=== PATIENT | female | born 1985 | race Caucasian/White ===

== ENCOUNTER → 2019-12-21 | Outpatient (BNVA) | payer OTHER, SELFPAY | PROVIDERS: PCP Internal Medicine; Visit Provider Surgery | DX: T79.2XXA Traumatic secondary and recurrent hemorrhage and seroma, initial encounter (principal) | CPT/HCPCS: 10021; 10160 ==

== ENCOUNTER → 2020-01-06 07:42 | Outpatient (BNVA) | payer OTHER, SELFPAY | PROVIDERS: PCP Internal Medicine; Referring Provider Internal Medicine; Visit Provider Student in an Organized Health Care Education/Training Program | DX: Z76.89 Persons encountering health services in other specified circumstances (principal) ==

== ENCOUNTER 2020-03-30 11:20 | Outpatient (REF) | payer OTHER, SELFPAY ==
[2020-03-30 12:02] LABS: MANUAL DIFF FLAG NO
[2020-03-30 12:12] LABS: Basophils Percent Auto 0.6 % (0-2); Eosinophils Absolute Auto 0.2 X10*3/uL (0.0-0.4); Eosinophils Percent Auto 2.7 % (0-4); Hematocrit 45.2 % (37-47); Hemoglobin 14.8 g/dl (12.0-16.0); Imm Gran Abs Auto 0.04 X10*3/uL (0.00-0.03); Imm Gran Pct Auto 0.6 % (0.0-0.4); Lymphocytes Percent Auto 28.1 % (20-40); Mean Corpuscular HGB Conc 32.7 g/dl (31.0-35.0); Mean Corpuscular Hemoglobin 32.8 pg (27.0-33.0); Mean Corpuscular Volume 100.2 fL (80-98); Mean Platelet Volume 9.2 fL (9.4-12.3); Monocytes Absolute Auto 0.7 X10*3/uL (0.1-1.2); Monocytes Percent Auto 9.3 % (2-11); Neutrophils Absolute Auto 4.2 X10*3/uL (2.0-8.3); Neutrophils Percent Auto 58.7 % (45-73); Platelet Count 281 X10*3/uL (160-400); Red Blood Count 4.51 X10*6/uL (4.20-5.50); Red Cell Distribution Width 13.3 % (11.0-16.0); White Blood Count 7.1 X10*3/uL (4.8-10.8)
[2020-03-30 12:31] LABS: Alanine Aminotransferase 29 U/L (0-31); Alkaline Phosphatase 69 U/L (39-117); Aspartate Amino Transferase 21 U/L (5-31); Bilirubin Total 0.4 mg/dL (0.0-1.0); Blood Urea Nitrogen 11 mg/dL (9-16); C Reactive Protein 0.48 mg/dL (< or = 0.50); Calcium 9.6 mg/dL (8.4-10.2); Estimated Glomerular Filt Rate > 60; Glucose Random 77 mg/dL (60-115); Total Protein 7.3 g/dL (6.5-8.0)
[2020-03-30 12:55] LABS: Anion Gap 10 (12-20); Carbon Dioxide 27 mmol/L (22-29); Chloride 104 mmol/L (96-108); Potassium 4.3 mmol/L (3.3-5.1); Sodium 137 mmol/L (135-145)
[2020-03-30 12:58] LABS: Vitamin B12 234 pg/mL (200-900)
[2020-03-30 13:50] LABS: Erythrocyte Sedimentation Rate 10 MM/HR (0-20)
== END 2020-03-30 11:21 | disposition home or self-care (01) ==
LOC: HO.LAB 11:20
PROVIDERS: PCP Internal Medicine; Visit Provider Student in an Organized Health Care Education/Training Program
DX: L40.50 Arthropathic psoriasis, unspecified (principal)
CPT/HCPCS: 36415; 80053; 82607; 85025; 85652; 86140

== ENCOUNTER → 2020-04-04 08:12 | Outpatient (BNVA) | payer OTHER, SELFPAY | PROVIDERS: PCP Internal Medicine; Referring Provider Internal Medicine; Visit Provider Student in an Organized Health Care Education/Training Program ==

== ENCOUNTER 2020-06-08 10:14 | Outpatient (REF) | payer OTHER, SELFPAY ==
--- NOTE | 2020-06-08 13:07 | MHC.AU.ANO ---
Adult Audiological Evaluation Date of Visit: 06/08/20 [employer] Administrator Used: [place]uran- By Phone Reason for Appointment: Patient has noticed hearing difficulty and tinnitus for approximately 5 years. She feels her hearing is worse in her left ear. Has hearing been tested previously?: No Hearing Handicap Inventory: HHIE SCORE: 36 Based on HHIE score, patient has: Severe perceived hearing handicap Ear History: Ear Deformity: None Reported Recent Ear Drainage: None Reported Recent Ear Pain: None Reported Family History of Hearing Loss?: Yes: Father Recent Ear Infections: None Reported Ear Infections in Childhood: Both Ears History of Ear Wax Buildup: Both Ears Previous Ear Surgery: None Reported Bothersome Tinnitus/Ringing/Noises in Ears: Both Ears Ear used on the phone: Right Ear Blocked/Full Sensation in Ear(s): Both Ears History of occupational noise exposure?: No History: No Medical History: Medical History: Psoriatic Arthritis Medication List: Humira, Methotrexate Otoscopy: Right Ear: Cerumen removal performed. Tympanic membrane now visible. Left Ear: Cerumen removal performed. Tympanic membrane now visible. Tympanometry: Tympanometry performed due to: To assess integrity of the middle ear system Right Ear: Normal Middle Ear System (Type A) Left Ear: Normal Middle Ear System (Type A) Otoacoustic Emissions Frequency Range Used: 1.6-8 kHz Right Ear Results: Present 1.6-2.5 kHz, Reduced/Absent 3-8 kHz Analysis: Reduced/Absent emissions suggest cochlear dysfunction Results are consistent with degree and configuration of hearing loss Left Ear Results: Present 1.6-2.5 kHz, Reduced/Absent 3-8 kHz Analysis: Reduced/Absent emissions suggest cochlear dysfunction Results are consistent with degree and configuration of hearing loss Hearing Evaluation: Transducer(s) Used: Insert Earphones Circumaural Headphones Method: Conventional Audiometry Stimuli Used: Pure Tones Right Ear: Description of Hearing: Mild sloping to moderately-severe sensorineural hearing loss Left Ear: Description of Hearing: Mild sloping to moderately-severe sensorineural hearing loss (overall worse than right ear) Speech Recognition Threshold (SRT): Method Used: Recorded Lists Right Ear: 30 dBHL Left Ear: 40 dBHL Word Discrimination: Method: Recorded Lists Word Lists Used: Lista Bisil?bica (Honduran) Right Ear: 96% at 70 dBHL Left Ear: 100% at 80 dBHL Interpretation of Results: Patient presents with asymmetrical sensorineural hearing loss. With this hearing loss, she will best understand people if they are [id number], and there is minimal background noise. If she was in a noisier environment, or if the speaker was not directly in front of her, it is expected that she would have a much more difficult time hearing and understanding speech. Recommendations: Referral to Ear, Nose, and Throat is recommended to address the newly diagnosed asymmetrical sensorineural hearing loss. After medical clearance is obtained from an ENT, a trial with amplification is recommended. Diagnosis: Primary Diagnosis: H90.3 Bilateral Sensorineural Hearing Loss Services Performed: Comprehensive Audiological Evaluation (CPT 36453), Limited Otoacoustic Emissions (CPT 25749), Tympanometry (CPT 11510) Signature: Provider: Dayanna Sparks, CCC-A
== END 2020-06-08 10:15 | disposition home or self-care (01) ==
LOC: HO.SH 10:14
PROVIDERS: Visit Provider Internal Medicine
DX: H91.90 Unspecified hearing loss, unspecified ear (principal)
CPT/HCPCS: 92557; 92567; 92587

== ENCOUNTER 2020-06-22 11:24 | Outpatient (REF) | payer OTHER, SELFPAY ==
[2020-06-22 12:22] LABS: MANUAL DIFF FLAG NO
[2020-06-22 12:26] LABS: Basophils Percent Auto 0.5 % (0-2); Eosinophils Absolute Auto 0.2 X10*3/uL (0.0-0.4); Hematocrit 45.2 % (37-47); Hemoglobin 14.2 g/dl (12.0-16.0); Imm Gran Abs Auto 0.04 X10*3/uL (0.00-0.03); Imm Gran Pct Auto 0.5 % (0.0-0.4); Lymphocytes Absolute Auto 1.9 X10*3/uL (1.2-4.9); Lymphocytes Percent Auto 21.4 % (20-40); Mean Corpuscular HGB Conc 31.4 g/dl (31.0-35.0); Mean Corpuscular Hemoglobin 31.7 pg (27.0-33.0); Mean Corpuscular Volume 100.9 fL (80-98); Mean Platelet Volume 9.1 fL (9.4-12.3); Monocytes Absolute Auto 0.8 X10*3/uL (0.1-1.2); Monocytes Percent Auto 9.5 % (2-11); Neutrophils Absolute Auto 5.9 X10*3/uL (2.0-8.3); Neutrophils Percent Auto 66.1 % (45-73); Platelet Count 394 X10*3/uL (160-400); Red Blood Count 4.48 X10*6/uL (4.20-5.50); Red Cell Distribution Width 13.7 % (11.0-16.0); White Blood Count 8.9 X10*3/uL (4.8-10.8)
[2020-06-22 13:08] LABS: Alanine Aminotransferase 16 U/L (0-31); Albumin Level 4.1 g/dL (3.5-5.0); Alkaline Phosphatase 122 U/L (39-117); Anion Gap 14 (12-20); Aspartate Amino Transferase 17 U/L (5-31); Bilirubin Total 0.5 mg/dL (0.0-1.0); Blood Urea Nitrogen 9 mg/dL (9-16); C Reactive Protein 1.67 mg/dL (< or = 0.50); Calcium 9.9 mg/dL (8.4-10.2); Carbon Dioxide 26 mmol/L (22-29); Chloride 104 mmol/L (96-108); Estimated Glomerular Filt Rate > 60; Glucose Random 87 mg/dL (60-115); Potassium 4.5 mmol/L (3.3-5.1); Sodium 139 mmol/L (135-145); Total Protein 7.9 g/dL (6.5-8.0)
[2020-06-22 13:13] LABS: Erythrocyte Sedimentation Rate 25 MM/HR (0-20)
== END 2020-06-22 11:25 | disposition home or self-care (01) ==
LOC: HO.LAB 11:24
PROVIDERS: PCP Internal Medicine; Visit Provider Student in an Organized Health Care Education/Training Program
DX: L40.50 Arthropathic psoriasis, unspecified (principal)
CPT/HCPCS: 36415; 80053; 85025; 85652; 86140

== ENCOUNTER → 2020-06-29 08:09 | Outpatient (BNVA) | payer OTHER, SELFPAY | PROVIDERS: PCP Internal Medicine; Visit Provider Student in an Organized Health Care Education/Training Program ==

== ENCOUNTER 2020-09-20 10:06 | Outpatient (REF) | payer OTHER, SELFPAY ==
[2020-09-20 10:45] LABS: MANUAL DIFF FLAG NO
[2020-09-20 10:50] LABS: Basophils Percent Auto 0.4 % (0-2); Eosinophils Absolute Auto 0.2 X10*3/uL (0.0-0.4); Eosinophils Percent Auto 2.2 % (0-4); Hemoglobin 13.7 g/dl (12.0-16.0); Imm Gran Abs Auto 0.03 X10*3/uL (0.00-0.03); Imm Gran Pct Auto 0.3 % (0.0-0.4); Lymphocytes Absolute Auto 1.8 X10*3/uL (1.2-4.9); Mean Corpuscular HGB Conc 32.6 g/dl (31.0-35.0); Mean Corpuscular Hemoglobin 31.7 pg (27.0-33.0); Mean Corpuscular Volume 97.2 fL (80-98); Mean Platelet Volume 9.1 fL (9.4-12.3); Monocytes Percent Auto 11.2 % (2-11); Neutrophils Absolute Auto 5.9 X10*3/uL (2.0-8.3); Neutrophils Percent Auto 65.9 % (45-73); Platelet Count 349 X10*3/uL (160-400); Red Blood Count 4.32 X10*6/uL (4.20-5.50); Red Cell Distribution Width 14.2 % (11.0-16.0); White Blood Count 8.9 X10*3/uL (4.8-10.8)
[2020-09-20 11:26] LABS: Alanine Aminotransferase 15 U/L (0-31); Albumin Level 3.9 g/dL (3.5-5.0); Alkaline Phosphatase 88 U/L (39-117); Anion Gap 13 (12-20); Aspartate Amino Transferase 17 U/L (5-31); Bilirubin Total 0.7 mg/dL (0.0-1.0); Blood Urea Nitrogen 10 mg/dL (9-16); C Reactive Protein 3.64 mg/dL (< or = 0.50); Calcium 9.8 mg/dL (8.4-10.2); Carbon Dioxide 24 mmol/L (22-29); Chloride 106 mmol/L (96-108); Estimated Glomerular Filt Rate > 60; Glucose Random 84 mg/dL (60-115); Potassium 4.2 mmol/L (3.3-5.1); Sodium 139 mmol/L (135-145); Total Protein 7.6 g/dL (6.5-8.0)
[2020-09-20 11:32] LABS: Erythrocyte Sedimentation Rate 26 MM/HR (0-20)
== END 2020-09-20 10:07 | disposition home or self-care (01) ==
LOC: HO.LAB 10:06
PROVIDERS: PCP Internal Medicine; Visit Provider Student in an Organized Health Care Education/Training Program
DX: L40.50 Arthropathic psoriasis, unspecified (principal)
CPT/HCPCS: 36415; 80053; 85025; 85652; 86140

== ENCOUNTER → 2020-09-26 07:47 | Outpatient (BNVA) | payer OTHER, SELFPAY | PROVIDERS: PCP Internal Medicine; Visit Provider Student in an Organized Health Care Education/Training Program ==

== ENCOUNTER 2020-12-28 10:40 | Outpatient (REF) | payer OTHER, SELFPAY ==
[2020-12-28 10:55] LABS: MANUAL DIFF FLAG NO
[2020-12-28 11:56] LABS: Basophils Percent Auto 0.4 % (0-2); Eosinophils Absolute Auto 0.2 X10*3/uL (0.0-0.4); Eosinophils Percent Auto 2.8 % (0-4); Hematocrit 42.1 % (37.0-47.0); Hemoglobin 13.7 g/dl (12.0-16.0); Imm Gran Abs Auto 0.02 X10*3/uL (0.00-0.03); Imm Gran Pct Auto 0.3 % (0.0-0.4); Lymphocytes Absolute Auto 1.5 X10*3/uL (1.2-4.9); Lymphocytes Percent Auto 20.4 % (20-40); Mean Corpuscular HGB Conc 32.5 g/dl (31.0-35.0); Mean Corpuscular Hemoglobin 32.9 pg (27.0-33.0); Mean Platelet Volume 9.5 fL (9.4-12.3); Monocytes Absolute Auto 0.8 X10*3/uL (0.1-1.2); Monocytes Percent Auto 10.1 % (2-11); Neutrophils Absolute Auto 4.9 x10*3/uL (2.0-8.3); Platelet Count 356 X10*3/uL (160-400); Red Blood Count 4.17 X10*6/uL (4.20-5.50); Red Cell Distribution Width 13.6 % (11.0-16.0); White Blood Count 7.5 X10*3/uL (4.8-10.8)
[2020-12-28 12:28] LABS: Alanine Aminotransferase 19 U/L (0-31); Albumin Level 3.9 g/dL (3.5-5.0); Alkaline Phosphatase 85 U/L (39-117); Anion Gap 10 (12-20); Aspartate Amino Transferase 17 U/L (5-31); Bilirubin Total 0.4 mg/dL (0.0-1.0); Blood Urea Nitrogen 11 mg/dL (9-16); C Reactive Protein 0.82 mg/dL (< or = 0.50); Calcium 9.3 mg/dL (8.4-10.2); Carbon Dioxide 27 mmol/L (22-29); Chloride 106 mmol/L (96-108); Estimated Glomerular Filt Rate > 60; Glucose Random 82 mg/dL (60-115); Potassium 4.1 mmol/L (3.3-5.1); Sodium 139 mmol/L (135-145); Total Protein 7.4 g/dL (6.5-8.0)
[2020-12-28 13:15] LABS: Erythrocyte Sedimentation Rate 17 MM/HR (0-20)
== END 2020-12-28 10:41 | disposition home or self-care (01) ==
LOC: HO.LAB 10:40
PROVIDERS: PCP Internal Medicine; Visit Provider Student in an Organized Health Care Education/Training Program
DX: L40.50 Arthropathic psoriasis, unspecified (principal)
CPT/HCPCS: 36415; 80053; 85025; 85652; 86140

== ENCOUNTER → 2020-12-31 07:58 | Outpatient (BNVA) | payer OTHER, SELFPAY | PROVIDERS: PCP Internal Medicine; Visit Provider Nurse Practitioner Family ==

== ENCOUNTER 2021-01-15 09:59 | Outpatient (REF) | payer OTHER, SELFPAY ==
[2021-01-16 13:09] LABS: BV Int Neg Control Negative (Negative); BV Int Pos Control Positive (Positive)
[2021-01-16 13:27] LABS: CT PCR NOT DETECTED (Not Detect.); NG PCR NOT DETECTED (Not Detect.)
[2021-01-23 06:27] LABS: HPV mRNA E6/E7 rflx Not Detected (Not Detected)
== END 2021-01-15 10:00 | disposition home or self-care (01) ==
LOC: HO.LAB 09:59
PROVIDERS: Visit Provider Advanced Practice Midwife
DX: Z01.419 Encounter for gynecological examination (general) (routine) without abnormal findings (principal); L40.9 Psoriasis, unspecified; N89.8 Other specified noninflammatory disorders of vagina; L40.50 Arthropathic psoriasis, unspecified; H90.3 Sensorineural hearing loss, bilateral; Z20.2 Contact with and (suspected) exposure to infections with a predominantly sexual mode of transmission; Z79.899 Other long term (current) drug therapy; Z87.891 Personal history of nicotine dependence
CPT/HCPCS: 87480; 87491; 87510; 87591; 87624; 87660; 88142

== ENCOUNTER 2021-05-27 09:17 | Outpatient (REF) | payer OTHER, SELFPAY ==
[2021-05-27 09:35] LABS: MANUAL DIFF FLAG NO
[2021-05-27 10:03] LABS: Basophils Percent Auto 0.4 % (0-2); Eosinophils Absolute Auto 0.2 X10*3/uL (0.0-0.4); Eosinophils Percent Auto 2.6 % (0-4); Hematocrit 42.1 % (37.0-47.0); Hemoglobin 13.7 g/dl (12.0-16.0); Imm Gran Abs Auto 0.03 X10*3/uL (0.00-0.03); Imm Gran Pct Auto 0.4 % (0.0-0.4); Lymphocytes Absolute Auto 1.8 X10*3/uL (1.2-4.9); Lymphocytes Percent Auto 25.6 % (20-40); Mean Corpuscular HGB Conc 32.5 g/dl (31.0-35.0); Mean Corpuscular Hemoglobin 32.9 pg (27.0-33.0); Mean Corpuscular Volume 101.2 fL (80.0-98.0); Monocytes Absolute Auto 0.7 X10*3/uL (0.1-1.2); Monocytes Percent Auto 9.7 % (2-11); Neutrophils Absolute Auto 4.3 x10*3/uL (2.0-8.3); Neutrophils Percent Auto 61.3 % (45-73); Platelet Count 316 X10*3/uL (160-400); Red Blood Count 4.16 X10*6/uL (4.20-5.50); Red Cell Distribution Width 13.1 % (11.0-16.0); White Blood Count 6.9 X10*3/uL (4.8-10.8)
[2021-05-27 10:29] LABS: Alanine Aminotransferase 32 U/L (0-31); Albumin Level 3.9 g/dL (3.5-5.0); Alkaline Phosphatase 80 U/L (39-117); Anion Gap 10 (12-20); Aspartate Amino Transferase 27 U/L (5-31); Bilirubin Total 0.7 mg/dL (0.0-1.0); Blood Urea Nitrogen 11 mg/dL (9-16); C Reactive Protein 0.58 mg/dL (< or = 0.50); Calcium 9.4 mg/dL (8.4-10.2); Carbon Dioxide 25 mmol/L (22-29); Chloride 105 mmol/L (96-108); Estimated Glomerular Filt Rate > 60; Glucose Random 90 mg/dL (60-115); Sodium 136 mmol/L (135-145); Total Protein 7.5 g/dL (6.5-8.0)
[2021-05-27 10:49] LABS: Erythrocyte Sedimentation Rate 33 MM/HR (0-20)
== END 2021-05-27 09:18 | disposition home or self-care (01) ==
LOC: HO.LAB 09:17
PROVIDERS: PCP Internal Medicine; Visit Provider Nurse Practitioner Family
DX: L40.50 Arthropathic psoriasis, unspecified (principal)
CPT/HCPCS: 36415; 80053; 85025; 85652; 86140

== ENCOUNTER 2021-05-29 18:00 | Outpatient (REF) | payer OTHER, SELFPAY | END 2021-05-29 18:01 | disposition home or self-care (01) | LOC: HO.LNP 18:00 | PROVIDERS: Visit Provider Nurse Practitioner Family | DX: H92.11 Otorrhea, right ear (principal); H61.891 Other specified disorders of right external ear; B96.5 Pseudomonas (aeruginosa) (mallei) (pseudomallei) as the cause of diseases classified elsewhere; Z16.11 Resistance to penicillins | CPT/HCPCS: 87070; 87077; 87186; 87205 ==

== ENCOUNTER → 2021-05-31 07:57 | Outpatient (BNVA) | payer OTHER, SELFPAY | PROVIDERS: PCP Internal Medicine; Visit Provider Nurse Practitioner Family | DX: Z13.89 Encounter for screening for other disorder (principal) ==

== ENCOUNTER 2021-09-27 10:42 | Outpatient (REF) | payer OTHER, SELFPAY ==
[2021-09-27 11:13] LABS: MANUAL DIFF FLAG NO
[2021-09-27 12:16] LABS: Basophils Percent Auto 0.5 % (0-2); Eosinophils Absolute Auto 0.1 X10*3/uL (0.0-0.4); Eosinophils Percent Auto 1.8 % (0-4); Hematocrit 38.8 % (37.0-47.0); Hemoglobin 12.2 g/dl (12.0-16.0); Imm Gran Abs Auto 0.01 X10*3/uL (0.00-0.03); Imm Gran Pct Auto 0.2 % (0.0-0.4); Lymphocytes Absolute Auto 1.2 X10*3/uL (1.2-4.9); Lymphocytes Percent Auto 22.3 % (20-40); Mean Corpuscular HGB Conc 31.4 g/dl (31.0-35.0); Mean Corpuscular Hemoglobin 30.8 pg (27.0-33.0); Mean Platelet Volume 9.6 fL (9.4-12.3); Monocytes Absolute Auto 0.6 X10*3/uL (0.1-1.2); Neutrophils Absolute Auto 3.6 x10*3/uL (2.0-8.3); Neutrophils Percent Auto 65.2 % (45-73); Platelet Count 273 X10*3/uL (160-400); Red Blood Count 3.96 X10*6/uL (4.20-5.50); Red Cell Distribution Width 13.6 % (11.0-16.0); White Blood Count 5.5 X10*3/uL (4.8-10.8)
[2021-09-27 12:50] LABS: Alanine Aminotransferase 26 U/L (0-31); Aspartate Amino Transferase 20 U/L (5-31); C Reactive Protein 0.94 mg/dL (< or = 0.50); Estimated Glomerular Filt Rate > 60
[2021-09-27 13:04] LABS: Erythrocyte Sedimentation Rate 18 MM/HR (0-20)
== END 2021-09-27 10:43 | disposition home or self-care (01) ==
LOC: HO.LAB 10:42
PROVIDERS: PCP Internal Medicine; Visit Provider Nurse Practitioner Family
DX: L40.50 Arthropathic psoriasis, unspecified (principal); Z79.899 Other long term (current) drug therapy
CPT/HCPCS: 36415; 82565; 84450; 84460; 85025; 85652; 86140

== ENCOUNTER 2021-10-01 08:00 | Outpatient (RCR) | payer OTHER, SELFPAY | END 2021-12-19 13:57 | disposition home or self-care (01) | LOC: HO.WCC 08:00 | PROVIDERS: PCP Internal Medicine; Visit Provider Physician Assistant | DX: L89.310 Pressure ulcer of right buttock, unstageable (principal); F12.90 Cannabis use, unspecified, uncomplicated | CPT/HCPCS: 99212; 99213 ==

== ENCOUNTER 2021-10-14 08:43 | Outpatient (REF) | payer OTHER, SELFPAY ==
[2021-10-14 10:39] LABS: MANUAL DIFF FLAG NO
[2021-10-14 10:42] LABS: Basophils Percent Auto 0.6 % (0-2); Eosinophils Absolute Auto 0.2 X10*3/uL (0.0-0.4); Eosinophils Percent Auto 3.8 % (0-4); Imm Gran Abs Auto 0.01 X10*3/uL (0.00-0.03); Imm Gran Pct Auto 0.2 % (0.0-0.4); Lymphocytes Absolute Auto 1.4 X10*3/uL (1.2-4.9); Lymphocytes Percent Auto 30.1 % (20-40); Mean Corpuscular HGB Conc 31.7 g/dl (31.0-35.0); Mean Corpuscular Hemoglobin 30.8 pg (27.0-33.0); Mean Corpuscular Volume 97.2 fL (80.0-98.0); Mean Platelet Volume 9.4 fL (9.4-12.3); Monocytes Absolute Auto 0.4 X10*3/uL (0.1-1.2); Monocytes Percent Auto 8.6 % (2-11); Neutrophils Absolute Auto 2.7 x10*3/uL (2.0-8.3); Neutrophils Percent Auto 56.7 % (45-73); Platelet Count 300 X10*3/uL (160-400); Red Blood Count 4.22 X10*6/uL (4.20-5.50); Red Cell Distribution Width 13.1 % (11.0-16.0); White Blood Count 4.8 X10*3/uL (4.8-10.8)
[2021-10-14 10:56] LABS: C Reactive Protein 0.19 mg/dL (< or = 0.50)
[2021-10-14 11:17] LABS: HBS Num1 2.38 mIU/mL (0-7.99); HBc Num1 0.13 S/CO (0.00-0.79); HBsAGNum1 0.24 S/CO (0.00-0.99); Hepatitis B Core Antibody Nonreactive (Nonreactive); Hepatitis B Surface Antigen Negative (Negative); ~HepC Num1 0.18 S/CO (0.00-0.79); ~Hepatitis B Surface Antibody NONREACTIVE (Nonreactive); ~Hepatitis C Antibody Nonreactive (Nonreactive)
[2021-10-14 11:35] LABS: Erythrocyte Sedimentation Rate 12 MM/HR (0-20)
[2021-10-14 11:54] LABS: Creatinine Urine 91.52 mg/dL; Total Protein Urine Random < 7 mg/dL (<12)
[2021-10-16 01:47] LABS: Complement C3 105 mg/dL (83-193)
[2021-10-16 07:30] LABS: Hepatitis A Antibody IgM 0.16 Index (0-0.79); ~Hepatitis A Antibody IgM Nonreactive (Nonreactive)
[2021-10-16 22:56] LABS: TS Negative Control Passed; TS Panel A 0; TS Panel B 0; TS Positive Control Passed; TSpotTB Negative (Negative)
[2021-10-17 13:11] LABS: Anti DNA DS Antibody 24 IU/mL; Antibody to SS-A Antigen <1.0 NEG AI (<1.0 NEG); Antibody to SS-B Antigen <1.0 NEG AI (<1.0 NEG)
[2021-10-18 08:07] LABS: DRVVT 1:1 Mix Interpretation Not Indicated; PTT (LAC) Screen 35 sec (<=40)
[2021-10-20 23:41] LABS: Histone Antibody <1.0 U (<1.0)
== END 2021-10-14 08:44 | disposition home or self-care (01) ==
LOC: HO.10HDL 08:43
PROVIDERS: Visit Provider Student in an Organized Health Care Education/Training Program
DX: R76.8 Other specified abnormal immunological findings in serum (principal); Z11.7 Encounter for testing for latent tuberculosis infection; Z11.59 Encounter for screening for other viral diseases
CPT/HCPCS: 36415; 83516; 84156; 85025; 85597; 85613; 85652; 85730; 86140; 86160; 86225; 86235; 86481; 86704; 86706; 86709; 86803; 87340

== ENCOUNTER 2021-12-16 12:59 | Outpatient (REF) | payer OTHER, SELFPAY ==
[2021-12-16 13:07] LABS: MANUAL DIFF FLAG NO
--- NOTE | 2021-12-16 13:07 | ECG_ITS ---
Test Reason : PREOP Blood Pressure : / mmHG Vent. Rate : 062 BPM Atrial Rate : 062 BPM P-R Int : 118 ms QRS Dur : 088 ms QT Int : 418 ms P-R-T Axes : 029 037 024 degrees QTc Int : 424 ms Normal sinus rhythm with sinus arrhythmia Intra-ventricular conduction delay Otherwise normal ECG No previous ECGs available Referred By: Ana Luisa Murry Electronically Signed By:DARRELL JIMÉNEZ MD
[2021-12-16 13:34] LABS: Basophils Percent Auto 0.3 % (0-2); Eosinophils Absolute Auto 0.1 X10*3/uL (0.0-0.4); Eosinophils Percent Auto 1.7 % (0-4); Hematocrit 40.2 % (37.0-47.0); Imm Gran Abs Auto 0.02 X10*3/uL (0.00-0.03); Imm Gran Pct Auto 0.3 % (0.0-0.4); Lymphocytes Absolute Auto 1.8 X10*3/uL (1.2-4.9); Lymphocytes Percent Auto 24.1 % (20-40); Mean Corpuscular HGB Conc 32.3 g/dl (31.0-35.0); Mean Corpuscular Hemoglobin 30.6 pg (27.0-33.0); Mean Corpuscular Volume 94.6 fL (80.0-98.0); Mean Platelet Volume 9.2 fL (9.4-12.3); Monocytes Absolute Auto 0.5 X10*3/uL (0.1-1.2); Monocytes Percent Auto 6.3 % (2-11); Neutrophils Absolute Auto 5.1 x10*3/uL (2.0-8.3); Neutrophils Percent Auto 67.3 % (45-73); Platelet Count 275 X10*3/uL (160-400); Red Blood Count 4.25 X10*6/uL (4.20-5.50); Red Cell Distribution Width 13.7 % (11.0-16.0); White Blood Count 7.6 X10*3/uL (4.8-10.8)
[2021-12-16 14:07] LABS: Alanine Aminotransferase 20 U/L (0-31); Albumin Level 4.2 g/dL (3.5-5.0); Alkaline Phosphatase 75 U/L (39-117); Anion Gap 14 (12-20); Aspartate Amino Transferase 19 U/L (5-31); Bilirubin Total 0.3 mg/dL (0.0-1.0); Blood Urea Nitrogen 16 mg/dL (9-16); Calcium 9.7 mg/dL (8.4-10.2); Carbon Dioxide 23 mmol/L (22-29); Chloride 105 mmol/L (96-108); Estimated Glomerular Filt Rate > 60; Glucose Random 92 mg/dL (60-115); Potassium 4.2 mmol/L (3.3-5.1); Sodium 138 mmol/L (135-145)
== END 2021-12-16 13:00 | disposition home or self-care (01) ==
LOC: HO.LAB 12:59
PROVIDERS: PCP Internal Medicine; Visit Provider Internal Medicine
DX: Z01.818 Encounter for other preprocedural examination (principal); I45.89 Other specified conduction disorders; D64.9 Anemia, unspecified; T30.4 Corrosion of unspecified body region, unspecified degree
CPT/HCPCS: 36415; 80053; 85025; 93005

== ENCOUNTER 2021-12-30 09:21 | Outpatient (REF) | payer OTHER, SELFPAY ==
[2021-12-31 13:37] LABS: SM/Ribonucleoprotein Ab <1.0 NEG AI (<1.0 NEG); Smith Protein <1.0 NEG AI (<1.0 NEG)
[2022-01-03 12:51] LABS: Anti Nuclear Antibody Pattern Nuclear, Homogeneous; Anti Nuclear Antibody Screen POSITIVE (NEGATIVE)
== END 2021-12-30 09:22 | disposition home or self-care (01) ==
LOC: HO.LAB 09:21
PROVIDERS: PCP Internal Medicine; Visit Provider Student in an Organized Health Care Education/Training Program
DX: E55.9 Vitamin D deficiency, unspecified (principal); R76.8 Other specified abnormal immunological findings in serum
CPT/HCPCS: 36415; 82306; 86038; 86039; 86235

== ENCOUNTER → 2022-01-15 10:04 | Outpatient (BNVA) | payer OTHER, SELFPAY | PROVIDERS: PCP Internal Medicine; Referring Provider Internal Medicine; Visit Provider Surgery | DX: L02.612 Cutaneous abscess of left foot (principal) | CPT/HCPCS: 10061 ==

== ENCOUNTER → 2022-02-25 08:52 | Outpatient (BNVA) | payer OTHER, SELFPAY | PROVIDERS: PCP Internal Medicine; Referring Provider Internal Medicine; Visit Provider Internal Medicine Cardiovascular Disease | DX: R94.31 Abnormal electrocardiogram [ECG] [EKG] (principal) | CPT/HCPCS: 93005 ==

== ENCOUNTER → 2022-03-04 07:28 | Outpatient (BNVA) | payer OTHER, SELFPAY | PROVIDERS: PCP Internal Medicine; Visit Provider Student in an Organized Health Care Education/Training Program | DX: Z13.89 Encounter for screening for other disorder (principal) ==

== ENCOUNTER 2022-03-04 08:02 | Outpatient (REF) | payer OTHER, SELFPAY ==
[2022-03-04 10:35] LABS: MANUAL DIFF FLAG NO
[2022-03-04 10:42] LABS: Basophils Absolute Auto 0.1 X10*3/uL (0.0-0.2); Eosinophils Absolute Auto 0.2 X10*3/uL (0.0-0.4); Eosinophils Percent Auto 3.6 % (0-4); Hemoglobin 12.9 g/dl (12.0-16.0); Imm Gran Abs Auto 0.02 X10*3/uL (0.00-0.03); Imm Gran Pct Auto 0.4 % (0.0-0.4); Lymphocytes Absolute Auto 2.2 X10*3/uL (1.2-4.9); Lymphocytes Percent Auto 41.9 % (20-40); Mean Corpuscular HGB Conc 32.3 g/dl (31.0-35.0); Mean Corpuscular Hemoglobin 32.2 pg (27.0-33.0); Mean Corpuscular Volume 99.8 fL (80.0-98.0); Mean Platelet Volume 9.3 fL (9.4-12.3); Monocytes Absolute Auto 0.7 X10*3/uL (0.1-1.2); Monocytes Percent Auto 13.5 % (2-11); Neutrophils Absolute Auto 2.1 x10*3/uL (2.0-8.3); Neutrophils Percent Auto 39.6 % (45-73); Platelet Count 330 X10*3/uL (160-400); Red Blood Count 4.01 X10*6/uL (4.20-5.50); Red Cell Distribution Width 13.2 % (11.0-16.0); White Blood Count 5.3 X10*3/uL (4.8-10.8)
[2022-03-04 11:24] LABS: Alanine Aminotransferase 18 U/L (0-31); Albumin Level 3.6 g/dL (3.5-5.0); Alkaline Phosphatase 84 U/L (39-117); Anion Gap 11 (12-20); Aspartate Amino Transferase 16 U/L (5-31); Bilirubin Total 0.2 mg/dL (0.0-1.0); Blood Urea Nitrogen 12 mg/dL (9-16); C Reactive Protein 0.24 mg/dL (< or = 0.50); Calcium 9.2 mg/dL (8.4-10.2); Carbon Dioxide 24 mmol/L (22-29); Chloride 108 mmol/L (96-108); Estimated Glomerular Filt Rate > 60; Glucose Random 80 mg/dL (60-115); Sodium 139 mmol/L (135-145); Total Protein 6.6 g/dL (6.5-8.0)
[2022-03-04 13:14] LABS: Erythrocyte Sedimentation Rate 11 MM/HR (0-20)
== END 2022-03-04 08:03 | disposition home or self-care (01) ==
LOC: HO.10HDL 08:02
PROVIDERS: Visit Provider Student in an Organized Health Care Education/Training Program
DX: Z79.899 Other long term (current) drug therapy (principal)
CPT/HCPCS: 36415; 80053; 85025; 85652; 86140

== ENCOUNTER 2022-03-13 13:25 | Outpatient (REF) | payer OTHER, SELFPAY | END 2022-03-13 13:26 | disposition home or self-care (01) | LOC: HO.LNP 13:25 | PROVIDERS: PCP Internal Medicine; Visit Provider Advanced Practice Midwife | DX: Z13.89 Encounter for screening for other disorder (principal) ==

== ENCOUNTER 2022-03-13 14:05 | Outpatient (REF) | payer OTHER, SELFPAY ==
[2022-03-13 16:54] LABS: Syphilis Screen Nonreactive (Nonreactive)
[2022-03-13 18:37] LABS: CT PCR NOT DETECTED (Not Detect.); NG PCR NOT DETECTED (Not Detect.)
[2022-03-15 08:49] LABS: HBc Num1 0.09 S/CO (0.00-0.79); Hepatitis B Core Antibody Nonreactive (Nonreactive); ~HepC Num1 0.13 S/CO (0.00-0.79); ~Hepatitis C Antibody Nonreactive (Nonreactive)
[2022-03-15 09:33] LABS: HIV AB/AG Nonreactive (Nonreactive); HIV Num 1 0.05 S/CO (0.00-0.99)
== END 2022-03-13 14:06 | disposition home or self-care (01) ==
LOC: HO.LAB 14:05
PROVIDERS: PCP Internal Medicine; Visit Provider Advanced Practice Midwife
DX: Z11.3 Encounter for screening for infections with a predominantly sexual mode of transmission (principal); Z11.4 Encounter for screening for human immunodeficiency virus [HIV]; Z20.2 Contact with and (suspected) exposure to infections with a predominantly sexual mode of transmission
CPT/HCPCS: 0353U; 86704; 86780; 86803; 87389

== ENCOUNTER 2022-06-23 10:27 | Outpatient (REF) | payer OTHER, SELFPAY ==
[2022-06-23 10:57] LABS: MANUAL DIFF FLAG NO
[2022-06-23 11:08] LABS: Basophils Absolute Auto 0.1 X10*3/uL (0.0-0.2); Basophils Percent Auto 0.6 % (0-2); Eosinophils Absolute Auto 0.3 X10*3/uL (0.0-0.4); Eosinophils Percent Auto 2.5 % (0-4); Hemoglobin 14.2 g/dl (12.0-16.0); Imm Gran Abs Auto 0.03 X10*3/uL (0.00-0.03); Imm Gran Pct Auto 0.3 % (0.0-0.4); Lymphocytes Absolute Auto 1.6 X10*3/uL (1.2-4.9); Lymphocytes Percent Auto 15.8 % (20-40); Mean Corpuscular HGB Conc 32.3 g/dl (31.0-35.0); Mean Corpuscular Hemoglobin 31.8 pg (27.0-33.0); Mean Corpuscular Volume 98.7 fL (80.0-98.0); Mean Platelet Volume 8.7 fL (9.4-12.3); Monocytes Absolute Auto 0.6 X10*3/uL (0.1-1.2); Monocytes Percent Auto 6.2 % (2-11); Neutrophils Absolute Auto 7.7 x10*3/uL (2.0-8.3); Neutrophils Percent Auto 74.6 % (45-73); Platelet Count 357 X10*3/uL (160-400); Red Blood Count 4.46 X10*6/uL (4.20-5.50); Red Cell Distribution Width 12.7 % (11.0-16.0); White Blood Count 10.3 X10*3/uL (4.8-10.8)
[2022-06-23 11:55] LABS: Erythrocyte Sedimentation Rate 14 MM/HR (0-20)
[2022-06-23 12:16] LABS: Alanine Aminotransferase 14 U/L (0-31); Albumin Level 3.9 g/dL (3.5-5.0); Alkaline Phosphatase 87 U/L (39-117); Anion Gap 11 (12-20); Aspartate Amino Transferase 14 U/L (5-31); Bilirubin Total 0.3 mg/dL (0.0-1.0); Blood Urea Nitrogen 7 mg/dL (9-16); C Reactive Protein 0.37 mg/dL (< or = 0.50); Calcium 9.7 mg/dL (8.4-10.2); Carbon Dioxide 23 mmol/L (22-29); Chloride 108 mmol/L (96-108); Estimated Glomerular Filt Rate > 60; Glucose Random 94 mg/dL (60-115); Potassium 4.1 mmol/L (3.3-5.1); Sodium 138 mmol/L (135-145); Total Protein 7.4 g/dL (6.5-8.0)
== END 2022-06-23 10:28 | disposition home or self-care (01) ==
LOC: HO.10HDL 10:27
PROVIDERS: Visit Provider Student in an Organized Health Care Education/Training Program
DX: Z79.899 Other long term (current) drug therapy (principal)
CPT/HCPCS: 36415; 80053; 85025; 85652; 86140

== ENCOUNTER → 2022-06-24 07:25 | Outpatient (BNVA) | payer OTHER, SELFPAY | PROVIDERS: PCP Internal Medicine; Visit Provider Student in an Organized Health Care Education/Training Program | DX: Z13.89 Encounter for screening for other disorder (principal) ==

== ENCOUNTER 2022-08-08 16:37 | Inpatient (IN) | payer OTHER, SELFPAY ==
--- NOTE | ~2022-08-08 | CT_ITS ---
EXAMINATION: CT ABDOMEN AND PELVIS WITH CONTRAST CLINICAL INFORMATION: Abdominal cellulitis. COMPARISON: None available. TECHNIQUE: Multidetector volumetric images were obtained from the superior aspect of the liver through the pubic symphysis following administration 85 mL of Omnipaque 350 intravenous contrast. Sagittal and coronal reformatted images were obtained on the technologist's workstation. Oral contrast: No This CT examination was performed using dose optimization techniques as appropriate, variously including the following: *Automated exposure control *Adjustment of mA and/or kV according to patient size (this includes techniques or standardized protocols for targeted exams where dose is matched to indication/reason for exam; i.e. extremities or head) *Use of iterative reconstruction technique DLP: 520 mGy-cm FINDINGS: LUNG BASES: No focal consolidation or pleural effusion. Subsegmental atelectasis. A few calcified granulomas are seen. Partially imaged bilateral breast prosthesis. LIVER, GALLBLADDER, AND BILIARY TREE: The liver is enlarged measuring 21 cm craniocaudally but is otherwise normal in shape and attenuation. No discrete focal liver lesion. No biliary ductal dilatation. The gallbladder is unremarkable with no evidence of radiopaque gallstones, gallbladder wall thickening, or obvious pericholecystic inflammatory changes. PANCREAS: Unremarkable. SPLEEN: Unremarkable. ADRENAL GLANDS: Unremarkable. KIDNEYS AND URETERS: Symmetric nephrograms. No hydronephrosis. No perinephric fat stranding. No solid renal lesion. High density material is some of the calices and in the right renal pelvis, representing IV contrast limiting assessment of small calculi. BLADDER: Unremarkable. GASTROINTESTINAL TRACT: The stomach and the small bowel are nondilated. Normal appendix. No pericolonic inflammatory changes. No evidence of bowel obstruction. ABDOMINAL WALL: Multifocal postsurgical changes throughout the anterior and posterior abdominal wall as well as gluteal regions from cosmetic procedures. Diffuse fat stranding as well as free fluid along the anterior abdominal wall with an 8 x 1.7 x 4.6 cm organized fluid collection in the lower anterior abdominal wall at the level of L5-S1 (3:65). Right sided gluteal implant with mild surrounding fat stranding. Extensive soft tissue thickening and fat stranding in the left medial gluteal region adjacent to the gluteal fold, where there is a 6.7 x 1.4 x 5 cm gas containing collection (3:90). Multiple centrally fatty nodules in the bilateral gluteal regions, likely from injection sites. LYMPH NODES: Bilateral external iliac and inguinal lymphadenopathy, for instance coronal image 18 series 7. VASCULAR: Abdominal aorta is normal in caliber. PELVIC VISCERA: Unremarkable. OSSEOUS STRUCTURES: No acute or aggressive appearing osseous abnormalities. CT/CT abdomen pelvis w IV con IMPRESSION: Extensive postsurgical changes in the abdominal wall as well as gluteal regions. There is an 8 cm organized collection in the lower anterior abdominal wall that could represent a postoperative seroma or developing abscess, with significant surrounding inflammatory changes. There is a 6.7 cm gas-containing collection in the medial left gluteal region with surrounding soft tissue thickening and fat stranding concerning for an abscess. There is some degree of fat stranding and soft tissue thickening surrounding a right gluteal implant, infection is not excluded, correlate with physical examination. There are numerous injection sites with fat necrosis in the bilateral gluteal regions. Nonspecific hepatomegaly. Bilateral inguinal lymphadenopathy, likely reactive in nature.
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
[2022-08-08 16:43] VITALS: BP 119/73; PULSE 134; RESP 20; TEMP 38.5; O2SAT 96; BMI 23.2
[2022-08-08 17:07] LABS: MANUAL DIFF FLAG NO
[2022-08-08 17:24] LABS: Basophils Percent Auto 0.3 % (0-2); Eosinophils Absolute Auto 0.1 X10*3/uL (0.0-0.4); Eosinophils Percent Auto 0.5 % (0-4); Hematocrit 40.3 % (37.0-47.0); Hemoglobin 13.5 g/dl (12.0-16.0); Imm Gran Abs Auto 0.09 X10*3/uL (0.00-0.03); Imm Gran Pct Auto 0.7 % (0.0-0.4); Lymphocytes Absolute Auto 0.7 X10*3/uL (1.2-4.9); Lymphocytes Percent Auto 5.2 % (20-40); Mean Corpuscular HGB Conc 33.5 g/dl (31.0-35.0); Mean Corpuscular Hemoglobin 32.2 pg (27.0-33.0); Mean Corpuscular Volume 96.2 fL (80.0-98.0); Mean Platelet Volume 9.4 fL (9.4-12.3); Monocytes Absolute Auto 0.9 X10*3/uL (0.1-1.2); Monocytes Percent Auto 6.8 % (2-11); Neutrophils Absolute Auto 11.5 x10*3/uL (2.0-8.3); Neutrophils Percent Auto 86.5 % (45-73); Platelet Count 315 X10*3/uL (160-400); Red Blood Count 4.19 X10*6/uL (4.20-5.50); Red Cell Distribution Width 13.2 % (11.0-16.0); White Blood Count 13.3 X10*3/uL (4.8-10.8)
[2022-08-08 17:29] LABS: Alanine Aminotransferase 23 U/L (0-31); Albumin Level 3.8 g/dL (3.5-5.0); Alkaline Phosphatase 83 U/L (39-117); Anion Gap 13 (12-20); Aspartate Amino Transferase 21 U/L (5-31); Bilirubin Direct 0.3 mg/dL (0.0-0.5); Bilirubin Total 0.6 mg/dL (0.0-1.0); Blood Urea Nitrogen 5 mg/dL (9-16); Calcium 9.9 mg/dL (8.4-10.2); Carbon Dioxide 23 mmol/L (22-29); Chloride 100 mmol/L (96-108); Creatinine Clr Calc Pharmacy 118.4; Estimated Glomerular Filt Rate > 60; Glucose Random 105 mg/dL (60-115); Potassium 3.2 mmol/L (3.3-5.1); Sodium 133 mmol/L (135-145); Total Protein 7.7 g/dL (6.5-8.0)
[2022-08-08 17:41] LABS: Lactic Acid 2.2 mmol/L (0.5-2.0)
[2022-08-08] MEDS: iohexoL 350 MG/ML 100 ML INFUS..BTL IV (17:42)
[2022-08-08] MEDS: Acetaminophen 325 MG TABLET 975 MG PO (17:44)
[2022-08-08] MEDS: 0.9 % Sodium Chloride 2,000 ML 999 ML IV (17:45)
[2022-08-08] MEDS: Ketorolac Tromethamine 30 MG/ML VIAL 15 MG IVPUSH (17:45)
[2022-08-08] MEDS: cefEPime HCl 1 GM in 0.9 % Sodium Chloride 50 ML IV (17:45)
[2022-08-08 18:26] LABS: Magnesium 1.5 mg/dL (1.6-2.6)
--- NOTE | 2022-08-08 18:39 | ECG_ITS ---
Test Reason : ABDOMINAL PAIN Blood Pressure : / mmHG Vent. Rate : 105 BPM Atrial Rate : 105 BPM P-R Int : 118 ms QRS Dur : 088 ms QT Int : 356 ms P-R-T Axes : 037 048 -06 degrees QTc Int : 470 ms Sinus tachycardia T wave abnormality, consider anterior ischemia Abnormal ECG When compared with ECG of 16-DEC-2021 13:05, Vent. rate has increased BY 43 BPM T wave inversion more evident in Inferior leads T wave inversion now evident in Anterior leads Referred By: Berta Moore Electronically Signed By:CR QUEZADA MD
[2022-08-08 19:05] LABS: Reflex Lactate? Lactic Acid Added
[2022-08-08 19:11] VITALS: BP 110/61; PULSE 105; RESP 20; TEMP 37.4; O2SAT 96
--- NOTE | 2022-08-08 19:16 | PC.NURSE ---
assumed care of pt- recvd report from JEFFREY Flores aox4 no apparent distress father at bedside ambulated to restroom safely/independently
[2022-08-08] MEDS: Potassium Chloride/H20 10 MEQ/100 ML PIGGYBACK 100 MEQ IV ×2 (20:00→22:48)
[2022-08-08] MEDS: Magnesium Sulfate/D5W 1 GM/100 ML PIGGYBACK IV (20:14)
--- NOTE | 2022-08-08 20:18 | PHA.MEDREC ---
Pharmacy Consult ? Medication Reconciliation Pharmacy has completed the medication reconciliation. Spoke to patient to confirm meds with family at bedside. Patient and family member state they currently take azithromycin 250mg daily for a 5 day course and have an end date of 08/11/22. Patient also mentions that they take methrotrexate 2.5mg weekly, however are currently off the medication because of laser surgery that was performed on July 25. According to the patient, the providers told the patient to not take the methotrexate for one month following the surgery, and shouldn't start taking it again until after 08/24/2022. Leaving methotrexate off of med list to avoid any med errors.
[2022-08-08 20:24] LABS: ~Lactic Acid-LAB USE ONLY 0.9 mmol/L (0.5-2.0)
--- NOTE | 2022-08-08 20:44 | PC.NURSE ---
IV line in LAC infiltrated when pt reported minimal pain and noticed IV fluid not running. IV line removed. New IV access to follow.
--- NOTE | 2022-08-08 21:11 | PC.NURSE ---
IV line access obtained 20 g L forearm
[2022-08-08 21:13] VITALS: BP 105/60; PULSE 96; RESP 27; TEMP 36.9; O2SAT 95
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
--- NOTE | 2022-08-08 22:47 | PC.NURSE ---
BYRON Suh RN to give N2N report.
--- NOTE | 2022-08-08 23:11 | PC.NURSE ---
Report given to JEFFREY Suh. Pt to room 450.
[2022-08-08 23:30] VITALS: BP 110/41; PULSE 94; RESP 16; TEMP 36.8; O2SAT 98
[2022-08-08 23:45] VITALS: BP 114/53; PULSE 100; RESP 18; TEMP 37.2; O2SAT 95
[2022-08-09] VITALS (7 sets, daily range): BP systolic 109–127; BP diastolic 50–74; PULSE 93–119; RESP 18–20; TEMP 37.1–39.3; O2SAT 94–96; BMI 24.4
[2022-08-09] MEDS: ondansetron HCL 4 MG/2 ML VIAL IVPUSH ×2 (03:22→17:09)
[2022-08-09 06:18] LABS: MANUAL DIFF FLAG NO
[2022-08-09 06:22] LABS: Basophils Percent Auto 0.1 % (0-2); Hematocrit 34.2 % (37.0-47.0); Hemoglobin 11.3 g/dl (12.0-16.0); Imm Gran Abs Auto 0.06 X10*3/uL (0.00-0.03); Imm Gran Pct Auto 0.6 % (0.0-0.4); Lymphocytes Absolute Auto 0.4 X10*3/uL (1.2-4.9); Lymphocytes Percent Auto 4.4 % (20-40); Mean Corpuscular Hemoglobin 31.5 pg (27.0-33.0); Mean Corpuscular Volume 95.3 fL (80.0-98.0); Mean Platelet Volume 9.3 fL (9.4-12.3); Monocytes Absolute Auto 0.7 X10*3/uL (0.1-1.2); Neutrophils Absolute Auto 8.7 x10*3/uL (2.0-8.3); Neutrophils Percent Auto 87.9 % (45-73); Platelet Count 263 X10*3/uL (160-400); Red Blood Count 3.59 X10*6/uL (4.20-5.50); Red Cell Distribution Width 13.3 % (11.0-16.0); White Blood Count 9.9 X10*3/uL (4.8-10.8)
[2022-08-09 06:37] LABS: Anion Gap 8 (12-20); Blood Urea Nitrogen 5 mg/dL (9-16); Calcium 8.7 mg/dL (8.4-10.2); Carbon Dioxide 24 mmol/L (22-29); Chloride 104 mmol/L (96-108); Creatinine Clr Calc Pharmacy 125.5; Estimated Glomerular Filt Rate > 60; Glucose Random 92 mg/dL (60-115); Potassium 3.4 mmol/L (3.3-5.1); Sodium 133 mmol/L (135-145)
[2022-08-09 07:07] LABS: Glucose, Whole Blood 112 mg/dL (60-115)
[2022-08-09] MEDS: Acetaminophen 325 MG TABLET 650 MG PO (07:50)
[2022-08-09] MEDS: cefEPime HCl 2 GM in 0.9 % Sodium Chloride 50 ML IV ×2 (07:51→18:27)
[2022-08-09] MEDS: Enoxaparin Sodium 40 MG/0.4 ML SYRINGE SUBCUT (07:58)
[2022-08-09] MEDS: 0.9 % Sodium Chloride Flush 3 ML SYRINGE IVFLUSH ×2 (15:30→23:38)
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
[2022-08-09] MEDS: Ketorolac Tromethamine 15 MG/ML VIAL IVPUSH (17:09)
[2022-08-10 03:13] VITALS: BP 104/56; PULSE 86; RESP 16; TEMP 37; O2SAT 93
[2022-08-10] MEDS: cefEPime HCl 2 GM in 0.9 % Sodium Chloride 50 ML IV (06:31)
[2022-08-10 06:36] LABS: MANUAL DIFF FLAG NO
[2022-08-10 06:50] LABS: Basophils Percent Auto 0.2 % (0-2); Hematocrit 35.1 % (37.0-47.0); Hemoglobin 11.7 g/dl (12.0-16.0); Imm Gran Abs Auto 0.02 X10*3/uL (0.00-0.03); Imm Gran Pct Auto 0.4 % (0.0-0.4); Lymphocytes Absolute Auto 0.8 X10*3/uL (1.2-4.9); Lymphocytes Percent Auto 14.1 % (20-40); Mean Corpuscular HGB Conc 33.3 g/dl (31.0-35.0); Mean Corpuscular Volume 95.9 fL (80.0-98.0); Mean Platelet Volume 9.3 fL (9.4-12.3); Monocytes Absolute Auto 0.5 X10*3/uL (0.1-1.2); Monocytes Percent Auto 9.2 % (2-11); Neutrophils Absolute Auto 4.3 x10*3/uL (2.0-8.3); Neutrophils Percent Auto 76.1 % (45-73); Platelet Count 267 X10*3/uL (160-400); Red Blood Count 3.66 X10*6/uL (4.20-5.50); Red Cell Distribution Width 13.6 % (11.0-16.0); White Blood Count 5.7 X10*3/uL (4.8-10.8)
[2022-08-10 07:12] VITALS: BP 106/59; PULSE 106; RESP 18; TEMP 37.9; O2SAT 93
[2022-08-10] MEDS: Enoxaparin Sodium 40 MG/0.4 ML SYRINGE SUBCUT (07:37)
[2022-08-10] MEDS: Ketorolac Tromethamine 15 MG/ML VIAL IVPUSH (07:37)
[2022-08-10 09:17] VITALS: TEMP 37.7
--- NOTE | 2022-08-10 12:05 | MHC.CM.PN ---
PT WILL DC HOME TODAY WITH NO SERVICES PT TO ARRANGE TRANSPORT
--- NOTE | 2022-08-10 12:06 | P.DS_ITS ---
DS: Providers Provider Date of Service: 08/10/22 Date of admission: 08/08/22 21:01 Date of discharge: 08/10/22 Primary care physician: Ana Luisa Murry MD Admitting clinician: Stefany Pinto Attending physician on admission: Stefany Pinto DS: Diagnosis Discharge Diagnosis (1) Abscess: Status: Acute DS: Summary Hospital Course Hospital Course: Pt is a 36 year old female s/p abdominoplasty remotely but with recurrent abdo wall abscess. Pt came in with fever and pain. started on cefepime and aspiration of purulent bloody material sent for cultures- still pending on dc Plan to do a week of Augmentin and fu oupt in office. may need to adjust antibx flid draining spontaneously through abdo wall skin opening Time spent discussing smoking cessation with patient: more than 10 minutes Status at Discharge Functional status at discharge: independent ambulation Overall status at discharge: patient is progressing back to baseline Time Spent with Patient Time attestation: Total time managing care of this patient today ____ minutes. Discharge coordination time: Less than 30 minutes Specific discharge activities: no heavy lifting take antibx squeeze out fluid Quality: Safe Use of Opioids Does Pt have an Active Cancer Diagnosis on the Problem List?: No Quality: Stroke Does the patient have a stroke diagnosis?: No Physical Exam Vital Signs: Vital Signs: Last Vital Signs Temp 99.9 F 08/10/22 09:17 Pulse 106 H 08/10/22 07:12 Resp 18 08/10/22 07:12 BP 106/59 L 08/10/22 07:12 Pulse Ox 93 08/10/22 07:12 O2 Del Method Room Air 08/10/22 07:12 BMI result Body Mass Index 24.4 GI: Other: soft nontender some bloody material draining with compression DS: Data Data Completed and Pending Labs on day of discharge: Laboratory Results - last 24 hr 08/10/22 05:26 WBC 5.7 RBC 3.66 L Hgb 11.7 L Hct 35.1 L MCV 95.9 MCH 32.0 MCHC 33.3 RDW 13.6 Plt Count 267 MPV 9.3 L Immature Gran % (Auto) 0.4 Neut % (Auto) 76.1 H Lymph % (Auto) 14.1 L [place] % (Auto) 9.2 Eos % (Auto) 0.0 Baso % (Auto) 0.2 Lymph # (Auto) 0.8 L [place] # (Auto) 0.5 Eos # (Auto) 0.0 Baso # (Auto) 0.0 Abs Immat Gran (auto) 0.02 Absolute Neuts (auto) 4.3 Absolute Nucleated RBC 0.000 Nucleated RBC % (auto) 0.0 Preliminary micro results at discharge 08/08/22 16:58 Blood Culture - Preliminary Blood - Venous No growth after 24 hours. 08/08/22 16:58 Blood Culture - Preliminary Blood - Venous No growth after 24 hours. Discharge Plan Discharge Anticipated Discharge Date/Time: 08/10/22 11:59 Patient Disposition: Home, Self-Care Discharge Diagnosis: abdominal wall abscess Referrals: Ana Luisa Quispe MD [Primary Care Provider] - 1 Week Discharge Medications: New amoxicillin-pot clavulanate [Augmentin] 500-125 mg tablet 1 tab PO BID Qty: 14 1RF Continued (DME) exufiber ag+ See Rx Instructions .Route .MEDSUPPLY Qty: 30 6RF Rx Instructions: As directed azithromycin 250 mg Tablet 250 mg PO DAILY Rx Instructions: END DATE: 05/11/22 ibuprofen 600 mg tablet 600 mg PO Q8H PRN (Reason: surgery pain) cholecalciferol (vitamin D3) 50 mcg (2,000 unit) capsule 50 mcg PO DAILY 90 Days Qty: 90 1RF Humira Pen 40 mg/0.8 mL pen injector kit 40 mg subcut Q2W Qty: 6 2RF Rx Instructions: PATIENT STATES CANNOT BE ON WHILE ON ANTIBIOTICS Discharge Orders: Discharge Order (Routine); Ordered 08/10/22 Ordered By: Stefany Pinto Diet: Regular diet Activity on Discharge: No heavy lifting Stand Alone Forms: Patient Portal Discharge page Care Plan Goals: pt to take warm showers and push out draining fluid twice a day and as needed. cover with gauze dressing Health Concerns: take her meds as directed finish course of antibiotics Plan of Treatment: dressings and antibiotics and fu in office with surgeons please call [facility] office for f/u later this week Assessment: doing much better with iv antibx and drainage of purulent fluid yesterday.
== END 2022-08-10 13:00 | disposition home or self-care (01) | DRG 721 ==
LOC: HO.ED 19:23 → HO.EDOVER 21:22 → HO.IMC 22:36 → HO.S3 08-09 13:14
PROVIDERS: Nurse Practitioner Family; Admitting Provider Surgery; Emergency Provider Student in an Organized Health Care Education/Training Program; PCP Internal Medicine; Visit Provider Surgery
DX: T81.41XA Infection following a procedure, superficial incisional surgical site, initial encounter (principal); L02.211 Cutaneous abscess of abdominal wall; L03.311 Cellulitis of abdominal wall; Y83.8 Other surgical procedures as the cause of abnormal reaction of the patient, or of later complication, without mention of misadventure at the time of the procedure; E83.42 Hypomagnesemia; E87.6 Hypokalemia; Z79.620 Long term (current) use of immunosuppressive biologic; Z79.899 Other long term (current) drug therapy
CPT/HCPCS: 36415; 74177; 80048; 80076; 82947; 83605; 83735; 85025; 87040; 87070; 87073; 87205; 93005; 99221; 99285; J0692; J1650; J1885; J2405; J3475; Q9967

== ENCOUNTER 2022-10-20 09:53 | Outpatient (REF) | payer OTHER, SELFPAY ==
[2022-10-20 11:10] LABS: Alanine Aminotransferase 34 U/L (0-31); Albumin Level 4.1 g/dL (3.5-5.0); Alkaline Phosphatase 56 U/L (39-117); Anion Gap 11 (12-20); Aspartate Amino Transferase 22 U/L (5-31); Bilirubin Total 0.4 mg/dL (0.0-1.0); Blood Urea Nitrogen 14 mg/dL (9-16); C Reactive Protein 0.21 mg/dL (< or = 0.50); Calcium 9.5 mg/dL (8.4-10.2); Carbon Dioxide 25 mmol/L (22-29); Chloride 105 mmol/L (96-108); Estimated Glomerular Filt Rate > 60; Glucose Random 86 mg/dL (60-115); Sodium 137 mmol/L (135-145); Total Protein 7.5 g/dL (6.5-8.0)
[2022-10-20 11:26] LABS: Erythrocyte Sedimentation Rate 5 MM/HR (0-20)
== END 2022-10-20 09:54 | disposition home or self-care (01) ==
LOC: HO.10HDL 09:53
PROVIDERS: Visit Provider Student in an Organized Health Care Education/Training Program
DX: Z79.899 Other long term (current) drug therapy (principal)
CPT/HCPCS: 36415; 80053; 85652; 86140

== ENCOUNTER 2022-10-20 16:46 | Outpatient (AMB) | payer OTHER, SELFPAY ==
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
[2022-10-20 16:51] VITALS: BP 110/72; BMI 24.8
== END 2022-10-20 17:11 | disposition home or self-care (01) ==
PROVIDERS: PCP Internal Medicine; Visit Provider Internal Medicine
DX: L40.50 Arthropathic psoriasis, unspecified (principal); F33.0 Major depressive disorder, recurrent, mild; L60.0 Ingrowing nail; T30.4 Corrosion of unspecified body region, unspecified degree
CPT/HCPCS: 99214

== ENCOUNTER 2022-10-28 07:11 | Outpatient (AMB) | payer OTHER, SELFPAY ==
--- NOTE | 2022-10-28 07:29 | MHC.OFFVIS ---
Intake Vital Signs 10/28/22 07:33 Height 5 ft 10 in Weight 172 lb 13.478 oz BMI 24.8 BP 120/100 H Blood Pressure Location Rt brachial Position Sitting Pulse 80 Pulse Source Pulse Oximeter Temp 97.7 F Temp Source Skin Pulse Oximetry (%) 99 Oxygen Delivery Method Room Air Intake Visit Reasons: PsA Intake Note: Patient here to follow up on PsA. c/o left hip pain, psoriasis patches on head. Recent laser surgery to remove scars . 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 On Humira plus methotrexate since 2011. She self discontinued methotrexate in early 2020 due to GI upset. Restarted 12/2021 at 4 tabs weekly with resolution of psoriatic patches on both ears. Advanced to 8 tabs once weekly to on 03/17 due to peripheral synovitis. Today patient is doing well overall on Humira every other week, methotrexate 10 tabs once weekly. Denies any joint pain or swelling today. Has a small psoriasis patch on the top of her scalp. 07/2022 she had debridement of abdominal wall abscess. This has resolved per patient. She held her methotrexate and Humira while getting the procedure done. She also had laser surgery for her scars last month. [facility] Medical History Abscess of left foot Blurry vision Hearing loss Macrocytosis Open wound Otitis externa Psoriatic arthritis Surgical History H/O skin graft History of abdominoplasty History of bilateral breast reduction surgery History of breast implant S/P debridement Family History Mother Hypertension Father Rheumatoid arthritis Family/Other Mental health disorder Paternal Uncle Colon cancer Social History Household Members: None Housing: Apartment Do you presently have visiting nurse or other home services: No Alcohol intake: never Patient Tobacco Use Status: Never used Tobacco Tobacco use type: Cigarette e-Cigarette/Vaping Use: Never Used Second Hand Smoke Exposure: No Substance Use Type: Marijuana service: No Current occupational status: employed Current occupational exposures/hazards: No Cognitive needs: No Hearing needs: No Vision needs: No Female Reproductive History Menstrual Age of Menarche: 11 Review of Systems Const All systems reviewed & are unremarkable except as noted in HPI and below Physical Exam Vital Signs: Last Vital Signs Temp 97.7 F 10/28/22 07:33 Pulse 80 10/28/22 07:33 BP 120/100 H 10/28/22 07:33 Pulse Ox 99 10/28/22 07:33 Oxygen Delivery Method Room Air 10/28/22 07:33 BMI result Body Mass Index 24.8 Const General: cooperative, healthy appearing, comfortable and no acute distress Nutritional Appearance: average body habitus Orientation/consciousness: patient oriented x3 Limitations: no limitations HEENT Head: Yes normal to inspection Mouth: moist mucous membranes Resp Effort & Inspection: normal respiratory effort and able to speak in complete sentences Auscultation: clear to auscultation bilaterally Cardio Rate: regular rate Rhythm: regular rhythm Heart sounds: S1 normal heart sound present and S2 normal heart sound present GI Inspection: Yes normal to inspection Palpation (GI): Soft to palpation and nontender Skin Other: Small psoriasis patch on the top of her scalp. Otherwise no psoriasis noted Neuro General: patient oriented x3 Extrem Other: No active synovitis today Assessment & Plan Assessment & Plan (1) Psoriatic arthritis: Comment: Dx 2011 on Humira & MTX 25 mg self DC MTX 2020 due to GI upset, PSO flared, restarted at 10 mg 12/2021 advanced to 25 mg 02/2022 due to peripheral synovitis Code(s): L40.50 - Arthropathic psoriasis, unspecified Plan: 36-year-old female with history of psoriasis and psoriatic arthritis returns for follow-up. Psoriasis and psoriatic arthritis are well controlled. Continue Humira every other week. Reduce methotrexate to 20 mg weekly due to mild transaminitis Repeat labs in 6 weeks and repeat labs before next visit in 3 months (2) Psoriasis: Code(s): L40.9 - Psoriasis, unspecified Plan: Her Psoriasis likely flared when she stopped the methotrexate. Resolved after methotrexate was restarted. (3) HARLEY positive: Code(s): R76.8 - Other specified abnormal immunological findings in serum Plan: Patient has a positive HARLEY and positive dsDNA which is likely induced by Humira. However she has no clinical signs of drug-induced lupus which is a rare complication of TNF inhibitors. 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 Will monitor patient for side effects with frequent lab work. Advised patient to take folic acid daily to prevent complications of methotrexate. Plan I spent 25 minutes reviewing patient's chart, evaluating patient, ordering diagnostic workup, counseling patient and documenting in the chart Orders: Orders Comprehensive Met. Panel 3 Months Z79.89 - Other intermodal truck driver (current) drug therapy C Reactive Protein 3 Months Z79.89 - Other skilled nursing (current) drug therapy Complete Blood Count Auto Diff 3 Months Z79.89 - Other skilled nursing (current) drug therapy Erythrocyte Sedimentation Rate 3 Months Z79.899 - Other intermodal truck driver (current) drug therapy Complete Blood Count Auto Diff 6 Weeks Z79.899 - Other intermodal truck driver (current) drug therapy Comprehensive Met. 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
[2022-10-28 07:33] VITALS: BP 120/100; PULSE 80; TEMP 36.5; O2SAT 99; BMI 24.8
== END 2022-10-28 07:54 | disposition home or self-care (01) ==
PROVIDERS: PCP Internal Medicine; Visit Provider Student in an Organized Health Care Education/Training Program
DX: L40.50 Arthropathic psoriasis, unspecified (principal); L40.9 Psoriasis, unspecified; R76.8 Other specified abnormal immunological findings in serum; Z79.899 Other long term (current) drug therapy
CPT/HCPCS: 99214

== ENCOUNTER → 2022-10-28 07:11 | Outpatient (BNVA) | payer OTHER, SELFPAY | PROVIDERS: PCP Internal Medicine; Visit Provider Student in an Organized Health Care Education/Training Program ==

== ENCOUNTER 2023-01-30 09:53 | Outpatient (REF) | payer OTHER, SELFPAY ==
[2023-01-30 10:40] LABS: MANUAL DIFF FLAG NO
[2023-01-30 10:49] LABS: Basophils Percent Auto 0.8 % (0-2); Eosinophils Absolute Auto 0.2 X10*3/uL (0.0-0.4); Eosinophils Percent Auto 2.9 % (0-4); Hematocrit 40.4 % (37.0-47.0); Hemoglobin 13.6 g/dl (12.0-16.0); Imm Gran Abs Auto 0.01 X10*3/uL (0.00-0.03); Imm Gran Pct Auto 0.2 % (0.0-0.4); Lymphocytes Absolute Auto 1.8 X10*3/uL (1.2-4.9); Lymphocytes Percent Auto 34.4 % (20-40); Mean Corpuscular HGB Conc 33.7 g/dl (31.0-35.0); Mean Platelet Volume 9.1 fL (9.4-12.3); Monocytes Absolute Auto 0.5 X10*3/uL (0.1-1.2); Monocytes Percent Auto 10.2 % (2-11); Neutrophils Absolute Auto 2.7 x10*3/uL (2.0-8.3); Neutrophils Percent Auto 51.5 % (45-73); Platelet Count 355 X10*3/uL (160-400); White Blood Count 5.2 X10*3/uL (4.8-10.8)
[2023-01-30 11:05] LABS: Alanine Aminotransferase 30 U/L (0-31); Alkaline Phosphatase 65 U/L (39-117); Anion Gap 11 (12-20); Aspartate Amino Transferase 26 U/L (5-31); Bilirubin Total 0.6 mg/dL (0.0-1.0); Blood Urea Nitrogen 12 mg/dL (9-16); C Reactive Protein 0.17 mg/dL (< or = 0.50); Calcium 9.9 mg/dL (8.4-10.2); Carbon Dioxide 23 mmol/L (22-29); Chloride 109 mmol/L (96-108); Estimated Glomerular Filt Rate > 60; Glucose Random 94 mg/dL (60-115); Potassium 3.7 mmol/L (3.3-5.1); Sodium 139 mmol/L (135-145); Total Protein 7.7 g/dL (6.5-8.0)
[2023-01-30 11:35] LABS: Erythrocyte Sedimentation Rate 14 MM/HR (0-20)
[2023-01-30 12:15] LABS: HBS Num1 0.31 mIU/mL (0-7.99); HBc Num1 0.11 S/CO (0.00-0.79); HBsAGNum1 0.27 S/CO (0.00-0.99); Hepatitis A Antibody IgM 0.26 Index (0-0.79); Hepatitis B Core Antibody Nonreactive (Nonreactive); Hepatitis B Surface Antigen Negative (Negative); ~HepC Num1 0.22 S/CO (0.00-0.79); ~Hepatitis A Antibody IgM Nonreactive (Nonreactive); ~Hepatitis B Surface Antibody NONREACTIVE (Nonreactive); ~Hepatitis C Antibody Nonreactive (Nonreactive)
[2023-02-02 16:49] LABS: TS Negative Control Passed; TS Panel A 0; TS Panel B 0; TS Positive Control Passed; TSpotTB Negative (Negative)
== END 2023-01-30 09:54 | disposition home or self-care (01) ==
LOC: HO.10HDL 09:53
PROVIDERS: Visit Provider Student in an Organized Health Care Education/Training Program
DX: Z11.7 Encounter for testing for latent tuberculosis infection (principal); Z11.59 Encounter for screening for other viral diseases; Z79.899 Other long term (current) drug therapy; Z72.89 Other problems related to lifestyle
CPT/HCPCS: 36415; 80053; 85025; 85652; 86140; 86481; 86704; 86706; 86709; 86803; 87340

== ENCOUNTER 2023-02-03 07:41 | Outpatient (AMB) | payer OTHER, SELFPAY ==
--- NOTE | 2023-02-03 07:44 | MHC.OFFVIS ---
Intake Vital Signs 02/03/23 07:49 Height 5 ft 10 in Weight 179 lb 3.773 oz BMI 25.7 BP 120/84 Blood Pressure Location Lt brachial Position Sitting Pulse 91 Pulse Source Pulse Oximeter Temp 97.3 F Temp Source Skin Pulse Oximetry (%) 97 Oxygen Delivery Method Room Air Intake Visit Reasons: PsA Intake Note: Patient presents today to follow up on PsA and test results. Reduced methotrexate to 20 mg weekly. Residential Concierge Required: No Accompanied by: Self / Same As Patient Allergies No Known Allergies Allergy (Verified 02/03/23 07:50) Medication List - Last Reconciled 02/03/23 by Judith Ackerman MD adalimumab-aqvh (Yusimry(CF) Pen) 40 mg (0.8 mL) subcut Q14D cholecalciferol (vitamin D3) 50 mcg PO DAILY 90 days [exufiber ag+ As directed] ibuprofen 600 mg PO Q8H PRN 30 days methotrexate sodium 20 mg (8 x 2.5 mg) PO QWEEK HPI HPI Comments History of Present Illness Details 37yoF presents for follow-up on psoriatic arthritis. On Humira plus methotrexate since 2011. She self discontinued methotrexate in early 2020 due to GI upset. Restarted 12/2021 at 4 tabs weekly with resolution of psoriatic patches on both ears. Advanced to 10 tabs once weekly to on 03/17 due to peripheral synovitis. Reduced to 8 tabs 10/2022 due to transaminitis. Today patient is doing well overall. Except for few psoriatic patches behind right ear and few patches insight left ear. She ran out of the methotrexate and folic acid about a month ago. She is on Yusimry every other week [facility] Medical History Abscess of left foot Open wound Otitis externa Blurry vision Hearing loss Macrocytosis Psoriatic arthritis Surgical History S/P debridement H/O skin graft History of abdominoplasty History of breast implant History of bilateral breast reduction surgery Family History Mother Hypertension Father Rheumatoid arthritis Family/Other Mental health disorder Paternal Uncle Colon cancer Social History Household Members: None Housing: Apartment Do you presently have visiting nurse or other home services: No Alcohol intake: never Comment: C Patient Tobacco Use Status: Never used Tobacco Tobacco use type: Cigarette e-Cigarette/Vaping Use: Never Used Second Hand Smoke Exposure: No Substance Use Type: Marijuana service: No Current occupational status: employed Current occupational exposures/hazards: No Cognitive needs: No Hearing needs: No Vision needs: No Female Reproductive History Menstrual Age of Menarche: 11 Review of Systems Musc Denies arthralgias and Denies joint swelling Skin/Breast Reports rash Physical Exam Vital Signs: Last Vital Signs Temp 97.3 F 02/03/23 07:49 Pulse 91 02/03/23 07:49 BP 120/84 02/03/23 07:49 Pulse Ox 97 02/03/23 07:49 Oxygen Delivery Method Room Air 02/03/23 07:49 BMI result Body Mass Index 25.7 Const General: cooperative, healthy appearing, comfortable and no acute distress Nutritional Appearance: average body habitus Orientation/consciousness: patient oriented x3 Limitations: no limitations HEENT Head: Yes normal to inspection Mouth: moist mucous membranes Resp Effort & Inspection: normal respiratory effort and able to speak in complete sentences Auscultation: clear to auscultation bilaterally Cardio Rate: regular rate Rhythm: regular rhythm Heart sounds: S1 normal heart sound present and S2 normal heart sound present GI Inspection: Yes normal to inspection Palpation (GI): Soft to palpation and nontender Skin Other: Small psoriasis patch behind right ear. Tiny psoriasis patches inside left ear Neuro General: patient oriented x3 Extrem Other: No active synovitis today Mild left trochanteric bursa area tenderness Assessment & Plan Assessment & Plan (1) Psoriatic arthritis: Comment: Dx 2011 on Humira & MTX 25 mg self DC MTX 2020 due to GI upset, PSO flared, restarted at 10 mg 12/2021 advanced to 25 mg 02/2022 due to peripheral synovitis, reduced to 20 mg 10/2022 due to transaminitis Code(s): L40.50 - Arthropathic psoriasis, unspecified Plan: 37-year-old female with history of psoriasis and psoriatic arthritis returns for follow-up. Doing well overall except for small psoriasis patches behind right ear and inside left ear. She ran out of the methotrexate and folic acid a month ago. Advised patient to restart methotrexate at 20 mg weekly and folic acid 1 mg daily Continue with Yusimry every other week Labs before next visit in 3 months (2) HARLEY positive: Code(s): R76.8 - Other specified abnormal immunological findings in serum Plan: Patient has a positive HARLEY and positive dsDNA which is likely induced by Humira. However she has no clinical signs of drug-induced lupus which is a rare complication of TNF inhibitors. 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 Will monitor patient for side effects with frequent lab work. Advised patient to take folic acid daily to prevent complications of methotrexate. She has mild macrocytosis on recent labs, likely as she had run out of the folic acid. Folic acid refilled (4) Immunization counseling: Code(s): Z71.85 - Encounter for immunization safety counseling Plan: Patient received the new COVID booster and flu vaccine for this season. Plan I spent 25 minutes reviewing patient's chart, evaluating patient, ordering diagnostic workup, counseling patient and documenting in the chart Orders: Orders Complete Blood Count Auto Diff 3 Months Z79.899 - Other superintendent meters (current) drug therapy C Reactive Protein 3 Months Z79.899 - Other prison (current) drug therapy Erythrocyte Sedimentation Rate 3 Months Z79.899 - Other prison (current) drug therapy Comprehensive Met. 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
[2023-02-03 07:49] VITALS: BP 120/84; PULSE 91; TEMP 36.3; O2SAT 97; BMI 25.7
== END 2023-02-03 07:59 | disposition home or self-care (01) ==
PROVIDERS: PCP Internal Medicine; Visit Provider Student in an Organized Health Care Education/Training Program
DX: L40.50 Arthropathic psoriasis, unspecified (principal); R76.8 Other specified abnormal immunological findings in serum; Z79.899 Other long term (current) drug therapy; Z71.85 Encounter for immunization safety counseling
CPT/HCPCS: 99214

== ENCOUNTER → 2023-02-03 07:41 | Outpatient (BNVA) | payer OTHER, SELFPAY | PROVIDERS: PCP Internal Medicine; Visit Provider Student in an Organized Health Care Education/Training Program ==

== ENCOUNTER 2023-03-17 13:34 | Outpatient (REF) | payer OTHER, SELFPAY | END 2023-03-17 13:35 | disposition home or self-care (01) | LOC: HO.LAB 13:34 | PROVIDERS: PCP Internal Medicine; Visit Provider Advanced Practice Midwife | DX: Z13.89 Encounter for screening for other disorder (principal) ==

== ENCOUNTER 2023-03-17 13:34 | Outpatient (AMB) | payer OTHER, SELFPAY ==
--- NOTE | 2023-03-17 13:37 | A.OFFVIS_ITS ---
Intake Vital Signs 03/17/23 13:38 Height 5 ft 10 in Weight 178 lb BMI 25.5 BP 110/78 Intake Visit Reasons: Annual Intake Note: pt wants to discuss BC Medical Assistant Ob Gyn Required: No Sewer Maintenance Supervisor: Sewer Maintenance Supervisor Present ([place]) Allergies No Known Allergies Allergy (Verified 03/17/23 13:38) Is last menstrual period known: Yes Last menstrual period: 03/07/23 HPI HPI Comments History of Present Illness Details She is a premenopausal woman presenting for annual examination. Doing well with no concerns. She tries to eat healthy and stays active with exercise. Regular monthly menses. Currently is sexually active. She denies vaginal itching and irritation. STI screening offered; she accepts. Denies family history of breast, ovarian or colon cancer. Last pap smear 2020, negative. She denies any contraindications to control such as: migraines with aura, history of DVT or pulmonary emboli, high blood pressure, liver disease, thrombolic disorders, Lupus, +HARLEY, breast cancer, or smoking. [facility] Medical History Abscess of left foot Open wound Otitis externa Blurry vision Hearing loss Macrocytosis Psoriatic arthritis Surgical History S/P debridement H/O skin graft History of abdominoplasty History of breast implant History of bilateral breast reduction surgery Family History Mother Hypertension Father Rheumatoid arthritis Family/Other Mental health disorder Paternal Uncle Colon cancer Social History Household Members: None Housing: Apartment Do you presently have visiting nurse or other home services: No Alcohol intake: never Comment: [facility] [place] Patient Tobacco Use Status: Never used Tobacco Tobacco use type: Cigarette e-Cigarette/Vaping Use: Never Used Second Hand Smoke Exposure: No Substance Use Type: Marijuana service: No Current occupational status: employed Current occupational exposures/hazards: No Cognitive needs: No Hearing needs: No Vision needs: No Female Reproductive History Menstrual Age of Menarche: 11 Duration of menses: 3-5 days Date of last menstrual period: 03/07/23 control method: none Total pregnancies: 0 Date of last pap smear: 01/15/21 (neg pap and hpv) Review of Systems Const All systems reviewed & are unremarkable except as noted in HPI and below Reports as per HPI Eyes Reports no additional complaints ENT Reports no additional complaints Card Reports no additional complaints Resp Reports no additional complaints GI Reports as per HPI and Reports no additional complaints Reports as per HPI Musc Reports no additional complaints Skin/Breast Reports as per HPI Neuro Reports no additional complaints Psych Reports no additional complaints Endo Reports no additional complaints Jaleel/Lymph Reports no additional complaints Aller/Immun Reports no additional complaints Physical Exam Vital Signs: Last Vital Signs BP 110/78 03/17/23 13:38 BMI result Body Mass Index 25.5 Const General: cooperative, healthy appearing, no acute distress, well developed and alert Orientation/consciousness: patient oriented x3 HEENT Head: Yes normal to inspection Eyes General: appearance normal, both eyes and all related structures Neck Neck: Yes normal visual inspection Thyroid: Thyroid normal Chest Other: Bilateral breast reconstruction and implants Chest palpation & inspection: normal inspection of the chest and other (no puckering, dimpling, peau de orange, retraction, discharge, masses) Breast/axilla inspection: normal inspection of the breasts Breast/axilla palpation: normal palpation of the breasts Resp Effort & Inspection: normal respiratory effort GI Inspection: Yes normal to inspection and Yes scar Palpation (GI): Soft to palpation Rectal Exam - Female: deferred General: Yes bladder normal to palpation External Female Exam: normal external appearance and normal appearance of the urethra Speculum Exam - Vagina: normal appearance of the vagina, normal palpation and normal vaginal discharge Speculum Exam - Cervix: normal appearance of the cervix and normal palpation Bimanual exam- vagina & uterus: normal bimanual exam, normal palpation, uterine size normal, bladder normal to palpation, normal palpation and non-tender Bimanual Exam- Adnexa, other: no masses Skin General skin exam: no rashes or lesions noted Rashes: no rashes Neuro General: patient oriented x3 Cognition (Neuro): normal cognition Extrem General: Yes normal to inspection Psych Attitude: cooperative Thought process: Normal thought process present Assessment & Plan Assessment & Plan (1) Encounter for well woman exam with routine gynecological exam: Code(s): Z01.419 - Encounter for gynecological examination (general) (routine) without abnormal findings Plan Discussed: Current recommendations for pap smears per ASCCP guidelines. Breast awareness and periodic breast exams. Maintain a healthy lifestyle including a well balanced diet and routine exercise. Use condoms for STI and prevention. All of her questions and concerns were addressed to the best of my ability. RTO in one year for annual manager gyn examination. Overall on control reviewed today with a handout including the CDC efficacy sheet, control booklet given. Patient will call for a consult on control once she is read the literature and reviewed all the products available. This note is constructed using voice recognition software. While every effort has been made to ensure accuracy, skeins yarn examiner errors may have been included. Orders: Orders Bacterial Vaginosis Panel Today Z20.2 - Contact with and (suspected) exposure to infections with a predominantly sexual mode of transmission CT NG by PCR Today Z20.2 - Contact with and (suspected) exposure to infections with a predominantly sexual mode of transmission Coding Level of Care Code Est Pt Prev Care 18-39y(48574) Diagnoses Encounter for well woman exam with routine gynecological exam Z01.419
[2023-03-17 13:38] VITALS: BP 110/78; BMI 25.5
== END 2023-03-17 15:09 | disposition home or self-care (01) ==
LOC: HO.HWS 13:34
PROVIDERS: PCP Internal Medicine; Visit Provider Advanced Practice Midwife
DX: Z01.419 Encounter for gynecological examination (general) (routine) without abnormal findings (principal)
CPT/HCPCS: 99395

== ENCOUNTER 2023-03-17 13:58 | Outpatient (REF) | payer OTHER, SELFPAY ==
[2023-03-17 17:38] LABS: CT PCR NOT DETECTED (Not Detect.); NG PCR NOT DETECTED (Not Detect.)
[2023-03-18 11:06] LABS: BV Int Neg Control Negative (Negative)
[2023-03-18 11:07] LABS: BV Int Pos Control Positive (Positive)
== END 2023-03-17 13:59 | disposition home or self-care (01) ==
LOC: HO.LNP 13:58
PROVIDERS: Visit Provider Advanced Practice Midwife
DX: Z20.2 Contact with and (suspected) exposure to infections with a predominantly sexual mode of transmission (principal)
CPT/HCPCS: 0353U; 87480; 87510; 87660

== ENCOUNTER 2023-05-01 10:17 | Outpatient (REF) | payer OTHER, SELFPAY ==
[2023-05-01 11:49] LABS: MANUAL DIFF FLAG NO
[2023-05-01 12:01] LABS: Basophils Percent Auto 0.6 % (0-2); Eosinophils Absolute Auto 0.2 X10*3/uL (0.0-0.4); Hematocrit 42.7 % (37.0-47.0); Hemoglobin 14.4 g/dl (12.0-16.0); Imm Gran Abs Auto 0.02 X10*3/uL (0.00-0.03); Imm Gran Pct Auto 0.3 % (0.0-0.4); Lymphocytes Absolute Auto 2.2 X10*3/uL (1.2-4.9); Lymphocytes Percent Auto 35.5 % (20-40); Mean Corpuscular HGB Conc 33.7 g/dl (31.0-35.0); Mean Corpuscular Hemoglobin 33.3 pg (27.0-33.0); Mean Corpuscular Volume 98.8 fL (80.0-98.0); Mean Platelet Volume 9.1 fL (9.4-12.3); Monocytes Absolute Auto 0.5 X10*3/uL (0.1-1.2); Monocytes Percent Auto 7.5 % (2-11); Neutrophils Absolute Auto 3.3 x10*3/uL (2.0-8.3); Neutrophils Percent Auto 53.1 % (45-73); Platelet Count 270 X10*3/uL (160-400); Red Blood Count 4.32 X10*6/uL (4.20-5.50); Red Cell Distribution Width 12.3 % (11.0-16.0); White Blood Count 6.3 X10*3/uL (4.8-10.8)
[2023-05-01 12:35] LABS: Erythrocyte Sedimentation Rate 7 MM/HR (0-20)
[2023-05-01 12:59] LABS: Alanine Aminotransferase 44 U/L (0-31); Albumin Level 3.8 g/dL (3.5-5.0); Alkaline Phosphatase 72 U/L (39-117); Anion Gap 10 (12-20); Aspartate Amino Transferase 27 U/L (5-31); Bilirubin Total 0.4 mg/dL (0.0-1.0); Blood Urea Nitrogen 11 mg/dL (9-16); C Reactive Protein 0.26 mg/dL (< or = 0.50); Calcium 9.4 mg/dL (8.4-10.2); Carbon Dioxide 28 mmol/L (22-29); Chloride 107 mmol/L (96-108); Estimated Glomerular Filt Rate > 60; Glucose Random 85 mg/dL (60-115); Potassium 4.1 mmol/L (3.3-5.1); Sodium 141 mmol/L (135-145); Total Protein 7.4 g/dL (6.5-8.0)
== END 2023-05-01 10:18 | disposition home or self-care (01) ==
LOC: HO.10HDL 10:17
PROVIDERS: Visit Provider Student in an Organized Health Care Education/Training Program
DX: Z79.899 Other long term (current) drug therapy (principal)
CPT/HCPCS: 36415; 80053; 85025; 85652; 86140

== ENCOUNTER 2023-05-05 08:11 | Outpatient (AMB) | payer OTHER, SELFPAY ==
[2023-05-05 08:18] VITALS: BP 112/68; PULSE 96; O2SAT 97; BMI 25.9
--- NOTE | 2023-05-05 08:18 | A.OFFVIS_ITS ---
Intake Vital Signs 05/05/23 08:18 Height 5 ft 10 in Weight 180 lb 5.41 oz BMI 25.9 BP 112/68 Blood Pressure Location Rt brachial Position Sitting Pulse 96 Pulse Source Pulse Oximeter Pulse Oximetry (%) 97 Oxygen Delivery Method Room Air Intake Visit Reasons: PsA Intake Note: Patient last seen 02/03/23 presents today for follow up and test results. 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 On Humira plus methotrexate since 2011. She self discontinued methotrexate in early 2020 due to GI upset. Restarted 12/2021 at 4 tabs weekly with resolution of psoriatic patches on both ears. Advanced to 10 tabs once weekly to on 03/17 due to peripheral synovitis. Reduced to 8 tabs 10/2022 due to transaminitis. Today patient is doing well overall. She had run out of her methotrexate about a month ago. It was refilled. She is doing well overall. Denies any psoriasis patches now. She states however that she has been feeling generalized fatigue especially the day after she takes methotrexate and it improves as the week goes on. Denies any joint pain or swelling today. [facility] Medical History Abscess of left foot Open wound Otitis externa Blurry vision Hearing loss Macrocytosis Psoriatic arthritis Surgical History S/P debridement H/O skin graft History of abdominoplasty History of breast implant History of bilateral breast reduction surgery Family History Mother Hypertension Father Rheumatoid arthritis Family/Other Mental health disorder Paternal Uncle Colon cancer Social History Household Members: None Housing: Apartment Do you presently have visiting nurse or other home services: No Alcohol intake: never Comment: [facility] [place] Patient Tobacco Use Status: Never used Tobacco Tobacco use type: Cigarette e-Cigarette/Vaping Use: Never Used Second Hand Smoke Exposure: No Substance Use Type: Marijuana service: No Current occupational status: employed Current occupational exposures/hazards: No Cognitive needs: No Hearing needs: No Vision needs: No Female Reproductive History Menstrual Age of Menarche: 11 Review of Systems Musc Denies arthralgias and Denies joint swelling Skin/Breast Denies rash Physical Exam Vital Signs: Last Vital Signs Pulse 96 05/05/23 08:18 BP 112/68 05/05/23 08:18 Pulse Ox 97 05/05/23 08:18 Oxygen Delivery Method Room Air 05/05/23 08:18 BMI result Body Mass Index 25.9 Const General: cooperative, healthy appearing, comfortable and no acute distress Nutritional Appearance: average body habitus Orientation/consciousness: patient oriented x3 Limitations: no limitations HEENT Head: Yes normal to inspection Mouth: moist mucous membranes Resp Effort & Inspection: normal respiratory effort and able to speak in complete sentences Auscultation: clear to auscultation bilaterally Cardio Rate: regular rate Rhythm: regular rhythm Heart sounds: S1 normal heart sound present and S2 normal heart sound present GI Inspection: Yes normal to inspection Palpation (GI): Soft to palpation and nontender Skin Other: No psoriasis patches noted today Neuro General: patient oriented x3 Extrem Other: No active synovitis today Nail pitting most noticeable left 3rd and 4th fingers Assessment & Plan Assessment & Plan (1) Psoriatic arthritis: Comment: Dx 2011 on Humira & MTX 25 mg self DC MTX 2020 due to GI upset, PSO flared, restarted at 10 mg 12/2021 advanced to 25 mg 02/2022 due to peripheral synovitis, reduced to 20 mg 10/2022 due to transaminitis Code(s): L40.50 - Arthropathic psoriasis, unspecified Plan: 37-year-old female with history of psoriasis and psoriatic arthritis returns for follow-up. On methotrexate 20 mg weekly and Yusimry 40 mg every other week. She is doing quite well overall except for some fatigue for 1-2 days after she takes methotrexate. Labs show mild transaminitis Reduce methotrexate to 15 mg weekly Continue with Yusimry 40 mg every other week and folic acid 1 mg daily Labs before next visit in 2 months (2) HARLEY positive: Code(s): R76.8 - Other specified abnormal immunological findings in serum Plan: Patient has a positive HARLEY and positive dsDNA which is likely induced by Humira. However she has no clinical signs of drug-induced lupus which is a rare complication of TNF inhibitors. Will monitor patient for the development of drug-induced lupus (3) alf methotrexate user: Code(s): Z79.899 - Other correction (current) drug therapy Plan: Side effects of methotrexate were discussed with the patient in detail including oral ulcers, elevated LFTs, abdominal discomfort, and possible pancytopenia is. Will monitor patient for side effects with frequent lab work. Advised patient to take folic acid daily to prevent compli cations of methotrexate. As mentioned above, mild transaminitis and patient noticing fatigue after taking methotrexate. Reduce methotrexate to 15 mg weekly Plan I spent 25 minutes reviewing patient's chart, evaluating patient, ordering diagnostic workup, counseling patient and documenting in the chart Orders: Orders Complete Blood Count Auto Diff 2 Months L40.50 - Arthropathic psoriasis, unspecified, Z79.899 - Other intermodal customer service (current) drug therapy Comprehensive Met. 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
== END 2023-05-05 08:37 | disposition home or self-care (01) ==
PROVIDERS: PCP Internal Medicine; Visit Provider Student in an Organized Health Care Education/Training Program
DX: L40.50 Arthropathic psoriasis, unspecified (principal); R76.8 Other specified abnormal immunological findings in serum; Z79.899 Other long term (current) drug therapy
CPT/HCPCS: 99214

== ENCOUNTER → 2023-05-05 08:11 | Outpatient (BNVA) | payer OTHER, SELFPAY | PROVIDERS: PCP Internal Medicine; Visit Provider Student in an Organized Health Care Education/Training Program ==

== ENCOUNTER 2023-05-31 21:17 | Inpatient (IN) | payer OTHER, SELFPAY ==
--- NOTE | ~2023-05-31 | CT_ITS ---
EXAMINATION: CT ABDOMEN AND PELVIS WITH CONTRAST CLINICAL INFORMATION: Lower abdominal pain. COMPARISON: None available. TECHNIQUE: Multidetector volumetric images were obtained from the superior aspect of the liver through the pubic symphysis following administration 85 mL of Omnipaque 350 intravenous contrast. Sagittal and coronal reformatted images were obtained on the technologist's workstation. Oral contrast: No This CT examination was performed using dose optimization techniques as appropriate, variously including the following: *Automated exposure control *Adjustment of mA and/or kV according to patient size (this includes techniques or standardized protocols for targeted exams where dose is matched to indication/reason for exam; i.e. extremities or head) *Use of iterative reconstruction technique DLP: 574 mGy-cm FINDINGS: LUNG BASES: The visualized lung bases are unremarkable. LIVER, GALLBLADDER, AND BILIARY TREE: The liver is normal in size, shape, and attenuation. No focal hepatic lesion or biliary ductal dilatation is present. The gallbladder is unremarkable with no evidence of radiopaque gallstones, gallbladder wall thickening, or obvious pericholecystic inflammatory changes. PANCREAS: Unremarkable. SPLEEN: Unremarkable. ADRENAL GLANDS: Unremarkable. KIDNEYS AND URETERS: The kidneys are normal in size, shape, and attenuation. No hydronephrosis, hydroureter, or calculi seen. No perinephric stranding. BLADDER: Unremarkable. GASTROINTESTINAL TRACT: There are a few diverticula of the distal descending and sigmoid colon without diverticulitis. The appendix is unremarkable. ABDOMINAL WALL: There is a lobular low-density collection along the lower anterior abdominal wall beginning at the level of the umbilicus and extending inferiorly measuring 9.5 x 3 x 6.5 cm with wall thickening and adjacent subcutaneous infiltration. Bilateral buttock implants are noted. There is coccygeal region soft tissue extending from the bilateral buttock implants with a central area of air lucency measuring 1.4 cm. There are mildly enlarged inguinal lymph nodes measuring up to 2.7 cm. LYMPH NODES: No significant intra-abdominal lymph node enlargement. VASCULAR: Unremarkable. PELVIC VISCERA: Unremarkable. OSSEOUS STRUCTURES: There is moderate L4-L5 disc degenerative change. CT/CT abdomen pelvis w IV con IMPRESSION: 1. Lobular low-density collection along the lower anterior abdominal wall measuring 9.5 x 3 x 6.5 cm with wall thickening and adjacent subcutaneous infiltration. This may represent an abscess. 2. Soft tissue extending from the bilateral buttock implants with a central area of air lucency measuring 1.4 cm. 3. Diverticula of the distal descending and sigmoid colon without diverticulitis. 4. Mildly enlarged inguinal lymph nodes measuring up to 2.7 cm. Fleischner guidelines were followed.
[2023-05-31 21:23] VITALS: BP 115/81; PULSE 128; RESP 20; TEMP 37.2; O2SAT 98; BMI 25.0
[2023-05-31 22:06] LABS: Basophils Absolute Auto 0.1 X10*3/uL (0.0-0.2); Basophils Percent Auto 0.4 % (0-2); Eosinophils Absolute Auto 0.2 X10*3/uL (0.0-0.4); Hematocrit 39.3 % (37.0-47.0); Hemoglobin 13.4 g/dl (12.0-16.0); Imm Gran Abs Auto 0.05 X10*3/uL (0.00-0.03); Imm Gran Pct Auto 0.4 % (0.0-0.4); Lymphocytes Absolute Auto 1.3 X10*3/uL (1.2-4.9); Lymphocytes Percent Auto 11.2 % (20-40); MANUAL DIFF FLAG NO; Mean Corpuscular HGB Conc 34.1 g/dl (31.0-35.0); Mean Corpuscular Hemoglobin 33.9 pg (27.0-33.0); Mean Corpuscular Volume 99.5 fL (80.0-98.0); Mean Platelet Volume 8.8 fL (9.4-12.3); Monocytes Absolute Auto 1.1 X10*3/uL (0.1-1.2); Monocytes Percent Auto 9.8 % (2-11); Neutrophils Absolute Auto 8.8 x10*3/uL (2.0-8.3); Neutrophils Percent Auto 76.2 % (45-73); Platelet Count 333 X10*3/uL (160-400); Red Blood Count 3.95 X10*6/uL (4.20-5.50); Red Cell Distribution Width 14.2 % (11.0-16.0); White Blood Count 11.6 X10*3/uL (4.8-10.8)
[2023-05-31 22:59] LABS: Lactic Acid 1.1 mmol/L (0.5-2.0)
[2023-05-31 23:04] LABS: Alanine Aminotransferase 92 U/L (0-31); Alkaline Phosphatase 143 U/L (39-117); Anion Gap 15 (12-20); Aspartate Amino Transferase 63 U/L (5-31); Bilirubin Total 0.6 mg/dL (0.0-1.0); Blood Urea Nitrogen 13 mg/dL (9-16); Calcium 9.7 mg/dL (8.4-10.2); Carbon Dioxide 23 mmol/L (22-29); Chloride 101 mmol/L (96-108); Creatinine Clr Calc Pharmacy 107.3; Estimated Glomerular Filt Rate > 60; Glucose Random 104 mg/dL (60-115); Potassium 3.4 mmol/L (3.3-5.1); Sodium 136 mmol/L (135-145); Total Protein 8.2 g/dL (6.5-8.0)
[2023-05-31 23:28] VITALS: BP 110/60; PULSE 101; RESP 18; TEMP 37.9; O2SAT 97
--- NOTE | 2023-05-31 23:35 | ED.SKABFB ---
HPI - Skin/Abscess/Foreign Bdy General Chief complaint: Skin/Abscess/Foreign Body Stated complaint: lower abd abcess? Time Seen by Provider: 05/31/23 23:14 Source: patient Mode of arrival: ambulatory History of Present Illness HPI narrative: 37-year-old female who reports fevers and chills since with increasing lower abdominal discomfort that she reports has happened previously approximately 1 year ago. She also reports associated diarrhea as well as dysuria. Patient has significant past medical history agustin/major depressive disorder/PTSD/liposuction. Related Data Previous Rx's ?Medication ?Instructions ?Recorded exufiber ag+ #30 ea 09/15/21 cholecalciferol (vitamin D3) 50 50 mcg PO DAILY 90 days #90 caps 01/06/22 mcg (2,000 unit) capsule ibuprofen 600 mg tablet 600 mg PO Q8H PRN surgery pain 30 12/12/22 days #90 tabs Yusimry(CF) Pen 40 mg/0.8 mL 40 mg (0.8 mL) subcut Q14D #1.6 mL 02/03/23 subcutaneous pen injector (adalimumab-aqv) folic acid 1 mg tablet 1 mg PO DAILY #90 tabs 04/15/23 methotrexate sodium 2.5 mg tablet 20 mg (8 x 2.5 mg) PO QWEEK #96 04/15/23 tabs Allergies Allergy/AdvReac Type Severity Reaction Status Date / Time No Known Allergies Allergy Verified 05/31/23 21:33 Review of Systems Review of Systems: Pertinent positives and negatives as stated in HPI PMFSH Past Medical History Source: nursing notes reviewed Medical History Abscess of left foot Open wound Otitis externa Blurry vision Hearing loss Macrocytosis Psoriatic arthritis Surgical History S/P debridement H/O skin graft History of abdominoplasty History of breast implant History of bilateral breast reduction surgery Family History Family History Mother Hypertension Father Rheumatoid arthritis Family/Other Mental health disorder Paternal Uncle Colon cancer Social History Social History Household Members: None Housing: Apartment Do you presently have visiting nurse or other home services: No Alcohol intake: never Comment: [facility] [place] Patient Tobacco Use Status: Never used Tobacco Tobacco use type: Cigarette e-Cigarette/Vaping Use: Never Used Second Hand Smoke Exposure: No Substance Use Type: Marijuana Advance Directives: No Advance Directives Information Provided: No service: No Current occupational status: employed Current occupational exposures/hazards: No Cognitive needs: No Hearing needs: No Vision needs: No Physical Exam Vital Signs: Vital Signs: Last Vital Signs Temp 98.7 F 06/01/23 01:27 Pulse 104 H 06/01/23 01:27 Resp 18 06/01/23 01:27 BP 128/64 06/01/23 01:27 Pulse Ox 98 06/01/23 01:27 O2 Del Method Room Air 06/01/23 01:27 BMI result Body Mass Index 25.0 VITAL SIGNS: Reviewed. GENERAL: Well developed, well nourished, in no acute distress. HEAD: Normocephalic/atraumatic EYES: PERRLA, EOMI EARS: Ext canals without abnormality NOSE: Nares patent bilateral OROPHARYNX: no oral lesions noted, posterior pharynx clear NECK: Supple, no adenopathy LUNGS: Normal breath sounds. No adventitious sounds or accessory muscle use. SpO2<97> CARDIOVASCULAR: Regular rate and rhythm without noted murmurs ABDOMEN: Soft, non-tender, some distension noted over lower abdomen without overlying erythema/induration, scarring consistent with surgical history. MUSCULOSKELETAL: No tenderness, deformities, or effusions noted on gross inspection. EXTREMITIES: No cyanosis, clubbing or edema. SKIN: Inspection of the skin reveals no rashes NEUROLOGIC: Alert and oriented x 4. Strength and sensation to light touch were grossly intact x 4. Medications Administered Discontinued Medications Generic Name Dose Route Start Last Admin Trade Name Freq PRN Reason Stop Dose Admin Sodium Chloride 1,000 mls @ 999 mls/hr 05/31/23 23:45 06/01/23 01:08 Ns IV 06/01/23 00:45 Infused .Q1H1M FIONA Infusion Piperacillin Sod/Tazobactam 50 mls @ 100 mls/hr 05/31/23 23:34 06/01/23 01:08 Sod 3.375 gm/ Sodium Chloride IV 06/01/23 00:03 Infused ONCE ONE Infusion Iohexol 85 ml 06/01/23 01:11 06/01/23 01:16 Iohexol 350 Mg/Ml 100 Ml Infus..Btl IV 06/01/23 01:12 85 ml ONCE ONE Administration Medical Decision Making Medical Decision Making [facility] Narrative: 2325: 37-year-old female with history and clinical presentation, DDX: Urinary tract infection, pyelonephritis, no concern for obstruction at this time, gastroenteritis, possible seroma recurrence. I reviewed all investigations and there is a mild leukocytosis with left shift but no anemia or thrombocytopenia. Chemistry indices do not demonstrate an PHILLY, there are no electrolyte changes but there are noted LFT changes without corresponding physical exam to suggest Vega's or right upper quadrant pain. Beta hCG is noted to be undetectable. Hematuria and leukocyte esterase likely consistent with patient's underlying menstruation. CT demonstrates low-density collection along lower anterior abdominal wall with wall thickening suggestive of possible abscess. Patient has received IV fluids as well as antibiotics. I discussed the case with Dr. Zaidi, medicine and will admit patient to medicine services with consultation to surgery for drainage of collection. Differential Diagnosis Differential Diagnoses: The differential diagnosis associated with the presentation includes Please see the discussion above Admission/Observation Consideration of admission/observation: Escalation of care including admission/observation considered Please see the discussion above Consult Healthcare Provider Management of the patient was discussed with: Hospitalist Please see the discussion above Lab Data [facility] Lab Attestation statement: I reviewed the patient's lab results. Please see the discussion above 05/31/23 21:54 05/31/23 21:54 Labs: Lab Results 05/31/23 06/01/23 Range/Units 21:54 01:21 WBC 11.6 H (4.8-10.8) X10*3/uL RBC 3.95 L (4.20-5.50) X10*6/uL Hgb 13.4 (12.0-16.0) g/dl Hct 39.3 (37.0-47.0) % MCV 99.5 H (80.0-98.0) fL MCH 33.9 H (27.0-33.0) pg MCHC 34.1 (31.0-35.0) g/dl RDW 14.2 (11.0-16.0) % Plt Count 333 (160-400) X10*3/uL MPV 8.8 L (9.4-12.3) fL Immature Gran % (Auto) 0.4 (0.0-0.4) % Neut % (Auto) 76.2 H (45-73) % Lymph % (Auto) 11.2 L (20-40) % [place] % (Auto) 9.8 (2-11) % Eos % (Auto) 2.0 (0-4) % Baso % (Auto) 0.4 (0-2) % Lymph # (Auto) 1.3 (1.2-4.9) X10*3/uL [place] # (Auto) 1.1 (0.1-1.2) X10*3/uL Eos # (Auto) 0.2 (0.0-0.4) X10*3/uL Baso # (Auto) 0.1 (0.0-0.2) X10*3/uL Abs Immat Gran (auto) 0.05 H (0.00-0.03) X10*3/uL Absolute Neuts (auto) 8.8 H (2.0-8.3) x10*3/uL Absolute Nucleated RBC 0.000 (0.0-0.012) X10*3/uL Nucleated RBC % (auto) 0.0 (0.0-0.2) /100WBC Sodium 136 (135-145) mmol/L Potassium 3.4 (3.3-5.1) mmol/L Chloride 101 (96-108) mmol/L Carbon Dioxide 23 (22-29) mmol/L Anion Gap 15 (12-20) BUN 13 (9-16) mg/dL Creatinine 0.75 (0.5-1.4) mg/dL Estim Creat Clear Calc 107.3 Estimated GFR > 60 Random Glucose 104 (60-115) mg/dL Lactic Acid 1.1 (0.5-2.0) mmol/L Calcium 9.7 (8.4-10.2) mg/dL Total Bilirubin 0.6 (0.0-1.0) mg/dL AST 63 H (5-31) U/L ALT 92 H (0-31) U/L Alkaline Phosphatase 143 H (39-117) U/L Total Creatine Kinase 260 H (26-140) U/L Total Protein 8.2 H (6.5-8.0) g/dL Albumin 4.0 (3.5-5.0) g/dL Beta HCG, Quant < 2 mIU/mL Urine Color Yellow Urine Appearance Clear Urine pH 6.0 (5.0-9.0) Ur Specific [place] 1.025 (1.005-1.025) Urine Protein Negative (Neg-Trace) mg/dL Urine Glucose (UA) Negative (Negative) mg/dL Urine Ketones Negative (Negative) mg/dL Urine Blood Small (1+) H (Negative) Urine Nitrite Negative (Negative) Ur Leukocyte Esterase Moderate (2+) H (Negative) Urine RBC 3-5 H (0-2) /HPF Urine WBC 11-20 (0-5) /HPF Ur Squamous Epith Cells 3-5 (0-2) /HPF Urine Bacteria None Seen (None Seen) Hyaline Casts 3-5 (0-2) /LPF Radiology Impression Discussion of test interpretation with radiology: I have reviewed the radiologist's reading. Radiologist Impression: Please see the discussion above External Record Review External record reviewed: Outpatient record, Prior outpatient labs and Prior outpatient radiology Critical Care Time Critical Care Time Critical Care Time: Yes Total Critical Care Time: 45 Attestation: I personally attest to this time spent taking care of the patient. Discharge Plan Discharge Clinical Impression: Abdominal wall cellulitis, Abdominal fluid collection, Sepsis Patient Disposition: Admitted As Inpatient
[2023-05-31] MEDS: 0.9 % Sodium Chloride 1,000 ML 999 ML IV (23:48)
[2023-05-31] MEDS: Piperacillin Sodium/Tazobactam 3.375 GM in 0.9 % Sodium Chloride 50 ML IV (23:55)
--- NOTE | 2023-05-31 23:58 | PC.NURSE ---
2nd set of blood cultures obtained. IV # 20 placed to L-AC. IV fluids and abx running.
[2023-06-01] VITALS (11 sets, daily range): BP systolic 90–128; BP diastolic 52–67; PULSE 69–104; RESP 16–18; TEMP 36.1–37.1; O2SAT 96–100; BMI 27.2; BMI 25.0
[2023-06-01 00:53] LABS: HCG Quantitative < 2 mIU/mL
[2023-06-01] MEDS: iohexoL 350 MG/ML 100 ML INFUS..BTL 85 ML IV (01:16)
[2023-06-01 01:29] LABS: Appearance Urine Clear; Color Urine Yellow; Glucose Urine UA Negative (Negative); Leukocyte Esterase Urine Moderate (2+) (Negative); Nitrite Urine Negative (Negative); Specific Gravity - Urine 1.025 (1.005-1.025); UMIC TRIGGER UACC YES; Urine Blood Small (1+) (Negative); Urine Ketones Negative (Negative); Urine Protein Negative (Neg-Trace)
[2023-06-01 01:42] LABS: Bacteria Urine None Seen (None Seen); UACC Culture Trigger YES
--- NOTE | 2023-06-01 03:02 | P.HPHOSP_ITS ---
History of Present Illness Date of Service: 06/01/23 Attending physician on admission: Toshia Flores Chief Complaint: Abdominal pain Teresa Gary is a very pleasant 37 years old woman with past medical history significant for abdominal wall abscess s/p needle aspiration (July [address] Pinto), lower extremities skin grafts (agustin) and psoriatic arthritis (on MTX and Yusimry) presents to the emergency department complaining of mid upper abdominal wall pain that started associated with suggestive fever, generalized malaise and chills. She denied nausea, vomiting or diarrhea. Reported pain with urination but denied blood in urine. She did not report any cardiopulmonary symptoms. Denied tobacco smoking, alcohol abuse or illicit drug use. Past surgical history is remarkable for liposuction, abdominoplasty, bilateral buttocks implants and breast reduction surgery with implants placement. As mentioned before she had a needle aspiration on July 2022 and underwent a needle aspiration of an abdominal wall abscess. Culture was done and grew Streptococcus viridans In the ED, she was found to have low-grade tachycardia and temperature 100.2 degrees. There is no hypotension and O2 sats are normal. Blood workup showed leukocytosis of 11.6 without bandemia, rates are normal. There is. There are no electrolyte imbalances. Renal function is normal. Transaminases and alk- phos are elevated + normal bilirubin. Total CK is 260. Urinalysis is consistent with UTI. Abdomen pelvis CT showed lobular low-density collection along the lower anterior abdominal wall (9.5 X 3 x 6.5) with wall thickening and adjacent subcutaneous infiltration likely an abscess, tissue extending from the bilateral buttock implants with a central area of air lucency measuring 1.4 cm, diverticuli without diverticulosis and mildly enlarged inguinal lymph nodes. ED tx: Zosyn 3.375 g IV, NS 1 L bolus. Review of Systems 2 Review of Systems: All 12 systems were reviewed and normal except as noted in HPI. [facility] Medical History Abscess of left foot Open wound Otitis externa Blurry vision Hearing loss Macrocytosis Psoriatic arthritis Family History Mother Hypertension Father Rheumatoid arthritis Family/Other Mental health disorder Paternal Uncle Colon cancer Surgical History S/P debridement H/O skin graft History of abdominoplasty History of breast implant History of bilateral breast reduction surgery Social History Household Members: None Housing: Apartment Do you presently have visiting nurse or other home services: No Alcohol intake: never Comment: [facility] [place] Patient Tobacco Use Status: Never used Tobacco Tobacco use type: Cigarette e-Cigarette/Vaping Use: Never Used Second Hand Smoke Exposure: No Substance Use Type: Marijuana Advance Directives: No Advance Directives Information Provided: No service: No Current occupational status: employed Current occupational exposures/hazards: No Cognitive needs: No Hearing needs: No Vision needs: No Meds Allergies Allergy/AdvReac Type Severity Reaction Status Date / Time No Known Allergies Allergy Verified 05/31/23 21:33 Active Medications: Current Medications Acetaminophen (Acetaminophen 325 Mg Tablet) 975 mg PO Q6H PRN PRN Reason: Pain, Mild (Pain Scale 1-3) Folic Acid (Folic Acid 1 Mg Tablet) 1 mg PO DAILY [facility] Lactated Ringer's (Lr) 1,000 mls @ 125 mls/hr IVCONT .Q8H [facility] Vancomycin HCl (Vancomycin/Ns) 2,000 mg in 500 mls @ 250 mls/hr IV ONCE ONE Stop: 06/01/23 04:29 Ketorolac Tromethamine (Ketorolac Tromethamine 15 Mg/Ml Vial) 15 mg IVPUSH Q6H PRN PRN Reason: Pain, Severe (Pain Scale 7-10) Pharmacy Consult (Consult Rx Vancomycin Dosing) 1 each MISCELLANE DAILY PRN PRN Reason: Consult order Sodium Chloride (0.9 % Sodium Chloride Flush 3 Ml Syringe) 3 ml IVFLUSH QSHIFT [facility] Physical Exam 2 Vital Signs and Narrative: Vital Signs: Last Vital Signs Temp 98.7 F 06/01/23 01:27 Pulse 104 H 06/01/23 01:27 Resp 18 06/01/23 01:27 BP 128/64 06/01/23 01:27 Pulse Ox 98 06/01/23 01:27 O2 Del Method Room Air 06/01/23 01:27 BMI result Body Mass Index 25.0 Constitutional - Awake and Alert, No apparent distress. Febrile. Cooperative. HEENT - Pupils equally round, normal sclerae. Heart - Tachycardia. Normal rhythm. No murmur. Lungs - Normal lung expansion, Normal respiratory effort, No respiratory distress, CTA bilaterally Abdomen - Nondistended. Abdomen tenderness to palpation + induration. Normal bowel sounds. No rebound. No guarding. Extremities - No swelling or tenderness. Musculoskeletal - Normal inspection, normal ROM Skin - Warm/Dry. Right forearm and legs skin graft. Neurological - Alert & oriented x3, CN II-XII in tact, 5/5 strength BUE and BLE Psychological - Appropriate affect Results Labs 05/31/23 21:54 05/31/23 21:54 Labs: Laboratory Results - last 24 hr 05/31/23 06/01/23 21:54 01:21 MCV 99.5 H MCH 33.9 H MCHC 34.1 RDW 14.2 Plt Count 333 MPV 8.8 L Immature Gran % (Auto) 0.4 Neut % (Auto) 76.2 H Lymph % (Auto) 11.2 L [place] % (Auto) 9.8 Eos % (Auto) 2.0 Baso % (Auto) 0.4 Lymph # (Auto) 1.3 [place] # (Auto) 1.1 Eos # (Auto) 0.2 Baso # (Auto) 0.1 Abs Immat Gran (auto) 0.05 H Absolute Neuts (auto) 8.8 H Absolute Nucleated RBC 0.000 Nucleated RBC % (auto) 0.0 Anion Gap 15 Estim Creat Clear Calc 107.3 Estimated GFR > 60 Random Glucose 104 Lactic Acid 1.1 Calcium 9.7 Total Bilirubin 0.6 AST 63 H ALT 92 H Alkaline Phosphatase 143 H Total Creatine Kinase 260 H Total Protein 8.2 H Albumin 4.0 Beta HCG, Quant < 2 Urine Color Yellow Urine Appearance Clear Urine pH 6.0 Ur Specific [place] 1.025 Urine Protein Negative Urine Glucose (UA) Negative Urine Ketones Negative Urine Blood Small (1+) H Urine Nitrite Negative Ur Leukocyte Esterase Moderate (2+) H Urine RBC 3-5 H Urine WBC 11-20 Ur Squamous Epith Cells 3-5 Urine Bacteria None Seen Hyaline Casts 3-5 Imaging Radiologist's Impressions: Impressions Abdomen/Pelvis CT 06/01/23 01:15 IMPRESSION: 1. Lobular low-density collection along the lower anterior abdominal wall measuring 9.5 x 3 x 6.5 cm with wall thickening and adjacent subcutaneous infiltration. This may represent an abscess. 2. Soft tissue extending from the bilateral buttock implants with a central area of air lucency measuring 1.4 cm. 3. Diverticula of the distal descending and sigmoid colon without diverticulitis. 4. Mildly enlarged inguinal lymph nodes measuring up to 2.7 cm. Fleischner guidelines were followed. Assessment and Plan (1) Abdominal fluid collection: Status: Acute (2) Psoriatic arthritis: Status: Acute (3) UTI (urinary tract infection): Qualifiers: Hematuria presence: without hematuria Urinary tract infection type: a cute cystitis Qualified Code(s): N30.00 - Acute cystitis without hematuria Status: Acute (4) Elevated transaminase level: Status: Acute Plan Teresa Gary is a 37 years old woman with PMHx significant for abdominal wall abscess s/p needle aspiration (July [address] Pinto) and lower extremities skin grafts (agustin) * Abdominal wall abscess. Immunocompromised state. No SIRS or severe sepsis criteria (so far). Admit to hospitalist service. IV antibiotic therapy with vancomycin and cefepime 2 g IV twice daily. Blood cultures X2 obtained -will follow results. Surgery consult. * Psoriatic arthritis. MTX and Yusimry on hold due to active infection. * Urinary tract infection. Continue cefepime. Urine culture obtained -will follow results. * Elevated transaminases and alk-phos w/ normal bilirubin. Normal liver on CT scan. Possible secondary to MTX and Yusimry. Check hepatitis profile. Continue to monitor. * Soft tissue extending from bilateral buttock implants with a central area of air lucency (1.4 cm). Chronic? DVT prophylaxis: early ambulation, SCDs. Code status: Full Patient will need hospitalization for at least 2 midnights for abdominal wall abscess treatment with IV antibiotic therapy, close monitoring of blood workup and evaluation by surgery. Quality Stroke Does the patient have a stroke diagnosis?: No VTE Prior VTE?: No VTE Risk Level:: Medical - moderate - high VTE Device Contraindication: N/A - Device Ordered VTE Drug Contraindication: Treatment Not Indicated
[2023-06-01] MEDS: Lactated Ringers 1,000 ML 125 ML IVCONT ×3 (03:03→23:34)
[2023-06-01] MEDS: vancomycin/NS 2,000 MG/500 ML PLAST..BAG 250 MG IV (03:04)
[2023-06-01 07:48] LABS: Hematocrit 33.8 % (37.0-47.0); Hemoglobin 11.4 g/dl (12.0-16.0); Mean Corpuscular HGB Conc 33.7 g/dl (31.0-35.0); Mean Corpuscular Hemoglobin 33.6 pg (27.0-33.0); Mean Corpuscular Volume 99.7 fL (80.0-98.0); Platelet Count 269 X10*3/uL (160-400); Red Blood Count 3.39 X10*6/uL (4.20-5.50); Red Cell Distribution Width 14.3 % (11.0-16.0); White Blood Count 9.6 X10*3/uL (4.8-10.8)
[2023-06-01 07:54] LABS: INTERNATIONAL NORM RATIO 1.2 (0.9-1.1); Prothrombin Time 14.5 SEC (11.1-13.3)
[2023-06-01] MEDS: Acetaminophen 325 MG TABLET 975 MG PO ×2 (08:10→20:49)
[2023-06-01] MEDS: 0.9 % Sodium Chloride Flush 3 ML SYRINGE IVFLUSH (08:10)
[2023-06-01] MEDS: cefEPime HCl 2 GM in 0.9 % Sodium Chloride 50 ML IV ×2 (08:10→20:46)
[2023-06-01] MEDS: Folic Acid 1 MG TABLET PO (08:10)
[2023-06-01 08:14] LABS: Alanine Aminotransferase 71 U/L (0-31); Albumin Level 3.1 g/dL (3.5-5.0); Alkaline Phosphatase 113 U/L (39-117); Anion Gap 8 (12-20); Aspartate Amino Transferase 40 U/L (5-31); Bilirubin Total 0.8 mg/dL (0.0-1.0); Blood Urea Nitrogen 8 mg/dL (9-16); Carbon Dioxide 22 mmol/L (22-29); Chloride 110 mmol/L (96-108); Creatinine Clr Calc Pharmacy 128.9; Estimated Glomerular Filt Rate > 60; Glucose Random 94 mg/dL (60-115); Potassium 3.4 mmol/L (3.3-5.1); Sodium 137 mmol/L (135-145); Total Protein 6.2 g/dL (6.5-8.0)
[2023-06-01 08:16] LABS: HBS Num1 0.21 mIU/mL (0-7.99); HBc Num1 0.13 S/CO (0.00-0.79); HBsAGNum1 0.32 S/CO (0.00-0.99); Hepatitis A Antibody IgM 0.18 Index (0-0.79); Hepatitis B Core Antibody Nonreactive (Nonreactive); Hepatitis B Surface Antigen Negative (Negative); ~HepC Num1 0.17 S/CO (0.00-0.79); ~Hepatitis A Antibody IgM Nonreactive (Nonreactive); ~Hepatitis B Surface Antibody NONREACTIVE (Nonreactive); ~Hepatitis C Antibody Nonreactive (Nonreactive)
[2023-06-01 08:31] LABS: Calcium 8.6 mg/dL (8.4-10.2)
--- NOTE | 2023-06-01 08:49 | P.PNIM_ITS ---
Subjective Subjective Date of Service: 06/01/23 Review of Systems Follow up abd abscess no pain at this time Physical Exam 2 Vital Signs: Vital Signs: Last Vital Signs Temp 98 F 06/01/23 07:02 Pulse 69 06/01/23 07:02 Resp 16 06/01/23 07:02 BP 98/52 L 06/01/23 07:02 Pulse Ox 98 06/01/23 07:02 O2 Del Method Room Air 06/01/23 07:02 BMI result Body Mass Index 27.2 Appearing in no acute distress lung sounds are clear to auscultation heart regular rate rhythm, clear S1, S2 positive bowel sounds, hardended area to lower abd neuro patient is alert x3, no focal deficits Objective Data Active Medications Acetaminophen (Acetaminophen 325 Mg Tablet) 975 mg PO Q6H PRN PRN Reason: Pain, Mild (Pain Scale 1-3) Last Admin: 06/01/23 08:10 Dose: 975 mg Documented By: COTEMA Folic Acid (Folic Acid 1 Mg Tablet) 1 mg PO DAILY [facility] Last Admin: 06/01/23 08:10 Dose: 1 mg Documented By: COTEMA Lactated Ringer's (Lr) 1,000 mls @ 125 mls/hr IVCONT .Q8H [facility] Last Infusion: 06/01/23 08:10 Dose: 125 mls/hr Documented By: COTEMA Cefepime HCl 2 gm/ Sodium (Chloride) 50 mls @ 100 mls/hr IV Q12H [facility] Last Infusion: 06/01/23 08:44 Dose: Infused Documented By: COTEMA Ketorolac Tromethamine (Ketorolac Tromethamine 15 Mg/Ml Vial) 15 mg IVPUSH Q6H PRN PRN Reason: Pain, Severe (Pain Scale 7-10) Pharmacy Consult (Consult Rx Vancomycin Dosing) 1 each MISCELLANE DAILY PRN PRN Reason: Consult order Sodium Chloride (0.9 % Sodium Chloride Flush 3 Ml Syringe) 3 ml IVFLUSH QSHIFT [facility] Last Admin: 06/01/23 08:10 Dose: 3 ml Documented By: COTEMA Labs 06/01/23 07:23 06/01/23 09:22 Labs: Laboratory Results - last 24 hr 05/31/23 06/01/23 06/01/23 21:54 01:21 07:23 MCV 99.5 H 99.7 H MCH 33.9 H 33.6 H MCHC 34.1 33.7 RDW 14.2 14.3 Plt Count 333 269 MPV 8.8 L 9.0 L Immature Gran % (Auto) 0.4 Neut % (Auto) 76.2 H Lymph % (Auto) 11.2 L [place] % (Auto) 9.8 Eos % (Auto) 2.0 Baso % (Auto) 0.4 Lymph # (Auto) 1.3 [place] # (Auto) 1.1 Eos # (Auto) 0.2 Baso # (Auto) 0.1 Abs Immat Gran (auto) 0.05 H Absolute Neuts (auto) 8.8 H Absolute Nucleated RBC 0.000 0.000 Nucleated RBC % (auto) 0.0 0.0 PT 14.5 H INR 1.2 H Anion Gap 15 8 L Estim Creat Clear Calc 107.3 128.9 Estimated GFR > 60 > 60 Random Glucose 104 94 Lactic Acid 1.1 Calcium 9.7 8.6 D Total Bilirubin 0.6 0.8 AST 63 H 40 H ALT 92 H 71 H Alkaline Phosphatase 143 H 113 Total Creatine Kinase 260 H Total Protein 8.2 H 6.2 L Albumin 4.0 3.1 L Beta HCG, Quant < 2 Urine Color Yellow Urine Appearance Clear Urine pH 6.0 Ur Specific [place] 1.025 Urine Protein Negative Urine Glucose (UA) Negative Urine Ketones Negative Urine Blood Small (1+) H Urine Nitrite Negative Ur Leukocyte Esterase Moderate (2+) H Urine RBC 3-5 H Urine WBC 11-20 Ur Squamous Epith Cells 3-5 Urine Bacteria None Seen Hyaline Casts 3-5 Hepatitis A IgM Ab Nonreactive Hep Bs Antigen Negative Hep Bs Antibody NONREACTIVE Hep B Core Total Ab Nonreactive Hepatitis C Ab (EIA) Nonreactive Assessment and Plan (1) Abdominal fluid collection: Status: Acute Plan 37 year old women admitted with abdominal wall abscess with history of needle aspiration in July of 2022 Abdominal wall abscess IV vancomycin and cefepime Follow blood cultures General surgery consultation> OR today for wound exploration, I&D, and debridement UTI Continue cefepime Follow final urine cultures Transaminitis Normal liver on CT scan Possibly secondary to medications for psoriatic arthritis Psoriatic arthritis Hold home medications for now due to active infection DVT prophylaxis with early ambulation Attending Dr. Harding Full code Patient will need at least 48 hour hospitalization for treatment of abdominal wall requiring IV antibiotics and possible surgical intervention Quality Stroke Does the patient have a stroke diagnosis?: No VTE Prior VTE?: No VTE Risk Level:: Medical - moderate - high VTE Device Contraindication: N/A - Device Ordered VTE Drug Contraindication: Treatment Not Indicated
[2023-06-01 09:53] LABS: Creatinine Clr Calc Pharmacy 132.8; Estimated Glomerular Filt Rate > 60
--- NOTE | 2023-06-01 10:14 | PHA.MEDREC ---
Pharmacy Consult ? Medication Reconciliation Pharmacy has completed the medication reconciliation. Patient takes Yusimry every other Thursday and methotrexate on Wednesdays (she states, 6 tablets at once = 15mg), which is against her phamacy claims (8 tabs weekly).
--- NOTE | 2023-06-01 10:31 | PHA.PROG ---
Admission Date/Time: June 01, 2023 02:13 Indication: SKIN INFECTION Weight in k.7 kg Adjusted body weight in K.2 KG Tillman body weight in K.2 KG Obesity Dosing Indication % IBW: Serum Creatinine - Last 168 Hours 05/31/23 06/01/23 06/01/23 21:54 07:23 09:22 Creatinine 0.75 0.69 0.67 Estimated CrCl and GFR - Last 168 Hours 05/31/23 06/01/23 06/01/23 21:54 07:23 09:22 Estim Creat Clear Calc 107.3 128.9 132.8 Estimated GFR > 60 > 60 > 60 Vancomycin Loading Dose: 2000 MG Current Vancomycin Dosing Regimen: 1250 MG Q12H Vancomycin Monitoring using AUC goal of 400 - 600 range with trough as surrogate marker: AUC 463 TROUGH 13.5 Date and Time for next Vancomycin Level to be drawn: 06/02/23 @1300 Pharmacist Comments on Vancomycin Plan: Vancomycin dosing will take advantage of [employer] as a clinical decision support tool that uses Bayesian modeling to calculate individual patient's pharmacokinetic parameters and forecast the patient's drug concentration time course with the target goal AUC 24 range of 400 - 600 mg/L/hr.
--- NOTE | 2023-06-01 10:46 | PM.CNGS ---
History of Present Illness Consult details Consult date: 06/01/23 <VARGAS Ryan Last Filed: 06/01/23 11:01> Narrative: 37 year old female with PMH of psoriasis and surgical hx of abdominoplasty, lipsuction, b/l buttock implants in 2019 with history of abdominal wall abscess last year requiring needle aspiration and abx course. She reports the site has been intermittently draining ever since. She reports that on she developed a large mass just above her incision associated with pain. She then developed fevers over the weekend. She denies trauma to the area. Due to the fevers, she came to the ED for evaluation. She was found to have a leukocytosis of 11.[address] scan abd/pelvis showed low-density collection along the lower anterior abdominal wall beginning at the level of the umbilicus and extending inferiorly measuring 9.5 x 3 x 6.5 cm with wall thickening and adjacent subcutaneous infiltration consistent with a large abscess. She was subsequently admitted to the medical service and started on IV vanco and cefepime. Surgery consult was placed for possible I&D. <VARGAS Ryan Last Filed: 06/01/23 11:01> Review of Systems Constitutional: Constitutional: Denies chills, Reports fever(s) and Reports malaise <VARGAS Ryan Last Filed: 06/01/23 11:01> ENT: Denies dizziness <VARGAS Ryan Last Filed: 06/01/23 11:01> Cardiovascular: Cardiovascular: Denies chest pain and Denies dyspnea <VARGAS Ryan Last Filed: 06/01/23 11:01> Respiratory: Respiratory: Denies dyspnea <VARGAS Ryan Last Filed: 06/01/23 11:01> Gastrointestinal: Gastrointestinal: Denies diarrhea, Denies nausea and Denies vomiting <VARGAS Ryan Last Filed: 06/01/23 11:01> Genitourinary: Genitourinary: Denies dysuria <VARGAS Ryan Last Filed: 06/01/23 11:01> Integumentary/Breasts: Skin/Breast: Reports as per HPI <Sara Rush PA-C Last Filed: 06/01/23 11:01> Neurologic: Denies dizziness <Sara Rush PA-C Last Filed: 06/01/23 11:01> PMF Past Medical History Medical History: Medical History Abscess of left foot Open wound Otitis externa Blurry vision Hearing loss Macrocytosis Psoriatic arthritis <Sara Rush PA-C Last Filed: 06/01/23 11:01> Family History Family History: Family History Mother Hypertension Father Rheumatoid arthritis Family/Other Mental health disorder Paternal Uncle Colon cancer <Sara Rush PA-C Filed: 06/01/23 11:01> Surgical History Surgical History: Surgical History S/P debridement H/O skin graft History of abdominoplasty History of breast implant History of bilateral breast reduction surgery <Sara Rush PA-C Last Filed: 06/01/23 11:01> Social History Social History: Social History Household Members: None Housing: Apartment Do you presently have visiting nurse or other home services: No Alcohol intake: never [place] [facility] [place] Tobacco Use Status: Never used Tobacco Tobacco use type: Cigarette e-Cigarette/Vaping Use: Never Used Second Hand Smoke Exposure: No Substance Use Type: Marijuana service: No Current occupational status: employed Current occupational exposures/hazards: No Cognitive needs: No Hearing needs: No Vision needs: No <VARGAS Ryan Last Filed: 06/01/23 11:01> Meds Allergies/Adverse reactions: Allergies Allergy/AdvReac Type Severity Reaction Status Date / Time No Known Allergies Allergy Verified 05/31/23 21:33 <VARGAS Ryan Filed: 06/01/23 11:01> Active Medications: Current Medications Acetaminophen (Acetaminophen 325 Mg Tablet) 975 mg PO Q6H PRN PRN Reason: Pain, Mild (Pain Scale 1-3) Last Admin: 06/01/23 08:10 Dose: 975 mg Folic Acid (Folic Acid 1 Mg Tablet) 1 mg PO DAILY [facility] Last Admin: 06/01/23 08:10 Dose: 1 mg Lactated Ringer's (Lr) 1,000 mls @ 125 mls/hr IVCONT .Q8H [facility] Last Admin: 06/01/23 09:12 Dose: Not Given Cefepime HCl 2 gm/ Sodium (Chloride) 50 mls @ 100 mls/hr IV Q12H [facility] Last Infusion: 06/01/23 08:44 Dose: Infused Vancomycin HCl 1,250 mg/ (Sodium Chloride) 250 mls @ 166.667 mls/hr IV Q12H [facility] Ketorolac Tromethamine (Ketorolac Tromethamine 15 Mg/Ml Vial) 15 mg IVPUSH Q6H PRN PRN Reason: Pain, Severe (Pain Scale 7-10) Pharmacy Consult (Consult Rx Vancomycin Dosing) 1 each MISCELLANE DAILY PRN PRN Reason: Consult order Sodium Chloride (0.9 % Sodium Chloride Flush 3 Ml Syringe) 3 ml IVFLUSH QSHIFT [facility] Last Admin: 06/01/23 08:10 Dose: 3 ml <Sara Rush PA-C - Last Filed: 06/01/23 11:01> Home medications: Home Medications ?Medication ?Instructions ?Recorded ?Confirmed ?Last Taken ?Type adalimumab-aqvh 40 mg/0.8 mL 40 mg subcut Q2W 06/01/23 06/01/23 05/22/23 History subcutaneous pen injector (Debbiey(CF) Pen) ascorbic acid (vitamin C) 250 mg 500 mg PO DAILY 06/01/23 06/01/23 05/28/23 History chewable tablet ascorbic acid 30 mg-collagen, 1 tab PO DAILY 06/01/23 06/01/23 05/28/23 History hydrolyzed 833.3 mg tablet (Collagen Skin Renewal) diphenhydramine HCl 25 mg tablet 25 mg PO BEDTIME 06/01/23 06/01/23 05/30/23 History ibuprofen 600 mg tablet 600 mg PO Q8H PRN Pain 06/01/23 06/01/23 05/29/23 History methotrexate sodium 2.5 mg tablet 15 mg PO WE 06/01/23 06/01/23 05/27/23 History <VARGAS Ryan Last Filed: 06/01/23 11:01> Physical Exam Vital Signs: Vital Signs: Last Vital Signs Temp 98 F 06/01/23 07:02 Pulse 69 06/01/23 07:02 Resp 16 06/01/23 07:02 BP 98/52 L 06/01/23 07:02 Pulse Ox 98 06/01/23 07:02 O2 Del Method Room Air 06/01/23 07:02 BMI result Body Mass Index 27.2 <VARGAS Ryan Last Filed: 06/01/23 11:01> Const: General: comfortable, no acute distress and alert <VARGAS Ryan Last Filed: 06/01/23 11:01> Resp: Effort & Inspection: normal respiratory effort <VARGAS Ryan Last Filed: 06/01/23 11:01> GI: Other: large prominent, fluctuant collection midline just superior to abdominoplasty scar, no overlying erythema, mild edema that extends into right anterior thigh <VARGAS Ryan Last Filed: 06/01/23 11:01> Inspection: Yes scar <VARGAS Ryan Last Filed: 06/01/23 11:01> Palpation (GI): Soft to palpation, Tenderness to palpation present (GI) (moderate tenderness ), no guarding and not rigid <VARGAS Ryan Last Filed: 06/01/23 11:01> Abdomen image: 1. abdominoplasty scar 2. abdominoplasty scar 3. large collection <VARGAS Ryan Last Filed: 06/01/23 11:01> Skin: General skin exam: no rashes or lesions noted <VARGAS Ryan Last Filed: 06/01/23 11:01> Results Labs Result diagrams: 06/01/23 07:23 06/01/23 09:22 <VARGAS Ryan Last Filed: 06/01/23 11:01> Labs: Abnormal lab results 05/31/23 06/01/23 06/01/23 Range/Units 21:54 01:21 07:23 WBC 11.6 H (4.8-10.8) X10*3/uL RBC 3.95 L 3.39 L (4.20-5.50) X10*6/uL Hgb 11.4 L (12.0-16.0) g/dl Hct 33.8 L (37.0-47.0) % MCV 99.5 H 99.7 H (80.0-98.0) fL MCH 33.9 H 33.6 H (27.0-33.0) pg MPV 8.8 L 9.0 L (9.4-12.3) fL Neut % (Auto) 76.2 H (45-73) % Lymph % (Auto) 11.2 L (20-40) % Abs Immat Gran (auto) 0.05 H (0.00-0.03) X10*3/uL Absolute Neuts (auto) 8.8 H (2.0-8.3) x10*3/uL PT 14.5 H (11.1-13.3) SEC INR 1.2 H (0.9-1.1) Chloride 110 H (96-108) mmol/L Anion Gap 8 L (12-20) BUN 8 L (9-16) mg/dL AST 63 H 40 H (5-31) U/L ALT 92 H 71 H (0-31) U/L Alkaline Phosphatase 143 H (39-117) U/L Total Creatine Kinase 260 H (26-140) U/L Total Protein 8.2 H 6.2 L (6.5-8.0) g/dL Albumin 3.1 L (3.5-5.0) g/dL Urine Blood Small (1+) H (Negative) Ur Leukocyte Esterase Moderate (2+) H (Negative) Urine RBC 3-5 H (0-2) /HPF Short CBC 05/31/23 06/01/23 Range/Units 21:54 07:23 WBC 11.6 H 9.6 (4.8-10.8) X10*3/uL Hgb 13.4 11.4 L (12.0-16.0) g/dl Hct 39.3 33.8 L (37.0-47.0) % Plt Count 333 269 (160-400) X10*3/uL BMP 05/31/23 06/01/23 06/01/23 21:54 07:23 09:22 Sodium 136 137 Potassium 3.4 3.4 Chloride 101 110 H Carbon Dioxide 23 22 BUN 13 8 L Creatinine 0.75 0.69 0.67 Calcium 9.7 8.6 D Cardiac Enzymes 05/31/23 Range/Units 21:54 Total Creatine Kinase 260 H (26-140) U/L Liver Function 05/31/23 06/01/23 Range/Units 21:54 07:23 Total Bilirubin 0.6 0.8 (0.0-1.0) mg/dL AST 63 H 40 H (5-31) U/L ALT 92 H 71 H (0-31) U/L Alkaline Phosphatase 143 H 113 (39-117) U/L Albumin 4.0 3.1 L (3.5-5.0) g/dL Urine 06/01/23 Range/Units 01:21 Urine Color Yellow Urine Appearance Clear Urine pH 6.0 (5.0-9.0) Ur Specific [place] 1.025 (1.005-1.025) Urine Protein Negative (Neg-Trace) mg/dL Urine Glucose (UA) Negative (Negative) mg/dL All other labs normal. <Sara Rush PA-C - Last Filed: 06/01/23 11:01> Imaging Abdomen CT scan report/results: report reviewed and image reviewed <Sara Rush PA-C - Last Filed: 06/01/23 11:01> Assessment and Plan (1) Abdominal fluid collection: Status: Acute <Sara Rush PA-C - Last Filed: 06/01/23 11:01> As noted above. For OR for wound exploration/I&D/debridement of complex abdominal wall abscess <Mj Downing MD - Last Filed: 06/01/23 11:55> (2) Sepsis: Status: Acute <Sara Rush PA-C - Last Filed: 06/01/23 11:01> 37 year old female with surgical hx of abdominoplasty, lipsuction, b/l buttock implants in 2019 with history of abdominal wall abscess last year requiring needle aspiration who presents with abdominal pain and swelling of lower abdomen with fevers with leukocytosis and CT scan showing a large midline abdominal wall collection. She is on IV vanco and cefepime. Given the size of the abscess, recommended to proceed with I&D of the abdominal wall abscess in the OR. She is in agreement. Arrangements will be made. <Sara Rush PA-C - Last Filed: 06/01/23 11:01> Procedures Date of Service Date of Service: 06/01/23 <Sara Rush PA-C - Last Filed: 06/01/23 11:01> 06/01/23 <Mj Downing MD - Last Filed: 06/01/23 11:55>
[2023-06-01] MEDS: Ketorolac Tromethamine 15 MG/ML VIAL IVPUSH (12:01)
--- NOTE | 2023-06-01 12:45 | MHC.CM.PN ---
PT REPORTS SHE LIVES ALONE AND IS INDEPENDENT WITH CARE SHE HAS NO SERVICES AND NO DME, PT WORKS AND DRIVES HCP ON FILE AND VERIFIED PCP: HARLEY LEONARD DCP: HOME NO SERVICES VIA SELF TRANSPORT
--- NOTE | 2023-06-01 14:13 | HO.ANESPROP2 ---
HPI - Anesthesia Eval Consult details Narrative: i andD abdominal wound PMFSH Active Problems Active Problems: All Active Problems Elevated transaminase level (Acute) UTI (urinary tract infection) (Acute) Sepsis (Acute) Abdominal fluid collection (Acute) Abdominal wall cellulitis (Acute) Abscess of left foot (Acute) Open wound (Acute) Ingrown toenail (Acute) Hypovitaminosis D (Acute) Physical exam (Acute) Carpal tunnel syndrome of right wrist (Acute) Immunization counseling (Acute) Intraventricular conduction delay (Acute) Psoriasis (Acute) HARLEY positive (Acute) Open wound (Acute) Alicia by, chemical (Acute) Mild recurrent major depression (Acute) PTSD (post-traumatic stress disorder) (Acute) Hospital discharge follow-up (Acute) Sensorineural hearing loss, bilateral (Acute) Dry right ear canal (Acute) Ear drainage right (Acute) Vaginal discharge (Acute) Cervical cancer screening (Acute) Blurry vision (Acute) Hearing loss (Acute) 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) Macrocytosis (Acute) Psoriatic arthritis (Acute) Seroma due to trauma (Acute) Past Medical History Medical History Abscess of left foot Open wound Otitis externa Blurry vision Hearing loss Macrocytosis Psoriatic arthritis Family History Family History Mother Hypertension Father Rheumatoid arthritis Family/Other Mental health disorder Paternal Uncle Colon cancer Family history of problems with anesthesia: No Surgical History Surgical History S/P debridement H/O skin graft History of abdominoplasty History of breast implant History of bilateral breast reduction surgery History of Problems with Anesthesia: No Social History Social History Household Members: None Housing: Apartment Do you presently have visiting nurse or other home services: No Alcohol intake: never Comment: [facility] Patient Tobacco Use Status: Never used Tobacco Tobacco use type: Cigarette e-Cigarette/Vaping Use: Never Used Second Hand Smoke Exposure: No Substance Use Type: Marijuana service: No Current occupational status: employed Current occupational exposures/hazards: No Cognitive needs: No Hearing needs: No Vision needs: No Meds Allergies Allergy/AdvReac Type Severity Reaction Status Date / Time No Known Allergies Allergy Verified 05/31/23 21:33 Active Medications: Current Medications Acetaminophen (Acetaminophen 325 Mg Tablet) 975 mg PO Q6H PRN PRN Reason: Pain, Mild (Pain Scale 1-3) Last Admin: 06/01/23 08:10 Dose: 975 mg Fentanyl (Fentanyl Citrate/Pf 100 Mcg/2 Ml Vial) 25 mcg IVPUSH Q5M PRN; Protocol PRN Reason: Pain, Moderate(Pain Scale 4-6) Stop: 06/01/23 20:04 Folic Acid (Folic Acid 1 Mg Tablet) 1 mg PO DAILY REPLACED BY [facility] Last Admin: 06/01/23 08:10 Dose: 1 mg Hydromorphone HCl (Hydromorphone Hcl 0.5 Mg/0.5 Ml Syringe) 0.5 mg IVPUSH Q5M PRN; Protocol PRN Reason: Pain, Severe (Pain Scale 7-10) Stop: 06/01/23 20:04 Lactated Ringer's (Lr) 1,000 mls @ 125 mls/hr IVCONT .Q8H REPLACED BY [facility] Last Infusion: 06/01/23 13:42 Dose: 0 mls/hr Cefepime HCl 2 gm/ Sodium (Chloride) 50 mls @ 100 mls/hr IV Q12H REPLACED BY [facility] Last Infusion: 06/01/23 08:44 Dose: Infused Vancomycin HCl 1,250 mg/ (Sodium Chloride) 250 mls @ 166.667 mls/hr IV Q12H REPLACED BY [facility] Ketorolac Tromethamine (Ketorolac Tromethamine 15 Mg/Ml Vial) 15 mg IVPUSH Q6H PRN PRN Reason: Pain, Severe (Pain Scale 7-10) Last Admin: 06/01/23 12:01 Dose: 15 mg Pharmacy Consult (Consult Rx Vancomycin Dosing) 1 each MISCELLANE DAILY PRN PRN Reason: Consult order Sodium Chloride (0.9 % Sodium Chloride Flush 3 Ml Syringe) 3 ml IVFLUSH QSHIFT REPLACED BY [facility] Last Admin: 06/01/23 08:10 Dose: 3 ml Home Medications ?Medication ?Instructions ?Recorded ?Confirmed ?Last Taken ?Type adalimumab-aqvh 40 mg/0.8 mL 40 mg subcut Q2W 06/01/23 06/01/23 05/22/23 History subcutaneous pen injector (Marcell(CF) Pen) ascorbic acid (vitamin C) 250 mg 500 mg PO DAILY 06/01/23 06/01/23 05/28/23 History chewable tablet ascorbic acid 30 mg-collagen, 1 tab PO DAILY 06/01/23 06/01/23 05/28/23 History hydrolyzed 833.3 mg tablet (Collagen Skin Renewal) diphenhydramine HCl 25 mg tablet 25 mg PO BEDTIME 06/01/23 06/01/23 05/30/23 History ibuprofen 600 mg tablet 600 mg PO Q8H PRN Pain 06/01/23 06/01/23 05/29/23 History methotrexate sodium 2.5 mg tablet 15 mg PO WE 06/01/23 06/01/23 05/27/23 History Exam Height,Weight and Vital Signs: Height 5 ft 9 in Weight 76.657 kg Last Vital Signs Temp 97.9 F 06/01/23 13:57 Pulse 84 06/01/23 13:57 Resp 16 06/01/23 13:57 BP 90/63 06/01/23 13:57 Pulse Ox 98 06/01/23 13:57 O2 Del Method Room Air 06/01/23 13:57 Pertinent Lab Results Pertinent Lab Results: Laboratory Tests 05/31/23 06/01/23 06/01/23 21:54 01:21 07:23 WBC 11.6 H 9.6 RBC 3.95 L 3.39 L Hgb 13.4 11.4 L Hct 39.3 33.8 L MCV 99.5 H 99.7 H MCH 33.9 H 33.6 H MCHC 34.1 33.7 RDW 14.2 14.3 Plt Count 333 269 MPV 8.8 L 9.0 L Immature Gran % (Auto) 0.4 Neut % (Auto) 76.2 H Lymph % (Auto) 11.2 L Rutherford % (Auto) 9.8 Eos % (Auto) 2.0 Baso % (Auto) 0.4 Lymph # (Auto) 1.3 Rutherford # (Auto) 1.1 Eos # (Auto) 0.2 Baso # (Auto) 0.1 Abs Immat Gran (auto) 0.05 H Absolute Neuts (auto) 8.8 H Absolute Nucleated RBC 0.000 0.000 Nucleated RBC % (auto) 0.0 0.0 PT 14.5 H INR 1.2 H Sodium 136 137 Potassium 3.4 3.4 Chloride 101 110 H Carbon Dioxide 23 22 Anion Gap 15 8 L BUN 13 8 L Creatinine 0.75 0.69 Estim Creat Clear Calc 107.3 128.9 Estimated GFR > 60 > 60 Random Glucose 104 94 Lactic Acid 1.1 Calcium 9.7 8.6 D Total Bilirubin 0.6 0.8 AST 63 H 40 H ALT 92 H 71 H Alkaline Phosphatase 143 H 113 Total Creatine Kinase 260 H Total Protein 8.2 H 6.2 L Albumin 4.0 3.1 L Beta HCG, Quant < 2 Urine Color Yellow Urine Appearance Clear Urine pH 6.0 Ur Specific [place] 1.025 Urine Protein Negative Urine Glucose (UA) Negative Urine Ketones Negative Urine Blood Small (1+) H Urine Nitrite Negative Ur Leukocyte Esterase Moderate (2+) H Urine RBC 3-5 H Urine WBC 11-20 Ur Squamous Epith Cells 3-5 Urine Bacteria None Seen Hyaline Casts 3-5 Hepatitis A IgM Ab Nonreactive Hep Bs Antigen Negative Hep Bs Antibody NONREACTIVE Hep B Core Total Ab Nonreactive Hepatitis C Ab (EIA) Nonreactive 06/01/23 09:22 WBC RBC Hgb Hct MCV MCH MCHC RDW Plt Count MPV Immature Gran % (Auto) Neut % (Auto) Lymph % (Auto) Rutherford % (Auto) Eos % (Auto) Baso % (Auto) Lymph # (Auto) Rutherford # (Auto) Eos # (Auto) Baso # (Auto) Abs Immat Gran (auto) Absolute Neuts (auto) Absolute Nucleated RBC Nucleated RBC % (auto) PT INR Sodium Potassium Chloride Carbon Dioxide Anion Gap BUN Creatinine 0.67 Estim Creat Clear Calc 132.8 Estimated GFR > 60 Random Glucose Lactic Acid Calcium Total Bilirubin AST ALT Alkaline Phosphatase Total Creatine Kinase Total Protein Albumin Beta HCG, Quant Urine Color Urine Appearance Urine pH Ur Specific [place] Urine Protein Urine Glucose (UA) Urine Ketones Urine Blood Urine Nitrite Ur Leukocyte Esterase Urine RBC Urine WBC Ur Squamous Epith Cells Urine Bacteria Hyaline Casts Hepatitis A IgM Ab Hep Bs Antigen Hep Bs Antibody Hep B Core Total Ab Hepatitis C Ab (EIA) Airway Mallampati Class: II TM Dist: >3cm Neck ROM: Full Heart: rrr Lungs: cta Assessment and Plan Assessment Anesthesia Assessment: Anesthesia Plan Discussed and Chart Reviewed Final Anesthetic Review Family History of Problems with Anesthesia: No History of Problems with Anesthesia: No NPO: Yes ASA Class: III Final Preanesthetic Review: No Changes in Pt Med Stat, Meds/Allgs Chart Reviewed, Consent Obtained/Reviewed and Anes Risks/Benef Reviewed Patient Risk: Intermediate Procedure Risk: Low Anesthetic Plan Anesthetic Plan: GA and MAC: Disposition: Standard PACU
--- NOTE | 2023-06-01 15:03 | P.OP_ITS ---
Operative Note Operative Note Date of Service: 06/01/23 Narrative: Preoperative diagnosis: [] Deep/complex Abdominal wall abscess Postop diagnosis: [] Same Procedure [] incision and drainage and debridement of abdominal wall deep/complex abscess Surgeon: [] Chang Recovery Operator Helper: [] Victor Manuel Type of Anesthesia: [] General Indication for surgery: [] Patient is status post abdomino- plasty in [place]. She has had persistent symptoms of the seroma which was been occasionally aspirated. She now presents with sepsis and workup demonstrated on CT scan a very large abdominal wall abscess. This measured approximately 10 x 15 cm with purulent foul-smelling pus. Complex Abscess cavity was multi loculated and thick walled. Cultures were obtained. Findings: [] Patient brought to the operating room, placed on operative table supine position, after adequate level of general anesthesia was induced, the patient's abdomen was prepped and draped in usual sterile fashion. Using an incision from the patient's prior abdominal plasty in the midline just below the level of the abscess cavity, this carried down through skin, subcutaneous tissue, where marked cicatrization and scarring were encountered and abscess cavity entered superiorly with dimensions as described above. Copious amounts of purulent material were drained. Cultures were obtained. Wound was debrided of necrotic debris. Wound was irrigated, secured hemostasis, packed with wide Kerlix packing followed by ABD dressing. Wound was infiltrated 0.5% Marcaine at completion. Sponge, needle, and instrument counts reported correct. Patient tolerated the procedure well and emerged from anesthesia stable condition. EBL minimal
[2023-06-01] MEDS: oxyCODONE HCl Immed Release 5 MG TABLET PO ×2 (16:37→20:47)
[2023-06-01] MEDS: vancomycin HCL 1,250 MG in 0.9 % Sodium Chloride 250 ML 166.67 MG IV (16:38)
[2023-06-02 03:40] VITALS: BP 103/59; PULSE 66; RESP 18; TEMP 36.2; O2SAT 99
[2023-06-02] MEDS: vancomycin HCL 1,250 MG in 0.9 % Sodium Chloride 250 ML 166.67 MG IV ×2 (04:35→15:53)
--- NOTE | 2023-06-02 07:11 | P.PNIM_ITS ---
Subjective Subjective Date of Service: 06/02/23 Review of Systems Follow up abd abscess no pain at this time Physical Exam 2 Vital Signs: Vital Signs: Last Vital Signs Temp 97.1 F 06/02/23 03:40 Pulse 66 06/02/23 03:40 Resp 18 06/02/23 03:40 BP 103/59 L 06/02/23 03:40 Pulse Ox 99 06/02/23 03:40 O2 Del Method Room Air 06/02/23 03:40 O2 Flow Rate 4 06/01/23 15:02 BMI result Body Mass Index 25.0 Appearing in no acute distress lung sounds are clear to auscultation heart regular rate rhythm, clear S1, S2 positive bowel sounds, abdomen is soft, nontender, surgical bandage intact neuro patient is alert x3, no focal deficits Objective Data Active Medications Acetaminophen (Acetaminophen 325 Mg Tablet) 975 mg PO Q6H PRN PRN Reason: Pain, Mild (Pain Scale 1-3) Last Admin: 06/01/23 20:49 Dose: 975 mg Documented By: TOSHIA Folic Acid (Folic Acid 1 Mg Tablet) 1 mg PO DAILY [facility] Last Admin: 06/01/23 08:10 Dose: 1 mg Documented By: COTVARINDER Lactated Ringer's (Lr) 1,000 mls @ 125 mls/hr IVCONT .Q8H [facility] Last Infusion: 06/02/23 06:08 Dose: 125 mls/hr Documented By: HEMA Cefepime HCl 2 gm/ Sodium (Chloride) 50 mls @ 100 mls/hr IV Q12H [facility] Last Infusion: 06/01/23 21:23 Dose: Infused Documented By: TOSHIA Vancomycin HCl 1,250 mg/ (Sodium Chloride) 250 mls @ 166.667 mls/hr IV Q12H [facility] Last Infusion: 06/02/23 06:05 Dose: Infused Documented By: HEMA Ketorolac Tromethamine (Ketorolac Tromethamine 15 Mg/Ml Vial) 15 mg IVPUSH Q6H PRN PRN Reason: Pain, Severe (Pain Scale 7-10) Last Admin: 06/01/23 12:01 Dose: 15 mg Documented By: COTEMA Morphine Sulfate (Morphine Sulfate 4 Mg/Ml Cartridge) 4 mg IVPUSH Q4H PRN; Protocol PRN Reason: Pain, Severe (Pain Scale 7-10) Oxycodone HCl (Oxycodone Hcl Immed Release 5 Mg Tablet) 5 mg PO Q4H PRN PRN Reason: Pain, Moderate(Pain Scale 4-6) Last Admin: 06/01/23 20:47 Dose: 5 mg Documented By: TOSHIA Pharmacy Consult (Consult Rx Vancomycin Dosing) 1 each MISCELLANE DAILY PRN PRN Reason: Consult order Sodium Chloride (0.9 % Sodium Chloride Flush 3 Ml Syringe) 3 ml IVFLUSH QSHIFT [facility] Last Admin: 06/01/23 23:38 Dose: Not Given Documented By: HEMA Non-Admin Reason: IV Running Labs 06/01/23 07:23 06/02/23 08:45 Labs: Laboratory Results - last 24 hr 06/01/23 06/01/23 06/02/23 07:23 09:22 05:23 MCV 99.7 H MCH 33.6 H MCHC 33.7 RDW 14.3 Plt Count 269 MPV 9.0 L Absolute Nucleated RBC 0.000 Nucleated RBC % (auto) 0.0 Hold Purple Top SEE NOTE PT 14.5 H INR 1.2 H Anion Gap 8 L Estim Creat Clear Calc 128.9 132.8 Estimated GFR > 60 > 60 Random Glucose 94 Calcium 8.6 D Total Bilirubin 0.8 AST 40 H ALT 71 H Alkaline Phosphatase 113 Total Protein 6.2 L Albumin 3.1 L Hepatitis A IgM Ab Nonreactive Hep Bs Antigen Negative Hep Bs Antibody NONREACTIVE Hep B Core Total Ab Nonreactive Hepatitis C Ab (EIA) Nonreactive Microbiology Microbiology Results: Microbiology 05/31/23 23:47 Blood Culture - Preliminary Blood - Venous No growth after 24 hours. 05/31/23 21:54 Blood Culture - Preliminary Blood - Venous No growth after 24 hours. Assessment and Plan (1) Abdominal fluid collection: Status: Acute Plan 37 year old women admitted with abdominal wall abscess with history of needle aspiration in July of 2022 Abdominal wall abscess IV vancomycin and cefepime Follow blood cultures I&D, and debridement s/p I&D, debridement of abdominal wall deep abscess 06/01/23 Will need dressing changes daily with saline soaked kerlix packing, fluffs and abd dressing. UTI Continue cefepime Follow final urine cultures Transaminitis Normal liver on CT scan Possibly secondary to medications for psoriatic arthritis Psoriatic arthritis Hold home medications for now due to active infection DVT prophylaxis with early ambulation Attending Dr. Harding Full code continue hospital stay for treatment of abdominal wall requiring IV antibiotics and possible surgical intervention Quality Stroke Does the patient have a stroke diagnosis?: No VTE Prior VTE?: No VTE Risk Level:: Medical - moderate - high VTE Device Contraindication: N/A - Device Ordered VTE Drug Contraindication: Treatment Not Indicated
[2023-06-02] MEDS: Ketorolac Tromethamine 15 MG/ML VIAL IVPUSH (07:41)
[2023-06-02] MEDS: Folic Acid 1 MG TABLET PO (07:42)
[2023-06-02] MEDS: cefEPime HCl 2 GM in 0.9 % Sodium Chloride 50 ML 1 GM IV (07:42)
[2023-06-02] MEDS: 0.9 % Sodium Chloride Flush 3 ML SYRINGE IVFLUSH (07:43)
[2023-06-02 08:00] VITALS: BP 113/66; PULSE 68; RESP 17; TEMP 36.1; O2SAT 96
[2023-06-02 09:15] LABS: Creatinine Clr Calc Pharmacy 127.8; Estimated Glomerular Filt Rate > 60
[2023-06-02] MEDS: Lactated Ringers 1,000 ML 125 ML IVCONT ×2 (09:15→18:18)
--- NOTE | 2023-06-02 09:28 | P.PNGS_ITS ---
Subjective Subjective Date of Service: 06/02/23 Interval history: Overall feeling better. Reports pain from I&D site making it difficult to walk. Physical Exam 2 Vital Signs: Vital Signs: Last Vital Signs Temp 96.9 F 06/02/23 08:00 Pulse 68 06/02/23 08:00 Resp 17 06/02/23 08:00 BP 113/66 06/02/23 08:00 Pulse Ox 96 06/02/23 08:00 O2 Del Method Room Air 06/02/23 08:00 O2 Flow Rate 4 06/01/23 15:02 BMI result Body Mass Index 25.0 Const: General: comfortable, no acute distress and alert O rientation/consciousness: patient oriented x3 Resp: Effort & Inspection: normal respiratory effort GI: Other: I&D site remains open and clean appearing, no surrounding erythema or edema, packing removed and changed with saline soaked kerlix roll, no significant drainage noted Inspection: No distended Palpation (GI): Soft to palpation and Tenderness to palpation present (GI) (surrounding I&D site) Skin: General skin exam: no rashes or lesions noted Neuro: General: patient oriented x3 Objective Data Active Medications Acetaminophen (Acetaminophen 325 Mg Tablet) 975 mg PO Q6H PRN PRN Reason: Pain, Mild (Pain Scale 1-3) Last Admin: 06/01/23 20:49 Dose: 975 mg Documented By: TOSHIA Folic Acid (Folic Acid 1 Mg Tablet) 1 mg PO DAILY [facility] Last Admin: 06/02/23 07:42 Dose: 1 mg Documented By: RADHA Lactated Ringer's (Lr) 1,000 mls @ 125 mls/hr IVCONT .Q8H [facility] Last Admin: 06/02/23 09:15 Dose: 125 mls/hr Documented By: RADHA Cefepime HCl 2 gm/ Sodium (Chloride) 50 mls @ 100 mls/hr IV Q12H [facility] Last Admin: 06/02/23 07:42 Dose: 1 mls/hr Documented By: RADHA Vancomycin HCl 1,250 mg/ (Sodium Chloride) 250 mls @ 166.667 mls/hr IV Q12H [facility] Last Infusion: 06/02/23 06:05 Dose: Infused Documented By: HEMA Morphine Sulfate (Morphine Sulfate 4 Mg/Ml Cartridge) 4 mg IVPUSH Q4H PRN; Protocol PRN Reason: Pain, Severe (Pain Scale 7-10) Oxycodone HCl (Oxycodone Hcl Immed Release 5 Mg Tablet) 5 mg PO Q4H PRN PRN Reason: Pain, Moderate(Pain Scale 4-6) Last Admin: 06/01/23 20:47 Dose: 5 mg Documented By: TOSHIA Pharmacy Consult (Consult Rx Vancomycin Dosing) 1 each MISCELLANE DAILY PRN PRN Reason: Consult order Sodium Chloride (0.9 % Sodium Chloride Flush 3 Ml Syringe) 3 ml IVFLUSH QSHIFT [facility] Last Admin: 06/02/23 07:43 Dose: 3 ml Documented By: FOGARTB Labs 06/01/23 07:23 06/02/23 08:45 Labs: Laboratory Results - last 24 hr 06/01/23 06/02/23 09:22 08:45 Hold Purple Top SEE NOTE Estim Creat Clear Calc 132.8 127.8 Estimated GFR > 60 > 60 Microbiology Microbiology Results: Microbiology 06/01/23 Unknown Gram Stain - Final Abdomen - Abscess Routine Culture - Preliminary Culture in progress. 06/01/23 Unknown Urine Culture - Final Urine clean catch - Urine elmore top No growth. 05/31/23 23:47 Blood Culture - Preliminary Blood - Venous No growth after 24 hours. 05/31/23 21:54 Blood Culture - Preliminary Blood - Venous No growth after 24 hours. Procedures Date of Service Date of Service: 06/02/23 Progress Note: A&P Assessment and plan (1) Abdominal wall abscess: Status: Acute Plan POD #1 s/p incision and drainage and debridement of deep abdominal wall complex abscess. I&D site remains open and clean appearing, packing changed with saline soaked kerlix. Tolerated dressing change quite well. Cont IV abx for now. Hopefully home tomorrow if pain tolerable on oral analgesics with VNA services for dressing changes. Will need dressing changes daily with saline soaked kerlix packing, fluffs and abd dressing. Time Spent With Patient Time: Total time managing care of this patient today ____ minutes. Quality Stroke Does the patient have a stroke diagnosis?: No VTE Prior VTE?: No VTE Risk Level:: Medical - moderate - high VTE Device Contraindication: N/A - Device Ordered VTE Drug Contraindication: Treatment Not Indicated
[2023-06-02] MEDS: oxyCODONE HCl Immed Release 5 MG TABLET PO ×2 (12:19→18:20)
[2023-06-02 14:57] LABS: Vancomycin Random 14.5 mcg/mL (15-20)
--- NOTE | 2023-06-02 15:13 | HE.PHANOTE ---
RE: VANCO DOSING Random came back as 14.5. Based on indication of skin infection, keeping the dose of 1250 mg q12h, next random is scheduled for 06/03/23 @1400.
--- NOTE | 2023-06-02 15:35 | HO.POSTANES ---
Post Anesthesia Evaluation Post Anesthesia Evaluation Date of Service: 06/02/23 Vital Signs: Vital Signs Temp Pulse Resp BP Pulse Ox O2 Del Method 06/02/23 08:00 96.9 F 68 17 113/66 96 Room Air 06/02/23 03:40 97.1 F 66 18 103/59 L 99 Room Air Anesthesia: General Endotracheal-GETA Mental Status: Awake Pain Control: Satisfactory (difficulty controlling pain) Nausea/Vomiting: None Hydration: Adequate Anesthesia-Related Issues: No Anes. Related Issues
[2023-06-02 15:40] VITALS: BP 104/62; PULSE 84; RESP 18; TEMP 36.2; O2SAT 99
[2023-06-02 19:19] VITALS: BP 94/60; PULSE 88; RESP 20; TEMP 36.6; O2SAT 97
[2023-06-02] MEDS: cefEPime HCl 2 GM in 0.9 % Sodium Chloride 50 ML IV (20:39)
[2023-06-02] MEDS: Morphine Sulfate 4 MG/ML CARTRIDGE IVPUSH (23:35)
--- NOTE | 2023-06-03 02:38 | PC.NURSE ---
Repeat POC was [address] Noguera notified.
[2023-06-03] MEDS: vancomycin HCL 1,250 MG in 0.9 % Sodium Chloride 250 ML 166.67 MG IV (03:58)
[2023-06-03 06:00] VITALS: BP 91/53; PULSE 75; RESP 18; TEMP 36.4; O2SAT 97
[2023-06-03 07:32] LABS: Creatinine Clr Calc Pharmacy 114.9; Estimated Glomerular Filt Rate > 60
[2023-06-03] MEDS: Folic Acid 1 MG TABLET PO (07:43)
[2023-06-03] MEDS: Morphine Sulfate 4 MG/ML CARTRIDGE IVPUSH (07:43)
[2023-06-03] MEDS: cefEPime HCl 2 GM in 0.9 % Sodium Chloride 50 ML IV (07:44)
[2023-06-03 08:26] VITALS: BP 107/51; PULSE 77; RESP 17; TEMP 36.6; O2SAT 98
--- NOTE | 2023-06-03 08:54 | P.PNGS_ITS ---
Subjective Subjective Date of Service: 06/03/23 Interval history: Has been receiving IV analgesics for pain. Ambulating a little better now. Tolerating diet. Physical Exam 2 Vital Signs: Vital Signs: Last Vital Signs Temp 97.9 F 06/03/23 08:26 Pulse 77 06/03/23 08:26 Resp 17 06/03/23 08:26 BP 107/51 L 06/03/23 08:26 Pulse Ox 98 06/03/23 08:26 O2 Del Method Room Air 06/03/23 08:26 O2 Flow Rate 4 06/01/23 15:02 BMI result Body Mass Index 25.0 Const: General: comfortable, no acute distress and alert O rientation/consciousness: patient oriented x3 Resp: Effort & Inspection: normal respiratory effort GI: Other: I&D site open clean, packing removed and changed, no purulent drainage noted, surrounding area soft, very pale erythema Inspection: No distended Skin: General skin exam: no rashes or lesions noted Neuro: General: patient oriented x3 and moves all extremities Objective Data Active Medications Acetaminophen (Acetaminophen 325 Mg Tablet) 975 mg PO Q6H PRN PRN Reason: Pain, Mild (Pain Scale 1-3) Last Admin: 06/01/23 20:49 Dose: 975 mg Documented By: TOSHIA Folic Acid (Folic Acid 1 Mg Tablet) 1 mg PO DAILY [facility] Last Admin: 06/03/23 07:43 Dose: 1 mg Documented By: ETHEL Cefepime HCl 2 gm/ Sodium (Chloride) 50 mls @ 100 mls/hr IV Q12H [facility] Last Infusion: 06/03/23 08:49 Dose: Infused Documented By: ETHEL Vancomycin HCl 1,250 mg/ (Sodium Chloride) 250 mls @ 166.667 mls/hr IV Q12H [facility] Last Infusion: 06/03/23 05:30 Dose: Infused Documented By: EDA Morphine Sulfate (Morphine Sulfate 4 Mg/Ml Cartridge) 4 mg IVPUSH Q4H PRN; Protocol PRN Reason: Pain, Severe (Pain Scale 7-10) Last Admin: 06/03/23 07:43 Dose: 4 mg Documented By: ETHEL Oxycodone HCl (Oxycodone Hcl Immed Release 5 Mg Tablet) 5 mg PO Q4H PRN PRN Reason: Pain, Moderate(Pain Scale 4-6) Last Admin: 06/02/23 18:20 Dose: 5 mg Documented By: RADHA Pharmacy Consult (Consult Rx Vancomycin Dosing) 1 each MISCELLANE DAILY PRN PRN Reason: Consult order Sodium Chloride (0.9 % Sodium Chloride Flush 3 Ml Syringe) 3 ml IVFLUSH QSHIFT [facility] Last Admin: 06/03/23 07:59 Dose: Not Given Documented By: ETHEL Non-Admin Reason: IV Running Labs 06/01/23 07:23 06/03/23 06:59 Labs: Laboratory Results - last 24 hr 06/02/23 06/02/23 06/03/23 08:45 14:21 06:59 Hold Purple Top SEE NOTE SEE NOTE Estim Creat Clear Calc 127.8 114.9 Estimated GFR > 60 > 60 Hold Yellow Top See Note Random Vancomycin 14.5 L Microbiology Microbiology Results: Microbiology 05/31/23 23:47 Blood Culture - Preliminary Blood - Venous No growth after 48 hours. 05/31/23 21:54 Blood Culture - Preliminary Blood - Venous No growth after 48 hours. 06/01/23 Unknown Gram Stain - Final Abdomen - Abscess Routine Culture - Preliminary Culture in progress. 06/01/23 Unknown Urine Culture - Final Urine clean catch - Urine elmore top No growth. Procedures Date of Service Date of Service: 06/03/23 Progress Note: A&P Assessment and plan (1) Abdominal wall abscess: Status: Acute Plan POD #2 s/p incision and drainage and debridement of deep abdominal wall complex abscess. I&D site remains open and clean appearing, packing changed with saline soaked kerlix. Tolerating dressing changes quite well. Discussed use of oral analgesics only this morning. If comfortable on oral meds, ready for dc to home from surgical standpoint. Will need VNA services for dressing changes- discussed with case management. Will need dressing changes daily with saline soaked kerlix packing, fluffs and abd dressing. Time Spent With Patient Time: Total time managing care of this patient today ____ minutes. Quality Stroke Does the patient have a stroke diagnosis?: No VTE Prior VTE?: No VTE Risk Level:: Medical - moderate - high VTE Device Contraindication: N/A - Device Ordered VTE Drug Contraindication: Treatment Not Indicated
--- NOTE | 2023-06-03 11:29 | PM.DS ---
DS: Providers Provider Date of Service: 06/03/23 Date of admission: 06/01/23 02:13 Primary care physician: Ana Luisa Murry MD Consults: 06/01/23 02:17 Consult to General Surgery Routine Consulting Provider: [facility] General Surgeons Reason for consultation: Abdominal wall abscess Has provider been notified: No DS: Diagnosis Discharge Diagnosis (1) Abdominal wall abscess: Status: Acute DS: Summary Hospital Course Hospital Course: History and physical as per admitting provider. Teresa Gary is a very pleasant 37 years old woman with past medical history significant for abdominal wall abscess s/p needle aspiration (July [address] Pinto), lower extremities skin grafts (agustin) and psoriatic arthritis (on MTX and Yusimry) presents to the emergency department complaining of mid upper abdominal wall pain that started associated with suggestive fever, generalized malaise and chills. She denied nausea, vomiting or diarrhea. Reported pain with urination but denied blood in urine. She did not report any cardiopulmonary symptoms. Denied tobacco smoking, alcohol abuse or illicit drug use. Past surgical history is remarkable for liposuction, abdominoplasty, bilateral buttocks implants and breast reduction surgery with implants placement. As mentioned before she had a needle aspiration on July 2022 and underwent a needle aspiration of an abdominal wall abscess. Culture was done and grew Streptococcus viridans In the ED, she was found to have low-grade tachycardia and temperature 100.2 degrees. There is no hypotension and O2 sats are normal. Blood workup showed leukocytosis of 11.6 without bandemia, rates are normal. There is. There are no electrolyte imbalances. Renal function is normal. Transaminases and alk-phos are elevated + normal bilirubin. Total CK is 260. Urinalysis is consistent with UTI. Abdomen pelvis CT showed lobular low-density collection along the lower anterior abdominal wall (9.5 X 3 x 6.5) with wall thickening and adjacent subcutaneous infiltration likely an abscess, tissue extending from the bilateral buttock implants with a central area of air lucency measuring 1.4 cm, diverticuli without diverticulosis and mildly enlarged inguinal lymph nodes. ED tx: Zosyn 3.375 g IV, NS 1 L bolus. 37-year-old woman treated for abdominal wall cellulitis. Started on IV vancomycin and cefepime. Blood cultures remained negative, wound culture with Streptococcus viridans. She was seen and evaluated by General surgery and is status post I and D, debridement of abdominal wall deep abscess on 06/01/2023. Dressings to be changed daily as per General surgery. She could follow-up with general surgery in the office in a week for wound assessment. Continue Ceftin for 7 days Transaminitis. Normal liver on CT scan, likely secondary to medications from psoriatic arthritis Urinalysis initially was positive for UTI but urine culture was negative. Cefepime was stopped during hospitalization Time Attestation Discharge Coordination Time (in mins): 45 Quality: Safe Use of Opioids Does Pt have an Active Cancer Diagnosis on the Problem List?: No Quality: Stroke Does the patient have a stroke diagnosis?: No Physical Exam Vital Signs: Vital Signs: Last Vital Signs Temp 97.9 F 06/03/23 08:26 Pulse 77 06/03/23 08:26 Resp 17 06/03/23 08:26 BP 107/51 L 06/03/23 08:26 Pulse Ox 98 06/03/23 08:26 O2 Del Method Room Air 06/03/23 08:26 O2 Flow Rate 4 06/01/23 15:02 BMI result Body Mass Index 25.0 DS: Data Data Completed and Pending Labs on day of discharge: Laboratory Results - last 24 hr 06/02/23 06/03/23 14:21 06:59 Hold Purple Top SEE NOTE Creatinine 0.70 Estim Creat Clear Calc 114.9 Estimated GFR > 60 Hold Yellow Top See Note Random Vancomycin 14.5 L Preliminary micro results at discharge 05/31/23 23:47 Blood Culture - Preliminary Blood - Venous No growth after 48 hours. 05/31/23 21:54 Blood Culture - Preliminary Blood - Venous No growth after 48 hours. Discharge Plan Discharge Anticipated Discharge Date/Time: 06/03/23 11:20 Patient Disposition: Home, Self-Care Discharge Diagnosis: Abdominal wall abscess Referrals: Ana Luisa Quispe MD [Primary Care Provider] - 1 Week Mj Downing MD [Physician] - 1 Week Discharge Medications: New cefuroxime axetil 500 mg tablet 500 mg PO BID Qty: 14 0RF oxycodone 5 mg Tablet 5 mg PO Q4H PRN (Reason: Pain, Moderate(Pain Scale 4-6)) Qty: 30 0RF Rx Instructions: Partial Fill upon patient request. Continued (DME) exufiber ag+ See Rx Instructions .Route .MEDSUPPLY Qty: 30 6RF Rx Instructions: As directed folic acid 1 mg tablet 1 mg PO DAILY Qty: 90 1RF methotrexate sodium 2.5 mg tablet 15 mg PO WE Rx Instructions: 6 x 2.5mg diphenhydramine HCl 25 mg Tablet 25 mg PO BEDTIME Yusimry(CF) Pen 40 mg/0.8 mL Pen Injector 40 mg SUBCUT Q2W ascorbic acid (vitamin C) 250 mg Tablet,Chewable 500 mg PO DAILY Collagen Skin Renewal 30-833.3 mg Tablet 1 tab PO DAILY ibuprofen 600 mg tablet 600 mg PO Q8H PRN (Reason: Pain) Discharge Orders: Discharge Order (Routine); Ordered 06/03/23 Ordered By: Violetta Brush Diet: Advance to usual diet Activity on Discharge: As tolerated Stand Alone Forms: Patient Portal Discharge page, Work/School Release Print Language: German Activity Restrictions/Additional Instructions: Dressing changes: daily with saline soaked kerlix packing followed by fluffs, abdominal dressing and tape. Abscess cavity is deep so please pack completely. Care Plan Goals: Follow-up with general surgery in 1 week for wound check Health Concerns: Abdominal wall abscess Plan of Treatment: Follow-up with primary care provider as needed Take all medications as prescribed Assessment: See discharge summary
--- NOTE | 2023-06-03 11:34 | MHC.CM.PN ---
unable to get a vna to servies pt daily doni aware pt will be taught here at [facility] pt dcd home self care
--- NOTE | 2023-06-03 15:06 | P.CDIM_ITS ---
PROVIDER RESPONSE TEXT: To clarify, the appropriate diagnosis supported by the clinical indicators: Other (explain): no sepsis QUERY TEXT: PHYSICIAN'S DOCUMENTATION REQUEST Date of Query: 06/02/2023 08:50 AM EDT Patient Name: Teresa Obando Admit Date: 06/01/2023 Dear Violetta Brush, A review of the medical record indicates additional documentation may be needed. Please review below and update the documentation accordingly. Clinical indicators: Surgery procedure note dated 06/01/23 - She now presents with Sepsis and workup demonstrated on CT scan a very large abdominal wall abscess. WBC 11.6 LA 1.1 HR 128 Temp 99/100.2 Cefepime and Vancomycin Sepsis Systemic manifestations of infection, with 2 or more SIRS criteria which include: Fever > 100.4?F or hypothermia < 96.8?F Leukocytosis - WBC > 12,000 or leukopenia, WBC < 4,000, or > 10% bands Tachycardia- > 90 beats/minute Tachypnea- RR > 20 breaths/minute or PaCO2 < 32mmHg Based on the above information and the recognized standard for sepsis, could you please clarify if th is diagnoses is still accurate and reflective of the patient's condition to ensure quality of the medical record. Sepsis is/was present and is a clinical diagnosis based on After study (the condition) has been ruled out Other (explain) Clinically unable to determine (explain) Thank you, Willow Hopper, CCS, CDIS Use of terms such as suspected, likely, concern for, or probable (associated with a specific diagnosi s that is being evaluated, monitored, or treated as if it exists) are acceptable and can be coded in the inpatient se tting, when documented at the time of discharge. Please use your independent medical judgment in providing your response. THIS QUERY IS PART OF THE PERMANENT MEDICAL RECORD
== END 2023-06-03 13:07 | disposition home or self-care (01) | DRG 857 ==
LOC: HO.ED 06-01 01:53 → HO.EDOVER 06-01 02:23 → HO.S3 06-01 05:24
PROVIDERS: Surgery; Admitting Provider Internal Medicine; Emergency Provider Student in an Organized Health Care Education/Training Program; PCP Internal Medicine; Visit Provider Nurse Practitioner Acute Care
PROC: 0JB80ZZ Excision of Abdomen Subcutaneous Tissue and Fascia, Open Approach (ICD-10-PCS; principal; 2023-06-01 15:00)
DX: T81.42XA Infection following a procedure, deep incisional surgical site, initial encounter (principal); L02.211 Cutaneous abscess of abdominal wall; B95.4 Other streptococcus as the cause of diseases classified elsewhere; Y83.8 Other surgical procedures as the cause of abnormal reaction of the patient, or of later complication, without mention of misadventure at the time of the procedure; L40.50 Arthropathic psoriasis, unspecified; Z79.631 Long term (current) use of antimetabolite agent; Z79.899 Other long term (current) drug therapy
CPT/HCPCS: 36415; 74177; 80053; 80202; 81001; 82550; 82565; 83605; 84702; 85025; 85027; 85610; 86704; 86706; 86709; 86803; 87040; 87070; 87086; 87205; 87340; 99285; J0131; J0692; J1100; J1885; J2250; J2270; J2371; J2405; J2543; J2704; J2795; J3010; J3370; J3371; J7120; Q9967

== ENCOUNTER → 2023-06-01 02:13 | Outpatient (BNV) | payer OTHER, SELFPAY | PROVIDERS: Admitting Provider Internal Medicine; Emergency Provider Student in an Organized Health Care Education/Training Program; PCP Internal Medicine; Visit Provider Internal Medicine | DX: R18.8 Other ascites (principal); L02.211 Cutaneous abscess of abdominal wall | CPT/HCPCS: 99223; 99232; 99239; 99499 ==

== ENCOUNTER → 2023-06-01 02:13 | Outpatient (BNV) | payer OTHER, SELFPAY | PROVIDERS: Admitting Provider Internal Medicine; Emergency Provider Student in an Organized Health Care Education/Training Program; PCP Internal Medicine; Visit Provider Physician Assistant Surgical | DX: L02.211 Cutaneous abscess of abdominal wall (principal) | CPT/HCPCS: 10061; 99024; 99222 ==

== ENCOUNTER 2023-06-16 11:10 | Outpatient (AMB) | payer OTHER, SELFPAY ==
--- NOTE | 2023-06-16 11:12 | A.OFFVIS_ITS ---
Intake Visit Reasons: I&D abdominal wall Abscess, wound check Intake Note: Patient here s/p abd wall abscess on 06-01-23. Patient c/o: reports incision healing well. Foul odor at times. Changing dressing twice a day. Finished cefuroxime course. Still taking oxy as needed. States hx of abdominoplasty 2yrs ago in [facility]. Did not have any complications from procedure. 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 Applications Development Analyst Required: No Accompanied by: Self / Same As Patient Allergies No Known Allergies Allergy (Verified 06/16/23 11:22) PFSH Medical History Abscess of left foot Open wound Otitis externa Blurry vision Hearing loss Macrocytosis Psoriatic arthritis Surgical History S/P debridement H/O skin graft History of abdominoplasty History of breast implant History of bilateral breast reduction surgery Family History Mother Hypertension Father Rheumatoid arthritis Family/Other Mental health disorder Paternal Uncle Colon cancer Social History Household Members: None Housing: Apartment Do you presently have visiting nurse or other home services: No Alcohol intake: never Comment: [facility] [place] Patient Tobacco Use Status: Never used Tobacco Tobacco use type: Cigarette e-Cigarette/Vaping Use: Never Used Second Hand Smoke Exposure: No Substance Use Type: Marijuana service: No Current occupational status: employed Current occupational exposures/hazards: No Cognitive needs: No Hearing needs: No Vision needs: No Female Reproductive History Menstrual Age of Menarche: 11 Coding
--- NOTE | 2023-06-16 11:17 | A.OFFVIS_ITS ---
Intake Visit Reasons: I&D abdominal wall Abscess, wound check Allergies No Known Allergies Allergy (Verified 06/16/23 11:22) HPI Comments Details: PATIENT IS STATUS POST INCISION AND DRAINAGE OF ABDOMINAL WALL ABSCESS FROM ABDOMINAL PLASTY DONE which was performed at an outside facility. She is here for follow-up. Patient has been doing her own wound packing changes twice a day. She has no other new issues or complaints. [facility] Medical History Abscess of left foot Open wound Otitis externa Blurry vision Hearing loss Macrocytosis Psoriatic arthritis Surgical History S/P debridement H/O skin graft History of abdominoplasty History of breast implant History of bilateral breast reduction surgery Family History Mother Hypertension Father Rheumatoid arthritis Family/Other Mental health disorder Paternal Uncle Colon cancer Social History Household Members: None Housing: Apartment Do you presently have visiting nurse or other home services: No Alcohol intake: never Comment: [facility] [place] Patient Tobacco Use Status: Never used Tobacco Tobacco use type: Cigarette e-Cigarette/Vaping Use: Never Used Second Hand Smoke Exposure: No Substance Use Type: Marijuana service: No Current occupational status: employed Current occupational exposures/hazards: No Cognitive needs: No Hearing needs: No Vision needs: No Female Reproductive History Menstrual Age of Menarche: 11 Physical Exam GI Other: Central part of the incision of the abdominal plasty repair in the midline is the I&D site with healthy granulating tissue in the wound with packing which was placed by the patient earlier today. Assessment & Plan Assessment & Plan (1) Status post incision and drainage: Code(s): Z98.890 - Other specified postprocedural states Category: Medical Plan Wound is decreasing in size and healing well. Patient is continue local therapy and change packing just once a day. She has been given local instructions and will see me as directed or p.r.n.. All questions answered. Coding Level of Care Code Global (97007) Diagnoses Status post incision and drainage Z98.890
== END 2023-06-16 11:33 | disposition home or self-care (01) ==
PROVIDERS: PCP Internal Medicine; Visit Provider Surgery
DX: Z98.890 Other specified postprocedural states (principal)
CPT/HCPCS: 99024

== ENCOUNTER → 2023-06-16 11:10 | Outpatient (BNVA) | payer OTHER, SELFPAY | PROVIDERS: PCP Internal Medicine; Visit Provider Surgery ==

== ENCOUNTER 2023-07-07 09:56 | Outpatient (AMB) | payer OTHER, SELFPAY ==
[2023-07-07 10:05] VITALS: BP 114/70; PULSE 86
--- NOTE | 2023-07-07 10:05 | A.OFFVIS_ITS ---
Vital Signs 07/07/23 10:05 Weight 176 lb BP 114/70 Blood Pressure Location Rt brachial Position Sitting Pulse 86 Intake Visit Reasons: s/p abd abscess excision Intake Note: Patient here to f/u abd abscess. Reports abscess is almost completely healed. Patient c/o: mild irritation from bandage adhesive. Hot Box Operator Required: Yes Hot Box Operator Name: Claudia PERKINS Accompanied by: Self / Same As Patient Allergies No Known Allergies Allergy (Verified 07/07/23 10:06) HPI Comments Details: Patient is undergoing self wound care to her abdominal wall abscess. She has no wound issues or complaints. [facility] Medical History Abscess of left foot Open wound Otitis externa Blurry vision Hearing loss Macrocytosis Psoriatic arthritis Surgical History S/P debridement H/O skin graft History of abdominoplasty History of breast implant History of bilateral breast reduction surgery Family History Mother Hypertension Father Rheumatoid arthritis Family/Other Mental health disorder Paternal Uncle Colon cancer Social History Household Members: None Housing: Apartment Do you presently have visiting nurse or other home services: No Alcohol intake: never Comment: [facility] [place] Patient Tobacco Use Status: Never used Tobacco Tobacco use type: Cigarette e-Cigarette/Vaping Use: Never Used Second Hand Smoke Exposure: No Substance Use Type: Marijuana service: No Current occupational status: employed Current occupational exposures/hazards: No Cognitive needs: No Hearing needs: No Vision needs: No Female Reproductive History Menstrual Age of Menarche: 11 Physical Exam Vital Signs: Last Vital Signs Pulse 86 07/07/23 10:05 BP 114/70 07/07/23 10:05 GI Other: Abdominal incisional wound infection is granulating well. It is still have significant size but is healing uneventfully. The patient's original abdominal abscess was quite large. Assessment & Plan Assessment & Plan (1) Status post incision and drainage: Code(s): Z98.890 - Other specified postprocedural states Category: Medical Plan Patient is continue local therapy which is daily showers with new packing and sterile dressing. All questions answered. She will see me in a proximally 3 weeks time or p.r.n.. Coding Level of Care Code Global (49982) Diagnoses Status post incision and drainage Z98.890
== END 2023-07-07 10:13 | disposition home or self-care (01) ==
PROVIDERS: PCP Internal Medicine; Visit Provider Surgery
DX: Z98.890 Other specified postprocedural states (principal)
CPT/HCPCS: 99024

== ENCOUNTER → 2023-07-07 09:56 | Outpatient (BNVA) | payer OTHER, SELFPAY | PROVIDERS: PCP Internal Medicine; Visit Provider Surgery ==

== ENCOUNTER 2023-07-17 10:31 | Outpatient (REF) | payer OTHER, SELFPAY ==
[2023-07-17 13:12] LABS: MANUAL DIFF FLAG NO
[2023-07-17 13:28] LABS: Basophils Absolute Auto 0.1 X10*3/uL (0.0-0.2); Eosinophils Absolute Auto 0.4 X10*3/uL (0.0-0.4); Eosinophils Percent Auto 6.1 % (0-4); Hemoglobin 13.5 g/dl (12.0-16.0); Imm Gran Abs Auto 0.02 X10*3/uL (0.00-0.03); Imm Gran Pct Auto 0.3 % (0.0-0.4); Lymphocytes Percent Auto 32.6 % (20-40); Mean Corpuscular HGB Conc 32.9 g/dl (31.0-35.0); Mean Corpuscular Hemoglobin 34.4 pg (27.0-33.0); Mean Corpuscular Volume 104.3 fL (80.0-98.0); Monocytes Absolute Auto 0.6 X10*3/uL (0.1-1.2); Monocytes Percent Auto 9.9 % (2-11); Neutrophils Percent Auto 50.1 % (45-73); Platelet Count 388 X10*3/uL (160-400); Red Blood Count 3.93 X10*6/uL (4.20-5.50); Red Cell Distribution Width 14.2 % (11.0-16.0); White Blood Count 6.1 X10*3/uL (4.8-10.8)
[2023-07-17 13:37] LABS: Alanine Aminotransferase 41 U/L (0-31); Alkaline Phosphatase 66 U/L (39-117); Anion Gap 9 (12-20); Aspartate Amino Transferase 27 U/L (5-31); Bilirubin Total 0.4 mg/dL (0.0-1.0); Blood Urea Nitrogen 18 mg/dL (9-16); C Reactive Protein 0.56 mg/dL (< or = 0.50); Calcium 9.8 mg/dL (8.4-10.2); Carbon Dioxide 26 mmol/L (22-29); Chloride 108 mmol/L (96-108); Estimated Glomerular Filt Rate > 60; Glucose Random 81 mg/dL (60-115); Sodium 139 mmol/L (135-145); Total Protein 7.5 g/dL (6.5-8.0)
[2023-07-17 14:21] LABS: Erythrocyte Sedimentation Rate 20 MM/HR (0-20)
== END 2023-07-17 10:32 | disposition home or self-care (01) ==
LOC: HO.10HDL 10:31
PROVIDERS: Visit Provider Student in an Organized Health Care Education/Training Program
DX: L40.50 Arthropathic psoriasis, unspecified (principal); Z79.899 Other long term (current) drug therapy
CPT/HCPCS: 36415; 80053; 85025; 85652; 86140

== ENCOUNTER 2023-07-27 08:24 | Outpatient (AMB) | payer OTHER, SELFPAY ==
--- NOTE | 2023-07-27 08:28 | A.OFFVIS_ITS ---
Vital Signs 07/27/23 08:35 Height 5 ft 9 in Weight 178 lb 5.663 oz BMI 26.3 BP 94/60 Blood Pressure Location Lt brachial Position Sitting Pulse 85 Pulse Oximetry (%) 99 Intake Visit Reasons: PsA Intake Note: Patient last seen 05/05/23 presents today for follow up and test results. Reports episode of left hip pain x 1 mo that subsided 2 weeks ago. C/o marciano hand pain. Publication Manager Required: No Allergies yusimry Adverse Reaction (Intermediate, Uncoded 07/27/23 08:54) Diarrhea Medication List - Last Reconciled 07/27/23 by Judith Ackerman MD ascorbic acid (vitamin C) 500 mg PO DAILY ascorbic acid-collagen 30-833.3 mg (Collagen Skin Renewal) 1 tab PO DAILY clobetasol 0.05% 1 appl topical BID diphenhydramine HCl 25 mg PO BEDTIME [exufiber ag+ As directed] folic acid 1 mg PO DAILY Humira Pen (adalimumab) 40 mg (0.8 mL) subcut Q2W NS ibuprofen 600 mg PO Q8H PRN methotrexate sodium 15 mg PO WE HPI Comments Details: 37yoF presents for follow-up on psoriatic arthritis. On Humira plus methotrexate since 2011. She self discontinued methotrexate in early 2020 due to GI upset. Restarted 12/2021 at 4 tabs weekly with resolution of psoriatic patches on both ears. Advanced to 10 tabs once weekly to on 03/17 due to peripheral synovitis. Reduced to 6 tabs 04/2023 due to transaminitis. Patient was admitted to the hospital 2 months ago due to an abdominal wall abscess. This was treated with antibiotics. She states that about a month ago she was having left hip pain that lasted approximately 1 month then self- resolved. Today she is having some pain and swelling of her hands. Today patient is having active psoriasis patches in the left ear. Yusmiry was causing some diarrhea and fatigue for 1 or 2 days after injection, this has improved when she was switched to Humira [facility] Medical History (Updated 07/27/23 @ 08:57 by Judith Ackerman MD) Abscess of left foot Open wound Blurry vision Hearing loss Macrocytosis Psoriatic arthritis Surgical History S/P debridement H/O skin graft History of abdominoplasty History of breast implant History of bilateral breast reduction surgery Family History Mother Hypertension Father Rheumatoid arthritis Family/Other Mental health disorder Paternal Uncle Colon cancer Social History Household Members: None Housing: Apartment Do you presently have visiting nurse or other home services: No Alcohol intake: never Comment[place] [facility] [place] Tobacco Use Status: Never used Tobacco Tobacco use type: Cigarette e-Cigarette/Vaping Use: Never Used Second Hand Smoke Exposure: No Substance Use Type: Marijuana service: No Current occupational status: employed Current occupational exposures/hazards: No Cognitive needs: No Hearing needs: No Vision needs: No Female Reproductive History Menstrual Age of Menarche: 11 Review of Systems Musc Reports arthralgias, Reports joint swelling and Reports stiffness Skin/Breast Reports rash Physical Exam Vital Signs: Last Vital Signs Pulse 85 07/27/23 08:35 BP 94/60 07/27/23 08:35 Pulse Ox 99 07/27/23 08:35 BMI result Body Mass Index 26.3 Const General: cooperative, healthy appearing, comfortable and no acute distress Nutritional Appearance: average body habitus Orientation/consciousness: patient oriented x3 Limitations: no limitations HEENT Head: Yes normal to inspection Mouth: moist mucous membranes Resp Effort & Inspection: normal respiratory effort and able to speak in complete sentences Auscultation: clear to auscultation bilaterally Cardio Rate: regular rate Rhythm: regular rhythm Heart sounds: S1 normal heart sound present and S2 normal heart sound present GI Inspection: Yes normal to inspection Palpation (GI): Soft to palpation and nontender Skin Other: Active psoriasis patches left ear Neuro General: patient oriented x3 Extrem Other: Left 2nd MCP swelling and tenderness Right wrist pain with flexion and extension Nail pitting most noticeable left 3rd and 4th fingers Assessment & Plan Assessment & Plan (1) Psoriatic arthritis: Comment: Dx 2011 on Humira & MTX 25 mg self DC MTX 2020 due to GI upset, PSO flared, restarted at 10 mg 12/2021 advanced to 25 mg 02/2022 due to peripheral synovitis, reduced to 20 mg 10/2022 due to transaminitis, reduced to 15 mg 04/2023 due to transaminitis Humira was switched to Yusmiry due to insurance requirement. Was causing diarrhea and fatigue. Switched back to Humira 06/2023 Code(s): L40.50 - Arthropathic psoriasis, unspecified Category: Medical Plan: 37-year-old female with history of psoriasis and psoriatic arthritis returns for follow-up. On methotrexate 15 mg weekly and Humira 40 mg every other week. On exam she has active synovitis. Active psoriasis patches. Inflammatory markers elevated. Will need to advance DMARDs. Advance Humira to 40 mg weekly Continue methotrexate 15 mg weekly . Increase folic acid to 2 mg daily Can take meloxicam 15 mg once daily as needed for joint pain Labs before next visit in 3 months (2) HARLEY positive: Code(s): R76.8 - Other specified abnormal immunological findings in serum Category: Medical Plan: Patient has a positive HARLEY and positive dsDNA which is likely induced by Humira. However she has no clinical signs of drug-induced lupus which is a rare complication of TNF inhibitors. Will monitor patient for the development of drug-induced lupus (3) prison methotrexate user: Code(s): Z79.899 - Other long term acute care registered nurse (current) drug therapy Category: Medical Plan: Side effects of methotrexate were discussed with the patient in detail including oral ulcers, elevated LFTs, abdominal discomfort, and possible pancytopenia is. Will monitor patient for side effects with frequent lab work. Advised patient to take folic acid daily to prevent complications of methotrexate. Plan I spent 45 minutes reviewing patient's chart, evaluating patient, ordering diagnostic workup, counseling patient and documenting in the chart Orders: Orders Complete Blood Count Auto Diff 3 Months Z79.899 - Other [place] [facility] (current[facility] drug therapy Comprehensive Met. Panel 3 Months Z79.899 - Other [place] [facility] [place] drug therapy C Reactive Protein 3 Months Z79.899 - Other long term acute care registered nurse (current) drug therapy Erythrocyte Sedimentation Rate 3 Months Z79.899 - Other [place] [facility] (current) drug therapy Medications: New meloxicam 15 mg PO DAILY PRN 30 tabs 0RF pain Changed From clobetasol 0.05% apply to the outside of both ears bid 1 appl topical BID 15 grams 2RF 2 weeks L40.9 - Psoriasis, unspecified To clobetasol 0.05% apply to the outside of left ear bid 1 appl topical BID 15 grams 2RF L40.9 - Psoriasis, unspecified From methotrexate sodium 6 x 2.5mg 15 mg PO WE To methotrexate sodium 15 mg (6 x 2.5 mg) PO QWEEK 72 tabs 0RF From folic acid 1 mg PO DAILY 90 tabs 1RF To folic acid 2 mg (2 x 1 mg) PO DAILY 180 tabs 1RF Coding Level of Care Code Est Pt Level 4 (36414) Complex EM visit Add On G2211 Diagnoses Psoriatic arthritis L40.50 HARLEY positive R76.8 rn long term care methotrexate user Z79.899
[2023-07-27 08:35] VITALS: BP 94/60; PULSE 85; O2SAT 99; BMI 26.3
== END 2023-07-27 08:47 | disposition home or self-care (01) ==
PROVIDERS: PCP Internal Medicine; Visit Provider Student in an Organized Health Care Education/Training Program
DX: L40.50 Arthropathic psoriasis, unspecified (principal); R76.8 Other specified abnormal immunological findings in serum; Z79.899 Other long term (current) drug therapy
CPT/HCPCS: 99214; G2211

== ENCOUNTER → 2023-07-27 08:24 | Outpatient (BNVA) | payer OTHER, SELFPAY | PROVIDERS: PCP Internal Medicine; Visit Provider Student in an Organized Health Care Education/Training Program ==

== ENCOUNTER 2023-07-28 08:57 | Outpatient (AMB) | payer OTHER, SELFPAY ==
--- NOTE | 2023-07-28 08:59 | A.OFFVIS_ITS ---
Intake Visit Reasons: 3 week follow up abd abscess excision Intake Note: Patient here to f/u abd abscess. Reports much improvement since last visit on 07-07-23. Patient c/o: new abscess on Rt upper thigh since Thursday. Tender with touch, red, inflamed. [employer] Technical Lead Senior Developer Required: Yes [employer] Technical Lead Senior Developer Name: Claudia PERKINS Accompanied by: Self / Same As Patient Allergies yusimry Adverse Reaction (Intermediate, Uncoded 07/28/23 08:59) Diarrhea HPI Comments Details: Patient presents 1. For follow-up for abdominal plasty wound which is healing by secondary intention. 2. A carbuncle involving the upper inner right thigh. The latter has been present for proximally 3 days time. Patient has been undergoing local wound care to her abdominal wound with packing changes in daily showers. She has no other issues or complaints. [facility] Medical History Abscess of left foot Open wound Blurry vision Hearing loss Macrocytosis Psoriatic arthritis Surgical History S/P debridement H/O skin graft History of abdominoplasty History of breast implant History of bilateral breast reduction surgery Family History Mother Hypertension Father Rheumatoid arthritis Family/Other Mental health disorder Paternal Uncle Colon cancer Social History Household Members: None Housing: Apartment Do you presently have visiting nurse or other home services: No Alcohol intake: never Comment: [facility] [place] Patient Tobacco Use Status: Never used Tobacco Tobacco use type: Cigarette e-Cigarette/Vaping Use: Never Used Second Hand Smoke Exposure: No Substance Use Type: Marijuana service: No Current occupational status: employed Current occupational exposures/hazards: No Cognitive needs: No Hearing needs: No Vision needs: No Female Reproductive History Menstrual Age of Menarche: 11 Physical Exam GI Other: Abdominal wound demonstrates markedly decreased size with granulating tissue. At onset this reach the umbilicus, this is less than half the distance now. Patient has a carbuncle involving the upper inner right thigh. There is cellulitis but no obvious fluctuance at this time. Assessment & Plan Assessment & Plan (1) Status post incision and drainage: Code(s): Z98.890 - Other specified postprocedural states Category: Surgical (2) Carbuncle and furuncle of lower extremity: Code(s): L02.429 - Furuncle of limb, unspecified; L02.439 - Carbuncle of limb, unspecified Category: Surgical Plan 1. Patient is continue local wound therapy form of packing changes as noted above. 2. Patient will be prescribed antibiotics and local wound care in the form of warm compresses to the right thigh carbuncle. She will see me in few days time. Should symptoms progress during this interim, she should contact the office and be seen sooner or go to the ER. All questions answered. Coding Level of Care Code Est Pt Level 4 (94644) Global (01323) Diagnoses Status post incision and drainage Z98.890 Carbuncle and furuncle of lower extremity L02.429; L02.439
== END 2023-07-28 09:18 | disposition home or self-care (01) ==
PROVIDERS: PCP Internal Medicine; Visit Provider Surgery
DX: L02.429 Furuncle of limb, unspecified (principal); L02.439 Carbuncle of limb, unspecified; Z98.890 Other specified postprocedural states
CPT/HCPCS: 99214

== ENCOUNTER → 2023-07-28 08:57 | Outpatient (BNVA) | payer OTHER, SELFPAY | PROVIDERS: PCP Internal Medicine; Visit Provider Surgery ==

== ENCOUNTER 2023-08-03 09:51 | Outpatient (AMB) | payer OTHER, SELFPAY ==
--- NOTE | 2023-08-03 09:56 | A.OFFVIS_ITS ---
Vital Signs 08/03/23 10:00 Weight 178 lb BP 116/72 Blood Pressure Location Rt brachial Position Sitting Pulse 76 Intake Visit Reasons: abscess Rt upper thigh Intake Note: Patient here for 1wk f/u abscess on Rt upper thigh. Reports improvement. Still on Cephalexin course. Patient c/o: improving, getting smaller. Denies pain. 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 Follow-up for abdominal wound incision 2. Follow-up regarding right upper thigh carbuncle. Both are improving according to the patient. She is undergoing local wound care for the former and warm compresses to the latter REPLACED BY [facility] Medical History Abscess of left foot Open wound Blurry vision Hearing loss Macrocytosis Psoriatic arthritis Surgical History S/P debridement H/O skin graft History of abdominoplasty History of breast implant History of bilateral breast reduction surgery Family History Mother Hypertension Father Rheumatoid arthritis Family/Other Mental health disorder Paternal Uncle Colon cancer Social History Household Members: None Housing: Apartment Do you presently have visiting nurse or other home services: No Alcohol intake: never Comment: [facility] [place] Tobacco Use Status: Never used Tobacco Tobacco use type: Cigarette e-Cigarette/Vaping Use: Never Used Second Hand Smoke Exposure: No Substance Use Type: Marijuana service: No Current occupational status: employed Current occupational exposures/hazards: No Cognitive needs: No Hearing needs: No Vision needs: No Female Reproductive History Menstrual Age of Menarche: 11 Physical Exam Vital Signs: Last Vital Signs Pulse 76 08/03/23 10:00 BP 116/72 08/03/23 10:00 GI Other: Lower midline abdominal wound granulating well markedly decreased in size. Upper thigh carbuncle nearly completely resolved Assessment & Plan Assessment & Plan (1) Carbuncle and furuncle of lower extremity: Code(s): L02.429 - Furuncle of limb, unspecified; L02.439 - Carbuncle of limb, unspecified Category: Surgical (2) Status post incision and drainage: Code(s): Z98.890 - Other specified postprocedural states Category: Medical Plan Patient was to complete her antibiotic course. She will see me in a proximally 3 weeks time regarding abdominal wound follow-up. All questions answered. Coding Level of Care Code Est Pt Level 3 (22737) Global (96287) Diagnoses Carbuncle and furuncle of lower extremity L02.429; L02.439 Status post incision and drainage Z98.890
[2023-08-03 10:00] VITALS: BP 116/72; PULSE 76
== END 2023-08-03 10:04 | disposition home or self-care (01) ==
PROVIDERS: PCP Internal Medicine; Visit Provider Surgery
DX: L02.429 Furuncle of limb, unspecified (principal); L02.439 Carbuncle of limb, unspecified; Z98.890 Other specified postprocedural states
CPT/HCPCS: 99024; 99213

== ENCOUNTER → 2023-08-03 09:51 | Outpatient (BNVA) | payer OTHER, SELFPAY | PROVIDERS: PCP Internal Medicine; Visit Provider Surgery ==

== ENCOUNTER 2023-08-24 10:46 | Outpatient (AMB) | payer OTHER, SELFPAY ==
--- NOTE | 2023-08-24 10:50 | A.OFFVIS_ITS ---
Vital Signs 08/24/23 10:53 Height 5 ft 9 in Weight 178 lb BMI 26.3 BP 107/62 Blood Pressure Location Rt brachial Position Sitting Pulse 81 Intake Visit Reasons: abscess Rt upper thigh Intake Note: Patient here for f/u abscess on Rt upper thigh. Finished Cephalexin course. Patient c/o: noticed some blood from rt upper thigh abscess since yesterday. Lithographic Printing Machinist Required: Yes Lithographic Printing Machinist Name: Claudia RoblesTami GREGORIO Accompanied by: Self / Same As Patient Allergies yusimry Adverse Reaction (Intermediate, Uncoded 08/24/23 10:51) Diarrhea HPI Comments Details: Patient presents for follow-up. She is undergoing self wound care regarding her abdominal wound. She also has a carbuncle in the right upper inner thigh which is symptomatically improving [facility] Medical History Abscess of left foot Open wound Blurry vision Hearing loss Macrocytosis Psoriatic arthritis Surgical History S/P debridement H/O skin graft History of abdominoplasty History of breast implant History of bilateral breast reduction surgery Family History Mother Hypertension Father Rheumatoid arthritis Family/Other Mental health disorder Paternal Uncle Colon cancer Social History Household Members: None Housing: Apartment Do you presently have visiting nurse or other home services: No Alcohol intake: never Comment: [facility] [place] Patient Tobacco Use Status: Never used Tobacco Tobacco use type: Cigarette e-Cigarette/Vaping Use: Never Used Second Hand Smoke Exposure: No Substance Use Type: Marijuana service: No Current occupational status: employed Current occupational exposures/hazards: No Cognitive needs: No Hearing needs: No Vision needs: No Female Reproductive History Menstrual Age of Menarche: 11 Physical Exam Vital Signs: Last Vital Signs Pulse 81 08/24/23 10:53 BP 107/62 08/24/23 10:53 BMI result Body Mass Index 26.3 GI Other: Abdominal wound is markedly decreased in size. Just beyond the depth of the Q- tip tip. Wound base was cauterized using silver nitrate. Dressing applied. Well tolerated. Extrem Other: Right upper inner thigh carbuncle resolving. No evidence of any fluctuance or abscess. Assessment & Plan Assessment & Plan (1) Status post incision and drainage: Code(s): Z98.890 - Other specified postprocedural states Category: Medical (2) Carbuncle and furuncle of lower extremity: Code(s): L02.429 - Furuncle of limb, unspecified; L02.439 - Carbuncle of limb, unspecified Category: Surgical Plan Patient was continue current therapy quadrant local wound care abdominal wound and will otherwise follow-up as directed 3 weeks time or p.r.n.. All questions answered. Coding Level of Care Code Est Pt Level 3 (87019) Global (01443) Diagnoses Status post incision and drainage Z98.890 Carbuncle and furuncle of lower extremity L02.429; L02.439
[2023-08-24 10:53] VITALS: BP 107/62; PULSE 81; BMI 26.3
== END 2023-08-24 11:04 | disposition home or self-care (01) ==
PROVIDERS: PCP Internal Medicine; Visit Provider Surgery
DX: L02.429 Furuncle of limb, unspecified (principal); L02.439 Carbuncle of limb, unspecified; S30.92XA Unspecified superficial injury of abdominal wall, initial encounter; Z98.890 Other specified postprocedural states
CPT/HCPCS: 17250; 99213

== ENCOUNTER → 2023-08-24 10:46 | Outpatient (BNVA) | payer OTHER, SELFPAY | PROVIDERS: PCP Internal Medicine; Visit Provider Surgery | DX: L02.425 Furuncle of right lower limb (principal); S31.109A Unspecified open wound of abdominal wall, unspecified quadrant without penetration into peritoneal cavity, initial encounter | CPT/HCPCS: 17250 ==

== ENCOUNTER 2023-08-24 12:27 | Outpatient (AMB) | payer OTHER, SELFPAY ==
[2023-08-24 12:30] VITALS: BP 118/72; PULSE 88; O2SAT 98; BMI 26.3
--- NOTE | 2023-08-24 12:30 | MHC.PC.OV ---
Vital Signs 08/24/23 12:30 Height 5 ft 9 in Weight 178 lb BMI 26.3 BP 118/72 Blood Pressure Location Lt brachial Position Sitting Pulse 88 Pulse Source Pulse Oximeter Pulse Oximetry (%) 98 Oxygen Delivery Method Room Air Intake Visit Reasons: annual exam Licensed Clinical Social Worker Required: No Accompanied by: Self / Same As Patient Allergies yusimry Adverse Reaction (Intermediate, Uncoded 08/24/23 12:40) Diarrhea Medication List - Last Reconciled 08/24/23 by Ana Luisa Murry MD adalimumab (Humira Pen) 40 mg (0.8 mL) subcut QWEEK ascorbic acid (vitamin C) 500 mg PO DAILY ascorbic acid-collagen 30-833.3 mg (Collagen Skin Renewal) 1 tab PO DAILY clobetasol 0.05% 1 appl topical BID diphenhydramine HCl 25 mg PO BEDTIME [exufiber ag+ As directed] folic acid 2 mg (2 x 1 mg) PO DAILY meloxicam 15 mg PO DAILY PRN methotrexate sodium 15 mg (6 x 2.5 mg) PO QWEEK Tobacco use date assessed: 08/24/23 Dental Screening Dental Screen Date: 08/24/23 Did you have a dental visit in the last 12 months?: Yes Did you have a dental problem in the last 6 months where you did not have access to dental care?: No Was dental information given to patient?: Patient has dentist HPI HPI Comments History of Present Illness Details This is a 37-year-old female with psoriatic arthritis that comes for her physical exam. Pap smear done 2020 was normal. Psoriatic arthritis follow by Rheumatology. Complains of an ingrown toenail that has been chronic after having chemical agustin in 2021. Would like to see Podiatry. [facility] Medical History (Updated 08/24/23 @ 12:54 by Ana Luisa Murry MD) Seroma due to trauma Mild recurrent major depression Abscess of left foot Open wound Blurry vision Hearing loss Macrocytosis Psoriatic arthritis Surgical History S/P debridement H/O skin graft History of abdominoplasty History of breast implant History of bilateral breast reduction surgery Family History Mother Hypertension Father Rheumatoid arthritis Family/Other Mental health disorder Paternal Uncle Colon cancer Social History Household Members: None Housing: Apartment Do you presently have visiting nurse or other home services: No Alcohol intake: never Comment: [facility] [place] Patient Tobacco Use Status: Never used Tobacco Tobacco use type: Cigarette e-Cigarette/Vaping Use: Never Used Second Hand Smoke Exposure: No Substance Use Type: Marijuana service: No Current occupational status: employed Current occupational exposures/hazards: No Cognitive needs: No Hearing needs: No Vision needs: No Female Reproductive History Menstrual Age of Menarche: 11 Questionnaire PHQ-9 Over the last 2 weeks, how often have you been bothered by any of the following problems? 1. Little interest or pleasure in doing things: not at all 2. Feeling down, depressed, or hopeless: not at all 3. Trouble falling or staying asleep, or sleeping too much: not at all 4. Feeling tired or having little energy: not at all 5. Poor appetite or overeating: not at all 6. Feeling bad about yourself - or that you are a failure or have let yourself or your family down: not at all 7. Trouble concentrating on things, such as reading the newspaper or watching television: not at all 8. Moving or speaking so slowly that other people could have noticed. Or the opposite - being so fidgety or restless that you have been moving around a lot more than usual: not at all 9. Thoughts that you would be better off or of hurting yourself in some way: not at all Total score: 0 Depression Screening Interpretation: Negative Depression Screening Done: Yes 49105 - PHQ-9 Billing: Yes Source: Developed by Drs. Oneil Wood, Dulce Pineda, Adonay Wheeler and colleagues, with an educational spencer from [employer]. Thrive Questionnaire Date Thrive assessed: 08/24/23 I am a: Patient What is your living situation today?: I have a steady place to live Within the past 12 months, did the food you bought not last and you didn't have the money to get more?: Never true Within the past 12 months, did you worry whether your food would run out before you got money to buy more?: Never true Do you have trouble paying for medicines?: No Do you have trouble getting transportation to medical appointments?: No Do you have trouble paying your heating and electricity bill?: No Do you have trouble taking care of your child, family member or friend?: No Do you have trouble with day-to-day activities such as bathing, preparing meals, shopping, managing finances, etc.?: No Are you currently unemployed and looking for a job?: No Are you interested in more education?: No Currently or been in a relationship where the following occur: No concerns reported THRIVE Score: 0 AUDIT C Alcohol Use Questionnaire (AUDIT-C) 1. How often do you have a drink containing alcohol?: Never Total Score: 0 Score Reviewed/Action Taken: No BRUNO-7 AMB Questionnaire BRUNO-7 Date BRUNO - 7 assessed: 08/24/23 Feeling nervous, anxious, or on edge: 1 = Several days Not being able to stop or control worryin = Not at all Worrying too much about different things: 1 = Several days Trouble relaxin = Several days Being so restless that it is hard to sit still: 1 = Several days Becoming easily annoyed or irritable: 1 = Several days Feeling afraid as if something awful might happen: 1 = Several days Total BRUNO-7 score (0-4 normal; 5-9 mild; 10-14 moderate; 15-21 severe): 6 Source: Developed by Drs. Oneil Wood, Dulce Pineda, Adonay Wheeler and colleagues, with an educational spencer from [employer]. BRUNO-7 Assessment Billing BRUNO-7 Assessment Tool: BRUNO-7 Assessment 23656 Review of Systems Const All systems reviewed & are unremarkable except as noted in HPI and below Card Denies chest pain at rest, Denies chest pain with activity, Denies edema, Denies irregular heart rhythm, Denies claudication, Denies dyspnea, Denies dyspnea on exertion, Denies orthopnea, Denies paroxysmal nocturnal dyspnea and Denies slow heart rate Resp Denies cough, Denies dyspnea and Denies dyspnea on exertion GI Denies abdominal pain, Denies change in bowel habits, Denies excessive flatus, Denies nausea and Denies vomiting Denies urinary incontinence, Denies urinary hesitancy and Denies urinary urgency Musc Denies abnormal gait, Denies atrophy, Denies deformity and Denies limited range of motion Skin/Breast Denies bleeding lesions, Denies changing lesions and Denies rash Neuro Denies abnormal gait, Denies behavioral changes, Denies confusion and Denies lack of coordination Psych Denies behavioral changes and Denies confusion Physical exam (Primary Care) Vital Signs: Last Vital Signs Pulse 88 08/24/23 12:30 BP 118/72 08/24/23 12:30 Pulse Ox 98 08/24/23 12:30 Oxygen Delivery Method Room Air 08/24/23 12:30 BMI result Body Mass Index 26.3 Tobacco/Smoking Status: Tobacco use Status Tobacco use date assessed 08/24/23 08/24/23 12:36 Patient Tobacco Use Status Never used Tobacco 08/24/23 12:36 Tobacco use type Cigarette 08/24/23 12:36 e-Cigarette/Vaping Use Never Used 08/24/23 12:36 PHQ-9: PHQ-9 Score PHQ-9: Total score 0 08/24/23 12:36 Depression Screening Interpretation: Negative Thrive Assessment: Date of Thrive Assessment Date Thrive assessed 08/24/23 08/24/23 12:36 Currently or been in a relationship where the following occur: No concerns reported Const General: No confusion Orientation/consciousness: patient oriented x3 and No confusion HENMT Head: Yes normal to inspection, Yes normocephalic and Yes atraumatic Ears: external ears normal Eyes General: appearance normal, both eyes and all related structures Eyelids: Yes eyelids normal Conjunctivae: conjunctivae normal Neck Neck: Yes normal visual inspection and Yes supple Resp Effort & Inspection: normal respiratory effort Auscultation: clear to auscultation bilaterally Cardio Jugular venous distension: no JVD Rate: regular rate Rhythm: regular rhythm Heart sounds: S1 normal heart sound present and S2 normal heart sound present GI Inspection: Yes normal to inspection Palpation (GI): Soft to palpation and nontender Auscultation: normal bowel sounds Skin General skin exam: no rashes or lesions noted Neuro General: patient oriented x3, no focal motor deficits and No confusion Extrem Other: ingrown dark toenails General: Yes full ROM Psych Appearance: grossly normal Assessment and Plan Assessment & Plan (1) Physical exam: Code(s): Z00.00 - Encounter for general adult medical examination without abnormal findings Plan: Repeat in a year. (2) Ingrown toenail: Code(s): L60.0 - Ingrowing nail Plan: Referred to Podiatry. (3) Psoriatic arthritis: Code(s): L40.50 - Arthropathic psoriasis, unspecified Plan: Continue Humira. Follow-up with rheumatology. Orders: Orders Lipid Panel Today E78.5 - Hyperlipidemia, unspecified, Z00.00 - Encounter for general adult medical examination without abnormal findings Comprehensive Rochelle. Panel Fast Today Z00.00 - Encounter for general adult medical examination without abnormal findings Vitamin D 25-OH Total Today E55.9 - Vitamin D deficiency, unspecified Referrals Podiatry Referral L60.0 - Ingrowing nail Coding Level of Care Code Est Pt Level 3 (81486) Est Pt Prev Care 18-39y(83223) Diagnoses Physical exam Z00.00 Ingrown toenail L60.0 Psoriatic arthritis L40.50 Additional Codes BRUNO-7 Assessment Billing - BRUNO-7 Assessment Tool: BRUNO-7 Assessment 65169 ([id number]) Time Spent (min) 33
== END 2023-08-24 12:53 | disposition home or self-care (01) ==
PROVIDERS: PCP Internal Medicine; Visit Provider Internal Medicine
DX: Z00.00 Encounter for general adult medical examination without abnormal findings (principal); L60.0 Ingrowing nail; L40.50 Arthropathic psoriasis, unspecified
CPT/HCPCS: 99395

== ENCOUNTER 2023-09-21 10:03 | Outpatient (AMB) | payer OTHER, SELFPAY ==
--- NOTE | 2023-09-21 10:04 | MHC.OFFVIS ---
Vital Signs 09/21/23 10:06 Height 5 ft 9 in Weight 176 lb 12.972 oz BMI 26.1 BP 90/60 Blood Pressure Location Lt brachial Position Sitting Intake Visit Reasons: wound check~ lower abdomen Intake Note: Patient is seen in office for 3 weeks follow up visit, following carbuncle and furuncle of lower extremity. Pt c/o: per pt wound is still open, minimal pain, denies redness, discharge, swelling or any signs of infection Robotics Technician Required: No Accompanied by: Self / Same As Patient Allergies yusimry Adverse Reaction (Intermediate, Uncoded 09/21/23 10:09) Diarrhea HPI Comments Details: Patient was doing quite well. She has almost complete healing of her wound. Continuing local wound care [facility] Medical History Seroma due to trauma Mild recurrent major depression Abscess of left foot Open wound Blurry vision Hearing loss Macrocytosis Psoriatic arthritis Surgical History S/P debridement H/O skin graft History of abdominoplasty History of breast implant History of bilateral breast reduction surgery Family History Mother Hypertension Father Rheumatoid arthritis Family/Other Mental health disorder Paternal Uncle Colon cancer Social History Household Members: None Housing: Apartment Do you presently have visiting nurse or other home services: No Alcohol intake: never Comment: [facility] [place] Patient Tobacco Use Status: Never used Tobacco Tobacco use type: Cigarette e-Cigarette/Vaping Use: Never Used Second Hand Smoke Exposure: No Substance Use Type: Marijuana service: No Current occupational status: employed Current occupational exposures/hazards: No Cognitive needs: No Hearing needs: No Vision needs: No Female Reproductive History Menstrual Age of Menarche: 11 Physical Exam Vital Signs: Last Vital Signs BP 90/60 09/21/23 10:06 BMI result Body Mass Index 26.1 GI Other: Abdomen is soft. Patient is wound is almost completely healed. Assessment & Plan Assessment & Plan (1) Status post incision and drainage: Code(s): Z98.890 - Other specified postprocedural states Category: Surgical Plan Patient is continue local therapy, and otherwise follow-up p.r.n.. All questions answered Coding Level of Care Code Est Pt Level 4 (46656) Diagnoses Status post incision and drainage Z98.890
[2023-09-21 10:06] VITALS: BP 90/60; BMI 26.1
== END 2023-09-21 10:16 | disposition home or self-care (01) ==
PROVIDERS: PCP Internal Medicine; Visit Provider Surgery
DX: Z98.890 Other specified postprocedural states (principal)
CPT/HCPCS: 99212

== ENCOUNTER → 2023-09-21 10:03 | Outpatient (BNVA) | payer OTHER, SELFPAY | PROVIDERS: PCP Internal Medicine; Visit Provider Surgery ==

== ENCOUNTER 2023-10-16 10:20 | Outpatient (REF) | payer OTHER, SELFPAY ==
[2023-10-16 10:37] LABS: MANUAL DIFF FLAG NO
[2023-10-16 10:57] LABS: Basophils Absolute Auto 0.1 X10*3/uL (0.0-0.2); Basophils Percent Auto 0.6 % (0-2); Eosinophils Absolute Auto 0.2 X10*3/uL (0.0-0.4); Eosinophils Percent Auto 2.4 % (0-4); Hematocrit 42.6 % (37.0-47.0); Hemoglobin 14.4 g/dl (12.0-16.0); Imm Gran Abs Auto 0.02 X10*3/uL (0.00-0.03); Imm Gran Pct Auto 0.3 % (0.0-0.4); Lymphocytes Absolute Auto 2.3 X10*3/uL (1.2-4.9); Lymphocytes Percent Auto 28.4 % (20-40); Mean Corpuscular HGB Conc 33.8 g/dl (31.0-35.0); Mean Corpuscular Hemoglobin 34.4 pg (27.0-33.0); Mean Corpuscular Volume 101.9 fL (80.0-98.0); Mean Platelet Volume 9.1 fL (9.4-12.3); Monocytes Absolute Auto 0.6 X10*3/uL (0.1-1.2); Monocytes Percent Auto 7.3 % (2-11); Neutrophils Absolute Auto 4.8 x10*3/uL (2.0-8.3); Platelet Count 267 X10*3/uL (160-400); Red Blood Count 4.18 X10*6/uL (4.20-5.50); Red Cell Distribution Width 13.2 % (11.0-16.0); White Blood Count 7.9 X10*3/uL (4.8-10.8)
[2023-10-16 11:37] LABS: Erythrocyte Sedimentation Rate 8 MM/HR (0-20)
[2023-10-16 11:59] LABS: Alanine Aminotransferase 25 U/L (0-31); Albumin Level 4.2 g/dL (3.5-5.0); Alkaline Phosphatase 65 U/L (39-117); Anion Gap 10 (12-20); Aspartate Amino Transferase 20 U/L (5-31); Bilirubin Total 0.7 mg/dL (0.0-1.0); Blood Urea Nitrogen 10 mg/dL (9-16); C Reactive Protein 0.25 mg/dL (< or = 0.50); Calcium 9.9 mg/dL (8.4-10.2); Carbon Dioxide 23 mmol/L (22-29); Chloride 110 mmol/L (96-108); Cholesterol 143 mg/dL (<200); Estimated Glomerular Filt Rate > 60; Glucose Fasting 88 mg/dL (60-99); Glucose Random 88 mg/dL (60-115); HDL Cholesterol 29 mg/dL (>40); LDL Cholesterol Calculated 94 mg/dL (<100); Sodium 139 mmol/L (135-145); Total Protein 7.7 g/dL (6.5-8.0); Triglycerides 101 mg/dL (<150)
[2023-10-16 12:03] LABS: Vitamin D 25-OH Total 39.4 ng/mL (>30)
== END 2023-10-16 10:21 | disposition home or self-care (01) ==
LOC: HO.LAB 10:20
PROVIDERS: PCP Internal Medicine; Visit Provider Student in an Organized Health Care Education/Training Program
DX: Z00.00 Encounter for general adult medical examination without abnormal findings (principal); Z79.899 Other long term (current) drug therapy; E78.5 Hyperlipidemia, unspecified; E55.9 Vitamin D deficiency, unspecified
CPT/HCPCS: 36415; 80053; 80061; 82306; 85025; 85652; 86140

== ENCOUNTER → 2023-10-29 08:15 | Outpatient (BNVA) | payer OTHER, SELFPAY | PROVIDERS: PCP Internal Medicine; Visit Provider Student in an Organized Health Care Education/Training Program ==

== ENCOUNTER 2023-11-23 09:59 | Outpatient (AMB) | payer OTHER, SELFPAY ==
--- NOTE | 2023-11-23 10:00 | MHC.OFFVIS ---
Vital Signs 11/23/23 10:04 Height 5 ft 9 in Weight 174 lb 2.643 oz BMI 25.7 BP 115/70 Blood Pressure Location Lt brachial Position Sitting Pulse 80 Pulse Source Pulse Oximeter Pulse Oximetry (%) 99 Oxygen Delivery Method Room Air Intake Visit Reasons: PsA/insurance inactive Intake Note: Patient presents for PsA. Allergies yusimry Adverse Reaction (Intermediate, Uncoded 09/21/23 10:09) Diarrhea Medication List - Last Reconciled 11/23/23 by Judith Ackerman MD adalimumab (Humira Pen) 40 mg (0.8 mL) subcut QWEEK ascorbic acid (vitamin C) 500 mg PO DAILY ascorbic acid-collagen 30-833.3 mg (Collagen Skin Renewal) 1 tab PO DAILY clobetasol 0.05% 1 appl topical BID diphenhydramine HCl 25 mg PO BEDTIME [exufiber ag+ As directed] folic acid 2 mg (2 x 1 mg) PO DAILY meloxicam 15 mg PO DAILY PRN methotrexate sodium 15 mg (6 x 2.5 mg) PO QWEEK HPI Comments Details: 38yoF presents for follow-up on psoriatic arthritis. Feels so much better after Humira was advanced to weekly dosing. Improved joint pain and stiffness. Remains on methotrexate 15 mg weekly. She uses meloxicam about once a week as needed for joint pains. She has been having worsening psoriasis rashes and crusting her left ear. She has been using clobetasol cream, it is improving. [facility] Medical History Seroma due to trauma Mild recurrent major depression Abscess of left foot Open wound Blurry vision Hearing loss Macrocytosis Psoriatic arthritis Surgical History S/P debridement H/O skin graft History of abdominoplasty History of breast implant History of bilateral breast reduction surgery Family History Mother Hypertension Father Rheumatoid arthritis Family/Other Mental health disorder Paternal Uncle Colon cancer Social History Household Members: None Housing: Apartment Do you presently have visiting nurse or other home services: No Alcohol intake: never [place] [facility] [place] Tobacco Use Status: Never used Tobacco Tobacco use type: Cigarette e-Cigarette/Vaping Use: Never Used Second Hand Smoke Exposure: No Substance Use Type: Marijuana service: No Current occupational status: employed Current occupational exposures/hazards: No Cognitive needs: No Hearing needs: No Vision needs: No Female Reproductive History Menstrual Age of Menarche: 11 Review of Systems Musc Denies arthralgias, Denies joint swelling and Denies stiffness Skin/Breast Reports lesions and Reports rash Physical Exam Vital Signs: Last Vital Signs Pulse 80 11/23/23 10:04 BP 115/70 11/23/23 10:04 Pulse Ox 99 11/23/23 10:04 Oxygen Delivery Method Room Air 11/23/23 10:04 BMI result Body Mass Index 25.7 Const General: cooperative, healthy appearing, comfortable and no acute distress Nutritional Appearance: average body habitus Orientation/consciousness: patient oriented x3 Limitations: no limitations HEENT Head: Yes normal to inspection Mouth: moist mucous membranes Resp Effort & Inspection: normal respiratory effort and able to speak in complete sentences Auscultation: clear to auscultation bilaterally Cardio Rate: regular rate Rhythm: regular rhythm GI Inspection: Yes normal to inspection Palpation (GI): Soft to palpation and nontender Skin Other: Crusted over lesions on the outside of her left ear Neuro General: patient oriented x3 Extrem Other: Left 2nd MCP minimal swelling and minimal tenderness. No wrist pain with flexion-extension bilaterally No active synovitis otherwise Nail pitting most noticeable left 3rd and 4th fingers Assessment & Plan Assessment & Plan (1) Psoriatic arthritis: Comment: Dx 2011 on Humira & MTX 25 mg self DC MTX 2020 due to GI upset, PSO flared, restarted at 10 mg 12/2021 advanced to 25 mg 02/2022 due to peripheral synovitis, reduced to 20 mg 10/2022 due to transaminitis, reduced to 15 mg 04/2023 due to transaminitis Humira was switched to Yusmiry due to insurance requirement. Was causing diarrhea and fatigue. Switched back to Humira 06/2023 Humira advanced to weekly 07/2023 d.t active synovitis effective Code(s): L40.50 - Arthropathic psoriasis, unspecified Category: Medical Plan: 38-year-old female with history of psoriasis and psoriatic arthritis returns for follow-up. On methotrexate 15 mg weekly and Humira 40 mg weekly. Doing better since Humira was advanced to once weekly dosing Has been having active psoriasis patches on her left ear. Improving with steroid cream. Does not look infected on exam today. Advised patient to contact our office if it is getting worse Continue methotrexate 15 mg weekly, Humira 40 mg weekly and Continue acid to 2 mg daily Can take meloxicam 15 mg once daily as needed for joint pain Labs before next visit in 3 months (2) HARLEY positive: Code(s): R76.8 - Other specified abnormal immunological findings in serum Category: Medical Plan: Patient has a positive HARLEY and positive dsDNA which is likely induced by Humira. However she has no clinical signs of drug-induced lupus which is a rare complication of TNF inhibitors. 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 Will monitor patient for side effects with frequent lab work. Advised patient to take folic acid daily to prevent complications of methotrexate. Plan I spent 25 minutes reviewing patient's chart, evaluating patient, ordering diagnostic workup, counseling patient and documenting in the chart Orders: Orders Complete Blood Count Auto Diff 3 Months L40.50 - Arthropathic psoriasis, unspecified, Z79.899 - Other retirement (current) drug therapy Comprehensive Met. 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
[2023-11-23 10:04] VITALS: BP 115/70; PULSE 80; O2SAT 99; BMI 25.7
== END 2023-11-23 10:19 | disposition home or self-care (01) ==
PROVIDERS: PCP Internal Medicine; Visit Provider Student in an Organized Health Care Education/Training Program
DX: L40.50 Arthropathic psoriasis, unspecified (principal); R76.8 Other specified abnormal immunological findings in serum; Z79.899 Other long term (current) drug therapy
CPT/HCPCS: 99214

== ENCOUNTER → 2023-11-23 09:59 | Outpatient (BNVA) | payer OTHER, SELFPAY | PROVIDERS: PCP Internal Medicine; Visit Provider Student in an Organized Health Care Education/Training Program ==

== ENCOUNTER 2024-02-15 08:57 | Outpatient (REF) | payer OTHER, SELFPAY ==
[2024-02-15 10:27] LABS: MANUAL DIFF FLAG NO
[2024-02-15 10:34] LABS: Basophils Absolute Auto 0.1 X10*3/uL (0.0-0.2); Basophils Percent Auto 0.8 % (0-2); Eosinophils Absolute Auto 0.2 X10*3/uL (0.0-0.4); Hematocrit 41.3 % (37.0-47.0); Hemoglobin 14.2 g/dl (12.0-16.0); Imm Gran Abs Auto 0.03 X10*3/uL (0.00-0.03); Imm Gran Pct Auto 0.4 % (0.0-0.4); Lymphocytes Absolute Auto 1.7 X10*3/uL (1.2-4.9); Lymphocytes Percent Auto 22.2 % (20-40); Mean Corpuscular HGB Conc 34.4 g/dl (31.0-35.0); Mean Corpuscular Hemoglobin 35.8 pg (27.0-33.0); Monocytes Absolute Auto 0.7 X10*3/uL (0.1-1.2); Monocytes Percent Auto 8.8 % (2-11); Neutrophils Absolute Auto 4.9 x10*3/uL (2.0-8.3); Neutrophils Percent Auto 65.8 % (45-73); Platelet Count 291 X10*3/uL (160-400); Red Blood Count 3.97 X10*6/uL (4.20-5.50); Red Cell Distribution Width 13.2 % (11.0-16.0); White Blood Count 7.5 X10*3/uL (4.8-10.8)
[2024-02-15 10:54] LABS: Albumin Level 4.1 g/dL (3.5-5.0); Alkaline Phosphatase 62 U/L (39-117); Anion Gap 10 (12-20); Aspartate Amino Transferase 33 U/L (5-31); Bilirubin Total 0.4 mg/dL (0.0-1.0); Blood Urea Nitrogen 14 mg/dL (9-16); C Reactive Protein 0.22 mg/dL (< or = 0.50); Calcium 9.3 mg/dL (8.4-10.2); Carbon Dioxide 24 mmol/L (22-29); Chloride 106 mmol/L (96-108); Estimated Glomerular Filt Rate > 60; Glucose Random 90 mg/dL (60-115); Potassium 3.8 mmol/L (3.3-5.1); Sodium 136 mmol/L (135-145); Total Protein 7.7 g/dL (6.5-8.0)
[2024-02-15 11:20] LABS: Erythrocyte Sedimentation Rate 11 MM/HR (0-20)
[2024-02-15 11:28] LABS: Alanine Aminotransferase 46 U/L (0-31)
== END 2024-02-15 08:58 | disposition home or self-care (01) ==
LOC: HO.10HDL 08:57
PROVIDERS: Visit Provider Student in an Organized Health Care Education/Training Program
DX: L40.50 Arthropathic psoriasis, unspecified (principal); Z79.899 Other long term (current) drug therapy
CPT/HCPCS: 36415; 80053; 85025; 85652; 86140

== ENCOUNTER 2024-02-23 09:48 | Outpatient (AMB) | payer OTHER, SELFPAY ==
[2024-02-23 09:50] VITALS: BP 98/66; PULSE 87; BMI 25.1
--- NOTE | 2024-02-23 09:50 | MHC.OFFVIS ---
Vital Signs 02/23/24 09:50 Height 5 ft 9 in Weight 169 lb 15.622 oz BMI 25.1 BP 98/66 Blood Pressure Location Rt brachial Position Sitting Pulse 87 Pulse Source Pulse Oximeter Intake Visit Reasons: PsA Intake Note: Patient last seen by Doctor Judith Ackerman on 11/23/23. Presents today for PsA follow up and test results. Community Services Officer Required: No Accompanied by: Self / Same As Patient Allergies yusimry Adverse Reaction (Intermediate, Uncoded 02/23/24 09:54) Diarrhea Medication List - Last Reconciled 02/23/24 by Judith Ackerman MD ascorbic acid (vitamin C) 500 mg PO DAILY ascorbic acid-collagen 30-833.3 mg (Collagen Skin Renewal) 1 tab PO DAILY clobetasol 0.05% 1 appl topical BID diphenhydramine HCl 25 mg PO BEDTIME [exufiber ag+ As directed] folic acid 2 mg (2 x 1 mg) PO DAILY meloxicam 15 mg PO DAILY PRN methotrexate sodium 10 mg (4 x 2.5 mg) PO QWEEK HPI Comments Details: 38yoF presents for follow-up on psoriatic arthritis. She is on Humira weekly and methotrexate 15 mg weekly. She states that she missed her last dose of methotrexate last week. She states that her psoriasis is getting worse. She has been having worsening rashes behind an inside both ears. She states that her joints are doing reasonably well. She continues to have intermittent joint pains especially of her hands and hips. She takes meloxicam 2 to 3 times a week. [facility] Medical History Seroma due to trauma Mild recurrent major depression Abscess of left foot Open wound Blurry vision Hearing loss Macrocytosis Psoriatic arthritis Surgical History S/P debridement H/O skin graft History of abdominoplasty History of breast implant History of bilateral breast reduction surgery Family History Mother Hypertension Father Rheumatoid arthritis Family/Other Mental health disorder Paternal Uncle Colon cancer Social History Household Members: None Housing: Apartment Do you presently have visiting nurse or other home services: No Alcohol intake: never Comment: [facility] [place] Tobacco Use Status: Never used Tobacco Tobacco use type: Cigarette e-Cigarette/Vaping Use: Never Used Second Hand Smoke Exposure: No Substance Use Type: Marijuana service: No Current occupational status: employed Current occupational exposures/hazards: No Cognitive needs: No Hearing needs: No Vision needs: No Female Reproductive History Menstrual Age of Menarche: 11 Review of Systems Musc Reports arthralgias and Denies joint swelling Skin/Breast Reports lesions and Reports rash Physical Exam Vital Signs: Last Vital Signs Pulse 87 02/23/24 09:50 BP 98/66 02/23/24 09:50 BMI result Body Mass Index 25.1 Const General: cooperative, healthy appearing, comfortable and no acute distress Nutritional Appearance: average body habitus Orientation/consciousness: patient oriented x3 Limitations: no limitations HEENT Head: Yes normal to inspection Mouth: moist mucous membranes Resp Effort & Inspection: normal respiratory effort and able to speak in complete sentences Auscultation: clear to auscultation bilaterally Cardio Rate: regular rate Rhythm: regular rhythm GI Inspection: Yes normal to inspection Palpation (GI): Soft to palpation and nontender Skin Other: Neuro General: patient oriented x3 Extrem Other: Left 2nd MCP minimal swelling but no tenderness No wrist pain with flexion-extension bilaterally No active synovitis otherwise Nail pitting most noticeable left 3rd and 4th fingers No trochanteric bursa area tenderness bilaterally Assessment & Plan Assessment & Plan (1) Psoriatic arthritis: Comment: Dx 2011 on Humira & MTX 25 mg self DC MTX 2020 due to GI upset, PSO flared, restarted at 10 mg 12/2021 advanced to 25 mg 02/2022 due to peripheral synovitis, reduced to 20 mg 10/2022 due to transaminitis, reduced to 15 mg 04/2023 due to transaminitis Humira was switched to Yusmiry due to insurance requirement. Was causing diarrhea and fatigue. Switched back to Humira 06/2023 Humira advanced to weekly 07/2023 d.t active synovitis effective Code(s): L40.50 - Arthropathic psoriasis, unspecified Category: Medical Plan: 38-year-old female with history of psoriasis and psoriatic arthritis returns for follow-up. On methotrexate 15 mg weekly and Humira 40 mg weekly. Her psoriasis has been much more active. We will need to change DMARDs. Discontinue Humira. Discussed risks and benefits of Taltz. Patient is unaware of any family history of inflammatory bowel disease. Denies symptoms suggestive of inflammatory bowel disease. Patient agreed to proceed. Will start prior authorization for Taltz Labs showed mild transaminitis. Lower methotrexate to 10 mg weekly. Continue folic acid 2 mg daily Labs before next visit in 3 months (2) HARLEY positive: Code(s): R76.8 - Other specified abnormal immunological findings in serum Category: Medical Plan: Patient has a positive HARLEY and positive dsDNA which is likely induced by Humira. However she has no clinical signs of drug-induced lupus which is a rare complication of TNF inhibitors. 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 Will monitor patient for side effects with frequent lab work. Advised patient to take folic acid daily to prevent complications of methotrexate. Side effects of Taltz were discussed with the patient in detail including increased risk of infection, Low risk of inflammatory bowel disease, possible increased risk of solid and skin tumors. Patient fully aware. Advised patient to seek medical care JAMES if patient has an infection and advised patient to stop the medication until the infection is resolved. Plan I spent 25 minutes reviewing patient's chart, evaluating patient, ordering diagnostic workup, counseling patient and documenting in the chart Medications: New ixekizumab (Taltz Autoinjector) 160 mg (2 pens) subcutaneously at week 0 then 80 mg injection every 4 weeks 2 mL 2RF L40.50 - Arthropathic psoriasis, unspecified Changed From methotrexate sodium 15 mg (6 x 2.5 mg) PO QWEEK 72 tabs 0RF To methotrexate sodium 10 mg (4 x 2.5 mg) PO QWEEK 48 tabs 0RF Refilled folic acid 2 mg (2 x 1 mg) PO DAILY 180 tabs 1RF Discontinued Humira Pen (adalimumab) Discontinued Reason: Doctor's Order 40 mg (0.8 mL) subcut QWEEK 4 ea 3RF NS L40.50 - Arthropathic psoriasis, unspecified Coding Level of Care Code Est Pt Level 4 (09735) Complex EM visit Add On G2211 Diagnoses Psoriatic arthritis L40.50 HARLEY positive R76.8 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
== END 2024-02-23 10:07 | disposition home or self-care (01) ==
PROVIDERS: PCP Internal Medicine; Visit Provider Student in an Organized Health Care Education/Training Program
DX: L40.50 Arthropathic psoriasis, unspecified (principal); R76.8 Other specified abnormal immunological findings in serum; Z79.899 Other long term (current) drug therapy
CPT/HCPCS: 99214

== ENCOUNTER → 2024-02-23 09:48 | Outpatient (BNVA) | payer OTHER, SELFPAY | PROVIDERS: PCP Internal Medicine; Visit Provider Student in an Organized Health Care Education/Training Program ==

== ENCOUNTER 2024-03-22 13:57 | Outpatient (REF) | payer OTHER, SELFPAY ==
[2024-03-22 16:53] LABS: Bacterial Vaginosis PCR NEGATIVE (Negative); Candida Group PCR NOT DETECTED (Not Detect); Candida glab krusei PCR NOT DETECTED (Not Detect); Trichomonas vaginalis PCR NOT DETECTED (Not Detect)
[2024-03-22 17:25] LABS: CT PCR NOT DETECTED (Not Detect.); NG PCR NOT DETECTED (Not Detect.)
== END 2024-03-22 13:58 | disposition home or self-care (01) ==
LOC: HO.LAB 13:57
PROVIDERS: PCP Internal Medicine; Visit Provider Advanced Practice Midwife
DX: Z01.419 Encounter for gynecological examination (general) (routine) without abnormal findings (principal); Z20.2 Contact with and (suspected) exposure to infections with a predominantly sexual mode of transmission
CPT/HCPCS: 81515; 87491; 87591

== ENCOUNTER 2024-03-22 14:21 | Outpatient (REF) | payer OTHER, SELFPAY | END 2024-03-22 14:22 | disposition home or self-care (01) | LOC: HO.LNP 14:21 | PROVIDERS: Visit Provider Advanced Practice Midwife | DX: Z13.89 Encounter for screening for other disorder (principal) ==

== ENCOUNTER 2024-05-09 12:25 | Outpatient (AMB) | payer OTHER, SELFPAY ==
--- NOTE | 2024-05-09 12:31 | A.OFFPC_ITS ---
Vital Signs 05/09/24 12:33 Height 5 ft 9 in Weight 165 lb BMI 24.4 BP 116/70 Blood Pressure Location Lt brachial Position Sitting Intake Visit Reasons: Stomach issues Oxyacetylene Burner Required: Yes Oxyacetylene Burner Language: Solar Applications Development Engineer Name: Ana Luisa Murry MD Information Interpreted: non-clinical & clinical Accompanied by: Self / Same As Patient Allergies yusimry Adverse Reaction (Intermediate, Uncoded 05/09/24 12:40) Diarrhea Medication List - Last Reconciled 05/09/24 by Ana Luisa Murry MD ascorbic acid (vitamin C) 500 mg PO DAILY ascorbic acid-collagen 30-833.3 mg (Collagen Skin Renewal) 1 tab PO DAILY clobetasol 0.05% 1 appl topical BID diphenhydramine HCl 25 mg PO BEDTIME [exufiber ag+ As directed] folic acid 2 mg (2 x 1 mg) PO DAILY ixekizumab (Taltz Autoinjector) 160 mg (2 pens) subcutaneously at week 0 then 80 mg injection at weeks 2, 4, 6, 8, 10, and 12, and then 80 mg every 4 weeks meloxicam 15 mg PO DAILY PRN methotrexate sodium 10 mg (4 x 2.5 mg) PO QWEEK Tobacco use date assessed: 05/09/24 Dental Screening Dental Screen Date: 05/09/24 Did you have a dental visit in the last 12 months?: Yes Did you have a dental problem in the last 6 months where you did not have access to dental care?: No Was dental information given to patient?: Patient has dentist HPI HPI Comments History of Present Illness Details The patient is a 38-year-old female presenting with difficulty swallowing and esophagitis-related symptoms that developed following a dose of her medication, Tals, on March 23. The difficulty swallowing was characterized by a painful sensation in the chest and throat, preventing her from eating and drinking, which was accompanied by weight loss. The symptoms lasted for approximately 10 days with a temporary worsening after attempting self-treatment based on a suggestion of gastritis. The patient experiences pain in the stomach area radiating externally and reports a significant impact on daily activities. Previous treatments for psoriatic arthritis included Omira, changed to Taltz due to the development of numerous psoriatic plaques. The patient has an existing diagnosis of inflammatory bowel disease and uses methotrexate and folic acid regularly. [facility] Medical History (Updated 05/09/24 @ 12:47 by Ana Luisa Murry MD) Seroma due to trauma Mild recurrent major depression Abscess of left foot Open wound Blurry vision Hearing loss Macrocytosis Psoriatic arthritis Surgical History S/P debridement H/O skin graft History of abdominoplasty History of breast implant History of bilateral breast reduction surgery Family History Mother Hypertension Father Rheumatoid arthritis Family/Other Mental health disorder Paternal Uncle Colon cancer Paternal Aunt Lung cancer Maternal Grandmother Uterine cancer Social History Household Members: None Housing: Apartment Do you presently have visiting nurse or other home services: No Alcohol intake: never Comment: [facility] [place] Tobacco Use Status: Never used Tobacco e-Cigarette/Vaping Use: Never Used Second Hand Smoke Exposure: No Substance Use Type: Marijuana service: No Current occupational status: employed Current occupational exposures/hazards: No Cognitive needs: No Hearing needs: No Vision needs: No Female Reproductive History Menstrual Age of Menarche: 11 Questionnaire PHQ-9 Over the last 2 weeks, how often have you been bothered by any of the following problems? 1. Little interest or pleasure in doing things: not at all 2. Feeling down, depressed, or hopeless: several days 3. Trouble falling or staying asleep, or sleeping too much: not at all 4. Feeling tired or having little energy: not at all 5. Poor appetite or overeating: nearly every day 6. Feeling bad about yourself - or that you are a failure or have let yourself or your family down: not at all 7. Trouble concentrating on things, such as reading the newspaper or watching television: not at all 8. Moving or speaking so slowly that other people could have noticed. Or the opposite - being so fidgety or restless that you have been moving around a lot more than usual: not at all 9. Thoughts that you would be better off or of hurting yourself in some way: not at all Total score: 4 Depression Screening Interpretation: Positive Depression Screening Follow-up: Existing condition and Follow-up Visit Requested Depression Screening Done: Yes 71570 - PHQ-9 Billing: Yes Source: Developed by Drs. Oneil Wood, Adonay Alejo and colleagues, with an educational spencer from [employer]. Thrive Questionnaire Date Thrive assessed: 05/09/24 I am a: Patient What is your living situation today?: I have a steady place to live Within the past 12 months, did the food you bought not last and you didn't have the money to get more?: Never true Within the past 12 months, did you worry whether your food would run out before you got money to buy more?: Never true Do you have trouble paying for medicines?: No Do you have trouble getting transportation to medical appointments?: No Do you have trouble paying your heating and electricity bill?: No Do you have trouble taking care of your child, family member or friend?: No Do you have trouble with day-to-day activities such as bathing, preparing meals, shopping, managing finances, etc.?: No Are you currently unemployed and looking for a job?: No Are you interested in more education?: No Please select the resources that you would like help with: None Currently or been in a relationship where the following occur: No concerns reported THRIVE Score: 0 AUDIT C Alcohol Use Questionnaire (AUDIT-C) 1. How often do you have a drink containing alcohol?: Never Total Score: 0 Score Reviewed/Action Taken: No BRUNO-7 AMB Questionnaire BRUNO-7 Date BRUNO - 7 assessed: 05/09/24 Feeling nervous, anxious, or on edge: 1 = Several days Not being able to stop or control worryin = Not at all Worrying too much about different things: 1 = Several days Trouble relaxin = Several days Being so restless that it is hard to sit still: 0 = Not at all Becoming easily annoyed or irritable: 0 = Not at all Feeling afraid as if something awful might happen: 1 = Several days Total BRUNO-7 score (0-4 normal; 5-9 mild; 10-14 moderate; 15-21 severe): 4 Source: Developed by Drs. Oneil Wood, Adonay Alejo and colleagues, with an educational spencer from [employer]. BRUNO-7 Assessment Billing BRUNO-7 Assessment Tool: BRUNO-7 Assessment 62530 Review of Systems Const All systems reviewed & are unremarkable except as noted in HPI and below Card Denies chest pain at rest, Denies chest pain with activity, Denies edema, Denies irregular heart rhythm, Denies claudication, Denies dyspnea, Denies dyspnea on exertion, Denies orthopnea, Denies paroxysmal nocturnal dyspnea and Denies slow heart rate Resp Denies cough, Denies dyspnea and Denies dyspnea on exertion GI Reports abdominal pain, Denies change in bowel habits, Denies excessive flatus, Denies nausea and Denies vomiting Physical exam (Primary Care) Vital Signs: Last Vital Signs BP 116/70 05/09/24 12:33 BMI result Body Mass Index 32.2 Tobacco/Smoking Status: Tobacco use Status Tobacco use date assessed 05/09/24 05/09/24 12:37 Patient Tobacco Use Status Never used Tobacco 05/09/24 12:37 Tobacco use type 05/09/24 12:37 e-Cigarette/Vaping Use Never Used 05/09/24 12:37 PHQ-9: PHQ-9 Score PHQ-9: Total score 4 05/09/24 12:37 Depression Screening Interpretation: Positive Depression Screening Follow-up: Existing condition and Follow-up Visit Requested Thrive Assessment: Date of Thrive Assessment Date Thrive assessed 05/09/24 05/09/24 12:37 Currently or been in a relationship where the following occur: No concerns reported Resp Effort & Inspection: normal respiratory effort Auscultation: clear to auscultation bilaterally Cardio Jugular venous distension: no JVD Rate: regular rate Rhythm: regular rhythm Heart sounds: S1 normal heart sound present and S2 normal heart sound present GI Inspection: Yes normal to inspection Palpation (GI): Soft to palpation and nontender Auscultation: normal bowel sounds Extrem General: Yes full ROM Coding Level of Care Code Est Pt Level 3 (14186) Complex EM visit Add On G2211 Diagnoses Chronic GERD K21.9 Psoriatic arthritis L40.50 Additional Codes PHQ-9 - 94277 - PHQ-9 Billing: Yes ([id number]) BRUNO-7 Assessment Billing - BRUNO-7 Assessment Tool: BRUNO-7 Assessment 96118 ([id number]) Time Spent (min) 19 Assessment & Plan Assessment & Plan (1) Chronic GERD: Code(s): K21.9 - Gastro-esophageal reflux disease without esophagitis Category: Medical (2) Psoriatic arthritis: Code(s): L40.50 - Arthropathic psoriasis, unspecified Category: Medical Plan Evaluation of the esophagus is planned to determine acidity levels, investigate for possible hernia, or other concerns contributing to her unresolved symptoms following medication administration. Dietary modification measures were suggested for symptomatic management, including refraining from eating close to bedtime, and avoiding specific food triggers that may exacerbate esophageal irritation. The patient should start medication 30 minutes before her heaviest meal. Strategic use of milk or vanilla shake might aid in minimizing symptom severity. Specific diagnostic outcomes will guide subsequent treatment plans. Patient was informed and verbally consented to the use of an ambient scribe for clinic note documentation during this visit. I discussed with the patient the plan to conduct an esophagal study to evaluate acidity levels and investigate potential esophageal issues contributing to her symptoms. We reviewed potential dietary and lifestyle modifications to reduce esophageal irritation, such as avoiding meals three hours before bedtime, sleeping with two pillows, and abstaining from certain foods. Diet modification was emphasized, and the potential role of milk or vanilla shakes was mentioned. The importance of medication timing?30 minutes before her largest meal?was highlighted. The patient was informed that follow-up would be crucial to evaluate the success of these interventions and adjust care as necessary based on diagnostic results. Orders: Orders [place] upper GI series Today K21.9 - Gastro-esophageal reflux disease without esophagitis Medications: New omeprazole 20 mg PO DAILY 90 days 90 caps 0RF K21.9 - Gastro-esophageal reflux disease without esophagitis Patient Instructions: - Avoid eating three hours before bedtime. - Sleep with two pillows to prevent acid reflux. - Avoid sauces, colorants, fried foods, and spices. - Consider using milk or a vanilla shake for symptom relief. - Take your prescribed medication 30 minutes before the largest meal of the day. - Await a call to schedule the esophagal study. - Report any worsening symptoms or concerns promptly.
[2024-05-09 12:33] VITALS: BP 116/70; BMI 24.4
--- OUTSIDE RECORDS SUMMARY | 2024-05-09 14:32 | XMS_ITS ---
Author Organization [facility] Address [address] [place] [address] Care Team Providers Care Plant Anatomist Name Role Phone Varun ESPANA, Ana Luisa Primary Care Provider Unavail able Aftab Olsen Unavailable [phone] Allergies Allergen (clinical drug ingredient) Drug/Non Drug Allergy documented on EMR Reaction Allergy Type Onset Date Status adalimumab Yusimry diarrhea Drug Allergy Active REASON FOR VISIT Fungal Nails, Open sore - Toe Medications Medication SIG (Take, Route, Frequency, Duration) Notes Start Date End Date Status Collagen Skin Renewal 833-30 MG as directed Orally Not-Takin g Vitamin C 500 MG as directed Orally Not-Taking Adalimumab 40 MG/0.8ML as directed Subcutaneous Not-Taking Ciclopirox 0.77 % 1 application Externally Once a day for 30 days Active Clobetasol Propionate 0.05 % 1 application Externally Twice a day for 10 day(s) Not-Taking Humira Not-Taking Methotrexate Sodium 15 MG as directed Orally Active diphenhydrAMINE HCl 25 MG 1 capsule at b edtime as needed Orally Once a day for 30 day(s) Not-Taking Folic Acid Active Meloxicam 15 MG 1 tablet Orally Once a day for 30 day(s) Not-Taking Taltz Active Social History Tobacco Use: Social History Observation Description Date Details (start date - stop date) Never Smoker NA - NA Alcohol Screen Question Answer Notes Did you have a drink containing alcohol in the p ast year? No Points 0 Interpretation Negative Tobacco use other than smoking: Question Answer Notes Are you an other tobacco user? No Tobacco Control (Standard) Question Answer Notes Tobacco use: Nonsmoker Additional Findings: Tobacco non-user Current no nsmoker Vital Signs Height 5ft 10in in 04/04/2024 Weight 169 lbs 04/04/2024 BMI 24.25 kg/m2 04/04/2024 Blood pressure systolic 116 mm Hg 04/04/19 25 Blood pressure diastolic 64 mm Hg 025 Procedures Procedure Date Ordered Date Performed Result Body Sit e 43000-ZHMHFQL SKIN/TISSUE 04/04/2024 N/A Encounters Encounter Location Date Provider Diagnosis [facility] [place] [address] [place] [id number] 04/04/2024 Aftab Olsen Pain in right toe(s) M79.674 ; Onychomycosis B35.1 ; Pain in left toe(s) M79.675 and Skin ulcer of toe of left foot with fat layer exposed L97.522 Assessments Encounter Date Diagnosis (ICD Code) Assessment Notes Treatment Notes Treatment Clinical Notes Section Notes 04/04/2024 Pain in right toe(s) (ICD-10 - M79.674) 04/04/2024 Onychomycosis (ICD-10 - B35.1) 04/04/2024 Pain in left toe(s) (ICD-10 - M79.675) 04/04/2024 Skin ulcer of toe of left foot with fat layer exposed (ICD-10 - L97.522) Patient Educated with: WOUND CARE INSTRUCTIONS.p df (WOUND CARE INSTRUCTIONS.p df) 04/04/2024 Other Plan Of Treatment Medication Medication Name Sig Start Date Stop Date Notes Ciclopirox 0.77 % 1 application Technical Support Coordinator ally Once a day for 30 days Treatment Notes Assessment Notes Skin ulcer of toe of left fo ot with fat layer exposed Patient Educated with: WOUND CARE INSTRUCTIONS.pdf (WOUND CARE INSTRUCTIONS.pdf) Pending Test Test Name Order Date [id number] SKIN/TISSUE 04/04/2024 Next Appt Details Follow Up: 2-3 Months, Reaso n: Provider Name:Aftab Olsen , 06/29/2024 10:45:00 AM, [address] [facility], [place] [address], [place], [address], Procedure Notes * Category Sub-Category Detail Notes Debride skin and subQ Open wound Physician of record performed open wound selective debridement of devitalized necrotic/nonviable soft tissue, fibrin, exudate, epidermis, dermis, thru skin and subcutaneous fat tissue, first 20 sq cm or less, using sharp dissection with sterile 15 blade, and/or tissue nippers. ANESTHESIA- was accomplished TOPICALLY with Lidocaine Hydrochloride Jelly 2 percent, Sterile antibiotic dressing applied. Hemostasis was controlled through direct pressure. Post debridement measurements: 9mm x 4mm x 3mm. Character of the wound post debriement is stable (91701) Progress Notes * Mis LARSENOB: 6 (38 yo F)Acc No.[id number]:04/04/2024 Progress Notes Patient:?JHONYLIVTeresa Provider:?Aftab Olsen DPM :1985???Age:38 Y???Sex:Female D ate:04/04/2024 [facility] Pcp:Ana Luisa Bond MD Subjective: * Chief Complaints: * ???Fungal NailsOpen sore - T oe * HPI: ???Painful Nails:?Nature:?aching, tender, discolored, thick?.?Location:?Great toe, Left foot, 2nd toe, Both feet.?Duration:?several weeks.?Course:?worse.?Aggravated by:?shoegear causing difficulty standing/walking?.?Treatments:?none.?Skin problems:?Nature:?Open sore.?Treatments:?Topical abx, soaks.? * ROS:?General/Constitutional:?Nausea?denies.?Vomiting?denies.?Hunger Thirst?denies.?Loss appetite?denies.?Chills?denies.?Fatigue?denies.?Fever?denies.?Night Sweats?denies.?Unexplained weight loss?denies.?Unexplained weight gain?denies.?HEENTM:?Dentures?denies.?Dizziness?denies.?Glasses/contacts?denies.?Retinopathy?de nies.?Blurred/double vision?denies.?TMJ?denies.?Discharge/drainage?denies.?Implants?denies.?Sore throat?denies.?Dental implants?denies.?Hard of hearing ?denies.?Difficulty chewing/swallowing/speaking?denies.?Nose bleeds?denies.?Sore mouth?denies.?Respiratory:?On Oxygen?denies.?Pneumonia/pleurisy?denies.?Bronchitis?denies.?Emphysema?denies.?C oughing?denies.?Cough blood?denies.?Shortness of breath?denies.?Wheezing?denies.?Cardiovascular:?Pacemaker?denies.?MVP?denies.?WPW?denies.?CHF?denies.?Heart attack?denies.?Septal defect?denies.?Rapid beat?denies.?Chest pain ?denies.?Atrial Fib.?denies.?Murmur/Palpitations?denies.?Gastrointestinal:?Hemorrhoids?denies.?Stomach/Abdominal pain?denies.?Dark blood stool?denies.?Irritable bowel ?denies.?Constipation?denies.?Diarrhea?denies.?Hematology:?Swelling?denies.?Clots?denies.?Varicose Veins?denies.?Bruising?denies.?Bleeding problem?denies.?Genitourinary:?Blood urine?denies.?Frequent/Painfu/urination/bladder control?denies.?Kidney stones?denies.?Infection (UTI)?denies.?Nephropathy?denies.?sex trans dis (STD)?denies.?Prostate?denies.?Musculoskeletal:?Hammertoes?denies.?Bunions?denies.?Back Pain?denies.?Muscle Cramps/ Resting?denies.?Muscle cramps / walking?denies.?Generalized aches and pains?denies.?Weakness?denies.?Integ.:?Alicia?admits.?Scars?admits.?Corns/calluses?denies.?Ingrown nails?admits.?Painful nails?admits.?Open Sores?denies.?Rashes?denies.?Neurologic:?Difficulty sleeping?denies.?Brain disorder?denies.?Numbness?denies.?Balance trouble?denies.?Confusion?denies.?Fainting/blackouts?denies.?Tingling?denies.?Tr emors?denies.? * Medical History:? * Surgical History:?abdominopl asty breast implant breast reduction , bilateral skin graft 2021 * Hospitalization/Major Diagno stic Procedure:?abscess, stomach 05/2023 * Family History:?Father: addie pritchard, diagnosed with Family history of arthritis.?Paternal Grand Mother: foot problems, poor circulation, diagnosed with Diabetic - NIDDM.?Maternal Grand Mother: foot problems, poor circulation, diagnosed with Diabetic - NIDDM.?Paternal uncle: colon cancer, diagnosed with Other malignant neoplasm of unspecified site.?Mother: diagnosed with Unspecified essential hypertension.?Paternal Grand Father: diagnosed with Unspecified heart disease, Unspecified cerebral artery occlusion with cerebral infarction.?Maternal Grand Father: diagnosed with Unspecified heart disease, Unspecified cerebral artery occlusion with cerebral infarction.?Paternal aunt: diagnosed with Other malignant neoplasm of unspecified site.?Maternal aunt: diagnosed with Other malignant neoplasm of unspecified site.?Maternal uncle: diagnosed with Other malignant neoplasm of unspecified site.? * Social History:?Tobacco Use:?Tobacco use other than smoking?Are you an other tobacco user??No ?Tobacco Control (Standard)?Tobacco use:?Nonsmoker ?Additional Findings: Tobacco non-user?Current nonsmoker ???Drugs/Alcohol:?Drugs?Have you used drugs other than those for medical reasons in the past 12 months??No ?Alcohol Screen?Did you have a drink containing alcohol in the past year??No ?Points?0 ?Interpretation?Negative ???Miscellaneous:?Caffeine: no. ?Children: no. ?Exercise: yes, walking, exercise. ?Marital status: single. 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 * Medications:?TakingTaltz Met hotrexate Sodium 15 MG Tablet as directed Orally Folic Acid Taking Taltz Taking Methotrexate Sodium 15 MG Tablet as directed Orally Taking Folic Acid Not-Taking/PRNHumira Meloxicam 15 MG Tablet 1 tablet Orally Once a day diphenhydrAMINE HCl 25 MG Capsule 1 capsule at bedtime as needed Orally Once a day Clobetasol Propionate 0.05 % Cream 1 application Externally Twice a day Collagen Skin Renewal 833-30 MG Tablet as directed Orally Vitamin C 500 MG Capsule as directed Orally Adalimumab 40 MG/0.8ML Prefilled Syringe Kit as directed Subcutaneous Medication List reviewed and reconciled with the patientNot-Taking/PRN Humira Not-Taking/PRN Meloxicam 15 MG Tablet 1 tablet Orally Once a day Not-Taking/PRN diphenhydrAMINE HCl 25 MG Capsule 1 capsule at bedtime as needed Orally Once a day Not-Taking/PRN Clobetasol Propionate 0.05 % Cream 1 application Externally Twice a day Not-Taking/PRN Collagen Skin Renewal 833-30 MG Tablet as directed Orally Not-Taking/PRN Vitamin C 500 MG Capsule as directed Orally Not-Taking/PRN Adalimumab 40 MG/0.8ML Prefilled Syringe Kit as directed Subcutaneous Medication List reviewed and reconciled with the patient * Allergies:?Yusimry: diarrhea yes[Allergies Verified] Objective: * Vitals:?Ht: 5ft 10in, Wt:169 , BMI:24.25, Shoe size: 10, BP:116/64mm Hg, Ht-cm: 177.8 cm, Wt-k.66 kg. * Examination: ???Nails: ?NAILS are:?Elongated, overgrown, dystrophic, lytic, greater than 3mm thick, discolored and friable with crumbly malodorous subungual debris, with pain on palpation, TA, T1, T6.?Dermatologic: ?ULCER:? LOCATION, Dorsal,TA, SIZE, 9mm X 3mm X 2-3mm, BASE, fibro- granular, RIM, hyperkeratotic, UNDERMINING, mild, TRACKING, Sub Q with Fat layer exposed, DRAINAGE, serosanguineous, moderate, NECROTIC TISSUE, loosely-adherent, yellow slough, MALODOR, absent, CALOR, trace, ERYTHEMA, trace.? Assessment: * Assessment: 1.?Pain in right toe(s) - M7 9.674???2.?Onychomycosis - B35.1 (Primary)???Specify :Acute problem, Uncomplicated (3) Rx Management (4)???3.?Pain in left toe(s) - M79.675???4.?Skin ulcer of toe of left foot with fat layer exposed - L97.522??? Plan: * Treatment: 2.?Skin ulcer of toe of left foot with fat layer exposed?Procedure: 13513-[id number] SKIN/TISSUE Notes: Patient Educated with: WOUND CARE INSTRUCTIONS.pdf (WOUND CARE INSTRUCTIONS.pdf)?? * Procedures:?Debride skin and subQ:?Open wound?Physician of record performed open wound selective debridement of devitalized necrotic/nonviable soft tissue, fibrin, exudate, epidermis, dermis, thru skin and subcutaneous fat tissue, first 20 sq cm or less, using sharp dissection with sterile 15 blade, and/or tissue nippers. ANESTHESIA- was accomplished TOPICALLY with Lidocaine Hydrochloride Jelly 2 percent, Sterile antibiotic dressing applied. Hemostasis was controlled through direct pressure. Post debridement measurements: 9mm x 4mm x 3mm. Character of the wound post debriement is stable (40052).? * Procedure Codes:?13482 DEBRI DE SKIN/TISSUE * Preventive Medicine:? ??Counseling:?Discussion:?-13: Office or other outpatient visit for the evaluation and management of an established patient, which required a medically appropriate history and/or examination and LOW level of DECISION MAKING for: 1 STABLE ACUTE UNCOMPLICATED PROBLEM, 2 OR MORE MINOR PROBLEMS, OR 1 STABLE CHRONIC PROBLEM, THAT POSE(S) A LOW RISK FOR MORBIDITY/MORTALITY. The visit on the day of the encounter encompassed interpreting the data and educating the patient as to the nature of their condition, treatment options available according to their individual PMH, meds, allergies, and overall health/living conditions, as well as any potential risks or complications that may occur from a failure to adhere to, and participate in, the recommended course of therapy. The discussion included a complete verbal, and/or written explanation of the examination results, any x-rays taken, the proposed diagnosis, and outline of the treatment plan. A schedule for future care needs was also explained. The patient verbalized an understanding of the instructions at this time and agreed to be an active participant in their treatment. If the patient should think of any questions or concerns after the visit, I have encouraged the patient to call the office.?Fungal Nail Counseling:?The patient was counseled on the diagnosis, potential etiologies (including, but not limited to, environmental factors, genetic, immune deficiency), and the multiple treatment options for Onychomycosis. We discussed the risks and benefits of each option from performing no treatment, to ultraviolet light shoe treatment, to laser nail treatment, to applying topical antifungals, to taking oral antifungal medication, to surgical removal of the involved nail(s) with or without performing a matricectomy, or any combination thereof. We discussed the advantages and disadvantages of each of possible treatment and importance for adherence to all the recommended therapies for optimum success. This includes the necessity for weekly emery board self nail home debridements, and control the nail and skin environment as much as possible by only using a fresh, dry pair of shoes/socks each day, as well as keeping the skin as dry as possible through the use of sprays/powders if necessary. The patient was instructed to discard the emery board after use to prevent reinfection of the involved nail(s). We discussed the mycological and visual clinical effectiveness of topical vs oral antifungal treatments as well as each ones potential side effects and/or any patient- specific medication interactions. We discussed the reasons behind the important requirement of regular liver function testing with oral antifungal therapy for safety. Patient questions regarding use, dosage, successful outcomes, blood tests, and possible pharmaceutical interactions were reviewed and the patient verbalized that all answers were clearly understood, The patient presently prefers topical treatment, Ciclopirox 0.77 gel was Rxed. Apply as directed to nails twice daily.?Ulcer:?A detailed plan of care was reviewed with the patient. We emphasized the fact that the patient takes on an active participating role in the treatment process and emphasized to them that they are an included, valued, and important member of the wound healing team in order to reach an expedient successful outcome. The patient agreed to follow their medically recommended diet while increasing their protein intake if safely able to do so, maintain proper bodily hydaration, abide by weight-bearing restrictions at all times, quit all current smoking habits if any, and diligently follow any/all dressing change instructions. It was clearly made known to the patient that if they fail to do their part, they will likely extend their course of treatment as well as possibly increase their risk of adverse events including amputation. The patient was instructed on importance of proper wound care consisting of pressure reduction, and proper maintainance of a moist wound environment. The patient is to cleanse the wound with warm soapy water/peroxide/saline, or betadine BID based on product availability. The patient is to apply ( Neosporin, Polysporin, or Triple, ) Antibiotic to the wound and cover with a DSD as directed. The patient was instructed to change dressings according to orders, or PRN saturation, leaks. The patient was instructed to monitor and report any signs or symptoms of infection or any untoward reactions. Precautions Taken: Offloading/Pressure reduction via rest/ limited activity to essential to daily life only, shoe modification, accommodative padding, sharp debridement, and take/apply medication as directed. THE GOALS of wound debridement to remove devitilized tissue, decrease risk for infection, promote wound healing and prevent further complication were discussed/reviewed. Debridement frequency as indicated, Given recent successful results to treatment, The patient is to cont the local wound care as directed till completely healed.? ??Screening/Special Tests:?Fall Risk?Screening:?No falls in the past year ?FALLS: Screening for Future Fall Risk?Have you had any falls with injury in the past year??No * Follow Up:?2-3 Months * Images: * Sign off status: Completed true * Provider:?Aftab Olsen DPM Date:?2024 Generated for Marlen justin/Karen/Colton on:?05/09/2024 02:32 PM EDT History and Physical Notes * HPI (History of Present Illness) Category Sub-Category Detail Notes Category Not es Painful Nails Aggravated by: shoegear causing difficulty standing/walking Course: worse Duration: several weeks Location: Great toe, Left foot , 2nd toe, Both feet Nature: aching, tender, disc olored, thick Treatments: none Skin problems Nature: Open sore Treatments: Topical abx, soaks Examination Category Sub-Category Detail Notes Category Not es Dermatologic ULCER: LOCATION, Dorsal ,TA, SIZE, 9mm X 3mm X 2-3mm, BASE, fibro-granular, RIM, hyperkeratotic, UNDERMINING, mild, TRACKING, Sub Q with Fat layer exposed, DRAINAGE, serosanguineous, moderate, NECROTIC TISSUE, loosely-adherent, yellow slough, MALODOR, absent, CALOR, trace, ERYTHEMA, trace Nails NAILS are: Elongated, overg rown, dystrophic, lytic, greater than 3mm thick, discolored and friable with crumbly malodorous subungual debris, with pain on palpation, TA, T1, T6
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
--- OUTSIDE RECORDS SUMMARY | 2024-05-09 14:33 | XMS_ITS ---
Author Organization [facility] jose [place] Address [address] [place] [address] Care Team Providers Care Social Services Name Role Phone Varun ESPANA, Ana Luisa Primary Care Provider Unavail able Aftab Olsen Unavailable [phone] Allergies Allergen (clinical drug ingredient) Drug/Non Drug Allergy documented on EMR Reaction Allergy Type Onset Date Status adalimumab Yusimry diarrhea Drug Allergy Active REASON FOR VISIT Fungal Nails, Ingrown nail Medications Medication SIG (Take, Route, Frequency, Duration) Notes Start Date End Date Status Adalimumab 40 MG/0.8ML as directed Subcutaneous Not-Taking Collagen Skin Renewal 833-30 MG as directed Orally Not-Takin g Vitamin C 500 MG as directed Orally Not-Taking diphenhydrAMINE HCl 25 MG 1 capsule at b edtime as needed Orally Once a day for 30 day(s) Not-Taking Clobetasol Propionate 0.05 % 1 application Externally Twice a day for 10 day(s) Not-Taking Meloxicam 15 MG 1 tablet Orally Once a day for 30 day(s) Not-Taking Methotrexate Sodium 15 MG as directed Orally Active Folic Acid Active Humira Active Social History Tobacco Use: Social History [...] Status W/U Status Risk Notes Problem Onychomycosis (553767756) Onychomycosis (B35.1) Active confirmed Vital Signs Height 5ft 10in in 03/21/2024 Weight 169 lbs 03/21/2024 BMI 24.25 kg/m2 03/21/2024 Blood pressure systolic 119 mm Hg 03/21/19 25 Blood pressure diastolic 70 mm Hg 025 Procedures Procedure Date Ordered Date Performed Result Body Sit e 97390-UBE 03/21/2024 N/A Encounters Encounter Location Date Provider Diagnosis [facility] [place] [address] [place] [address] 03/21/2024 Aftab Raúl Pain in right toe(s) M79.674 ; Onychomycosis B35.1 ; Pain in left toe(s) M79.675 and Ingrown nail L60.0 Assessments Encounter Date Diagnosis (ICD Code) Assessment Notes Treatment Notes Treatment Clinical Notes Section Notes 03/21/2024 Pain in right toe(s) (ICD-10 - M79.674) 03/21/2024 Onychomycosis (ICD-10 - B35.1) 03/21/2024 Pain in left toe(s) (ICD-10 - M79.675) 03/21/2024 Ingrown nail (ICD-10 - L60.0) Plan Of Treatment Pending Test Test Name Order Date [id number]-XFC 03/21/2024 Next Appt Details Follow Up: 2-3 Weeks, Reason : Provider Name:Aftab Olsen , 06/29/2024 10:45:00 AM, [address] [place] [address], [place] [address], [place], [address], Procedure Notes * Category Sub-Category Detail Notes Matricectomy (OP NOTE) Consent The patie nt was brought to the examination room and placed on the table in a supine position. The pre/richar/postoperative course, risks, complications and alternatives were discussed, understood and accepted by the patient. No guarantees were given regarding the surgical outcome Procedure A digital prep with alcohol or betadine was performed. 3cc of 1 percent Xylocaine Plain local anesthetic was administered to the toe via digital block utilizing aseptic technique. A digital touriquet was applied. The affected toenail portion was undermined, incised and resected to the eponychium and matrix. It was noted to be significantly incurvated and hypertrophied. The nailbed and matrix were curetted and the nail groove, bed and matrix were cauterized with Phenol, 3 applications of 30 seconds each from a cotton tip applicator, no underling bone was identified. The surrounding skin was protected from the Phenol with Bacitracin ointment. The tourniquet was released and capillary fill time was intact to the digit. A sterile Bacitracin dressing was applied Disposition Disposition: The pat ient tolerated the procedure and anesthesia well and left in good condition, alert, oriented and stable in no acute distress. Local wound care instructions were discussed and dispensed. There were no complications and the prognosis is favorable, Recommended alternating/staggering Tylenol XS 2 tabs and Motrin 600mg q 6 hrs ea for discomfort, Rx narcotic postop pain meds were deferred Location Lateral nail border, TA Progress Notes * AMANDAMis DUARTEOB: 6 (38 yo F)Acc No.[id number]:03/21/2024 Progress Notes Patient:?Teresa LARSEN Provider:?Aftab Olsen DPM :1985???Age:38 Y???Sex:Female D ate:03/21/2024 Address: [address] [id number] Pcp:Ana Luisa Bond MD Subjective: * Chief Complaints: * ???Fungal NailsIngrown nail * HPI: ???Painful Nails:?Nature:?aching, tender, discolored, thick.?Location:?Great toe, Left foot, 2nd toe, Both feet.?Duration:?several weeks.?Course:?worse.?Aggravated by:?shoegear causing difficulty standing/walking.?Treatments:?none.? * ROS:?General/Constitutional:?Nausea?denies.?Vomiting?denies.?Hunger Thirst?denies.?Loss appetite?denies.?Chills?denies.?Fatigue?denies.?Fever?denies.?Night Sweats?denies.?Unexplained weight loss?denies.?Unexplained [...] exercise. ?Marital status: single. 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 * Medications:?TakingHumira Me thotrexate Sodium 15 MG Tablet as directed Orally Folic Acid Taking Humira Taking Methotrexate Sodium 15 MG Tablet as directed Orally Taking Folic Acid Not-Taking/PRNMeloxicam 15 MG Tablet 1 tablet Orally Once [...] List reviewed and reconciled with the patientNot-Taking/PRN Meloxicam 15 MG Tablet 1 tablet Orally [...] 10in, Wt:169 , BMI:24.25, Shoe size: 10, BP:119/70mm Hg, Ht-cm: 177.8 cm, Wt-k.66 kg. * Examination: ???Nails: ?NAILS are:?Elongated, overgrown, dystrophic, lytic, greater than 3mm thick, discolored and friable with crumbly malodorous subungual debris, with pain on palpation, TA, T1, T6.?Ingrown Nail: ?INSPECTION:?Reveals incurvation, pain on palpation, groove hypertrophy, Lateral nail border, TA.? Assessment: * Assessment: 1.?Pain in right toe(s) - M7 9.674???2.?Onychomycosis - B35.1 (Primary)???Specify :Acute problem, Uncomplicated (3)???3.?Pain in left toe(s) - M79.675???4.?Ingrown nail - L60.0???Specify :Lateral nail border,?TA??? Plan: * Treatment: * Procedures:?Matricectomy (OP NOTE):?Location?Lateral nail border,?TA.?Consent?The patient was brought to the examination room and placed on the table in a supine position. The pre/richar/postoperative course, risks, complications and alternatives were discussed, understood and accepted by the patient. No guarantees were given regarding the surgical outcome.?Procedure?A digital prep with alcohol or betadine was performed. 3cc of 1 percent ?Xylocaine Plain local anesthetic was administered to the toe via digital block utilizing aseptic technique. A digital touriquet was applied. The affected toenail portion was undermined, incised and resected to the eponychium and matrix. It was noted to be significantly incurvated and hypertrophied. The nailbed and matrix were curetted and the nail groove, bed and matrix were cauterized with Phenol, 3 applications of 30 seconds each from a cotton tip applicator, no underling bone was identified. The surrounding skin was protected from the Phenol with Bacitracin ointment. The tourniquet was released and capillary fill time was intact to the digit. A sterile Bacitracin dressing was applied .?Disposition?Disposition: The patient tolerated the procedure and anesthesia well and left in good condition, alert, oriented and stable in no acute distress. Local wound care instructions were discussed and dispensed. There were no complications and the prognosis is favorable, Recommended alternating/staggering Tylenol XS 2 tabs and Motrin 600mg q 6 hrs ea for discomfort, Rx narcotic postop pain meds were deferred.? * Procedure Codes:?56245 REMOV AL OF NAIL BED, Modifiers: TA * Preventive Medicine:? ??Counseling:?Discussion:?-13: Office or other [...] patient verbalized that all answers were clearly understood.? ??Screening/Special Tests:?Fall Risk?Screening:?No falls in the past year ?FALLS: Screening for Future Fall Risk?Have you had any falls with injury in the past year??No * Follow Up:?2-3 Weeks * Images: * Sign off status: Completed [...] aching, tender, disc olored, thick Treatments: none Examination Category Sub-Category Detail Notes Category Not es Ingrown Nail INSPECTION: Reveals incurvat ion, pain on palpation, groove hypertrophy, Lateral nail border, TA Nails NAILS are: Elongated, overg rown, dystrophic, lytic, greater than 3mm thick, discolored and friable with crumbly malodorous subungual debris, with pain on palpation, TA, T1, T6
--- OUTSIDE RECORDS SUMMARY | 2024-05-09 14:33 | XMS_ITS ---
Author Organization [facility] jose [place] Address [address] [place] [address] Care Team Providers Care Health Care Technician Name Role Phone Varun ESPANA, Ana Luisa Primary Care Provider Unavail able Aftab Olsen Unavailable [phone] Allergies Allergen (clinical drug ingredient) Drug/Non Drug Allergy documented on EMR Reaction Allergy Type Onset Date Status adalimumab Yusimry diarrhea Drug Allergy Active REASON FOR VISIT Open sore - Toe Medications Medication SIG (Take, Route, Frequency, Duration) Notes Start Date End Date Status Humira Active Methotrexate Sodium 15 MG as directed Orally Active Folic Acid Active Meloxicam 15 MG 1 tablet Orally Once a day for 30 day(s) Not-Taking diphenhydrAMINE HCl 25 MG 1 capsule at b edtime as needed Orally Once a day for 30 day(s) Not-Taking Clobetasol Propionate 0.05 % 1 application Externally Twice a day for 10 day(s) Not-Taking Collagen Skin Renewal 833-30 MG as directed Orally Not-Takin g Vitamin C 500 MG as directed Orally Not-Taking Adalimumab 40 MG/0.8ML as directed Subcutaneous Not-Taking Social History Tobacco Use: Social History Observation Description Date Details (start date - stop date) Never Smoker NA - NA Tobacco Use/Smoking Question Answer Notes Are you a: nonsmoker Additional Findings: Tobacco Non-User Current no n-smoker Alcohol Screen Question Answer Notes Did you have a drink containing alcohol in the p ast year? No Points 0 Interpretation Negative Tobacco use other than smoking: Question Answer Notes Are you an other tobacco user? No Vital Signs Height 5ft 10 in in 02/25/2024 Weight 169 lbs 02/25/2024 BMI 24.25 kg/m2 02/25/2024 Blood pressure systolic 90 mm Hg 02/24/19 25 Blood pressure diastolic 69 mm Hg 025 Procedures Procedure Date Ordered Date Performed Result Body Sit e 50249-PRCGMYK SKIN/TISSUE 02/25/2024 N/A Encounters Encounter Location Date Provider Diagnosis [facility] [place] [address] [place] [address] 02/25/2024 Aftab Olsen Skin ulcer of toe of right foot with fat layer exposed L97.512 Assessments Encounter Date Diagnosis (ICD Code) Assessment Notes Treatment Notes Treatment Clinical Notes Section Notes 02/25/2024 Skin ulcer of toe of right foot with fat layer exposed (ICD-10 - L97.512) Patient Educated with: WOUND CARE INSTRUCTIONS.p df (WOUND CARE INSTRUCTIONS.p df) 02/25/2024 Other Plan Of Treatment Treatment Notes Assessment Notes Skin ulcer of toe of right f oot with fat layer exposed Patient Educated with: WOUND CARE INSTRUCTIONS.pdf (WOUND CARE INSTRUCTIONS.pdf) Pending Test Test Name Order Date 60326-KBLKRDJ SKIN/TISSUE 02/25/2024 Next Appt Details Follow Up: 4 Weeks, Reason: Provider Name:Aftab Olsen , 06/29/2024 10:45:00 AM, [address] [facility], [place] [address], [place], [address], Procedure Notes * Category Sub-Category Detail Notes [...] controlled through direct pressure. Post debridement measurements: 13mm x 13mm x 3mm. Character of the wound post debriement is stable (62674) Progress Notes * Mis LARSENOB: 6 (38 yo F)Acc No.[id number]:02/25/2024 Progress Notes Patient:?DIAZVEGA, Teresa Provider:?Aftab Olsen DPM :1985???Age:38 Y???Sex:Female D ate:02/25/2024 Address:[address] [place], [id number] Pcp:Ana Luisa Bond MD Subjective: * Chief Complaints: * ???Open sore - Toe * HPI: ???Skin problems:?Nature:?Open sore.?Location:?1st, Toe(s), Right.?Treatments:?Topical abx, soaks.? * ROS:?General/Constitutional:?Nausea?denies.?Vomiting?denies.?Hunger Thirst?denies.?Loss appetite?denies.?Chills?denies.?Fatigue?denies.?Fever?denies.?Night Sweats?denies.?Unexplained weight loss?denies.?Unexplained weight gain?denies.?HEENTM:?Dentures?denies.?Dizziness?denies.?Glasses/contacts?denies.?Retinopathy?de nies.?Blurred/double vision?denies.?TMJ?denies.?Discharge/drainage?denies.?Implants?denies.?Sore throat?denies.?Dental implants?denies.?Hard of hearing ?denies.?Difficulty chewing/swallowing/speaking?denies.?Nose bleeds?denies.?Sore mouth?denies.?Respiratory:?On Oxygen?denies.?Pneumonia/pleurisy?denies.?Bronchitis?denies.?Emphysema?denies.?C oughing?denies.?Cough blood?denies.?Shortness of breath?denies.?Wheezing?denies.?Cardiovascular:?Pacemaker?denies.?MVP?denies.?WPW?denies.?CHF?denies.?Heart attack?denies.?Septal defect?denies.?Rapid beat?denies.?Chest pain ?denies.?Atrial Fib.?denies.?Murmur/Palpitations?denies.?Gastrointestinal:?Hemorrhoids?denies.?Stomach/Abdominal pain?denies.?Dark blood stool?denies.?Irritable bowel ?denies.?Constipation?denies.?Diarrhea?denies.?Hematology:?Swelling?denies.?Clots?denies.?Varicose Veins?denies.?Bruising?denies.?Bleeding problem?denies.?Genitourinary:?Blood urine?denies.?Frequent/Painfu/urination/bladder control?denies.?Kidney stones?denies.?Infection (UTI)?denies.?Nephropathy?denies.?sex trans dis (STD)?denies.?Prostate?denies.?Musculoskeletal:?Hammertoes?denies.?Bunions?denies.?Back Pain?denies.?Muscle Cramps/ Resting?denies.?Muscle cramps / walking?denies.?Generalized aches and pains?denies.?Weakness?denies.?Integ.:?Alicia?admits.?Scars?admits.?Corns/calluses?denies.?Ingrown nails?admits.?Painful nails?denies.?Open Sores?denies.?Rashes?denies.?Neurologic:?Difficulty sleeping?denies.?Brain disorder?denies.?Numbness?denies.?Balance trouble?denies.?Confusion?denies.?Fainting/blackouts?denies.?Tingling?denies.?Tr emors?denies.? * Medical [...] of unspecified site.? * Social History:?Tobacco Use:?Tobacco Use/Smoking?Are you a:?nonsmoker ?Additional Findings: Tobacco Non-User?Current non-smoker ?Tobacco use other than smoking?Are you an other tobacco user??No ???Drugs/Alcohol:?Drugs?Have you used drugs other than those [...] * Allergies:?Yusimry: diarrhea yes[Allergies Verified] Objective: * Vitals:?Ht:5ft 10 in, Wt:169 , BMI:24.25, Shoe size:10, BP:90/69mm Hg, Ht-cm: 177.8 cm, Wt-k.66 kg. * Examination: ???Dermatologic: ?ULCER:?LOCATION, Dorsal,T5,SIZE, 12mm X 10mm X 2-3mm, BASE, fibro- granular, RIM, hyperkeratotic, UNDERMINING, mild, TRACKING, Sub Q with Fat layer exposed, DRAINAGE, serosanguineous, moderate, NECROTIC TISSUE, loosely-adherent, yellow slough, MALODOR, absent, CALOR, trace, ERYTHEMA, trace NOW shows complete re-epithelialization,?Dorsal,?TA.? Assessment: * Assessment: 1.?Skin ulcer of toe of righ t foot with fat layer exposed - L97.512 (Primary)??? Plan: * Treatment: * Procedures:?Debride skin and subQ:?Open wound?Physician of [...] controlled through direct pressure. Post debridement measurements: 13mm x 13mm x 3mm. Character of the wound post debriement is stable (74509).? * Procedure Codes:?06083 DEBRI DE SKIN/TISSUE * Preventive Medicine:? ??Counseling:?Ulcer:?A detailed plan of care was reviewed with [...] availability. The patient is to apply ( Rx Betadine solution, or Neosporin, Polysporin, or Triple, epending on wound hydration) Antibiotic to the wound and cover with [...] wound care as directed till completely healed.? * Follow Up:?4 Weeks * Images: * Sign off status: Completed true * Provider:Jonny Olsen DPM Date:?2024 Generated for Marlen justin/Karen/Colton on:?05/09/2024 02:32 PM EDT History and Physical Notes * HPI (History of Present Illness) Category Sub-Category Detail Notes Category Not es Skin problems Nature: Open sore Location: 1st, Toe(s), Right Treatments: Topical abx, soaks Examination Category Sub-Category Detail Notes Category Not es Dermatologic ULCER: LOCATION, Dorsal ,T5, SIZE, 12mm X 10mm X 2-3mm, BASE, fibro-granular, RIM, hyperkeratotic, UNDERMINING, mild, TRACKING, Sub Q with Fat layer exposed, DRAINAGE, serosanguineous, moderate, NECROTIC TISSUE, loosely-adherent, yellow slough, MALODOR, absent, CALOR, trace, ERYTHEMA, trace NOW shows complete re-epithelialization, Dorsal, TA
== END 2024-05-09 12:51 | disposition home or self-care (01) ==
LOC: HO.HMCH 12:25
PROVIDERS: PCP Internal Medicine; Visit Provider Internal Medicine
DX: K21.9 Gastro-esophageal reflux disease without esophagitis (principal); L40.50 Arthropathic psoriasis, unspecified

== ENCOUNTER → 2024-05-09 12:25 | Outpatient (BNVA) | payer OTHER, SELFPAY | PROVIDERS: PCP Internal Medicine; Visit Provider Internal Medicine | DX: K21.9 Gastro-esophageal reflux disease without esophagitis (principal); L40.50 Arthropathic psoriasis, unspecified | CPT/HCPCS: 96127 ==

== ENCOUNTER 2024-05-18 08:40 | Outpatient (AMB) | payer OTHER, SELFPAY ==
[2024-05-18 08:42] VITALS: BP 120/74; PULSE 71; O2SAT 98; BMI 24.3
--- NOTE | 2024-05-18 08:42 | MHC.OFFVIS ---
Vital Signs 05/18/24 08:42 Height 5 ft 9 in Weight 164 lb 7.437 oz BMI 24.3 BP 120/74 Blood Pressure Location Lt brachial Position Sitting Pulse 71 Pulse Source Pulse Oximeter Pulse Oximetry (%) 98 Oxygen Delivery Method Room Air Intake Visit Reasons: PsA Intake Note: Patient last seen by Doctor Judith Ackerman on 02/23/24. Presents today for PsA follow up. Allergies yusimry Adverse Reaction (Intermediate, Uncoded 05/18/24 08:46) Diarrhea HPI Comments Details: Patient is a 38-year-old female with GERD, psoriasis complicated by psoriatic arthritis here today for follow up Interval History: Patient last seen 02/23/[address] Ackerman. At that time she was following up for her psoriatic arthritis on Humira weekly and methotrexate 15 mg weekly. Her psoriasis was reportedly getting worse but her joints were doing reasonably well, took meloxicam 2-3 times per week Because of her worsening psoriasis she was switched to Taltz and her methotrexate was lowered to 10 mg weekly due to mild transaminitis Got the Taltz but was confused about the loading dose and did not do it Psoriasis improving Joints are stable Rheumatologic History: PsA Dx 2011 on Humira & MTX 25 mg self DC MTX 2020 due to GI upset, PSO flared, restarted at 10 mg 12/2021 advanced to 25 mg 02/2022 due to peripheral synovitis, reduced to 20 mg 10/2022 due to transaminitis, reduced to 15 mg 04/2023 due to transaminitis Humira was switched to Yusmiry due to insurance requirement. Was causing diarrhea and fatigue. Switched back to Humira 06/2023 Humira advanced to weekly 07/2023 d.t active synovitis effective Current Rheumatology Medication(s): Taltz 80mg every 4 weeks Methotrexate 10mg weekly Folic acid 2mg daily PFSH Medical History (Updated 05/18/24 @ 09:20 by Alicia Rivera MD) Seroma due to trauma Mild recurrent major depression Abscess of left foot Open wound Blurry vision Macrocytosis Psoriatic arthritis Surgical History (Updated 05/18/24 @ 09:20 by Alicia Rivera MD) S/P debridement H/O skin graft History of abdominoplasty History of breast implant History of bilateral breast reduction surgery Family History Mother Hypertension Father Rheumatoid arthritis Family/Other Mental health disorder Paternal Uncle Colon cancer Paternal Aunt Lung cancer Maternal Grandmother Uterine cancer Social History Household Members: None Housing: Apartment Do you presently have visiting nurse or other home services: No Alcohol intake: never [place] [facility] [place] Tobacco Use Status: Never used Tobacco e-Cigarette/Vaping Use: Never Used Second Hand Smoke Exposure: No Substance Use Type: Marijuana service: No Current occupational status: employed Current occupational exposures/hazards: No Cognitive needs: No Hearing needs: No Vision needs: No Female Reproductive History Menstrual Age of Menarche: 11 Review of Systems Const Details: Review of Systems Constitutional: Denies fever, chills, weight loss ENT: Denies vision changes, eye pain or eye redness, dental caries, dry mouth GI: Denies nausea, vomiting, diarrhea, abdominal pain, change in BM Pulm: Denies SOB, CASTLE, hemoptysis, wheezing Cards: Denies chest pain, palpitations Skin: Denies Raynaud's, rash, nail changes, photosensitivity, ROCK LATHER: Denies headaches, weakness, paresthesias, recurrent falls MSK: as per HPI All other systems reviewed and are unremarkable except noted above Physical Exam Vital Signs: Last Vital Signs Pulse 71 05/18/24 08:42 BP 120/74 05/18/24 08:42 Pulse Ox 98 05/18/24 08:42 Oxygen Delivery Method Room Air 05/18/24 08:42 BMI result Body Mass Index 24.3 Vital signs reviewed Physical Examination CONSTITUITIONAL Patient alert and cooperative. Well appearing and in no apparent painful distress HEENT Conjunctiva and sclera clear. ?Pupils equal round and reactive to light. ?No lymphadenopathy. ? CHEST/RESPIRATORY SYSTEM Normal respiratory effort and able to speak in complete sentences. ?Clear to auscultation bilaterally. ?No crackles, rales, rhonchi, wheezes heard. CARDIAC SYSTEM Regular rate and rhythm. ?S1 and S2 heard no murmurs. ?Radial pulses intact bilaterally MSK Hands: ?Good poultry hanger strength bilaterally. No deformities noted. ?No synovitis noted to the MCPs, PIPs or DIPs. ?No tenderness to palpation of these joints. Wrists: ?Full range of motion at the wrists without pain. ?No tenderness to palpation or synovitis noted to the wrists. Elbows: Full range of motion without pain. No tenderness, weakness, swelling, increased warmth or erythema. Shoulders: Full range of motion without pain. No tenderness, weakness, swelling, increased warmth or erythema. Hips: Full range of motion without pain. Hip bursa: No tenderness to palpation Knees: ?Full range of motion. ?No tenderness, swelling, increased warmth or erythema.?No effusion or crepitations Ankles: Full range of motion. ?No tenderness, swelling, increased warmth or erythema.? Feet: ?Negative squeeze test. ?No tenderness to palpation or swelling of the MTPs. Tender points:?No tenderness to palpation of the bilateral trapezius, supraspinatus, greater trochanters, anterior costochondral junctions, bilateral gluteal areas, bilateral suboccipital muscle insertions SKIN Rash for psoriasis behind the ears Results Reviewed Results Reviewed: Laboratory Tests 02/15/24 09:07 WBC 7.5 RBC 3.97 L Hgb 14.2 Hct 41.3 ESR 11 Sodium 136 Potassium 3.8 Chloride 106 Carbon Dioxide 24 BUN 14 Creatinine 1.01 AST 33 H ALT 46 H C-Reactive Protein 0.22 Immunology labs 10/14/21 12/30/21 08:50 09:39 HARLEY Screen POSITIVE A HARLEY Titer 1:320 H SS-A/Ro Antibody <1.0 NEG SS-B/La Antibody <1.0 NEG Sm ([place]) Antibody <1.0 NEG SM/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 At the last visit her psoriasis was not well controlled on the Humira and she was changed to Taltz. Unfortunately she misread the loading dose recommendations and did not give herself the 160 mg loading dose. Despite that we will continue with the every 2 week 80 mg loading dose for the next 5 doses and then go back to every 4 weeks as a maintenance. I wrote out a calendar for her so that she knows the dates to take the medication. Her psoriasis is improving on the Taltz which she started in February. Her arthritis is stable with no active synovitis today on examination. 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 Limit alcohol and avoid Bactrim ? Monitoring: ?CBC, BMP, LFTs every 3-4 months and hepatitis serologies as needed ? Methotrexate is teratogenic. ?If planning need to discontinue 3 months prior to conception (3) MCFP (current) use of immunosuppressive biologic: Code(s): Z79.620 - rodent exterminator (current) use of immunosuppressive biologic Plan: #MCFP treatment with IL 17 inhibitors (Taltz) Risks and benefits of IL 17 inhibitors discussed with the patient. ?Risks include infections, injection site reactions, activation of inflammatory bowel disease. Benefits include improved disease activity. Discussed with patient that if she is feeling sick or having flu-like symptoms she is to hold the medication that week and resolved the following week. Plan I spent 35 minutes reviewing the record and labs, taking a history, examining the patient, discussing the treatment plan, writing out calendar for patient, ordering diagnostic work up and documenting in the medical record Orders: Orders Comprehensive Met. Panel 4 Months L40.50 - Arthropathic psoriasis, unspecified Complete Blood Count Auto Diff Today L40.50 - Arthropathic psoriasis, unspecified Comprehensive Met. Panel Today L40.50 - Arthropathic psoriasis, unspecified Complete Blood Count Auto Diff 4 Months L40.50 - Arthropathic psoriasis, unspecified C Reactive Protein 4 Months L40.50 - Arthropathic psoriasis, unspecified Erythrocyte Sedimentation Rate 4 Months L40.50 - Arthropathic psoriasis, unspecified Hepatitis A,B,C Profile 4 Months L40.50 - Arthropathic psoriasis, unspecified T Spot TB 4 Months L40.50 - Arthropathic psoriasis, unspecified C Reactive Protein Today L40.50 - Arthropathic psoriasis, unspecified Erythrocyte Sedimentation Rate Today L40.50 - Arthropathic psoriasis, unspecified Coding Level of Care Code Est Pt Level 4 (07924) Complex EM visit Add On G2211 Diagnoses Psoriatic arthritis L40.50 rodent exterminator methotrexate user Z79.899 rodent exterminator (current) use of immunosuppressive biologic Z79.645
--- OUTSIDE RECORDS SUMMARY | 2024-05-18 09:08 | XMS_ITS ---
Author Organization [facility] j[place] Address [address] [place] [address] Care Team Providers Care Alternative Medicine Practitioner Name Role Phone Varun ESPANA, Ana Luisa Primary Care Provider Unavail able Aftab Olsen Unavailable [phone] Allergies Allergen (clinical drug ingredient) Drug/Non Drug [...] Status W/U Status Risk Notes Problem Onychomycosis (581885361) Onychomycosis (B35.1) Active confirmed Vital Signs Height 5ft 10in in 03/21/2024 Weight 169 lbs 03/21/2024 BMI 24.25 kg/m2 03/21/2024 Blood pressure systolic 119 mm Hg 03/21/19 25 Blood pressure diastolic 70 mm Hg 025 Procedures Procedure Date Ordered Date Performed Result Body Sit e 41293-RTU 03/21/2024 N/A Encounters Encounter Location Date Provider Diagnosis [facility] [place] [address] [place] [phone] 03/21/2024 Aftab Raúl Pain in right toe(s) [...] Treatment Pending Test Test Name Order Date [id number] 03/21/2024 Next Appt Details Follow Up: 2-3 Weeks, Reason : Provider Name:Aftab Olsen , 06/29/2024 10:45:00 AM, [address] [place] [address], [place] [address], [place], [address], Procedure Notes * Category Sub-Category Detail Notes [...] * AMANDAMis DUARTEOB: 6 (38 yo F)Acc No.[id number]:03/21/2024 Progress Notes Patient:?Teresa LARSEN Provider:?Aftab Olsen DPM :1985???Age:38 Y???Sex:Female D ate:03/21/2024 Address: [address] [id number] Pcp:Ana Luisa Bond MD Subjective: * Chief [...] postop pain meds were deferred.? * Procedure Codes:?90671 REMOV AL OF NAIL BED, Modifiers: TA [...] Olsen DPM Date:?2024 Generated for Marlen justin/Karen/Colton on:?05/18/2024 09:07 AM EDT History and Physical Notes * HPI [...]
--- OUTSIDE RECORDS SUMMARY | 2024-05-18 09:08 | XMS_ITS ---
Author Organization [facility] [place] jose [place] Address [address] [place] [address] Care Team Providers Care Booster Pump Oiler Name Role Phone Varun ESPANA, Ana Luisa Primary Care Provider Unavail able Aftab Olsen Unavailable [phone] Allergies Allergen (clinical drug ingredient) Drug/Non Drug [...] Ordered Date Performed Result Body Sit e 41724-XISHSDE SKIN/TISSUE 04/04/2024 N/A Encounters Encounter Location Date Provider Diagnosis [facility] [place] [address] [place] [address] 04/04/2024 Aftab Olsen Pain in right toe(s) [...] Date Notes Ciclopirox 0.77 % 1 application Job Site Supervisor ally Once a day for 30 days Treatment Notes Assessment Notes Skin ulcer of toe of left fo ot with fat layer exposed Patient Educated with: WOUND CARE INSTRUCTIONS.pdf (WOUND CARE INSTRUCTIONS.pdf) Pending Test Test Name Order Date 17720-JVGBJYU SKIN/TISSUE 04/04/2024 Next Appt Details Follow Up: 2-3 Months, Reaso n: Provider Name:Aftab Olsen , 06/29/2024 10:45:00 AM, [address] [facility], [place] [address], [place], [address], Procedure Notes * Category Sub-Category Detail Notes [...] of the wound post debriement is stable (36760) Progress Notes * Mis LARSENOB: 6 (38 yo F)Acc No.[id number]:04/04/2024 Progress Notes Patient:?JHONYLIVTeresa Provider:?Aftab Olsen DPM :1985???Age:38 Y???Sex:Female D ate:04/04/2024 [facility] Pcp:Ana Luisa Bond MD Subjective: * [...] of left foot with fat layer exposed?Procedure: 26180-WHAIJKP SKIN/TISSUE Notes: Patient Educated with: WOUND CARE [...] of the wound post debriement is stable (74371).? * Procedure Codes:?92586 DEBRI DE SKIN/TISSUE * Preventive Medicine:? ??Counseling:?Discussion:?-13: [...] Provider:?Aftab Olsen DPM Date:?2024 Generated for Marlen justin/Karen/Elianesmitting on:?05/18/2024 09:07 AM EDT History and Physical [...]
--- OUTSIDE RECORDS SUMMARY | 2024-05-18 09:08 | XMS_ITS | Patient Health Record ---
[facility] Address [address] [place] [address] Care Team Providers Care Presser Machine Name Role Phone Varun ESPANA, Ana Luisa Primary Care Provider Unavail able Aftab Olsen Unavailable [phone] Allergies Allergen (clinical drug ingredient) Drug/Non Drug Allergy documented on EMR Reaction Allergy Type Onset Date Status adalimumab Yusimry diarrhea Drug Allergy Active Reason For Referral Reason ingrown nail Diagnosis 1 Ingrown nail (L60.0) Referring Provider First Name Marjorie Referring Provider Last Name Dao [facility] Referred Provider Aftab Olsen Referred Address [address] [facility],[place], [place],[address], Referred Provider Specialty Podiatry Referral Priority Routine [...] Status W/U Status Risk Notes Problem Onychomycosis (527999545) Onychomycosis (B35.1) Active confirmed Vital Signs Blood pressure diastolic 64 mm Hg 04/04/2024 Height 5ft 10in in 04/04/2024 Blood pressure systolic 116 mm Hg 04/04/2024 Weight 169 lbs 04/04/2024 BMI 24.25 kg/m2 04/04/2024 Procedures Procedure Date Ordered Date Performed Result Body Sit e 71460-CCB 12/30/2023 N/A 50550-PCS 01/20/2024 N/A 18265-HWBQLUP SKIN/TISSUE 01/20/2024 N/A 70981- Debride <25 sq cm 02/03/2024 N/A 03708-YEVUIEO SKIN/TISSUE 02/03/2024 N/A 05295-LRIZOWC SKIN/TISSUE 02/25/2024 N/A 93330-HYY 03/21/2024 N/A 74852-QOTQPBL SKIN/TISSUE 04/04/2024 N/A Encounters Encounter Location Date Provider Diagnosis [address] [address] 12/30/2023 Aftab Raúl Ingrown nail L60.0 ; Pain in left foot M79.672 ; Pain in left ankle and joints of left foot M25.572 ; Bursitis of left foot M77.52 and Hallux valgus (acquired), left foot M20.[address] [address] 01/20/2024 Aftab Raúl Ingrown nail L60.0 and Skin ulcer of toe of left foot with fat layer exposed L97.[address] [address] 02/03/2024 Aftab Raúl Skin ulcer of toe of left foot, limited to breakdown of skin L97.521 and Skin ulcer of toe of right foot with fat layer exposed L97.512 [place] [address] [address] 02/25/2024 Aftab Olsen Skin ulcer of toe of right foot with fat layer exposed L97.[address] [address] 03/21/2024 Aftab Olsen Pain in right toe(s) M79.674 ; Onychomycosis B35.1 ; Pain in left toe(s) M79.675 and Ingrown nail L60.[address] 04/04/2024 Aftab Olsen Pain in right toe(s) M79.674 ; Onychomycosis B35.1 ; Pain in left toe(s) M79.675 and Skin ulcer of toe of left foot with fat layer exposed L97.522 [facility] [address] 09/08/2023 Aftab Olsen [address] [address] 02/03/2024 Aftab Olsen Assessments Encounter Date Diagnosis [...] Treatment Pending Test Test Name Order Date 15839-EMR 12/30/2023 50289-AUK 01/20/2024 91800-BXI 03/21/2024 77104- Debride <25 sq cm 02/03/2024 63943-XABHWKD SKIN/TISSUE 02/03/2024 63793-TJXLHUQ SKIN/TISSUE 02/25/2024 61430-ZOPYGHP SKIN/TISSUE 01/20/2024 86553-GCLFVZJ SKIN/TISSUE 04/04/2024 Next Appt Details Provider Name:Aftab Olsen , 06/29/2024 10:45:00 AM, [address] [facility], [address], [place], [address], Insurance Providers Payer Name Payer Address Payer Phone Subscriber Number Group Number Insured Name Patient Relationship to Insured Coverage Start Date Coverage End Date Jefryherrera [address] DEREK Roberto [phone] [id number] Teresa Larsen Self - patient is the [...]
--- OUTSIDE RECORDS SUMMARY | 2024-05-18 09:08 | XMS_ITS ---
Author Organization [facility] jose [place] Address [address] [place] [address] Care Team Providers Care Retail Shift Leader Name Role Phone Varun ESPANA, Ana Luisa Primary Care Provider Unavail able Aftab Olsen Unavailable [phone] Allergies Allergen (clinical drug ingredient) Drug/Non Drug [...] Ordered Date Performed Result Body Sit e 67632-ZRDYXLK SKIN/TISSUE 02/25/2024 N/A Encounters Encounter Location Date Provider Diagnosis [facility] [place] [address] [place] [address] 02/25/2024 Aftab Olsen Skin ulcer of toe [...] INSTRUCTIONS.pdf) Pending Test Test Name Order Date 42517-GVDKSUH SKIN/TISSUE 02/25/2024 Next Appt Details Follow Up: 4 Weeks, Reason: Provider Name:Aftab Olsen , 06/29/2024 10:45:00 AM, [address] [facility], [place] [address], [place], [address], Procedure Notes * Category Sub-Category Detail Notes [...] of the wound post debriement is stable (20016) Progress Notes * Mis LARSENOB: 6 (38 yo F)Acc No.[id number]:02/25/2024 Progress Notes Patient:?DIAZVEGA, Teresa Provider:?Aftab Olsen DPM [...] of the wound post debriement is stable (01902).? * Procedure Codes:?51380 DEBRI DE SKIN/TISSUE * Preventive Medicine:? ??Counseling:?Ulcer:?A [...] DPM Date:?2024 Generated for Marlen justin/Karen/Colton on:?05/18/2024 09:08 AM EDT History and Physical Notes * [...]
== END 2024-05-18 09:10 | disposition home or self-care (01) ==
LOC: HO.RHE 08:40
PROVIDERS: PCP Internal Medicine; Visit Provider Student in an Organized Health Care Education/Training Program
DX: L40.50 Arthropathic psoriasis, unspecified (principal); Z79.899 Other long term (current) drug therapy; Z79.620 Long term (current) use of immunosuppressive biologic
CPT/HCPCS: 99214

== ENCOUNTER 2024-05-31 14:09 | Inpatient (IN) | payer OTHER, SELFPAY ==
--- NOTE | 2024-05-31 14:11 | ED_ITS ---
HPI - General Adult General Chief complaint: Abdominal Pain Stated complaint: Abd pain Time Seen by Provider: 05/31/24 15:07 Source: patient Mode of arrival: ambulatory Limitations: no limitations History of Present Illness ED Provider: Dr. Lester Padilla HPI narrative: 38-year-old year female past medical history significant for psoriasis ( Taltz and methotrexate) and surgical hx of abdominoplasty, lipsuction, b/l buttock implants in 2019 with history of abdominal wall abscess status post I&D 06/01/2023 who presents emergency department for evaluation of 2 months of GERD like symptoms (epigastric pain and throat pain) which has gotten significantly worse. She is taking omeprazole 20 mg daily. She states that she has constant burning in her throat and epigastric area. She was now having difficulty swallowing liquids and solids has lost 20 lb over the last 4 weeks. She states that food gets stuck in her throat and she vomits 2 to 3 times a day but over the last 24 hours she was vomited 10 times. She was able to hold down small amounts of liquid but not solids. Patient states that she was having significant abdominal discomfort in his 12/02. She denied fever but did have chills. She denied cough, chest pain, shortness of breath or dyspnea on exertion. Patient does have nausea. With stated above she was vomiting 2 to 3 times a day last 24 hours she was vomited 10 times. She denied dark tarry stools or bloody stools. Related Data Home Medications ?Medication ?Instructions ?Recorded ?Confirmed ascorbic acid (vitamin C) 250 mg 500 mg PO DAILY 06/01/23 05/31/24 chewable tablet ascorbic acid 30 mg-collagen, 1 tab PO DAILY 06/01/23 05/31/24 hydrolyzed 833.3 mg tablet (Collagen Skin Renewal) ixekizumab 80 mg/mL subcutaneous 80 mg subcut Q2W 05/31/24 05/31/24 auto-injector (Taltz Autoinjector) methotrexate sodium 2.5 mg tablet 10 mg PO WE 05/31/24 05/31/24 Previous Rx's ?Medication ?Instructions ?Recorded exufiber ag+ #30 ea 09/15/21 folic acid 1 mg tablet 2 mg (2 x 1 mg) PO DAILY #180 tabs 02/23/24 meloxicam 15 mg tablet 15 mg PO DAILY PRN for pain #30 05/05/24 tabs omeprazole 20 mg capsule,delayed 20 mg PO DAILY 90 days #90 caps 05/09/24 release Allergies Allergy/AdvReac Type Severity Reaction Status Date / Time cristina AdvReac Intermediate Diarrhea Uncoded 05/31/24 14:15 Review of Systems 2 Review of Systems: Yes all other systems are reviewed and are negative [facility] Past Medical History [facility] Narrative: Social history: Patient occasionally smokes cigarettes. She denies alcohol use. She denies drug use. Medical History Seroma due to trauma Mild recurrent major depression Abscess of left foot Open wound Blurry vision Macrocytosis Psoriatic arthritis Surgical History S/P debridement H/O skin graft History of abdominoplasty History of breast implant History of bilateral breast reduction surgery Family History Family History Mother Hypertension Father Rheumatoid arthritis Family/Other Mental health disorder Paternal Uncle Colon cancer Paternal Aunt Lung cancer Maternal Grandmother Uterine cancer Social History Social History Household Members: None Housing: Apartment Do you presently have visiting nurse or other home services: No Alcohol intake: never [place] [facility] [place] Tobacco Use Status: Never used Tobacco Smoked in Last 30 Days: Yes e-Cigarette/Vaping Use: Never Used Second Hand Smoke Exposure: No Use of substances other than those prescribed or required for medical reasons: No Substance Use Type: Marijuana Advance Directives: Yes Advance Directives on File: Yes Advance Directives Date on File: 08/08/22 Do you have a plan to hurt others: No Plan Patient : No service: No Current occupational status: employed Current occupational exposures/hazards: No Cognitive needs: No Hearing needs: No Vision needs: No Physical Exam ED Vital Signs: Vital Signs - 24 hr 05/31/24 14:14 05/31/24 15:51 05/31/24 17:10 Temperature 97.8 F 98.9 F Pulse Rate 82 65 Respiratory Rate 18 15 18 Blood Pressure 120/78 104/59 L Pulse Oximetry 98 99 Oxygen Delivery Method Room Air Room Air BMI result Body Mass Index 23.0 Course Course Course Narrative: nathalie BALDWIN is a rapid medical exam performed by Alex Last please refer to primary provider for complete H&P- 38 year old female presents for evaluation of 38 year old female presents for evaluation of abdominal pain. heartburn symptoms for the last few weeks. She saw her doctor and she believes she was scheduled for an endoscopy but has not yet got on an appointment yet. She reports severe upper abdominal pain with nausea and vomiting. She reports that she vomited 10 times since yesterday. she had an abdominal wall abscess a year ago and reports that this pain is very different. Medications Administered Generic Name Dose Route Start Last Admin Trade Name Freq PRN Reason Stop Dose Admin Folic Acid 2 mg 06/01/24 09:00 06/01/24 09:06 Folic Acid 1 Mg Tablet PO Not Given DAILY FIONA Lactated Ringer's 1,000 mls @ 100 mls/hr 05/31/24 17:30 06/01/24 05:27 Lr IVCONT 100 mls/hr .Q10H FIONA Administration Lactated Ringer's 1,000 mls @ 100 mls/hr 06/01/24 08:00 06/01/24 09:34 Lr IVCONT Not Given .Q10H FIONA Fluconazole 400 mg in 200 mls @ 100 mls/hr 06/01/24 09:59 06/01/24 10:23 Diflucan IV 06/01/24 11:58 100 mls/hr ONCE ONE Administration Morphine Sulfate 2 mg 05/31/24 17:24 06/01/24 09:13 Morphine Sulfate 4 Mg/Ml Cartridge IVPUSH 2 mg Q4H PRN Administration Pain, Severe (Pain Scale 7-10) Protocol Ondansetron HCl 4 mg 05/31/24 17:24 06/01/24 09:13 Ondansetron Hcl 4 Mg/2 Ml Vial IVPUSH 4 mg Q8H PRN Administration Nausea and Vomiting Pantoprazole Sodium 40 mg 06/01/24 06:30 06/01/24 07:12 Pantoprazole Sodium 40 Mg/10 Ml Vial IVPUSH Not Given BID@0630,1630 FIONA Sodium Chloride 3 ml 06/01/24 00:00 06/01/24 09:06 0.9 % Sodium Chloride Flush 3 Ml Syringe IVFLUSH Not Given QSHIFT FIONA Discontinued Medications Generic Name Dose Route Start Last Admin Trade Name Freq PRN Reason Stop Dose Admin Sodium Chloride 1,000 mls @ 999 mls/hr 05/31/24 16:50 05/31/24 18:11 Ns IV 05/31/24 17:50 Infused .Q1H1M STA Infusion Morphine Sulfate 4 mg 05/31/24 16:50 05/31/24 17:10 Morphine Sulfate 4 Mg/Ml Cartridge IVPUSH 05/31/24 16:51 4 mg ONCE STA Administration Protocol Morphine Sulfate 4 mg 05/31/24 18:43 05/31/24 18:56 Morphine Sulfate 4 Mg/Ml Cartridge IVPUSH 05/31/24 18:44 4 mg ONCE STA Administration Protocol Ondansetron HCl 4 mg 05/31/24 16:50 05/31/24 17:10 Ondansetron Hcl 4 Mg/2 Ml Vial IVPUSH 05/31/24 16:51 4 mg ONCE ONE Administration Pantoprazole Sodium 80 mg 05/31/24 16:52 05/31/24 17:11 Pantoprazole Sodium 40 Mg/10 Ml Vial IVPUSH 05/31/24 16:53 80 mg ONCE ONE Administration Medical Decision Making Medical Decision Making MDM Narrative: 38-year-old year female past medical history significant for psoriasis ( Taltz and methotrexate) and surgical hx of abdominoplasty, lipsuction, b/l buttock implants in 2019 with history of abdominal wall abscess status post I&D 06/01/2023 who presents emergency department for evaluation of 2 months of GERD like symptoms (epigastric pain and throat pain) which has gotten significantly worse. She is taking omeprazole 20 mg daily. She states that she has constant burning in her throat and epigastric area. She was now having difficulty swallowing liquids and solids has lost 20 lb over the last 4 weeks. She states that food gets stuck in her throat and she vomits 2 to 3 times a day but over the last 24 hours she was vomited 10 times. She was able to hold down small amounts of liquid but not solids. Her abdominal pain is 10/10. Vital signs were normal. Patient has moderate epigastric tenderness. Differential diagnosis: ?Includes but is not limited to GERD, gastritis, esophageal stricture, anemia, electrolyte abnormalities Course: 16:12 My independent interpretation patient's laboratory evaluation as follows: CBC and CMP were unremarkable. Lipase was normal. 16:51 The patient was given morphine 4 mg IV, Zofran 4 mg IV and Protonix 80 mg IV. Patient was not able to drink any fluid without vomiting. I did discuss the patient's presentation with the covering helper steel fabrication, Dr. Ballard. She recommended the patient be admitted for IV hydration, pain management and barium swallow tomorrow. If the barium swallow is positive then Dr. Ballard would do an endoscopy during this hospitalization. Admission/Observation Consideration of admission/observation: Escalation of care including admission/observation considered (Yes) Lab Data MDM Lab Attestation statement: I reviewed the patient's lab results. 06/01/24 05:05 06/01/24 05:05 Labs: Lab Results 05/31/24 05/31/24 Range/Units 14:24 15:17 WBC 7.0 (4.8-10.8) X10*3/uL RBC 4.45 (4.20-5.50) X10*6/uL Hgb 14.7 (12.0-16.0) g/dl Hct 43.7 (37.0-47.0) % MCV 98.2 H (80.0-98.0) fL MCH 33.0 (27.0-33.0) pg MCHC 33.6 (31.0-35.0) g/dl RDW 14.6 (11.0-16.0) % Plt Count 290 (160-400) X10*3/uL MPV 9.1 L (9.4-12.3) fL Immature Gran % (Auto) 0.3 (0.0-0.4) % Neut % (Auto) 62.5 (45-73) % Lymph % (Auto) 28.1 (20-40) % [place] % (Auto) 7.6 (2-11) % Eos % (Auto) 0.9 (0-4) % Baso % (Auto) 0.6 (0-2) % Lymph # (Auto) 2.0 (1.2-4.9) X10*3/uL [place] # (Auto) 0.5 (0.1-1.2) X10*3/uL Eos # (Auto) 0.1 (0.0-0.4) X10*3/uL Baso # (Auto) 0.0 (0.0-0.2) X10*3/uL Abs Immat Gran (auto) 0.02 (0.00-0.03) X10*3/uL Absolute Neuts (auto) 4.4 (2.0-8.3) x10*3/uL Absolute Nucleated RBC 0.000 (0.0-0.012) X10*3/uL Nucleated RBC % (auto) 0.0 (0.0-0.2) /100WBC Sodium 140 (135-145) mmol/L Potassium 3.7 (3.3-5.1) mmol/L Chloride 111 H (96-108) mmol/L Carbon Dioxide 22 (22-29) mmol/L Anion Gap 11 L (12-20) BUN 9 (9-16) mg/dL Creatinine 0.80 (0.5-1.4) mg/dL Estim Creat Clear Calc 103.1 Estimated GFR > 60 Random Glucose 101 (60-115) mg/dL Calcium 9.8 (8.4-10.2) mg/dL Total Bilirubin 0.4 (0.0-1.0) mg/dL AST 33 H (5-31) U/L ALT 38 H (0-31) U/L Alkaline Phosphatase 81 (39-117) U/L Total Protein 8.0 (6.5-8.0) g/dL Albumin 4.2 (3.5-5.0) g/dL Lipase 48 (8-78) U/L Beta HCG, Quant < 2 mIU/mL Urine Color Yellow Urine Appearance Cloudy Urine pH 5.5 (5.0-9.0) Ur Specific [place] 1.020 (1.005-1.025) Urine Protein Trace (Neg-Trace) mg/dL Urine Glucose (UA) Negative (Negative) mg/dL Urine Ketones 15 (Negative) mg/dL Urine Blood Moderate (2+) H (Negative) Urine Nitrite Positive H (Negative) Ur Leukocyte Esterase Negative (Negative) Urine RBC 11-20 H (0-2) /HPF Urine WBC 6-10 H (0-5) /HPF Ur Squamous Epith Cells >20 (0-2) /HPF Urine Bacteria 4+ (None Seen) Hyaline Casts 3-5 (0-2) /LPF External Record Review External record reviewed: Inpatient record Chronic Conditions Patient?s care impacted by: Other ( psoriatic arthritis) Discharge Plan Discharge Clinical Impression: Abdominal pain, Dysphagia Patient Disposition: Admitted As Inpatient
[2024-05-31 14:14] VITALS: BP 120/78; PULSE 82; RESP 18; TEMP 36.6; O2SAT 98; BMI 23.0
[2024-05-31 14:28] LABS: MANUAL DIFF FLAG NO
[2024-05-31 14:30] LABS: Basophils Percent Auto 0.6 % (0-2); Eosinophils Absolute Auto 0.1 X10*3/uL (0.0-0.4); Eosinophils Percent Auto 0.9 % (0-4); Hematocrit 43.7 % (37.0-47.0); Hemoglobin 14.7 g/dl (12.0-16.0); Imm Gran Abs Auto 0.02 X10*3/uL (0.00-0.03); Imm Gran Pct Auto 0.3 % (0.0-0.4); Lymphocytes Percent Auto 28.1 % (20-40); Mean Corpuscular HGB Conc 33.6 g/dl (31.0-35.0); Mean Corpuscular Volume 98.2 fL (80.0-98.0); Mean Platelet Volume 9.1 fL (9.4-12.3); Monocytes Absolute Auto 0.5 X10*3/uL (0.1-1.2); Monocytes Percent Auto 7.6 % (2-11); Neutrophils Absolute Auto 4.4 x10*3/uL (2.0-8.3); Neutrophils Percent Auto 62.5 % (45-73); Platelet Count 290 X10*3/uL (160-400); Red Blood Count 4.45 X10*6/uL (4.20-5.50); Red Cell Distribution Width 14.6 % (11.0-16.0)
[2024-05-31 14:55] LABS: Alanine Aminotransferase 38 U/L (0-31); Albumin Level 4.2 g/dL (3.5-5.0); Alkaline Phosphatase 81 U/L (39-117); Anion Gap 11 (12-20); Aspartate Amino Transferase 33 U/L (5-31); Bilirubin Total 0.4 mg/dL (0.0-1.0); Blood Urea Nitrogen 9 mg/dL (9-16); Calcium 9.8 mg/dL (8.4-10.2); Carbon Dioxide 22 mmol/L (22-29); Chloride 111 mmol/L (96-108); Creatinine Clr Calc Pharmacy 103.1; Estimated Glomerular Filt Rate > 60; Glucose Random 101 mg/dL (60-115); HCG Quantitative < 2 mIU/mL; Lipase 48 U/L (8-78); Potassium 3.7 mmol/L (3.3-5.1); Sodium 140 mmol/L (135-145)
[2024-05-31 15:26] LABS: Appearance Urine Cloudy; Color Urine Yellow; Glucose Urine UA Negative (Negative); Leukocyte Esterase Urine Negative (Negative); Nitrite Urine Positive (Negative); PH 5.5 (5.0-9.0); UMIC TRIGGER UACC YES; Urine Blood Moderate (2+) (Negative); Urine Ketones 15 mg/dL (Negative); Urine Protein Trace mg/dL (Neg-Trace)
[2024-05-31 15:37] LABS: Bacteria Urine 4+ (None Seen); Squamous Epithelial Cell Urine >20 /HPF (0-2); UACC Culture Trigger YES
[2024-05-31 15:51] VITALS: BP 104/59; PULSE 65; RESP 15; TEMP 37.2; O2SAT 99
[2024-05-31 17:10] VITALS: RESP 18
[2024-05-31] MEDS: Morphine Sulfate 4 MG/ML CARTRIDGE IVPUSH ×2 (17:10→18:56)
[2024-05-31] MEDS: ondansetron HCL 4 MG/2 ML VIAL IVPUSH (17:10)
[2024-05-31] MEDS: 0.9 % Sodium Chloride 1,000 ML 999 ML IV (17:10)
[2024-05-31] MEDS: Pantoprazole Sodium 40 MG/10 ML VIAL 80 MG IVPUSH (17:11)
--- NOTE | 2024-05-31 17:30 | PM.IMHP ---
History of Present Illness Date of Service: 05/31/24 Attending physician on admission: Fabiano Loomis Chief Complaint: n/v, difficulty swallowing 38-year-old year female past medical history significant for psoriasis ( Taltz and methotrexate), 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 Currently reporting 10/10 abd pain. She reports coinciding dysphagia and odynophagia with globus sensation ongoing for 2 months. She has been compliant with PPI. Was seen by PCP who ordered a barium swallow but this has not yet been scheduled per patient. She has been unable to tolerate PO and has been experiencing nausea and vomiting. No hematemasis. Reports 5 episodes of diarrhea yesterday but no ongoing symptoms. No recent abx use, no bad foods. No one sick at home with similar symptoms. No fevers, chills, urinary symptoms. No melena or hematochezia. Since arrival, vitals have been stable. There is no leukocytosis. Renal function electrolyte levels are normal. AST 33, ALT 38 but stable compared to priors. Urinalysis appears contaminated with negative leukocytes, positive nitrites, 2+ blood, positive urinary sediment, >20 squamous epithelial cells and 4+ bacteria. In the ED, received IV morphine, 1 L IVF, IV pantoprazole, and Zofran. Review of Systems Review of Systems: Yes all other systems are reviewed and are negative [facility] Medical History Seroma due to trauma Mild recurrent major depression Abscess of left foot Open wound Blurry vision Macrocytosis Psoriatic arthritis Family History Mother Hypertension Father Rheumatoid arthritis Family/Other Mental health disorder Paternal Uncle Colon cancer Paternal Aunt Lung cancer Maternal Grandmother Uterine cancer Surgical History S/P debridement H/O skin graft History of abdominoplasty History of breast implant History of bilateral breast reduction surgery Social History Household Members: None Housing: Apartment Do you presently have visiting nurse or other home services: No Alcohol intake: never Comment: [facility] [place] Patient Tobacco Use Status: Never used Tobacco e-Cigarette/Vaping Use: Never Used Second Hand Smoke Exposure: No Substance Use Type: Marijuana Advance Directives: No Advance Directives Information Provided: Yes Do you have a plan to hurt others: No Plan service: No Current occupational status: employed Current occupational exposures/hazards: No Cognitive needs: No Hearing needs: No Vision needs: No Meds Allergies Allergy/AdvReac Type Severity Reaction Status Date / Time yusimry AdvReac Intermediate Diarrhea Uncoded 05/31/24 14:15 Active Medications: Current Medications Sodium Chloride (Ns) 1,000 mls @ 999 mls/hr IV .Q1H1M STA Stop: 05/31/24 17:50 Last Admin: 05/31/24 17:10 Dose: 999 mls/hr Home Medications ?Medication ?Instructions ?Recorded ?Confirmed ?Last Taken ?Type ascorbic acid (vitamin C) 250 mg 500 mg PO DAILY 06/01/23 05/09/24 05/28/23 History chewable tablet ascorbic acid 30 mg-collagen, 1 tab PO DAILY 06/01/23 05/09/24 05/28/23 History hydrolyzed 833.3 mg tablet (Collagen Skin Renewal) diphenhydramine HCl 25 mg tablet 25 mg PO BEDTIME 06/01/23 05/09/24 05/30/23 History Physical Exam Vital Signs and Narrative: Vital Signs: Last Vital Signs Temp 98.9 F 05/31/24 15:51 Pulse 65 05/31/24 15:51 Resp 18 05/31/24 17:10 BP 104/59 L 05/31/24 15:51 Pulse Ox 99 05/31/24 15:51 O2 Del Method Room Air 05/31/24 15:51 BMI result Body Mass Index 23.0 Constitutional - Awake and Alert, No apparent distress Eyes - PERRLA, EOMI Neck - no palpable masses, thyroid equal bilaterally no nodules Cardiovascular - S1S2, RRR, No edema Respiratory - Normal lung expansion, Normal respiratory effort, No respiratory distress, CTA bilaterally Gastrointestinal - epigastric ttp. ND; +BS; No rebound or guarding Extremities - no calf tenderness bilaterally, no swelling Skin - Warm/Dry. Skin grafting noted to the R forearm Neurological - Alert & oriented x3 Psychological - Appropriate affect Results Labs 05/31/24 14:24 05/31/24 14:24 Labs: Laboratory Results - last 24 hr 05/31/24 05/31/24 14:24 15:17 MCV 98.2 H MCH 33.0 MCHC 33.6 RDW 14.6 Plt Count 290 MPV 9.1 L Immature Gran % (Auto) 0.3 Neut % (Auto) 62.5 Lymph % (Auto) 28.1 [place] % (Auto) 7.6 Eos % (Auto) 0.9 Baso % (Auto) 0.6 Lymph # (Auto) 2.0 [place] # (Auto) 0.5 Eos # (Auto) 0.1 Baso # (Auto) 0.0 Abs Immat Gran (auto) 0.02 Absolute Neuts (auto) 4.4 Absolute Nucleated RBC 0.000 Nucleated RBC % (auto) 0.0 Anion Gap 11 L Estim Creat Clear Calc 103.1 Estimated GFR > 60 Random Glucose 101 Calcium 9.8 Total Bilirubin 0.4 AST 33 H ALT 38 H Alkaline Phosphatase 81 Total Protein 8.0 Albumin 4.2 Lipase 48 Beta HCG, Quant < 2 Urine Color Yellow Urine Appearance Cloudy Urine pH 5.5 Ur Specific [place] 1.020 Urine Protein Trace Urine Glucose (UA) Negative Urine Ketones 15 Urine Blood Moderate (2+) H Urine Nitrite Positive H Ur Leukocyte Esterase Negative Urine RBC 11-20 H Urine WBC 6-10 H Ur Squamous Epith Cells >20 Urine Bacteria 4+ Hyaline Casts 3-5 Assessment and Plan (1) Dysphagia: Status: Acute (2) Odynophagia: Status: Acute Plan 38-year-old year female past medical history significant for psoriasis ( Taltz and methotrexate), hx 3rd degree agustin s/p grafting, and surgical hx of abdominoplasty/lipsuction/bilateral buttock implants in 2019 with history of abdominal wall abscess status post I&D 06/01/2023 admitted for further management of p.o. intolerance related to worsening GERD symptoms with dysphagia and odynophagia Acute dysphagia/odynophagia with severe epigastric pain/nausea, vomiting Likely related to worsening GERD symptoms IV PPI per Gastroenterology Clear liquid diet, NPO after midnight Antiemetics p.r.n. Pain management p.r.n. using pain scale Gastroenterology consult Psoriasis/psoriatic arthritis Continue methotrexate. Talernst outpt Chronic transaminitis Stable, related to methotrexate use Asymptomatic bacteriuria suspect UA contaminant Await culture DVT prophylaxis- SCPs, early ambulation Full code Patient requires inpatient stay at least 2 midnights due to worsening GERD symptoms resulting in severe dysphagia and odynophagia as well as nausea and vomiting impeding the patient's ability to tolerate p.o. which will require IV fluid resuscitation, expert consultation, and likely endoscopic intervention for symptom management and to allow for diet advancement Quality Stroke Does the patient have a stroke diagnosis?: No VTE Prior VTE?: No VTE Risk Level:: Medical - moderate - high VTE Device Contraindication: N/A - Device Ordered VTE Drug Contraindication: Treatment Not Indicated
--- OUTSIDE RECORDS SUMMARY | 2024-05-31 17:35 | XMS_ITS | Patient Health Record ---
[facility] [address] Address [address] [place] [address] Care Team Providers Care Oracle Bpm Consultant Name Role Phone Varun ESPANA, Ana Luisa Primary Care Provider Unavail able Aftab Olsen Unavailable [phone] Allergies Allergen (clinical drug ingredient) Drug/Non Drug Allergy documented on EMR Reaction Allergy Type Onset Date Status adalimumab Yusimry diarrhea Drug Allergy Active Reason For Referral Reason ingrown nail Diagnosis 1 Ingrown nail (L60.0) Referring Provider First Name Marjorie Referring Provider Last Name Dao [facility] Referred Provider Aftab Olsen Referred Address [address] [facility],[place], [place],[address], Referred Provider Specialty Podiatry Referral Priority Routine [...] Status W/U Status Risk Notes Problem Onychomycosis (568174636) Onychomycosis (B35.1) Active confirmed Vital Signs Blood pressure diastolic 64 mm Hg 04/04/2024 Height 5ft 10in in 04/04/2024 Blood pressure systolic 116 mm Hg 04/04/2024 Weight 169 lbs 04/04/2024 BMI 24.25 kg/m2 04/04/2024 Procedures Procedure Date Ordered Date Performed Result Body Sit e 34008-DMY 12/30/2023 N/A 58157-RQS 01/20/2024 N/A 73017-IHFMZJA SKIN/TISSUE 01/20/2024 N/A 74228- Debride <25 sq cm 02/03/2024 N/A 73003-TDUTZTV SKIN/TISSUE 02/03/2024 N/A 28711-HZDAJGO SKIN/TISSUE 02/25/2024 N/A 37466-QQO 03/21/2024 N/A 00598-OJANOQG SKIN/TISSUE 04/04/2024 N/A Encounters Encounter Location Date Provider Diagnosis [address] [address] 12/30/2023 Aftab Raúl Ingrown nail L60.0 ; Pain in left foot M79.672 ; Pain in left ankle and joints of left foot M25.572 ; Bursitis of left foot M77.52 and Hallux valgus (acquired), left foot M20.[address] [address] 01/20/2024 Aftab Raúl Ingrown nail L60.0 and Skin ulcer of toe of left foot with fat layer exposed L97.[address] [address] 02/03/2024 Aftab Raúl Skin ulcer of toe of left foot, limited to breakdown of skin L97.521 and Skin ulcer of toe of right foot with fat layer exposed L97.512 [place] [address] [address] 02/25/2024 Aftab Olsen Skin ulcer of toe of right foot with fat layer exposed L97.[address] [address] 03/21/2024 Aftab Olsen Pain in right toe(s) M79.674 ; Onychomycosis B35.1 ; Pain in left toe(s) M79.675 and Ingrown nail L60.[address] 04/04/2024 Aftab Olsen Pain in right toe(s) M79.674 ; Onychomycosis B35.1 ; Pain in left toe(s) M79.675 and Skin ulcer of toe of left foot with fat layer exposed L97.[address] [facility] [address] 09/08/2023 Aftab Olsen [address] [address] 02/03/2024 Aftab Olsen Assessments Encounter Date Diagnosis [...] Treatment Pending Test Test Name Order Date 72710-MPB 12/30/2023 13384-LLP 01/20/2024 38467-TJH 03/21/2024 79118- Debride <25 sq cm 02/03/2024 68421-USBDREU SKIN/TISSUE 02/03/2024 03490-HJXDSVK SKIN/TISSUE 02/25/2024 95468-HJUUFIX SKIN/TISSUE 01/20/2024 62399-QNEEFYG SKIN/TISSUE 04/04/2024 Next Appt Details Provider Name:Aftab Olsen , 06/29/2024 10:45:00 AM, [address] [facility], [address], [place], [address], Insurance Providers Payer Name Payer Address Payer Phone Subscriber Number Group Number Insured Name Patient Relationship to Insured Coverage Start Date Coverage End Date Jefryherrera ADAM [address] DEREK Roberto [phone] [id number] Teresa Larsen Self - patient is the [...]
--- OUTSIDE RECORDS SUMMARY | 2024-05-31 17:35 | XMS_ITS ---
Author Organization [facility] [address] Address [address] [place] [address] Care Team Providers Care Chief Deputy Court Clerk Name Role Phone Varun ESPANA, Ana Luisa Primary Care Provider Unavail able Aftab Olsen Unavailable [phone] Allergies Allergen (clinical drug ingredient) Drug/Non Drug [...] Ordered Date Performed Result Body Sit e 06456-USSYRXY SKIN/TISSUE 04/04/2024 N/A Encounters Encounter Location Date Provider Diagnosis [facility] [place] [address] [place] [address] 04/04/2024 Aftab Olsen Pain in right toe(s) [...] Date Notes Ciclopirox 0.77 % 1 application Child Welfare Assistant ally Once a day for 30 days Treatment Notes Assessment Notes Skin ulcer of toe of left fo ot with fat layer exposed Patient Educated with: WOUND CARE INSTRUCTIONS.pdf (WOUND CARE INSTRUCTIONS.pdf) Pending Test Test Name Order Date [id number] SKIN/TISSUE 04/04/2024 Next Appt Details Follow Up: 2-3 Months, Reaso n: Provider Name:Aftab Olsen , 06/29/2024 10:45:00 AM, [address] [facility], [place] [address], [place], [address], Procedure Notes * Category Sub-Category Detail Notes [...] of the wound post debriement is stable (16691) Progress Notes * Mis LARSENOB: 6 (38 yo F)Acc No.[id number]:04/04/2024 Progress Notes Patient:?JHONYLIVTeresa Provider:?Aftab Olsen DPM :1985???Age:38 Y???Sex:Female D ate:04/04/2024 [facility] Pcp:Ana Luisa Bond MD Subjective: * [...] of left foot with fat layer exposed?Procedure: 33875-MLYLPSN SKIN/TISSUE Notes: Patient Educated with: WOUND CARE [...] of the wound post debriement is stable (93861).? * Procedure Codes:?69287 DEBRI DE SKIN/TISSUE * Preventive Medicine:? ??Counseling:?Discussion:?-13: [...] Olsen DPM Date:?2024 Generated for Marlen justin/Karen/Colton on:?05/31/2024 05:35 PM EDT History and Physical Notes * [...]
--- OUTSIDE RECORDS SUMMARY | 2024-05-31 17:36 | XMS_ITS ---
Author Organization [facility] [place] Address [address] [place] [address] Care Team Providers Care Electronic Parts Salesperson Name Role Phone Varun ESPANA, Ana Luisa Primary Care Provider Unavail able Aftab Olsen Unavailable [phone] Allergies Allergen (clinical drug ingredient) Drug/Non Drug [...] Ordered Date Performed Result Body Sit e [id number] SKIN/TISSUE 02/25/2024 N/A Encounters Encounter Location Date Provider Diagnosis [facility] [place] [address] [place] [id number] 02/25/2024 Aftab Olsen Skin ulcer of toe [...] INSTRUCTIONS.pdf) Pending Test Test Name Order Date [id number] SKIN/TISSUE 02/25/2024 Next Appt Details Follow Up: 4 Weeks, Reason: Provider Name:Aftab Olsen , 06/29/2024 10:45:00 AM, [address] [facility] [place] [address], [place], [phone], Procedure Notes * Category Sub-Category Detail Notes [...] of the wound post debriement is stable (31091) Progress Notes * Mis LARSENOB: 6 (38 yo F)Acc No.[id number]:02/25/2024 Progress Notes Patient:?DIAZVEGA, Teresa Provider:?Aftab Olsen DPM [...] of the wound post debriement is stable (26991).? * Procedure Codes:?38256 DEBRI DE SKIN/TISSUE * Preventive Medicine:? ??Counseling:?Ulcer:?A [...]
--- OUTSIDE RECORDS SUMMARY | 2024-05-31 17:36 | XMS_ITS ---
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 Name Role Phone Varun ESPANA, Ana Luisa Primary Care Provider Unavail able Aftab Olsen Unavailable [phone] Allergies Allergen (clinical drug ingredient) Drug/Non Drug [...] Status W/U Status Risk Notes Problem Onychomycosis (604471800) Onychomycosis (B35.1) Active confirmed Vital Signs Height 5ft 10in in 03/21/2024 Weight 169 lbs 03/21/2024 BMI 24.25 kg/m2 03/21/2024 Blood pressure systolic 119 mm Hg 03/21/19 25 Blood pressure diastolic 70 mm Hg 025 Procedures Procedure Date Ordered Date Performed Result Body Sit e [id number] 03/21/2024 N/A Encounters Encounter Location Date Provider Diagnosis [facility] [place] [address] [place] [phone] 03/21/2024 Aftab Raúl Pain in right toe(s) [...] Treatment Pending Test Test Name Order Date [id number] 03/21/2024 Next Appt Details Follow Up: 2-3 Weeks, Reason : Provider Name:Aftab Olsen , 06/29/2024 10:45:00 AM, [address] [place] [address], [place] [address], [place], [phone], Procedure Notes * Category Sub-Category Detail Notes [...] * AMANDAMis DUARTEOB: 6 (38 yo F)Acc No.[id number]:03/21/2024 Progress Notes Patient:?Teresa LARSEN Provider:?Aftab Olsen DPM :1985???Age:38 Y???Sex:Female D ate:03/21/2024 Address: [address] [id number] Pcp:Ana Luisa Bond MD Subjective: * Chief [...] postop pain meds were deferred.? * Procedure Codes:?29792 REMOV AL OF NAIL BED, Modifiers: TA [...]
[2024-05-31 17:43] VITALS: BP 102/59; PULSE 60; RESP 20; TEMP 36.8; O2SAT 99
[2024-05-31 18:56] VITALS: RESP 18
[2024-05-31] MEDS: Lactated Ringers 1,000 ML 100 ML IVCONT (19:09)
--- NOTE | 2024-05-31 21:35 | PHA.MEDREC ---
Pharmacy Consult ? Medication Reconciliation Pharmacy has completed the medication reconciliation. Spoke with patient and she confirmed her medications. Patient confirmed she is taking the Taltz injection and stated she was taking it wrong originally and stated her Dr restarted her on it and she is now taking 80mg every 2 weeks and confirmed she last took it yesterday. She also stated she was still taking the methotrexate once a week on Wednesdays and states she took it last Thursday. She confirmed she took all her medications yesterday.
--- NOTE | 2024-05-31 21:55 | PHA.MEDREC ---
Addendum entered by Cj Cordoba [facility] 05/31/24 21:59: med rec reviewed Original Note: Pharmacy Consult ? Medication Reconciliation Pharmacy has completed the medication reconciliation. Spoke with patient and she confirmed her medications. Patient confirmed she is taking the Taltz injection and stated she was taking it wrong originally and stated her Dr restarted her on it and she is now taking 80mg every 2 weeks and confirmed she last took it yesterday. She also stated she was still taking the methotrexate taking 4 tablets once a week on Wednesdays and states she took it last Thursday. She confirmed she took all her medications yesterday.
[2024-05-31 23:05] VITALS: BP 94/48; PULSE 58; RESP 20; TEMP 36.8; O2SAT 97
[2024-06-01] VITALS (9 sets, daily range): BP systolic 88–113; BP diastolic 50–69; PULSE 55–81; RESP 16–18; TEMP 36.1–37.4; O2SAT 96–100; BMI 23.0
[2024-06-01 05:21] LABS: MANUAL DIFF FLAG NO
[2024-06-01 05:26] LABS: Basophils Percent Auto 0.4 % (0-2); Eosinophils Absolute Auto 0.1 X10*3/uL (0.0-0.4); Eosinophils Percent Auto 1.9 % (0-4); Hematocrit 37.2 % (37.0-47.0); Hemoglobin 12.3 g/dl (12.0-16.0); Imm Gran Abs Auto 0.01 X10*3/uL (0.00-0.03); Imm Gran Pct Auto 0.1 % (0.0-0.4); Lymphocytes Absolute Auto 2.8 X10*3/uL (1.2-4.9); Lymphocytes Percent Auto 40.4 % (20-40); Mean Corpuscular HGB Conc 33.1 g/dl (31.0-35.0); Mean Corpuscular Hemoglobin 33.3 pg (27.0-33.0); Mean Corpuscular Volume 100.8 fL (80.0-98.0); Mean Platelet Volume 9.1 fL (9.4-12.3); Monocytes Absolute Auto 0.7 X10*3/uL (0.1-1.2); Monocytes Percent Auto 9.5 % (2-11); Neutrophils Absolute Auto 3.3 x10*3/uL (2.0-8.3); Neutrophils Percent Auto 47.7 % (45-73); Platelet Count 239 X10*3/uL (160-400); Red Blood Count 3.69 X10*6/uL (4.20-5.50); Red Cell Distribution Width 14.7 % (11.0-16.0)
[2024-06-01] MEDS: Lactated Ringers 1,000 ML 100 ML IVCONT ×2 (05:27→20:36)
[2024-06-01 05:47] LABS: Anion Gap 8 (12-20); Blood Urea Nitrogen 6 mg/dL (9-16); Calcium 8.6 mg/dL (8.4-10.2); Carbon Dioxide 26 mmol/L (22-29); Chloride 107 mmol/L (96-108); Creatinine Clr Calc Pharmacy 101.8; Estimated Glomerular Filt Rate > 60; Glucose Random 86 mg/dL (60-115); Potassium 3.3 mmol/L (3.3-5.1); Sodium 138 mmol/L (135-145)
[2024-06-01] MEDS: ondansetron HCL 4 MG/2 ML VIAL IVPUSH ×2 (09:13→19:20)
[2024-06-01] MEDS: Morphine Sulfate 4 MG/ML CARTRIDGE 2 MG IVPUSH ×2 (09:13→19:20)
--- NOTE | 2024-06-01 10:14 | PC.NURSE ---
Report given to Celine RN in short stay.
[2024-06-01] MEDS: Fluconazole in NaCl,Iso-Osm 400 MG/200 ML PIGGYBACK 100 MG IV (10:23)
--- NOTE | 2024-06-01 10:27 | PM.GICN ---
History of Present Illness Data of Consult Service Date: 06/01/24 Requesting physician: Ariela Rubalcava Primary Care Provider: Ana Luisa Murry MD HPI Reason for consult: Dysphagia 38 y.o F with PMH of psoriatric arthritis on MTX and ixekizumab who presented to the hospital for progressive dysphagia. History was obtained with the patient, who states that symptoms ongoing since March, when she 1st started noticing difficulty eating hard texture solids. Initially did not seek medical attention for this. Then started noticing sensation of food getting stuck in her upper esophagus, and now for the past week also with difficulty swallowing liquids. Has not been able to hydrate herself well at home, with inability to void any urine for a day, therefore presented to the emergency room yesterday. Blood pressure is likely soft, but otherwise with stable vitals. Labs with mild hemoconcentration but overall unremarkable. She does have chronically mild elevation of transaminases. No recent imaging. Review of Systems Review of Systems: Yes all other systems are reviewed and are negative PMFSH Past Medical History Medical History Seroma due to trauma Mild recurrent major depression Abscess of left foot Open wound Blurry vision Macrocytosis Psoriatic arthritis Family History Family History Mother Hypertension Father Rheumatoid arthritis Family/Other Mental health disorder Paternal Uncle Colon cancer Paternal Aunt Lung cancer Maternal Grandmother Uterine cancer Surgical History Surgical History S/P debridement H/O skin graft History of abdominoplasty History of breast implant History of bilateral breast reduction surgery Social History Social History Household Members: None Household Members Other:: lives alone Housing: Apartment Are you a primary school childcare attendant to a significant other at home: No Do you presently have visiting nurse or other home services: No Alcohol intake: never Comment: [facility] Patient Tobacco Use Status: Never used Tobacco e-Cigarette/Vaping Use: Never Used Second Hand Smoke Exposure: No Substance Use Type: Marijuana Advance Directives Date on File: 08/08/22 service: No Current occupational status: employed Current occupational exposures/hazards: No Cognitive needs: No Hearing needs: No Vision needs: No Meds Allergies Allergy/AdvReac Type Severity Reaction Status Date / Time cristina AdvReac Intermediate Diarrhea Uncoded 05/31/24 14:15 Active Medications: Current Medications Acetaminophen (Acetaminophen 325 Mg Tablet) 650 mg PO Q6H PRN PRN Reason: Pain, Mild 1-3,fever,headache Calcium Carbonate (Calcium Carbonate 750 Mg Tab.Chew) 750 mg PO Q4H PRN PRN Reason: Heartburn Folic Acid (Folic Acid 1 Mg Tablet) 2 mg PO DAILY [facility] Last Admin: 06/01/24 09:06 Dose: Not Given Lactated Ringer's (Lr) 1,000 mls @ 100 mls/hr IVCONT .Q10H [facility] Last Infusion: 06/01/24 10:24 Dose: 0 mls/hr Lactated Ringer's (Lr) 1,000 mls @ 100 mls/hr IVCONT .Q10H [facility] Last Admin: 06/01/24 09:34 Dose: Not Given Fluconazole (Diflucan) 400 mg in 200 mls @ 100 mls/hr IV ONCE ONE Stop: 06/01/24 11:58 Last Admin: 06/01/24 10:23 Dose: 100 mls/hr Magnesium Hydroxide (Milk Of Magnesia 30 Ml Oral.Susp) 30 ml PO DAILY PRN PRN Reason: Constipation Melatonin (Melatonin 3 Mg Tablet) 6 mg PO BEDTIME PRN PRN Reason: Insomnia Morphine Sulfate (Morphine Sulfate 4 Mg/Ml Cartridge) 2 mg IVPUSH Q4H PRN; Protocol PRN Reason: Pain, Severe (Pain Scale 7-10) Last Admin: 06/01/24 09:13 Dose: 2 mg Ondansetron HCl (Ondansetron Hcl 4 Mg/2 Ml Vial) 4 mg IVPUSH Q8H PRN PRN Reason: Nausea and Vomiting Last Admin: 06/01/24 09:13 Dose: 4 mg Oxycodone HCl (Oxycodone Hcl Immed Release 5 Mg Tablet) 5 mg PO Q6H PRN PRN Reason: Pain, Moderate(Pain Scale 4-6) Pantoprazole Sodium (Pantoprazole Sodium 40 Mg/10 Ml Vial) 40 mg IVPUSH BID@0630,1630 [facility] Last Admin: 06/01/24 07:12 Dose: Not Given Sodium Chloride (0.9 % Sodium Chloride Flush 3 Ml Syringe) 3 ml IVFLUSH QSHIFT [facility] Last Admin: 06/01/24 09:06 Dose: Not Given Home Medications ?Medication ?Instructions ?Recorded ?Confirmed ?Last Taken ?Type ascorbic acid (vitamin C) 250 mg 500 mg PO DAILY 06/01/23 05/31/24 05/30/24 History chewable tablet ascorbic acid 30 mg-collagen, 1 tab PO DAILY 06/01/23 05/31/24 05/30/24 History hydrolyzed 833.3 mg tablet (Collagen Skin Renewal) ixekizumab 80 mg/mL subcutaneous 80 mg subcut Q2W 05/31/24 05/31/24 05/30/24 History auto-injector (Taltz Autoinjector) methotrexate sodium 2.5 mg tablet 10 mg PO WE 05/31/24 05/31/24 05/25/24 History Physical Exam Vital Signs: Vital Signs: Last Vital Signs Temp 99.3 F 06/01/24 09:04 Pulse 65 06/01/24 09:04 Resp 16 06/01/24 09:04 BP 90/51 L 06/01/24 09:04 Pulse Ox 97 06/01/24 09:04 O2 Del Method Room Air 06/01/24 09:04 BMI result Body Mass Index 23.0 No apparent distress Nonicteric Small aphthous ulcers on buccal mucosa Abdomen soft, nondistended Alert and oriented x3, normal gait Results Labs 06/01/24 05:05 06/01/24 05:05 Labs: Short CBC 05/31/24 06/01/24 Range/Units 14:24 05:05 WBC 7.0 7.0 (4.8-10.8) X10*3/uL Hgb 14.7 12.3 (12.0-16.0) g/dl Hct 43.7 37.2 (37.0-47.0) % Plt Count 290 239 (160-400) X10*3/uL BMP 05/31/24 06/01/24 14:24 05:05 Sodium 140 138 Potassium 3.7 3.3 Chloride 111 H 107 Carbon Dioxide 22 26 BUN 9 6 L Creatinine 0.80 0.81 Calcium 9.8 8.6 D Liver Function 05/31/24 Range/Units 14:24 Total Bilirubin 0.4 (0.0-1.0) mg/dL AST 33 H (5-31) U/L ALT 38 H (0-31) U/L Alkaline Phosphatase 81 (39-117) U/L Albumin 4.2 (3.5-5.0) g/dL Urine 05/31/24 Range/Units 15:17 Urine Color Yellow Urine Appearance Cloudy Urine pH 5.5 (5.0-9.0) Ur Specific [place] 1.020 (1.005-1.025) Urine Protein Trace (Neg-Trace) mg/dL Urine Glucose (UA) Negative (Negative) mg/dL Assessment and Plan (1) Odynophagia: Status: Acute (2) Dysphagia: Status: Acute (3) Abdominal pain: Qualifiers: Abdominal location: epigastric Qualified Code(s): R10.13 - Epigastric pain Status: Acute (4) Psoriatic arthritis: Status: Acute Plan Ddx include esophagitis, infectious or erosive. Given underlying psoriatic arthritis, esophageal webs, lymphocytic esophagitis, upper GI crohns (pt on talzt and oral aphthous ulcers on exam) and esophageal dysmotility also on DDx. Plan: - Please keep NPO - IV PPI for now - Agree with trial of diflucan for empiric mgmt of abdon esophagitis - EGD today - Depending on findings may need barium swallow - Further recommendations to follow in the procedure note Procedures Date of Service Date of Service: 06/01/24
--- NOTE | 2024-06-01 12:52 | MHC.CM.PN ---
Pt lives alone, PCP cnfirmed: Ana Luisa Murry, HCP on file and confirmed: Lance. Pt. does not have home health services or DME. She is able to arrange transport home at [place]. DCP: home, self care. CM to follow for DC needs.
--- NOTE | 2024-06-01 13:06 | HO.ANESPROP2 ---
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 (Acute) Macrocytosis (Acute) Past Medical History Medical History Seroma due to trauma Mild recurrent major depression Abscess of left foot Open wound Blurry vision Macrocytosis Psoriatic arthritis Functional capacity: independent ambulation Patient : No Family History Family History Mother Hypertension Father Rheumatoid arthritis Family/Other Mental health disorder Paternal Uncle Colon cancer Paternal Aunt Lung cancer Maternal Grandmother Uterine cancer Family history of problems with anesthesia: No Surgical History Surgical History S/P debridement H/O skin graft History of abdominoplasty History of breast implant History of bilateral breast reduction surgery History of Problems with Anesthesia: No Social History Social History Household Members: None Housing: Apartment Do you presently have visiting nurse or other home services: No Alcohol intake: never Comment: [facility] Patient Tobacco Use Status: Never used Tobacco Smoked in Last 30 Days: Yes e-Cigarette/Vaping Use: Never Used Second Hand Smoke Exposure: No Use of substances other than those prescribed or required for medical reasons: No Substance Use Type: Marijuana Have you been hit, kicked, punched, or otherwise hurt by someone within the past year? If so, by whom?: No Do you feel safe in your current relationship?: Yes Is there a partner from a previous relationship who is making you feel unsafe now?: No Are you made to feel afraid or neglected: No Advance Directives: Yes Advance Directives on File: Yes Advance Directives Date on File: 08/08/22 Do you have a plan to hurt others: No Plan Recently lost weight without trying: Yes How much weight loss: 14-23 pounds Eating poorly because of decreased appetite: No Nutrition screen score: 4 Nutrition Risks: Difficulty swallowing and Poor intake 0-25% >4 days Patient : No : No Poor oral hygiene: No service: No Current occupational status: employed Current occupational exposures/hazards: No Cognitive needs: No Hearing needs: No Vision needs: No Meds Allergies Allergy/AdvReac Type Severity Reaction Status Date / Time cristina AdvReac Intermediate Diarrhea Uncoded 05/31/24 14:15 Active Medications: Current Medications Acetaminophen (Acetaminophen 325 Mg Tablet) 650 mg PO Q6H PRN PRN Reason: Pain, Mild 1-3,fever,headache Calcium Carbonate (Calcium Carbonate 750 Mg Tab.Chew) 750 mg PO Q4H PRN PRN Reason: Heartburn Folic Acid (Folic Acid 1 Mg Tablet) 2 mg PO DAILY [facility] Last Admin: 06/01/24 09:06 Dose: Not Given Lactated Ringer's (Lr) 1,000 mls @ 100 mls/hr IVCONT .Q10H [facility] Last Infusion: 06/01/24 10:24 Dose: 0 mls/hr Lactated Ringer's (Lr) 1,000 mls @ 100 mls/hr IVCONT .Q10H [facility] Last Admin: 06/01/24 09:34 Dose: Not Given Magnesium Hydroxide (Milk Of Magnesia 30 Ml Oral.Susp) 30 ml PO DAILY PRN PRN Reason: Constipation Melatonin (Melatonin 3 Mg Tablet) 6 mg PO BEDTIME PRN PRN Reason: Insomnia Morphine Sulfate (Morphine Sulfate 4 Mg/Ml Cartridge) 2 mg IVPUSH Q4H PRN; Protocol PRN Reason: Pain, Severe (Pain Scale 7-10) Last Admin: 06/01/24 09:13 Dose: 2 mg Ondansetron HCl (Ondansetron Hcl 4 Mg/2 Ml Vial) 4 mg IVPUSH Q8H PRN PRN Reason: Nausea and Vomiting Last Admin: 06/01/24 09:13 Dose: 4 mg Oxycodone HCl (Oxycodone Hcl Immed Release 5 Mg Tablet) 5 mg PO Q6H PRN PRN Reason: Pain, Moderate(Pain Scale 4-6) Pantoprazole Sodium (Pantoprazole Sodium 40 Mg/10 Ml Vial) 40 mg IVPUSH BID@0630,1630 [facility] Last Admin: 06/01/24 07:12 Dose: Not Given Sodium Chloride (0.9 % Sodium Chloride Flush 3 Ml Syringe) 3 ml IVFLUSH QSHIFT [facility] Last Admin: 06/01/24 09:06 Dose: Not Given Home Medications ?Medication ?Instructions ?Recorded ?Confirmed ?Last Taken ?Type ascorbic acid (vitamin C) 250 mg 500 mg PO DAILY 06/01/23 05/31/24 05/30/24 History chewable tablet ascorbic acid 30 mg-collagen, 1 tab PO DAILY 06/01/23 05/31/24 05/30/24 History hydrolyzed 833.3 mg tablet (Collagen Skin Renewal) ixekizumab 80 mg/mL subcutaneous 80 mg subcut Q2W 05/31/24 05/31/24 05/30/24 History auto-injector (Taltz Autoinjector) methotrexate sodium 2.5 mg tablet 10 mg PO WE 05/31/24 05/31/24 05/25/24 History Exam Height,Weight and Vital Signs: Height 5 ft 10 in Weight 72.575 kg Last Vital Signs Temp 97.0 F 06/01/24 11:50 Pulse 56 06/01/24 11:50 Resp 18 06/01/24 11:50 BP 107/56 L 06/01/24 11:50 Pulse Ox 97 06/01/24 11:50 O2 Del Method Room Air 06/01/24 11:50 Pertinent Lab Results Pertinent Lab Results: Laboratory Tests 05/31/24 05/31/24 06/01/24 14:24 15:17 05:05 WBC 7.0 7.0 RBC 4.45 3.69 L Hgb 14.7 12.3 Hct 43.7 37.2 MCV 98.2 H 100.8 H MCH 33.0 33.3 H MCHC 33.6 33.1 RDW 14.6 14.7 Plt Count 290 239 MPV 9.1 L 9.1 L Immature Gran % (Auto) 0.3 0.1 Neut % (Auto) 62.5 47.7 Lymph % (Auto) 28.1 40.4 H Tama % (Auto) 7.6 9.5 Eos % (Auto) 0.9 1.9 Baso % (Auto) 0.6 0.4 Lymph # (Auto) 2.0 2.8 Tama # (Auto) 0.5 0.7 Eos # (Auto) 0.1 0.1 Baso # (Auto) 0.0 0.0 Abs Immat Gran (auto) 0.02 0.01 Absolute Neuts (auto) 4.4 3.3 Absolute Nucleated RBC 0.000 0.000 Nucleated RBC % (auto) 0.0 0.0 Sodium 140 138 Potassium 3.7 3.3 Chloride 111 H 107 Carbon Dioxide 22 26 Anion Gap 11 L 8 L BUN 9 6 L Creatinine 0.80 0.81 Estim Creat Clear Calc 103.1 101.8 Estimated GFR > 60 > 60 Random Glucose 101 86 Calcium 9.8 8.6 D Total Bilirubin 0.4 AST 33 H ALT 38 H Alkaline Phosphatase 81 Total Protein 8.0 Albumin 4.2 Lipase 48 Beta HCG, Quant < 2 Urine Color Yellow Urine Appearance Cloudy Urine pH 5.5 Ur Specific [place] 1.020 Urine Protein Trace Urine Glucose (UA) Negative Urine Ketones 15 Urine Blood Moderate (2+) H Urine Nitrite Positive H Ur Leukocyte Esterase Negative Urine RBC 11-20 H Urine WBC 6-10 H Ur Squamous Epith Cells >20 Urine Bacteria 4+ Hyaline Casts 3-5 Airway Mallampati Class: II TM Dist: >3cm Neck ROM: Full Heart: RRR Lungs: CTA Assessment and Plan Assessment Anesthesia Assessment: Anesthesia Plan Discussed and Chart Reviewed Final Anesthetic Review Family History of Problems with Anesthesia: No History of Problems with Anesthesia: No NPO: Yes ASA Class: II and Emergency Final Preanesthetic Review: Meds/Allgs Chart Reviewed, Consent Obtained/Reviewed and Anes Risks/Benef Reviewed Patient Risk: Low Procedure Risk: Low Anesthetic Plan Anesthetic Plan: MAC: Disposition: Standard PACU
--- NOTE | 2024-06-01 14:34 | P.OP_ITS ---
Operative Note Operative Note Date of Service: 06/01/24 Narrative: Procedure: Esophagogastroduodenoscopy Endoscopist: Guillermina Ballard MD Indication: Odynophagia, dysphagia Anesthesia Provider: Dr Diamond Davison Anesthesia Type: MAC ?? EGD Procedure:?? The procedure, indications, preparation and potential complications were reviewed with the patient, who indicated understanding and gave written informed consent to proceed. A physical exam was performed. The endoscope was introduced through the mouth, and advanced to the second part of duodenum. The mucosa was carefully examined on slow withdrawal of the endoscope. The patient tolerated the procedure well. There were no immediate complications.? ? EGD Findings:? * Oral cavity: Whitish exudates and ulceration noted on hard palate. * Esophagus:? Whitish exudates with lumpy bumpy appearance of esophagus noted with ulceration noted at the GE junction. The Z line was at 40 cm. Cold forceps biopsies from the esophagus were taken to r/o abdon esophagitis and lymphocytic esophagitis. * Stomach:? Normal mucosa was noted in the stomach. Retroflexion was performed in the cardia. * Duodenum:? Normal mucosa was noted in the whole of the examined duodenum. ? EGD Impressions:? * Likely oral and esophageal candidiasis * Grade D esophagitis * Normal stomach (biopsy) * Normal duodenum (biopsy) ?? Recommendations:?? * Follow biopsy results. * Start fluconazole 400 mg PO once daily x 14 days * Switch PPI to oral. Pantoprazole 20 mg BID x 8 weeks and then once daily. * Avoid NSAIDs. Above has been reviewed with the patient.
--- NOTE | 2024-06-01 14:37 | HO.PM.IMPN ---
Subjective Subjective Date of Service: 06/01/24 Interval History: seen and evaluated this moeninf report odynophagia Denies fever or chills no other events Review of Systems Review of Systems: Yes all other systems are reviewed and are negative Physical Exam Vital Signs: Vital Signs: Last Vital Signs Temp 97.4 F 06/01/24 13:06 Pulse 58 06/01/24 13:06 Resp 16 06/01/24 13:06 BP 99/56 L 06/01/24 13:06 Pulse Ox 97 06/01/24 13:06 O2 Del Method Room Air 06/01/24 13:06 BMI result Body Mass Index 23.0 Const: Other: Constitutional : interactive, not in distress Cardiovascular : no JVP, no lower extremity edema Respiratory : bilateral chest movement, not in resp distress Gastrointestinal: soft, lax, Non tender Skin : Warm, Dry Neurological : Alert & oriented , No focal deficit Objective Data Active Medications Acetaminophen (Acetaminophen 325 Mg Tablet) 650 mg PO Q6H PRN PRN Reason: Pain, Mild 1-3,fever,headache Calcium Carbonate (Calcium Carbonate 750 Mg Tab.Chew) 750 mg PO Q4H PRN PRN Reason: Heartburn Folic Acid (Folic Acid 1 Mg Tablet) 2 mg PO DAILY [facility] Last Admin: 06/01/24 09:06 Dose: Not Given Documented By: NEDA Non-Admin Reason: NPO Lactated Ringer's (Lr) 1,000 mls @ 100 mls/hr IVCONT .Q10H [facility] Last Infusion: 06/01/24 10:24 Dose: 0 mls/hr Documented By: NEDA Lactated Ringer's (Lr) 1,000 mls @ 100 mls/hr IVCONT .Q10H [facility] Last Admin: 06/01/24 09:34 Dose: Not Given Documented By: NEDA Non-Admin Reason: Duplicate Order Magnesium Hydroxide (Milk Of Magnesia 30 Ml Oral.Susp) 30 ml PO DAILY PRN PRN Reason: Constipation Melatonin (Melatonin 3 Mg Tablet) 6 mg PO BEDTIME PRN PRN Reason: Insomnia Morphine Sulfate (Morphine Sulfate 4 Mg/Ml Cartridge) 2 mg IVPUSH Q4H PRN; Protocol PRN Reason: Pain, Severe (Pain Scale 7-10) Last Admin: 06/01/24 09:13 Dose: 2 mg Documented By: NEDA Ondansetron HCl (Ondansetron Hcl 4 Mg/2 Ml Vial) 4 mg IVPUSH Q8H PRN PRN Reason: Nausea and Vomiting Last Admin: 06/01/24 09:13 Dose: 4 mg Documented By: NEDA Oxycodone HCl (Oxycodone Hcl Immed Release 5 Mg Tablet) 5 mg PO Q6H PRN PRN Reason: Pain, Moderate(Pain Scale 4-6) Pantoprazole Sodium (Pantoprazole Sodium 40 Mg/10 Ml Vial) 40 mg IVPUSH BID@0630,1630 [facility] Last Admin: 06/01/24 07:12 Dose: Not Given Documented By: BETY Non-Admin Reason: NPO Sodium Chloride (0.9 % Sodium Chloride Flush 3 Ml Syringe) 3 ml IVFLUSH QSHIFT [facility] Last Admin: 06/01/24 09:06 Dose: Not Given Documented By: NEDA Non-Admin Reason: IV Running Labs 06/01/24 05:05 06/01/24 05:05 Labs: Laboratory Results - last 24 hr 05/31/24 05/31/24 06/01/24 14:24 15:17 05:05 MCV 100.8 H MCH 33.3 H MCHC 33.1 RDW 14.7 Plt Count 239 MPV 9.1 L Immature Gran % (Auto) 0.1 Neut % (Auto) 47.7 Lymph % (Auto) 40.4 H [place] % (Auto) 9.5 Eos % (Auto) 1.9 Baso % (Auto) 0.4 Lymph # (Auto) 2.8 [place] # (Auto) 0.7 Eos # (Auto) 0.1 Baso # (Auto) 0.0 Abs Immat Gran (auto) 0.01 Absolute Neuts (auto) 3.3 Absolute Nucleated RBC 0.000 Nucleated RBC % (auto) 0.0 Anion Gap 11 L 8 L Estim Creat Clear Calc 103.1 101.8 Estimated GFR > 60 > 60 Random Glucose 101 86 Calcium 9.8 8.6 D Total Bilirubin 0.4 AST 33 H ALT 38 H Alkaline Phosphatase 81 Total Protein 8.0 Albumin 4.2 Lipase 48 Beta HCG, Quant < 2 Urine Color Yellow Urine Appearance Cloudy Urine pH 5.5 Ur Specific Dresser 1.020 Urine Protein Trace Urine Glucose (UA) Negative Urine Ketones 15 Urine Blood Moderate (2+) H Urine Nitrite Positive H Ur Leukocyte Esterase Negative Urine RBC 11-20 H Urine WBC 6-10 H Ur Squamous Epith Cells >20 Urine Bacteria 4+ Hyaline Casts 3-5 Microbiology Microbiology Results: Microbiology 05/31/24 15:38 Urine Culture - Preliminary Urine clean catch - Clean Catch Midstream Culture in progress. 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 intolerance related to worsening GERD symptoms with dysphagia and odynophagia Acute dysphagia/odynophagia with severe epigastric pain/nausea, vomiting Start Diflucan 400 mg now, continue maintenance post EGD IV PPI NPO for EGD today Hold Barium swallow, to decide after EGD Antiemetics p.r.n. Pain management p.r.n. using pain scale Gastroenterology consult Psoriasis/psoriatic arthritis Continue methotrexate. Taltz outpt Chronic transaminitis Stable, related to methotrexate use Asymptomatic bacteriuria suspect UA contaminant Await culture DVT prophylaxis- SCPs, early ambulation Full code Patient requires inpatient overnight due to worsening GERD symptoms resulting in severe dysphagia and odynophagia as well as nausea and vomiting impeding the patient's ability to tolerate p.o. and EGD for symptom management and to allow for diet advancement Quality Stroke Does the patient have a stroke diagnosis?: No VTE Prior VTE?: No VTE Risk Level:: Medical - moderate - high VTE Device Contraindication: N/A - Device Ordered VTE Drug Contraindication: Treatment Not Indicated
[2024-06-01] MEDS: Pantoprazole Sodium 40 MG/10 ML VIAL IVPUSH (15:33)
[2024-06-01] MEDS: 0.9 % Sodium Chloride Flush 3 ML SYRINGE IVFLUSH (15:34)
[2024-06-01] MEDS: cefTRIAXone sodium 1 GM VIAL IVPUSH (17:05)
--- NOTE | 2024-06-01 20:30 | PC.NURSE ---
pt not able to tolerate dinner, pt vomited about 500ml after attempting to eat dinner, states she is able to tolerate saltines and water at this time.
[2024-06-02 04:00] VITALS: BP 96/53; PULSE 55; RESP 16; TEMP 36.3; O2SAT 98
[2024-06-02] MEDS: Pantoprazole Sodium 40 MG/10 ML VIAL IVPUSH (05:55)
[2024-06-02] MEDS: Lactated Ringers 1,000 ML 100 ML IVCONT ×2 (05:56→11:29)
[2024-06-02 07:04] LABS: MANUAL DIFF FLAG NO
[2024-06-02 07:14] LABS: Basophils Percent Auto 0.3 % (0-2); Eosinophils Absolute Auto 0.1 X10*3/uL (0.0-0.4); Eosinophils Percent Auto 1.3 % (0-4); Hematocrit 37.3 % (37.0-47.0); Hemoglobin 12.4 g/dl (12.0-16.0); Imm Gran Abs Auto 0.02 X10*3/uL (0.00-0.03); Imm Gran Pct Auto 0.3 % (0.0-0.4); Lymphocytes Absolute Auto 2.6 X10*3/uL (1.2-4.9); Lymphocytes Percent Auto 42.3 % (20-40); Mean Corpuscular HGB Conc 33.2 g/dl (31.0-35.0); Mean Corpuscular Hemoglobin 33.3 pg (27.0-33.0); Mean Corpuscular Volume 100.3 fL (80.0-98.0); Mean Platelet Volume 9.7 fL (9.4-12.3); Monocytes Absolute Auto 0.6 X10*3/uL (0.1-1.2); Monocytes Percent Auto 9.4 % (2-11); Neutrophils Absolute Auto 2.9 x10*3/uL (2.0-8.3); Neutrophils Percent Auto 46.4 % (45-73); Platelet Count 203 X10*3/uL (160-400); Red Blood Count 3.72 X10*6/uL (4.20-5.50); Red Cell Distribution Width 14.5 % (11.0-16.0); White Blood Count 6.2 X10*3/uL (4.8-10.8)
[2024-06-02 07:16] VITALS: BP 99/51; PULSE 58; RESP 16; TEMP 36.7; O2SAT 98
[2024-06-02 07:30] LABS: Anion Gap 9 (12-20); Blood Urea Nitrogen 6 mg/dL (9-16); Calcium 8.6 mg/dL (8.4-10.2); Carbon Dioxide 26 mmol/L (22-29); Chloride 106 mmol/L (96-108); Creatinine Clr Calc Pharmacy 111.4; Estimated Glomerular Filt Rate > 60; Glucose Random 76 mg/dL (60-115); Potassium 3.5 mmol/L (3.3-5.1); Sodium 137 mmol/L (135-145)
[2024-06-02] MEDS: 0.9 % Sodium Chloride Flush 3 ML SYRINGE IVFLUSH (08:08)
[2024-06-02] MEDS: ondansetron HCL 4 MG/2 ML VIAL IVPUSH (08:09)
[2024-06-02] MEDS: Calcium Carbonate 750 MG TAB.CHEW PO (08:12)
[2024-06-02] MEDS: Folic Acid 1 MG TABLET 2 MG PO (08:13)
[2024-06-02] MEDS: oxyCODONE HCl Immed Release 5 MG TABLET PO (08:13)
--- NOTE | 2024-06-02 09:13 | HO.POSTANES ---
Post Anesthesia Evaluation Post Anesthesia Evaluation Date of Service: 06/02/24 Vital Signs: Vital Signs Temp Pulse Resp BP Pulse Ox O2 Del Method 06/02/24 07:16 98.1 F 58 16 99/51 L 98 Room Air 06/02/24 04:00 97.4 F 55 16 96/53 L 98 Room Air Anesthesia: General Mental Status: Awake Pain Control: Satisfactory Nausea/Vomiting: None Hydration: Adequate Anesthesia-Related Issues: No Anes. Related Issues
[2024-06-02] MEDS: Acetaminophen 325 MG TABLET 650 MG PO (09:31)
[2024-06-02] MEDS: Fluconazole 100 MG TABLET 400 MG PO (09:33)
--- NOTE | 2024-06-02 12:21 | PM.DS ---
DS: Providers Provider Date of Service: 06/02/24 Date of admission: 05/31/24 17:24 Date of discharge: 06/02/24 Primary care physician: Ana Luisa Murry MD Consults: 05/31/24 17:29 Consult to Gastroenterology Routine Consulting Provider: Guillermina Ballard Reason for consultation: Dysphagia, odynophagia DS: Diagnosis Discharge Diagnosis (1) Odynophagia: Status: Acute (2) Dysphagia: Status: Acute (3) Esophageal ulceration: Status: Acute (4) Candidal esophagitis: Status: Acute (5) UTI (urinary tract infection): Status: Acute DS: Summary Hospital Course Hospital Course: Admission note HPI 38-year-old year female past medical history significant for psoriasis ( Taltz and methotrexate), 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 Currently reporting 10/10 abd pain. She reports coinciding dysphagia and odynophagia with globus sensation ongoing for 2 months. She has been compliant with PPI. Was seen by PCP who ordered a barium swallow but this has not yet been scheduled per patient. She has been unable to tolerate PO and has been experiencing nausea and vomiting. No hematemasis. Reports 5 episodes of diarrhea yesterday but no ongoing symptoms. No recent abx use, no bad foods. No one sick at home with similar symptoms. No fevers, chills, urinary symptoms. No melena or hematochezia. Since arrival, vitals have been stable. There is no leukocytosis. Renal function electrolyte levels are normal. AST 33, ALT 38 but stable compared to priors. Urinalysis appears contaminated with negative leukocytes, positive nitrites, 2+ blood, positive urinary sediment, >20 squamous epithelial cells and 4+ bacteria. In the ED, received IV morphine, 1 L IVF, IV pantoprazole, and Zofran. Hospital course The patient was admitted for evaluation of acute dysphagia/odynophagia with severe epigastric pain/nausea, vomiting believed to be related to esophagitis as she is on Methotrexate. Started on Iv Pantoprazole, Diflucan 400 mg IV and continued maintenance post EGD as it showed esophagitis, esophageal ulcer and biopsies were taken. Dr Ballard from GI recommended 2 weeks treatment of Candidal esophagitis with 400 Fluconazole daily and to continue Pantoprazole 20 mg bid for next 2 months then daily. Avoid NSAIDs and follow with GI as outpatient. She was able to tolerate diet as pain significantly improved. For Psoriasis/psoriatic arthritis. To continue methotrexate and follow outpatient with rheumatology for further adjustment as needed. For UTI, urine culture growing GNR. started on Ceftriaxone. To discharge on Ceftin to finish 5 days of antibiotics. Discharge plan Discontinue Meloxicam; Use Tylenol for pain for now Discontinue Omeprazole: Switch to Pantoprazole 20 mg two times a day for 2 months then once a day Continue Diflucan for 12 more days Continue Ceftin for Urine infection for 3 more days Advance diet as tolerated gradually Follow with dr Ballard from [facility] as outpatient in 2 months or as needed Time Attestation Discharge Coordination Time (in mins): 41 Quality: Safe Use of Opioids Does Pt have an Active Cancer Diagnosis on the Problem List?: No Quality: Stroke Does the patient have a stroke diagnosis?: No Physical Exam Vital Signs: Vital Signs: Last Vital Signs Temp 98.1 F 06/02/24 07:16 Pulse 58 06/02/24 07:16 Resp 16 06/02/24 07:16 BP 99/51 L 06/02/24 07:16 Pulse Ox 98 06/02/24 07:16 O2 Del Method Room Air 06/02/24 07:16 BMI result Body Mass Index 23.0 Const: Other: Constitutional : interactive, not in distress Cardiovascular : no JVP, no lower extremity edema Respiratory : bilateral chest movement, not in resp distress Gastrointestinal: soft, lax, Non tender Skin : Warm, Dry Neurological : Alert & oriented , No focal deficit DS: Data Data Completed and Pending Completed studies during hospitalization [Text1]: Procedures Excision of Abdomen Subcutaneous Tissue and Fascia, Open Approach (06/01/23) Pending studies at discharge: Pending at discharge 06/01/24 14:32 Surgical [PTH] Routine Labs on day of discharge: Laboratory Results - last 24 hr 06/02/24 07:00 WBC 6.2 RBC 3.72 L Hgb 12.4 Hct 37.3 MCV 100.3 H MCH 33.3 H MCHC 33.2 RDW 14.5 Plt Count 203 MPV 9.7 Immature Gran % (Auto) 0.3 Neut % (Auto) 46.4 Lymph % (Auto) 42.3 H Sac % (Auto) 9.4 Eos % (Auto) 1.3 Baso % (Auto) 0.3 Lymph # (Auto) 2.6 Sac # (Auto) 0.6 Eos # (Auto) 0.1 Baso # (Auto) 0.0 Abs Immat Gran (auto) 0.02 Absolute Neuts (auto) 2.9 Absolute Nucleated RBC 0.000 Nucleated RBC % (auto) 0.0 Sodium 137 Potassium 3.5 Chloride 106 Carbon Dioxide 26 Anion Gap 9 L BUN 6 L Creatinine 0.74 Estim Creat Clear Calc 111.4 Estimated GFR > 60 Random Glucose 76 Calcium 8.6 Preliminary micro results at discharge 05/31/24 15:38 Urine Culture - Preliminary Urine clean catch - Clean Catch Midstream Gram negative husam Discharge Plan Discharge Anticipated Discharge Date/Time: 06/02/24 12:08 Patient Disposition: Home, Self-Care Discharge Diagnosis: Candidal esophagitis Esophageal ulcers Referrals: Ana Luisa Quispe MD [Primary Care Provider] - 1 Week Discharge Medications: New pantoprazole 20 mg tablet,delayed release (DR/EC) 20 mg PO BID Qty: 180 0RF fluconazole 200 mg tablet 400 mg PO DAILY Qty: 24 0RF cefuroxime axetil 250 mg tablet 250 mg PO BID Qty: 7 0RF Continued (DME) [employer] 1iber ag+ See Rx Instructions .Route .MEDSUPPLY Qty: 30 6RF Rx Instructions: As directed ascorbic acid (vitamin C) 250 mg Tablet,Chewable 500 mg PO DAILY Collagen Skin Renewal 30-833.3 mg Tablet 1 tab PO DAILY methotrexate sodium 2.5 mg tablet 10 mg PO FOX Osorio Autoinjector 80 mg/mL auto-injector 80 mg subcut Q2W Rx Instructions: 160 mg (2 pens) subcutaneously at week 0 then 80 mg injection at weeks 2, 4, 6, 8, 10, and 12, and then 80 mg every 4 weeks folic acid 1 mg tablet 2 mg PO DAILY Qty: 180 1RF Discontinued meloxicam 15 mg tablet 15 mg PO DAILY PRN (Reason: for pain) Qty: 30 1RF omeprazole 20 mg capsule,delayed release(DR/EC) 20 mg PO DAILY 90 Days Qty: 90 0RF Discharge Orders: Discharge Order (Routine); Ordered 06/02/24 Ordered By: Fabiano Loomis Diet: Advance to usual diet Activity on Discharge: As tolerated Stand Alone Forms: Patient Portal Discharge page Print Language: German Care Plan Goals: Discontinue Meloxicam; Use Tylenol for pain for now Discontinue Omeprazole: Switch to Pantoprazole 20 mg two times a day for 2 months then once a day Continue Diflucan for 12 more days Continue Ceftin for Urine infection for 3 more days Advance diet as tolerated gradually Follow with dr Ballard from [facility] as outpatient in 2 months or as needed Health Concerns: Esophagitis UTI Candidal esophagitis Plan of Treatment: Diflucan for 12 more days Ceftin for 3 days GI follow up Assessment: as above
--- NOTE | 2024-06-02 12:32 | MHC.CM.PN ---
DP: PT HAS BEEN MEDICALLY CLEARED FOR DC HOME, NO SERVICES. PT HAS OWN RIDE HOME.
[2024-06-02] MEDS: cefuroxime axetiL 250 MG TABLET PO (13:06)
[2024-06-02 13:25] VITALS: BP 107/59; PULSE 60; RESP 16; TEMP 36.2; O2SAT 98
== END 2024-06-02 14:01 | disposition home or self-care (01) | DRG 158 ==
LOC: HO.ED 16:57 → HO.EDOVER 17:41 → HO.S3 06-01 10:51
PROVIDERS: Internal Medicine; Physician Assistant; Admitting Provider Physician Assistant; Emergency Provider Emergency Medicine Emergency Medical Services; PCP Internal Medicine; Visit Provider Student in an Organized Health Care Education/Training Program
PROC: 0DJ08ZZ Inspection of Upper Intestinal Tract, Via Natural or Artificial Opening Endoscopic (ICD-10-PCS; CPT 43235; principal; 2024-06-01 13:50)
DX: B37.0 Candidal stomatitis (principal); K22.10 Ulcer of esophagus without bleeding; N39.0 Urinary tract infection, site not specified; B37.81 Candidal esophagitis; L40.50 Arthropathic psoriasis, unspecified; Z79.631 Long term (current) use of antimetabolite agent; Z79.899 Other long term (current) drug therapy
CPT/HCPCS: 43239; 36415; 80048; 80053; 81001; 83690; 84702; 85025; 87086; 87088; 87186; 88305; 88312; 88313; 99221; 99285; J0696; J1450; J1596; J2003; J2270; J2405; J2470; J2704; J7120

== ENCOUNTER → 2024-05-31 17:24 | Outpatient (BNV) | payer OTHER, SELFPAY | PROVIDERS: Admitting Provider Physician Assistant; Emergency Provider Emergency Medicine Emergency Medical Services; PCP Internal Medicine; Visit Provider Internal Medicine | DX: R13.10 Dysphagia, unspecified (principal); R10.13 Epigastric pain; K20.90 Esophagitis, unspecified without bleeding; B37.81 Candidal esophagitis | CPT/HCPCS: 43239; 99222 ==

== ENCOUNTER → 2024-05-31 17:24 | Outpatient (BNV) | payer OTHER, SELFPAY | PROVIDERS: Admitting Provider Physician Assistant; Emergency Provider Emergency Medicine Emergency Medical Services; PCP Internal Medicine; Visit Provider Student in an Organized Health Care Education/Training Program | DX: R13.10 Dysphagia, unspecified (principal) | CPT/HCPCS: 99223; 99232; 99239 ==

== ENCOUNTER 2024-06-16 10:32 | Outpatient (AMB) | payer OTHER, SELFPAY ==
[2024-06-16 10:38] VITALS: BP 100/60; PULSE 80; RESP 20; TEMP 36.3; O2SAT 97; BMI 22.7
--- NOTE | 2024-06-16 10:38 | MHC.PC.OV ---
Vital Signs 06/16/24 10:38 Height 5 ft 10 in Weight 158 lb BMI 22.7 BP 100/60 Blood Pressure Location Lt brachial Position Sitting Respiration 20 Pulse 80 Pulse Source Pulse Oximeter Temp 97.3 F Temp Source Temporal Artery Scan Pulse Oximetry (%) 97 Oxygen Delivery Method Room Air Intake Visit Reasons: [facility] 06/02 Dysphagia Intake Note: Patient is here for hospital discharge follow up. Patient was discharged from [facility] in [place], [place] on 06/02/2024. Ingredient Mixer Required: No Accompanied by: Self / Same As Patient Allergies yusimry Adverse Reaction (Intermediate, Uncoded 06/16/24 10:46) Diarrhea Medication List - Last Reconciled 06/16/24 by Emma Hull PA-C ascorbic acid (vitamin C) 500 mg PO DAILY ascorbic acid-collagen 30-833.3 mg (Collagen Skin Renewal) 1 tab PO DAILY [exufiber ag+ As directed] folic acid 2 mg (2 x 1 mg) PO DAILY ixekizumab (Taltz Autoinjector) 80 mg subcut Q2W methotrexate sodium 10 mg PO WE pantoprazole 20 mg PO BID Tobacco use date assessed: 06/16/24 Dental Screening Dental Screen Date: 06/16/24 Did you have a dental visit in the last 12 months?: Yes Did you have a dental problem in the last 6 months where you did not have access to dental care?: No Was dental information given to patient?: Patient has dentist HPI [facility] 06/02 Dysphagia HPI Details 38-year-old female with past medical history of PTSD, psoriasis, GERD last seen 04/[address] Montiel coming in for hospital discharge follow up.?In review of the notes, patient was seen in [facility] 05/31/2024 for worsening GERD and epigastric pain and admitted for evaluation of dysphagia.?Started on IV pantoprazole, Diflucan EGD showing esophagitis with esophageal ulcer.?GI recommending 2 weeks of fluconazole and pantoprazole.?Also found to have urinary tract infection started on Ceftin patient was discharged home 06/02/2024 to follow up with GI in 2 months and was PCP. Presenting with follow-up for oropharyngeal fungal infection and GERD. GERD is being managed with Pantoprazole, and the patient reports an improved condition. Dietary triggers are being actively avoided, with noted improvements in symptoms related to GERD. The urinary tract infection reported previously has resolved, and no further systemic symptoms were reported except for occasional diet-related stomach pains. [facility] Medical History Dysphagia Seroma due to trauma Mild recurrent major depression Abscess of left foot Open wound Blurry vision Macrocytosis Psoriatic arthritis Surgical History S/P debridement H/O skin graft History of abdominoplasty History of breast implant History of bilateral breast reduction surgery Family History Mother Hypertension Father Rheumatoid arthritis Family/Other Mental health disorder Paternal Uncle Colon cancer Paternal Aunt Lung cancer Maternal Grandmother Uterine cancer Social History Household Members: None Household Members Other:: lives alone Housing: Apartment Are you a primary animal caregiver to a significant other at home: No Do you presently have visiting nurse or other home services: No Alcohol intake: never Patient Tobacco Use Status: Never used Tobacco e-Cigarette/Vaping Use: Never Used Second Hand Smoke Exposure: No Substance Use Type: Marijuana Advance Directives Date on File: 08/08/22 service: No Current occupational status: employed Current occupational exposures/hazards: No Cognitive needs: No Hearing needs: No Vision needs: No Female Reproductive History Menstrual Age of Menarche: 11 Questionnaire Thrive Questionnaire Date Thrive assessed: 06/16/24 I am a: Patient What is your living situation today?: I have a steady place to live Within the past 12 months, did the food you bought not last and you didn't have the money to get more?: Never true Within the past 12 months, did you worry whether your food would run out before you got money to buy more?: Never true Do you have trouble paying for medicines?: No Do you have trouble getting transportation to medical appointments?: No Do you have trouble paying your heating and electricity bill?: No Do you have trouble taking care of your child, family member or friend?: No Do you have trouble with day-to-day activities such as bathing, preparing meals, shopping, managing finances, etc.?: No Are you currently unemployed and looking for a job?: No Are you interested in more education?: No Please select the resources that you would like help with: None Currently or been in a relationship where the following occur: No concerns reported THRIVE Score: 0 AUDIT C Alcohol Use Questionnaire (AUDIT-C) 1. How often do you have a drink containing alcohol?: Never 3. How often do you have six or more drinks on one occasion?: Never Total Score: 0 Score Reviewed/Action Taken: No BRUNO-7 AMB Questionnaire BRUNO-7 Date BRUNO - 7 assessed: 05/09/24 Source: Developed by Drs. Oneil Wood, Dulce Pineda, Adonay Wheeler and colleagues, with an educational spencer from [employer]. Review of Systems Const Denies body aches, Denies chills, Denies fever(s), Denies headache(s) and Denies poor appetite Eyes Reports no additional complaints ENT Denies dysphagia, Denies dizziness, Denies headache(s) and Denies odynophagia Card Denies chest pain, Denies syncope, Denies edema, Denies irregular heart rhythm, Denies lightheadedness and Denies dyspnea Resp Denies cough and Denies dyspnea GI Denies abdominal pain, Denies constipation, Denies dysphagia, Denies diarrhea, Denies nausea, Denies odynophagia and Denies vomiting Reports no additional complaints Musc Reports no additional complaints and Denies abnormal gait Skin/Breast Reports system reviewed and no additional complaints, except as documented Neuro Denies abnormal gait, Denies dizziness, Denies syncope and Denies headache(s) Psych Reports no additional complaints Physical exam (Primary Care) Vital Signs: Last Vital Signs Temp 97.3 F 06/16/24 10:38 Pulse 80 06/16/24 10:38 Resp 20 06/16/24 10:38 BP 100/60 06/16/24 10:38 Pulse Ox 97 06/16/24 10:38 Oxygen Delivery Method Room Air 06/16/24 10:38 BMI result Body Mass Index 22.7 Tobacco/Smoking Status: Tobacco use Status Tobacco use date assessed 06/16/24 06/16/24 10:46 Patient Tobacco Use Status Never used Tobacco 06/16/24 10:46 Tobacco use type 05/10/24 07:59 e-Cigarette/Vaping Use Never Used 06/16/24 10:46 Thrive Assessment: Date of Thrive Assessment Date Thrive assessed 06/16/24 06/16/24 10:46 Currently or been in a relationship where the following occur: No concerns reported Const General: cooperative, healthy appearing, comfortable and no acute distress Orientation/consciousness: patient oriented x3 HENMT Head: Yes normocephalic Ears: hearing grossly normal bilaterally General nose exam: Normal external nose present Eyes General: appearance normal, both eyes and all related structures Conjunctivae: conjunctivae normal Neck Neck: Yes full ROM and Yes no lymphadenopathy Resp Effort & Inspection: normal respiratory effort Auscultation: clear to auscultation bilaterally, no crackles, no rales, no rhonchi and no wheezes Cardio Rate: regular rate Rhythm: regular rhythm Skin General skin exam: no rashes or lesions noted Neuro General: patient oriented x3 Gait exam (Neuro): Normal gait present Extrem General: Yes normal to inspection, Yes full ROM and No edema Psych Affect: normal affect Attitude: cooperative Insight: Good insight present (Psych) Judgement: Good judgement present (Psych) Coding Level of Care Code TCM Mod MDM <= 14 Days Complex EM visit Add On G2211 Diagnoses UTI (urinary tract infection) N39.0 Candidal esophagitis B37.81 Esophageal ulceration K22.10 Chronic GERD K21.9 Assessment & Plan Assessment & Plan (1) UTI (urinary tract infection): Code(s): N39.0 - Urinary tract infection, site not specified Category: Medical Plan: Patient has urinary tract infection has resolved at this time and has completed the course of the antibiotics. Advised patient to stay well hydrated and follow up as needed for this concern (2) Candidal esophagitis: Code(s): B37.81 - Candidal esophagitis Category: Medical Plan: Patient was advised to reach out to Gastroenterology to schedule follow up appointment. Per discharge paperwork patient to be seen 2 months after discharge. She has finished her fluconazole at this time. Her symptoms have improved continue to monitor symptoms at this time and advised patient to reach out if symptoms worsen we will returned. (3) Esophageal ulceration: Code(s): K22.10 - Ulcer of esophagus without bleeding Category: Medical Plan: Patient was advised to reach out to Gastroenterology to schedule follow up appointment. Per discharge paperwork patient to be seen 2 months after discharge. (4) Chronic GERD: Code(s): K21.9 - Gastro-esophageal reflux disease without esophagitis Category: Medical Plan: Avoid trigger foods such as citrus, tomato products, soda, caffeine, spicy foods and other foods that may be irritating to your stomach. Avoid laying flat 3-4 hours after eating and elevate the head of the bed 30 degrees to prevent acid from moving into the esophagus. Continue on pantoprazole b.i.d. for 2 months and then switch to daily. Plan The patient will continue taking antifungal medication for the oropharyngeal fungal infection. GERD management includes continuing Pantoprazole twice daily for two months followed by a consultation with a gastroenterology specialist, potentially addressing further intervention or endoscopy. The patient has been advised on dietary modifications to aid GERD symptom control. The recently resolved urinary tract infection will be monitored, with no further treatment given its resolution. A follow-up appointment with Dr. Montiel is scheduled for August. If any symptoms persist or worsen, additional evaluations will be conducted as needed. This note was constructed using voice recognition software. While every effort has been made to ensure accuracy and platinum and palladium kettle tender, still areas may have been included sometimes these areas may affect the content or meeting of the given symptoms. Total time spent caring for the patient today was 30 minutes. This includes time spent before the visit reviewing the chart, time spent during the visit, and time spent after the visit and documentation. Patient was informed and verbally consented to the use of an ambient scribe for clinic note documentation during this visit.
--- OUTSIDE RECORDS SUMMARY | 2024-06-16 12:14 | XMS_ITS ---
Author Organization [facility] [place] Address [address] [place] [address] Care Team Providers Care Green Meat Grader Name Role Phone Varun ESPANA, Ana Luisa Primary Care Provider Unavail able Aftab Olsen Unavailable [phone] Allergies Allergen (clinical drug ingredient) Drug/Non Drug [...] Status W/U Status Risk Notes Problem Onychomycosis (822139392) Onychomycosis (B35.1) Active confirmed Vital Signs Height 5ft 10in in 03/21/2024 Weight 169 lbs 03/21/2024 BMI 24.25 kg/m2 03/21/2024 Blood pressure systolic 119 mm Hg 03/21/19 25 Blood pressure diastolic 70 mm Hg 025 Procedures Procedure Date Ordered Date Performed Result Body Sit e 42475-RGJ 03/21/2024 N/A Encounters Encounter Location Date Provider Diagnosis [facility] [place] [address] [place] [address] 03/21/2024 Aftab Raúl Pain in right toe(s) [...] Treatment Pending Test Test Name Order Date [id number] 03/21/2024 Next Appt Details Follow Up: 2-3 Weeks, Reason : Provider Name:Aftab Olsen , 06/29/2024 10:45:00 AM, [address] [place] [address], [place] [address], [place], [address], Procedure Notes * Category Sub-Category Detail Notes [...] * AMANDAMis DUARTEOB: 6 (38 yo F)Acc No.[id number]:03/21/2024 Progress Notes Patient:?Teresa LARSEN Provider:?Aftab Olsen DPM :1985???Age:38 Y???Sex:Female D ate:03/21/2024 Address: [address] [id number] Pcp:Aan Luisa Bond MD Subjective: * Chief Complaints: [...] postop pain meds were deferred.? * Procedure Codes:?48041 REMOV AL OF NAIL BED, Modifiers: TA [...] Olsen DPM Date:?2024 Generated for Marlen justin/Karen/Colton on:?06/16/2024 12:14 PM EDT History and Physical Notes * [...]
--- OUTSIDE RECORDS SUMMARY | 2024-06-16 12:14 | XMS_ITS ---
Author Organization [facility] jose [place] Address [address] [place] [address] Care Team Providers Care Tooling Supervisor Name Role Phone Varun ESPANA, Ana Luisa Primary Care Provider Unavail able Aftab Olsen Unavailable [phone] Allergies Allergen (clinical drug ingredient) Drug/Non Drug [...] Ordered Date Performed Result Body Sit e 78009-NTYLIRE SKIN/TISSUE 02/25/2024 N/A Encounters Encounter Location Date Provider Diagnosis [facility] [place] [address] [place] [address] 02/25/2024 Aftab Olsen Skin ulcer of toe [...] INSTRUCTIONS.pdf) Pending Test Test Name Order Date 10307-GCZMPBZ SKIN/TISSUE 02/25/2024 Next Appt Details Follow Up: 4 Weeks, Reason: Provider Name:Aftab Olsen , 06/29/2024 10:45:00 AM, [address] [facility], [place] [address], [place], [address], Procedure Notes * Category Sub-Category Detail Notes [...] of the wound post debriement is stable (84379) Progress Notes * Mis LARSENOB: 6 (38 yo F)Acc No.[id number]:02/25/2024 Progress Notes Patient:?DIAZVEGA, Teresa Provider:?Aftab Olsen DPM [...] of the wound post debriement is stable (59830).? * Procedure Codes:?60604 DEBRI DE SKIN/TISSUE * Preventive Medicine:? ??Counseling:?Ulcer:?A [...]
--- OUTSIDE RECORDS SUMMARY | 2024-06-16 12:14 | XMS_ITS ---
Author Organization [facility] [place] jose [place] Address [address] [place] [address] Care Team Providers Care Water [employer]er Systems Supervisor Name Role Phone Varun ESPANA, Ana Luisa Primary Care Provider Unavail able Aftab Olsen Unavailable [phone] Allergies Allergen (clinical drug ingredient) Drug/Non Drug [...] Ordered Date Performed Result Body Sit e 10447-NEDDZBY SKIN/TISSUE 04/04/2024 N/A Encounters Encounter Location Date Provider Diagnosis [facility] [place] [address] [place] [address] 04/04/2024 Aftab Olsen Pain in right toe(s) [...] Date Notes Ciclopirox 0.77 % 1 application Gift Shop Clerk ally Once a day for 30 days Treatment Notes Assessment Notes Skin ulcer of toe of left fo ot with fat layer exposed Patient Educated with: WOUND CARE INSTRUCTIONS.pdf (WOUND CARE INSTRUCTIONS.pdf) Pending Test Test Name Order Date 20922-MGJTIDB SKIN/TISSUE 04/04/2024 Next Appt Details Follow Up: 2-3 Months, Reaso n: Provider Name:Aftab Olsen , 06/29/2024 10:45:00 AM, [address] [facility], [place] [address], [place], [address], Procedure Notes * Category Sub-Category Detail Notes [...] of the wound post debriement is stable (40149) Progress Notes * Mis LARSENOB: 6 (38 yo F)Acc No.[id number]:04/04/2024 Progress Notes Patient:?JHONYLIVTeresa Provider:?Aftab Olsen DPM :1985???Age:38 Y???Sex:Female D ate:04/04/2024 [facility] Pcp:Ana Luisa Bond MD Subjective: * [...] of left foot with fat layer exposed?Procedure: 57587-SPKJCKF SKIN/TISSUE Notes: Patient Educated with: WOUND CARE [...] of the wound post debriement is stable (67508).? * Procedure Codes:?93304 DEBRI DE SKIN/TISSUE * Preventive Medicine:? ??Counseling:?Discussion:?-13: [...] Provider:?Aftab Olsen DPM Date:?2024 Generated for Marlen justin/Karen/Jenniferitting on:?06/16/2024 12:13 PM EDT History and Physical Notes * [...]
--- OUTSIDE RECORDS SUMMARY | 2024-06-16 12:14 | XMS_ITS | Patient Health Record ---
[facility] g[facility] [place] Address [address] [place] [address] Care Team Providers Care Micro Photographer Name Role Phone Varun ESPANA, Ana Luisa Primary Care Provider Unavail able Aftab Olsen Unavailable [phone] Allergies Allergen (clinical drug ingredient) Drug/Non Drug Allergy documented on EMR Reaction Allergy Type Onset Date Status adalimumab Yusimry diarrhea Drug Allergy Active Reason For Referral Reason ingrown nail Diagnosis 1 Ingrown nail (L60.0) Referring Provider First Name Marjorie Referring Provider Last Name Dao [facility] Referred Provider Aftab Olsen Referred Address [address] [facility],[place], [place],[address], Referred Provider Specialty Podiatry Referral Priority Routine [...] Status W/U Status Risk Notes Problem Onychomycosis (473540193) Onychomycosis (B35.1) Active confirmed Vital Signs Blood pressure diastolic 64 mm Hg 04/04/2024 Height 5ft 10in in 04/04/2024 Blood pressure systolic 116 mm Hg 04/04/2024 Weight 169 lbs 04/04/2024 BMI 24.25 kg/m2 04/04/2024 Procedures Procedure Date Ordered Date Performed Result Body Sit e 51987-YXP 12/30/2023 N/A 97811-JJG 01/20/2024 N/A 40190-KMZLIKR SKIN/TISSUE 01/20/2024 N/A 99019- Debride <25 sq cm 02/03/2024 N/A 74937-IAJFXMK SKIN/TISSUE 02/03/2024 N/A 64682-VMJWMDY SKIN/TISSUE 02/25/2024 N/A 68564-QBI 03/21/2024 N/A 21929-SBBPFEN SKIN/TISSUE 04/04/2024 N/A Encounters Encounter Location Date Provider Diagnosis [address] [address] 12/30/2023 Aftab Raúl Ingrown nail L60.0 ; Pain in left foot M79.672 ; Pain in left ankle and joints of left foot M25.572 ; Bursitis of left foot M77.52 and Hallux valgus (acquired), left foot M20.[address] [address] 01/20/2024 Aftab Raúl Ingrown nail L60.0 and Skin ulcer of toe of left foot with fat layer exposed L97.[address] [address] 02/03/2024 Aftab Raúl Skin ulcer of toe of left foot, limited to breakdown of skin L97.521 and Skin ulcer of toe of right foot with fat layer exposed L97.512 [place] [address] [address] 02/25/2024 Aftab Olsen Skin ulcer of toe of right foot with fat layer exposed L97.[address] [address] 03/21/2024 Aftab Olsen Pain in right toe(s) M79.674 ; Onychomycosis B35.1 ; Pain in left toe(s) M79.675 and Ingrown nail L60.[address] 04/04/2024 Aftab Olsen Pain in right toe(s) M79.674 ; Onychomycosis B35.1 ; Pain in left toe(s) M79.675 and Skin ulcer of toe of left foot with fat layer exposed L97.522 [facility] [address] 09/08/2023 Aftab Olsen [address] [address] 02/03/2024 Aftab Olsen Assessments Encounter Date Diagnosis [...] Treatment Pending Test Test Name Order Date 95560-XPJ 12/30/2023 05270-WUG 01/20/2024 70762-QGH 03/21/2024 47025- Debride <25 sq cm 02/03/2024 14045-AAJXIPM SKIN/TISSUE 02/03/2024 74809-ANUVLZK SKIN/TISSUE 02/25/2024 04712-XCQYRSO SKIN/TISSUE 01/20/2024 79866-OTEGEDK SKIN/TISSUE 04/04/2024 Next Appt Details Provider Name:Aftab Olsen , 06/29/2024 10:45:00 AM, [address] [facility], [address], [place], [address], Insurance Providers Payer Name Payer Address Payer Phone Subscriber Number Group Number Insured Name Patient Relationship to Insured Coverage Start Date Coverage End Date [employer] ADAM [address] [place] [phone] [id number] Teresa Larsen Self - patient is the [...]
== END 2024-06-16 11:08 | disposition home or self-care (01) ==
LOC: HO.HMCH 10:33
PROVIDERS: PCP Internal Medicine
DX: B37.81 Candidal esophagitis (principal); K22.10 Ulcer of esophagus without bleeding; K21.9 Gastro-esophageal reflux disease without esophagitis

== ENCOUNTER → 2024-06-16 10:32 | Outpatient (BNVA) | payer OTHER, SELFPAY | PROVIDERS: PCP Internal Medicine | DX: Z13.89 Encounter for screening for other disorder (principal) ==

== ENCOUNTER 2024-08-02 09:33 | Outpatient (REF) | payer OTHER, SELFPAY ==
--- NOTE | ~2024-08-02 | FL_ITS ---
EXAMINATION: XR FLUOROSCOPY UPPER GI WITH AIR CLINICAL INFORMATION: Gastroesophageal reflux disease without esophagitis. History of thrush. Dysphagia. Follow-up. COMPARISON: None TECHNIQUE: Fluoroscopic air contrast upper GI examination was performed utilizing standard techniques with thin and thick barium and effervescent granules. Numerous spot images were obtained. Several fluoroscopic image hold cine sequences were also obtained. FINDINGS: UPPER GI SERIES: Lateral cine images of the oropharynx and hypopharynx demonstrate normal swallow mechanism with normal epiglottic inversion and soft palate elevation. No laryngeal penetration, glottic or subglottic aspiration identified. No nasopharyngeal reflux present. Hypopharyngeal structures appear normal without evidence of mass or diverticulum. There was no significant cricopharyngeal achalasia. Dual and single contrast images of the esophagus demonstrate normal caliber, contour, and mucosal pattern. No evidence of stricture, mass, or ulcerations identified. Esophageal peristalsis was normal. Tiny type I hiatus hernia. No significant gastroesophageal reflux was seen during the course of the examination and on reflux views. Dual contrast and single contrast images of the stomach demonstrated normal contour and mucosal pattern without evidence of mass, ulceration, or other abnormality. Contrast freely passed into the gastric antrum and duodenal bulb without delay. Single and air-contrast images of the duodenal bulb demonstrate no abnormality. The duodenal sweep has a normal appearance, course, and mucosal fold appearance. Mildly fast contrast transit through the small bowel noted, nonspecific. FLUOROSCOPY TIME: 3 minutes 9 seconds Number of Spot Images:15 Number of cines obtained: 8 DOSE AREA PRODUCT: 2909 uGy-m2 (microgray-meter squared) . FL/FL upper GI w air IMPRESSION: 1. Tiny type I hiatus hernia. 2. No significant gastroesophageal reflux identified during the examination. 3. Normal appearing esophagus, stomach, and duodenum. 4. Mildly fast contrast through the small bowel, nonspecific. Electronically signed by: Torres Curry MD 08/02/2024 01:41 PM EDT
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
== END 2024-08-02 09:34 | disposition home or self-care (01) ==
LOC: HO.XRAY 09:33
PROVIDERS: PCP Internal Medicine; Visit Provider Internal Medicine
DX: K21.9 Gastro-esophageal reflux disease without esophagitis (principal)
CPT/HCPCS: 74246

== ENCOUNTER → 2024-08-02 09:35 | Outpatient (BNV) | payer OTHER, SELFPAY | PROVIDERS: PCP Internal Medicine; Visit Provider Radiology Diagnostic Radiology | DX: K21.9 Gastro-esophageal reflux disease without esophagitis (principal); K44.9 Diaphragmatic hernia without obstruction or gangrene | CPT/HCPCS: 74246 ==

== ENCOUNTER 2024-08-22 11:30 | Outpatient (AMB) | payer OTHER, SELFPAY ==
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
[2024-08-22 11:38] VITALS: BP 109/55; PULSE 102; BMI 21.8
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
== END 2024-08-22 12:04 | disposition home or self-care (01) ==
LOC: HO.HGI 11:31
PROVIDERS: PCP Internal Medicine; Visit Provider Internal Medicine
DX: K21.9 Gastro-esophageal reflux disease without esophagitis (principal); K22.10 Ulcer of esophagus without bleeding; R13.10 Dysphagia, unspecified
CPT/HCPCS: 99214

== ENCOUNTER 2024-08-30 09:55 | Outpatient (AMB) | payer OTHER, SELFPAY ==
[2024-08-30 10:17] VITALS: BP 102/62; BMI 22.8
--- NOTE | 2024-08-30 10:17 | MHC.PC.OV ---
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 Required: No Accompanied by: Self / Same As Patient Allergies yusimry Adverse Reaction (Intermediate, Uncoded 08/30/24 10:39) Diarrhea Medication List - Last Reconciled 08/30/24 by Ana Luisa Murry MD ascorbic acid (vitamin C) 500 mg PO DAILY ascorbic acid-collagen 30-833.3 mg (Collagen Skin Renewal) 1 tab PO DAILY [exufiber ag+ As directed] folic acid 2 mg (2 x 1 mg) PO DAILY ixekizumab (Taltz Autoinjector) 80 mg subcut Q4W methotrexate sodium 10 mg PO WE pantoprazole 20 mg PO QAM 90 days Tobacco use date assessed: 06/16/24 Dental Screening Dental Screen Date: 06/16/24 HPI HPI Comments History of Present Illness Details The patient is a 38-year-old female presenting with depression and anxiety management for her physical exam. The patient reports experiencing significant depression, which she describes as pretty strong. She has not previously used any medication for depression or anxiety. The patient also reports anxiety, stating that she has everything, indicating a broad range of symptoms. The patient has a history of psoriatic arthritis, for which she is currently taking medication. She also has a history of gastroesophageal reflux disease (GERD) and has undergone an endoscopy to assess the condition. The patient has been prescribed pantoprazole for GERD management. The patient underwent breast reduction surgery with implant placement and has a history of abdominoplasty. She was scheduled for laser surgery, which was canceled twice, causing significant distress. [facility] Medical History (Updated 08/30/24 @ 12:00 by Ana Luisa Murry MD) Psoriatic arthritis Dysphagia Seroma due to trauma Mild recurrent major depression Abscess of left foot Open wound Blurry vision Macrocytosis Surgical History History of esophagogastroduodenoscopy (EGD) S/P debridement H/O skin graft History of abdominoplasty History of breast implant History of bilateral breast reduction surgery Family History Mother Hypertension Father Rheumatoid arthritis Family/Other Mental health disorder Paternal Uncle Colon cancer Paternal Aunt Lung cancer Maternal Grandmother Uterine cancer Social History Household Members: None Household Members Other:: lives alone Housing: Apartment Are you a primary care management coordinator to a significant other at home: No Do you presently have visiting nurse or other home services: No Alcohol intake: never Patient Tobacco Use Status: Never used Tobacco e-Cigarette/Vaping Use: Never Used Second Hand Smoke Exposure: No Substance Use Type: Marijuana Advance Directives Date on File: 08/08/22 service: No Current occupational status: employed Current occupational exposures/hazards: No Cognitive needs: No Hearing needs: No Vision needs: No Female Reproductive History Menstrual Age of Menarche: 11 Questionnaire PHQ-9 Over the last 2 weeks, how often have you been bothered by any of the following problems? 1. Little interest or pleasure in doing things: not at all 2. Feeling down, depressed, or hopeless: nearly every day 3. Trouble falling or staying asleep, or sleeping too much: nearly every day 4. Feeling tired or having little energy: nearly every day 5. Poor appetite or overeating: nearly every day 6. Feeling bad about yourself - or that you are a failure or have let yourself or your family down: nearly every day 7. Trouble concentrating on things, such as reading the newspaper or watching television: more than half the days 8. Moving or speaking so slowly that other people could have noticed. Or the opposite - being so fidgety or restless that you have been moving around a lot more than usual: more than half the days 9. Thoughts that you would be better off or of hurting yourself in some way: not at all Total score: 19 Depression Screening Interpretation: Positive Depression Screening Follow-up: Existing condition, New Medication prescribed and Follow-up Visit Requested Depression Screening Done: Yes 19544 - PHQ-9 Billing: Yes Source: Developed by Drs. Oneil Wood, Dulce Pineda, Adonay Wheeler and colleagues, with an educational spencer from [employer]. Thrive Questionnaire Date Thrive assessed: 06/16/24 I am a: Patient What is your living situation today?: I have a steady place to live Within the past 12 months, did the food you bought not last and you didn't have the money to get more?: Never true Within the past 12 months, did you worry whether your food would run out before you got money to buy more?: Never true Do you have trouble paying for medicines?: No Do you have trouble getting transportation to medical appointments?: No Do you have trouble paying your heating and electricity bill?: No Do you have trouble taking care of your child, family member or friend?: No Do you have trouble with day-to-day activities such as bathing, preparing meals, shopping, managing finances, etc.?: Yes Are you currently unemployed and looking for a job?: No Are you interested in more education?: Yes Please select the resources that you would like help with: Education Currently or been in a relationship where the following occur: I choose not to answer THRIVE Score: 0 AUDIT C Alcohol Use Questionnaire (AUDIT-C) 1. How often do you have a drink containing alcohol?: Never Total Score: 0 Score Reviewed/Action Taken: No BRUNO-7 AMB Questionnaire BRUNO-7 Date BRUNO - 7 assessed: 05/09/24 Feeling nervous, anxious, or on edge: 3 = Nearly every day Not being able to stop or control worryin = Nearly every day Worrying too much about different things: 3 = Nearly every day Trouble relaxin = Nearly every day Being so restless that it is hard to sit still: 3 = Nearly every day Becoming easily annoyed or irritable: 3 = Nearly every day Feeling afraid as if something awful might happen: 2 = More than half the days Total BRUNO-7 score (0-4 normal; 5-9 mild; 10-14 moderate; 15-21 severe): 20 Source: Developed by Drs. Oneil Wood, Dulce Pineda, Adonay Wheeler and colleagues, with an educational spencer from [employer]. BRUNO-7 Assessment Billing BRUNO-7 Assessment Tool: BRUNO-7 Assessment 41823 Review of Systems Const All systems reviewed & are unremarkable except as noted in HPI and below Card Denies chest pain at rest, Denies chest pain with activity, Denies edema, Denies irregular heart rhythm, Denies claudication, Denies dyspnea, Denies dyspnea on exertion, Denies orthopnea, Denies paroxysmal nocturnal dyspnea and Denies slow heart rate Resp Denies cough, Denies dyspnea and Denies dyspnea on exertion Physical exam (Primary Care) Vital Signs: Last Vital Signs BP 102/62 08/30/24 10:17 BMI result Body Mass Index 22.8 Tobacco/Smoking Status: Tobacco use Status Tobacco use date assessed 06/16/24 08/30/24 10:19 Patient Tobacco Use Status Never used Tobacco 08/30/24 10:19 Tobacco use type 05/10/24 07:59 e-Cigarette/Vaping Use Never Used 08/30/24 10:19 PHQ-9: PHQ-9 Score PHQ-9: Total score 08/30/24 10:51 Depression Screening Interpretation: Positive Depression Screening Follow-up: Existing condition, New Medication prescribed and Follow-up Visit Requested Thrive Assessment: Date of Thrive Assessment Date Thrive assessed 06/16/24 08/30/24 10:19 Currently or been in a relationship where the following occur: I choose not to answer HENMT Head: Yes normal to inspection, Yes normocephalic and Yes atraumatic Ears: external ears normal Eyes General: appearance normal, both eyes and all related structures Eyelids: Yes eyelids normal Conjunctivae: conjunctivae normal Neck Neck: Yes normal visual inspection and Yes supple Resp Effort & Inspection: normal respiratory effort Auscultation: clear to auscultation bilaterally Cardio Jugular venous distension: no JVD Rate: regular rate Rhythm: regular rhythm Heart sounds: S1 normal heart sound present and S2 normal heart sound present GI Inspection: Yes normal to inspection Palpation (GI): Soft to palpation and nontender Auscultation: normal bowel sounds Skin General skin exam: no rashes or lesions noted Neuro General: no focal motor deficits Extrem General: Yes full ROM Psych Appearance: grossly normal Immunizations Boostrix Tdap 2.5 Lf unit-8 mcg-5 Lf/0.5 mL intramuscular syringe Performing Provider: Ana Luisa Murry MD Performing Location: [facility] [place] [facility] Administered by: GREGORIO Vivas on 08/30/24 10:51 Dose Route Admin Location Dispensed Lot Number Expiration Date [facility] Product Marketing Manager 0.5 mL IM Left Deltoid 0.5 mL [id number] 10/22/26 38590-337-75 [employer] Total Dispensed Waste 0.5 mL 0 % VIS Given Date VIS Provided VIS Publication Date 08/30/24 Single Vaccine 24 Eligibility Eligibility Date Funding Source Not [facility] Eligible 08/30/24 Private Coding Level of Care Code Est Pt Level 3 (12907) Est Pt Prev Care 18-39y(29542) Diagnoses Physical exam Z00.00 Severe recurrent major depression without psychotic features F33.2 PTSD (post-traumatic stress disorder) F43.10 Psoriatic arthritis L40.50 Additional Codes BRUNO-7 Assessment Billing - BRUNO-7 Assessment Tool: BRUNO-7 Assessment 92798 ([id number]) PHQ-9 - 72818 - PHQ-9 Billing: Yes ([id number]) Time Spent (min) 32 Assessment & Plan Assessment & Plan (1) Physical exam: Code(s): Z00.00 - Encounter for general adult medical examination without abnormal findings Category: Medical (2) Severe recurrent major depression without psychotic features: Code(s): F33.2 - Major depressive disorder, recurrent severe without psychotic features Category: Medical (3) PTSD (post-traumatic stress disorder): Code(s): F43.10 - Post-traumatic stress disorder, unspecified Category: Medical (4) Psoriatic arthritis: Code(s): L40.50 - Arthropathic psoriasis, unspecified Category: Medical Plan The patient will be started on sertraline for depression and anxiety management, with the understanding that it may take up to two weeks to notice improvement. She will be referred to psychiatry for further evaluation and management, with follow-up care to be coordinated once stable. The patient is advised to continue her current medication regimen for psoriatic arthritis and GERD, with regular follow-ups to monitor her condition. Preventative care measures include updating her tetanus vaccination. Patient was informed and verbally consented to the use of an ambient scribe for clinic note documentation during this visit. Orders: Orders TDaP Immunization Today Z23 - Encounter for immunization Comprehensive [place]. Panel Fast Today Z00.00 - Encounter for general adult medical examination without abnormal findings Lipid Panel Today Z00.00 - Encounter for general adult medical examination without abnormal findings Referrals Psychiatry Outpatient Consultation Service F33.2 - Major depressive disorder, recurrent severe without psychotic features, F43.10 - Post-traumatic stress disorder, unspecified Medications: New sertraline 25 mg PO DAILY 90 tabs 0RF 90 days
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
== END 2024-08-30 10:58 | disposition home or self-care (01) ==
LOC: HO.HMCH 09:56
PROVIDERS: PCP Internal Medicine; Visit Provider Internal Medicine
DX: Z00.00 Encounter for general adult medical examination without abnormal findings (principal); F33.2 Major depressive disorder, recurrent severe without psychotic features; L40.50 Arthropathic psoriasis, unspecified; F43.10 Post-traumatic stress disorder, unspecified; Z23 Encounter for immunization

== ENCOUNTER → 2024-08-30 09:55 | Outpatient (BNVA) | payer OTHER, SELFPAY | PROVIDERS: PCP Internal Medicine; Visit Provider Internal Medicine | DX: Z00.00 Encounter for general adult medical examination without abnormal findings (principal); F41.9 Anxiety disorder, unspecified; L40.50 Arthropathic psoriasis, unspecified; K21.9 Gastro-esophageal reflux disease without esophagitis; F33.2 Major depressive disorder, recurrent severe without psychotic features; F43.10 Post-traumatic stress disorder, unspecified; Z23 Encounter for immunization | CPT/HCPCS: 90471; 90715; 96127 ==

== ENCOUNTER 2024-09-12 08:59 | Outpatient (REF) | payer OTHER, SELFPAY ==
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
--- OUTSIDE RECORDS SUMMARY | 2024-09-12 09:12 | XMS_ITS | Encounter Summary ---
Author Organization [facility] Address [address] [place] [address] [place] [address] Phone Care Team Providers Care Farm Field Manager Name Role Phone Unknown, Unknown Primary Care Provider Ana Luisa Galdamez MD Primary Care Provid er Encounter Details Date Type Department Care Team (Late st Contact Info) Description 07/26/2021 Procedure Pass [facility] Periop [address] [place] [address] Social History Tobacco Use Types Packs/Day Years Used Date Smoking Tobacco: Never Smokeless Tobacco: Never Comments Unknown Sex and Gender Information Value Date Recorded Sex Assigned at Female 07/01/2023 10:52 AM EDT Legal Sex Female 10:28 PM EDT Gender Identity Female 07/01/2023 10:52 AM EDT Sexual Orientation Straight 07/01/2023 10 :52 AM EDT documented as of this encounter Plan of Treatment Not on file documented as of this encounter Visit Diagnoses Not on filedocumented in this encounter Additional Health Concerns Infection Onset Date Last Indicated Resolved Time 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 It is not the complete legal health record.[facility]
[2024-09-12 10:11] LABS: MANUAL DIFF FLAG NO
[2024-09-12 10:25] LABS: Hematocrit 39.9 % (37.0-47.0); Hemoglobin 13.5 g/dl (12.0-16.0); Imm Gran Abs Auto 0.03 X10*3/uL (0.00-0.03); Imm Gran Pct Auto 0.3 % (0.0-0.4); Lymphocytes Absolute Auto 1.5 X10*3/uL (1.2-4.9); Mean Corpuscular HGB Conc 33.8 g/dl (31.0-35.0); Mean Corpuscular Hemoglobin 35.3 pg (27.0-33.0); Mean Corpuscular Volume 104.5 fL (80.0-98.0); NRBC Abs Auto 0.000 X10*3/uL (0.0-0.012); NRBC Pct Auto 0.0 /100WBC (0.0-0.2); Platelet Count 259 X10*3/uL (160-400); Red Blood Count 3.82 X10*6/uL (4.20-5.50); White Blood Count 8.8 X10*3/uL (4.8-10.8)
[2024-09-12 10:44] LABS: HBS Num1 0.50 mIU/mL (0-7.99); HBc Num1 0.10 S/CO (0.00-0.79); HBsAGNum1 0.38 S/CO (0.00-0.99); Hepatitis A Antibody IgM 0.21 Index (0-0.79); Hepatitis B Surface Antigen Negative (Negative); ~HepC Num1 0.18 S/CO (0.00-0.79); ~Hepatitis A Antibody IgM Nonreactive (Nonreactive); ~Hepatitis B Surface Antibody NONREACTIVE (Nonreactive); ~Hepatitis C Antibody Nonreactive (Nonreactive)
[2024-09-12 10:57] LABS: Alanine Aminotransferase 64 U/L (0-31); Albumin Level 4.2 g/dL (3.5-5.0); Alkaline Phosphatase 61 U/L (39-117); Anion Gap 12 (12-20); Aspartate Amino Transferase 38 U/L (5-31); Blood Urea Nitrogen 19 mg/dL (9-16); Calcium 8.9 mg/dL (8.4-10.2); Carbon Dioxide 22 mmol/L (22-29); Chloride 108 mmol/L (96-108); Cholesterol 176 mg/dL (<200); Estimated Glomerular Filt Rate > 60; HDL Cholesterol 44 mg/dL (>40); Potassium 3.9 mmol/L (3.3-5.1); Sodium 138 mmol/L (135-145); Total Protein 7.3 g/dL (6.5-8.0); Triglycerides 66 mg/dL (<150)
[2024-09-14 19:29] LABS: TS Negative Control Passed; TS Panel A 0; TS Panel B 0; TS Positive Control Passed; TSpotTB Negative (Negative)
== END 2024-09-12 09:00 | disposition home or self-care (01) ==
LOC: HO.10HDL 08:59
PROVIDERS: Visit Provider Student in an Organized Health Care Education/Training Program
DX: L40.50 Arthropathic psoriasis, unspecified (principal); Z11.1 Encounter for screening for respiratory tuberculosis; Z00.00 Encounter for general adult medical examination without abnormal findings
CPT/HCPCS: 36415; 80053; 80061; 85025; 85652; 86140; 86481; 86704; 86706; 86709; 86803; 87340

== ENCOUNTER 2024-09-16 08:44 | Outpatient (AMB) | payer OTHER, SELFPAY ==
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
[2024-09-16 08:49] VITALS: BP 122/80; PULSE 94; O2SAT 96; BMI 23.6
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
--- OUTSIDE RECORDS SUMMARY | 2024-09-16 08:54 | XMS_ITS | Encounter Summary ---
Author Organization [facility] Address [address] [place] [address] [place] [address] Phone Care Team Providers Care Light Truck Driver Name Role Phone Unknown, Unknown Primary Care Provider Ana Luisa Galdamez MD Primary Care Provid er Encounter Details Date Type Department Care Team (Late st Contact Info) Description 07/26/2021 Procedure Pass [facility] Periop [address] [place] [address] Social History Tobacco Use Types Packs/Day Years [...] documented as of this encounter Care Teams Light Truck Driver Relationship Specialty Start Date End Date Unknown, Unknown, PCP - General 07/15/21 08/15/21 Ana Luisa Quispe MD [address] [place] [address] [place] [address] PCP - General Internal Medicine 08/16/21 documented as of this encounter Additional Source Comments The information contained in this document represents components of the legal health record. It is not the complete legal health record.[facility]
== END 2024-09-16 09:03 | disposition home or self-care (01) ==
LOC: HO.RHE 08:44
PROVIDERS: PCP Internal Medicine; Visit Provider Student in an Organized Health Care Education/Training Program
DX: L40.50 Arthropathic psoriasis, unspecified (principal); Z79.620 Long term (current) use of immunosuppressive biologic
CPT/HCPCS: 99214

== ENCOUNTER 2025-01-10 10:35 | Outpatient (REF) | payer OTHER, SELFPAY ==
[2025-01-10 11:48] LABS: MANUAL DIFF FLAG NO
[2025-01-10 12:00] LABS: Hematocrit 43.3 % (37.0-47.0); Hemoglobin 13.8 g/dl (12.0-16.0); Imm Gran Abs Auto 0.03 X10*3/uL (0.00-0.03); Imm Gran Pct Auto 0.4 % (0.0-0.4); Lymphocytes Absolute Auto 3.3 X10*3/uL (1.2-4.9); Mean Corpuscular HGB Conc 31.9 g/dl (31.0-35.0); Mean Corpuscular Hemoglobin 32.9 pg (27.0-33.0); Mean Corpuscular Volume 103.1 fL (80.0-98.0); NRBC Abs Auto 0.000 X10*3/uL (0.0-0.012); NRBC Pct Auto 0.0 /100WBC (0.0-0.2); Platelet Count 303 X10*3/uL (160-400); Red Blood Count 4.20 X10*6/uL (4.20-5.50); White Blood Count 8.1 X10*3/uL (4.8-10.8)
[2025-01-10 12:30] LABS: Alanine Aminotransferase 28 U/L (0-31); Albumin Level 4.0 g/dL (3.5-5.0); Alkaline Phosphatase 67 U/L (39-117); Anion Gap 10 (12-20); Aspartate Amino Transferase 23 U/L (5-31); Blood Urea Nitrogen 13 mg/dL (9-16); Calcium 9.5 mg/dL (8.4-10.2); Carbon Dioxide 27 mmol/L (22-29); Chloride 105 mmol/L (96-108); Estimated Glomerular Filt Rate > 60; Potassium 3.9 mmol/L (3.3-5.1); Sodium 138 mmol/L (135-145); Total Protein 7.1 g/dL (6.5-8.0)
== END 2025-01-10 10:36 | disposition home or self-care (01) ==
LOC: HO.10HDL 10:35
PROVIDERS: Visit Provider Student in an Organized Health Care Education/Training Program
DX: L40.50 Arthropathic psoriasis, unspecified (principal)
CPT/HCPCS: 36415; 80053; 85025; 85652; 86140

== ENCOUNTER 2025-01-17 09:18 | Outpatient (AMB) | payer OTHER, SELFPAY ==
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
[2025-01-17 09:27] VITALS: BP 102/64; PULSE 94; O2SAT 98; BMI 22.5
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
== END 2025-01-17 10:13 | disposition home or self-care (01) ==
LOC: HO.RHES 09:19
PROVIDERS: PCP Internal Medicine; Visit Provider Student in an Organized Health Care Education/Training Program
DX: L40.50 Arthropathic psoriasis, unspecified (principal); B37.0 Candidal stomatitis; Z79.620 Long term (current) use of immunosuppressive biologic
CPT/HCPCS: 99214